=== PATIENT | female | born 1960 | race Caucasian/White ===

== ENCOUNTER 2020-06-28 08:56 | Day surgery (SDC) | payer BC, SELFPAY ==
[2020-06-21 15:30] VITALS: BMI 30.9
--- NOTE | 2020-06-22 14:36 | HO.ANESPROP2 ---
Documented by User: Marsha Hines 06/27/20 09:08 HPI - Anesthesia Eval Consult details Narrative: 59yo F for Colonoscopy PMFSH Past Medical History Medical History Coronary artery disease Fatty liver Hypercholesterolemia Hypertension Hypothyroid Impaired glucose tolerance Lab test negative for COVID-19 virus Obesity (BMI 30-39.9) Family History Family History Father HTN (hypertension) Diabetes mellitus Mother No problems noted. Surgical History Surgical History History of back surgery History of cholecystectomy History of removal of cyst History of total abdominal hysterectomy Hx of arthroscopic knee surgery Social History Social History Alcohol intake: current Smoking Status: Never smoker Use of substances other than those prescribed or required for medical reasons: No Advance Directives Information Provided: No Recently lost weight without trying: No Meds Allergies Allergy/AdvReac Type Severity Reaction Status Date / Time isosorbide [From Imdur] Allergy Intermediate Headache Verified 06/21/20 14:13 lisinopril Allergy Intermediate CLAIRE-I Cough Verified 06/21/20 14:13 nifedipine [From ADALAT] Allergy Intermediate VISUAL Verified 06/21/20 14:13 DISTURBANCE valsartan Allergy Intermediate DIZZINESS Verified 06/21/20 14:13 Home Medications Medication Instructions Recorded Confirmed Type aspirin 81 mg tablet,delayed 81 mg PO DAILY 04/13/20 06/21/20 History release cyanocobalamin (vitamin B-12) 1,000 mcg PO DAILY 04/13/20 06/21/20 History 1,000 mcg capsule atenolol 25 mg PO DAILY 06/21/20 06/21/20 History losartan 25 mg PO BID 06/21/20 06/21/20 History Exam Exam Date and Time: June 22, 2020 1436 Height,Weight and Vital Signs: Height 5 ft 4 in Weight 81.647 kg Narrative Narrative: Cath 07/2019: No evidence of obstructive CAD EKG 04/2020: NSR @71, Nonspecific ST and T wave abn ECHO 2019: EF 60-65%, mild increased LV wall thickness; impared relax; mod septal asymm hypertrophy without any clear obstructive pathology; normal valves; normal RV systolic pressure; No pericardial effusion Assessment and Plan Assessment Anesthesia Assessment: Chart Reviewed Documented by User: Jose D Cherry 06/28/20 09:15 PMFSH Past Medical History Medical History Coronary artery disease Fatty liver Hypercholesterolemia Hypertension Hypothyroid Impaired glucose tolerance Lab test negative for COVID-19 virus Obesity (BMI 30-39.9) Family History Family History Father HTN (hypertension) Diabetes mellitus Mother No problems noted. Surgical History Surgical History History of back surgery History of cholecystectomy History of removal of cyst History of total abdominal hysterectomy Hx of arthroscopic knee surgery Social History Social History Alcohol intake: current Smoking Status: Never smoker Use of substances other than those prescribed or required for medical reasons: No Advance Directives Information Provided: No Recently lost weight without trying: No Meds Allergies Allergy/AdvReac Type Severity Reaction Status Date / Time isosorbide [From Imdur] Allergy Intermediate Headache Verified 06/21/20 14:13 lisinopril Allergy Intermediate CLAIRE-I Cough Verified 06/21/20 14:13 nifedipine [From ADALAT] Allergy Intermediate VISUAL Verified 06/21/20 14:13 DISTURBANCE valsartan Allergy Intermediate DIZZINESS Verified 06/21/20 14:13 Home Medications Medication Instructions Recorded Confirmed Type aspirin 81 mg tablet,delayed 81 mg PO DAILY 04/13/20 06/21/20 History release cyanocobalamin (vitamin B-12) 1,000 mcg PO DAILY 04/13/20 06/21/20 History 1,000 mcg capsule atenolol 25 mg PO DAILY 06/21/20 06/21/20 History losartan 25 mg PO BID 06/21/20 06/21/20 History Exam Airway Mallampati Class: II TM Dist: >3cm Neck ROM: Full
[2020-06-28 09:30] VITALS: BP 158/89; PULSE 58; RESP 16; TEMP 36.2; O2SAT 97
[2020-06-28] MEDS: Lactated Ringers 1,000 ML 100 ML IVCONT (09:36)
--- NOTE | 2020-06-28 10:34 | W.PM.OPN ---
Operative Note Operative Note Date of Service: 06/28/20 Narrative: Pre-op diagnosis: Colon cancer screening Post-op diagnosis: other (Polyps, diverticulosis, hemorrhoids) Procedure: COLONOSCOPY TILL CECUM WITH BIOPSIES Consent: Indications for the procedure and potential complications of bleeding, perforation, reaction to medications and missed diagnosis were discussed with the patient and informed consent was obtained. Instrument: Olympus PCF H 190 L variable stiffness pediatric colonoscope Monitoring: Vital signs and clinical assessment, intermittent blood pressure monitoring, continuous EKG monitoring, Pulse oximetry and Carbon Dioxide monitoring were done throughout the procedure. Colon withdrawl time was 16 minutes. Procedure: The patient was placed in the left lateral decubitis position and pre-procedure medications were administered. After a digital rectal examination of the ano-rectum, the video colonoscope was inserted into the rectum and advanced through the colon to the cecum. The colonoscope was slowly withdrawn in a retrograde panoramic fashion and the colon mucosa was carefully examined including a retroflexed view of the rectum. Findings and interventions are described below. Procedure Difficulty: Without difficulty Findings: Terminal Ileum: Not evaluated Cecum: Normal Ascending Colon: ? 4-5 mm polyp versus fold in proximal AC - biopsied. Transverse Colon: Normal Descending Colon: Moderate diverticulosis Sigmoid Colon: Moderate diverticulosis Rectum: A 3-4 mm diminutive appearing polyp - removed by cold biopsy Ano-rectum: Moderate internal hemorrhoids and perianal skin tags Colon preparation: Excellent Impression and Post Procedure Diagnosis: Colonoscopy Findings: One tiny polyp removed ? polyp versus fold was biopsied in the AC. Moderate diverticulosis seen in the left colon Moderate hemorrhoids on retroflexed exam. Plan: Await pathology results Patient has an appointment on 07/12/20 in the GI Clinic with ROULA Pizarro. Repeat Colonoscopy interval based on path results - in 5 years if polyps are adenomatous and 10 years if polyps are hyperplastic. Above findings were reviewed with the patient and colon polyps and diverticulosis handouts were given in the discharge area Surgeon: De King MD Anesthesia: MAC (Jessica Kam CRNA ) Estimated blood loss (mL): 0 Pathology: other (A. AC polyp versus fold, B. Rectal polyp x 1) Condition: stable Disposition: PACU
--- NOTE | 2020-06-28 10:34 | MHC.SHP ---
Pre-Procedural Eval Section A The patient is an INPATIENT: No The History & Physical has been completed within 30 days and I have reviewed it.: No Section B Chief Complaint: Screening Details of Present Illness: Colon cancer screening Relevant Family History (Specify if Yes): No Relevant Social History: None Present Medications: see Short Stay Collaborative assessment Medical History: Significant History (Hypertension. Hypercholesterolemia. Hypothyroidism. Seasonal allergies. Microscopic hematuria. ) History of Previous Operations: Relevant previous surgery/procedure and date(s) (hysterectomy back surgery gall bladder cyst removal;right knee ) Allergies: Allergies Allergy/AdvReac Type Severity Reaction Status Date / Time isosorbide [From Imdur] Allergy Intermediate Headache Verified 06/21/20 14:13 lisinopril Allergy Intermediate CLAIRE-I Cough Verified 06/21/20 14:13 nifedipine [From ADALAT] Allergy Intermediate VISUAL Verified 06/21/20 14:13 DISTURBANCE valsartan Allergy Intermediate DIZZINESS Verified 06/21/20 14:13 Review of Systems Sugical H&P ROS: Negative: Constitution, Cardiovascular, Respiratory and Gastrointestinal Exam Surgical H&P Exam: Normal: Heart, Normal: Lungs, Normal: Extremities and Normal: Abdomen Plan Diagnosis/Plan: Unchanged I have reviewed the history and physical and performed a pertinent physical examination on my patient. No changes have occurred unless specified.
[2020-06-28 11:12] VITALS: BP 135/66; PULSE 60; RESP 16; TEMP 36.9; O2SAT 97
[2020-06-28 11:25] VITALS: BP 135/70; PULSE 66; RESP 16; TEMP 36.9; O2SAT 97
--- NOTE | 2020-06-28 11:37 | HO.POSTANES ---
Post Anesthesia Evaluation Post Anesthesia Evaluation Vital Signs: Vital Signs Temp Pulse Resp BP Pulse Ox 06/28/20 11:25 98.5 F 66 16 135/70 97 06/28/20 11:12 98.5 F 60 16 135/66 97 06/28/20 09:30 97.2 F 58 16 158/89 H 97 Anesthesia: Monitored Mental Status: Awake Pain Control: Satisfactory Nausea/Vomiting: None Hydration: Adequate Anesthesia-Related Issues: No Anes. Related Issues
== END 2020-06-28 11:41 | disposition home or self-care (01) ==
PROVIDERS: PCP Internal Medicine; Visit Provider Internal Medicine Gastroenterology
PROC: 0DJD8ZZ Inspection of Lower Intestinal Tract, Via Natural or Artificial Opening Endoscopic (ICD-10-PCS; CPT 45378; principal; 2020-06-28 10:30)
DX: Z12.11 Encounter for screening for malignant neoplasm of colon (principal); K63.5 Polyp of colon; K62.1 Rectal polyp; K57.30 Diverticulosis of large intestine without perforation or abscess without bleeding; K64.8 Other hemorrhoids; I10 Essential (primary) hypertension; I20.8 Other forms of angina pectoris; E78.00 Pure hypercholesterolemia, unspecified; Z79.899 Other long term (current) drug therapy
CPT/HCPCS: 45380; 88305

== ENCOUNTER → 2020-07-12 09:46 | Outpatient (BNVA) | payer BC, SELFPAY | PROVIDERS: Visit Provider Physician Assistant | DX: Z76.89 Persons encountering health services in other specified circumstances (principal) ==

== ENCOUNTER 2020-07-15 09:56 | Outpatient (REF) | payer BC, SELFPAY ==
[2020-07-15 11:24] LABS: Alanine Aminotransferase 30 U/L (0-31); Albumin Level 4.4 g/dL (3.5-5.0); Alkaline Phosphatase 62 U/L (39-117); Anion Gap 15 (12-20); Aspartate Amino Transferase 22 U/L (5-31); Bilirubin Total 1.3 mg/dL (0.0-1.0); Blood Urea Nitrogen 12 mg/dL (9-16); Carbon Dioxide 25 mmol/L (22-29); Chloride 105 mmol/L (96-108); Cholesterol 257 mg/dL; Estimated Glomerular Filt Rate > 60; Glucose Random 110 mg/dL (60-115); HDL Cholesterol 48 mg/dL; LDL Cholesterol Calculated 176 mg/dl; Potassium 4.8 mmol/l (3.3-5.1); Sodium 140 mmol/L (135-145); Total Protein 7.5 g/dL (6.5-8.0); Triglycerides 168 mg/dL
[2020-07-15 11:39] LABS: Free T4 (Free Thyroxine) 0.96 ng/dL (0.71-1.85)
== END 2020-07-15 09:57 | disposition home or self-care (01) ==
LOC: HO.LAB 09:56
PROVIDERS: PCP Internal Medicine; Visit Provider Internal Medicine
DX: R73.02 Impaired glucose tolerance (oral) (principal); E03.9 Hypothyroidism, unspecified; E78.00 Pure hypercholesterolemia, unspecified
CPT/HCPCS: 36415; 80053; 80061; 84439; 84443

== ENCOUNTER 2020-10-25 08:35 | Outpatient (REF) | payer BC, SELFPAY ==
[2020-10-25 09:17] LABS: MANUAL DIFF FLAG NO
[2020-10-25 09:21] LABS: Basophils Percent Auto 0.2 % (0-2); Eosinophils Absolute Auto 0.1 X10*3/uL (0.0-0.4); Eosinophils Percent Auto 2.3 % (0-4); Hematocrit 43.9 % (37-47); Imm Gran Abs Auto 0.01 X10*3/uL (0.00-0.03); Imm Gran Pct Auto 0.2 % (0.0-0.4); Lymphocytes Absolute Auto 3.2 X10*3/uL (1.2-4.9); Lymphocytes Percent Auto 51.2 % (20-40); Mean Corpuscular HGB Conc 31.9 g/dl (31.0-35.0); Mean Corpuscular Hemoglobin 29.2 pg (27.0-33.0); Mean Corpuscular Volume 91.5 fL (80-98); Mean Platelet Volume 10.9 fL (9.4-12.3); Monocytes Absolute Auto 0.6 X10*3/uL (0.1-1.2); Monocytes Percent Auto 9.1 % (2-11); Neutrophils Absolute Auto 2.3 X10*3/uL (2.0-8.3); Platelet Count 298 X10*3/uL (160-400); Red Cell Distribution Width 12.7 % (11.0-16.0); White Blood Count 6.2 X10*3/uL (4.8-10.8)
[2020-10-25 09:41] LABS: Alanine Aminotransferase 22 U/L (0-31); Albumin Level 4.5 g/dL (3.5-5.0); Alkaline Phosphatase 59 U/L (39-117); Anion Gap 11 (12-20); Aspartate Amino Transferase 20 U/L (5-31); Bilirubin Total 1.4 mg/dL (0.0-1.0); Blood Urea Nitrogen 11 mg/dL (9-16); Carbon Dioxide 27 mmol/L (22-29); Chloride 106 mmol/L (96-108); Cholesterol 167 mg/dL; Estimated Glomerular Filt Rate > 60; Glucose Random 116 mg/dL (60-115); HDL Cholesterol 47 mg/dL; LDL Cholesterol Calculated 100 mg/dl; Potassium 4.4 mmol/L (3.3-5.1); Sodium 140 mmol/L (135-145); Total Protein 7.4 g/dL (6.5-8.0); Triglycerides 104 mg/dL
[2020-10-25 10:02] LABS: Free T4 (Free Thyroxine) 1.07 ng/dL (0.71-1.85); Thyroid Stimulating Hormone 1.97 uIU/mL (0.32-4.0)
== END 2020-10-25 08:36 | disposition home or self-care (01) ==
LOC: HO.LAB 08:35
PROVIDERS: PCP Internal Medicine; Visit Provider Internal Medicine
DX: E78.00 Pure hypercholesterolemia, unspecified (principal); E03.9 Hypothyroidism, unspecified
CPT/HCPCS: 36415; 80053; 80061; 84439; 84443; 85025

== ENCOUNTER 2021-01-04 06:23 | Outpatient (REF) | payer BC, SELFPAY ==
--- NOTE | ~2021-01-04 | XR_ITS ---
EXAMINATION: X-RAY BILATERAL KNEES X-RAY RIGHT KNEE CLINICAL INFORMATION: Knee pain. COMPARISON: None TECHNIQUE: Bilateral knees one view. Right knee 2 views. FINDINGS: Right knee: Mild medial and lateral compartment arthritis with mild joint space loss. Chondrocalcinosis/loose bodies within the joint. No fracture or dislocation. No significant effusion. Left knee: Mild medial compartment joint space narrowing. XR/XR knee RT 2V IMPRESSION: Right knee: Mild medial and lateral compartment arthritis. Chondrocalcinosis/loose bodies. Left knee: Mild medial compartment arthritis.
--- NOTE | ~2021-01-04 | XR_ITS ---
EXAMINATION: X-RAY BILATERAL KNEES X-RAY RIGHT KNEE CLINICAL INFORMATION: Knee pain. COMPARISON: None TECHNIQUE: Bilateral knees one view. Right knee 2 views. FINDINGS: Right knee: Mild medial and lateral compartment arthritis with mild joint space loss. Chondrocalcinosis/loose bodies within the joint. No fracture or dislocation. No significant effusion. Left knee: Mild medial compartment joint space narrowing. XR/XR knee standing BI IMPRESSION: Right knee: Mild medial and lateral compartment arthritis. Chondrocalcinosis/loose bodies. Left knee: Mild medial compartment arthritis.
== END 2021-01-04 06:24 | disposition home or self-care (01) ==
LOC: HO.HOSX 06:23
PROVIDERS: Visit Provider Orthopaedic Surgery
DX: S83.231A Complex tear of medial meniscus, current injury, right knee, initial encounter (principal); M11.261 Other chondrocalcinosis, right knee; M25.562 Pain in left knee
CPT/HCPCS: 73560; 73565

== ENCOUNTER → 2021-01-26 06:07 | Day surgery (SDC) | payer BC, SELFPAY ==
[2021-01-19 13:44] VITALS: BMI 30.9
--- NOTE | 2021-01-25 08:20 | HO.ANESPROP2 ---
Documented by User: Marsha Hines 01/25/21 08:24 HPI - Anesthesia Eval Consult details Narrative: 60yo F for Right Knee Arthroscopy *Multiple Med Allergies* PMFSH Active Problems Active Problems: All Active Problems (Updated 01/04/21 @ 10:03 by Melo Baig MD) Diverticulosis (Acute) Hyperplastic polyp of sigmoid colon (Acute) Complex tear of medial meniscus of right knee (Acute) Chondrocalcinosis of right knee (Acute) History of back surgery (Acute) Coronary artery disease (Acute) Impaired glucose tolerance (Acute) Obesity (BMI 30-39.9) (Acute) Hypothyroid (Acute) Hypercholesterolemia (Acute) Hypertension (Acute) Past Medical History Medical History Coronary artery disease Fatty liver Hypercholesterolemia Hypertension Hypothyroid Impaired glucose tolerance Lab test negative for COVID-19 virus Obesity (BMI 30-39.9) Family History Family History Father HTN (hypertension) Diabetes mellitus Mother No problems noted. Surgical History Surgical History H/O colonoscopy History of back surgery History of cholecystectomy History of mammogram History of removal of cyst History of total abdominal hysterectomy Hx of arthroscopic knee surgery Social History Social History Alcohol intake: current Alcohol intake frequency: holidays/special occasions only Patient Tobacco Use Status: Never used Tobacco Use of substances other than those prescribed or required for medical reasons: No Are you DNR?: No Advance Directives: No Advance Directives Information Provided: Yes Current occupational status: retired Meds Allergies Allergy/AdvReac Type Severity Reaction Status Date / Time isosorbide [From Imdur] Allergy Intermediate Headache Verified 01/26/21 06:25 lisinopril Allergy Intermediate CLAIRE-I Cough Verified 01/26/21 06:25 nifedipine [From ADALAT] Allergy Intermediate VISUAL Verified 01/26/21 06:25 DISTURBANCE valsartan Allergy Intermediate DIZZINESS Verified 01/26/21 06:25 atorvastatin AdvReac Intermediate memory loss Verified 01/26/21 06:25 nebivolol [From Bystolic] AdvReac Mild dizzy Verified 01/26/21 06:25 Home Medications Medication Instructions Recorded Confirmed Last Taken Type aspirin 81 mg tablet,delayed 81 mg PO DAILY 04/13/20 01/19/21 01/19/21 History release cyanocobalamin (vitamin B-12) 1,000 mcg PO DAILY 04/13/20 01/19/21 Unknown History 1,000 mcg capsule Exam Exam Date and Time: January 25, 2021 0820 Height,Weight and Vital Signs: Height 5 ft 4 in Weight 81.647 kg Pertinent Lab Results Pertinent Lab Results: Laboratory Tests 10/25/20 10/25/20 08:45 08:45 WBC 6.2 Hgb 14.0 Hct 43.9 Plt Count 298 Sodium 140 Potassium 4.4 Chloride 106 Carbon Dioxide 27 BUN 11 Creatinine 0.63 Narrative Narrative: Cath 07/2019: No evidence of obstructive CAD EKG 04/2020: NSR @71, Nonspecific ST and T wave abn ECHO 2019: EF 60-65%, mild increased LV wall thickness; impared relax; mod septal asymm hypertrophy without any clear obstructive pathology; normal valves; normal RV systolic pressure; No pericardial effusion Assessment and Plan Assessment Anesthesia Assessment: Chart Reviewed Documented by User: Jared Edwards MD 01/26/21 07:51 [facility] Past Medical History Medical History Coronary artery disease Fatty liver Hypercholesterolemia Hypertension Hypothyroid Impaired glucose tolerance Lab test negative for COVID-19 virus Obesity (BMI 30-39.9) Family History Family History Father HTN (hypertension) Diabetes mellitus Mother No problems noted. Surgical History Surgical History H/O colonoscopy History of back surgery History of cholecystectomy History of mammogram History of removal of cyst History of total abdominal hysterectomy Hx of arthroscopic knee surgery Social History Social History Alcohol intake: current Alcohol intake frequency: holidays/special occasions only Patient Tobacco Use Status: Never used Tobacco Use of substances other than those prescribed or required for medical reasons: No Are you DNR?: No Advance Directives: No Advance Directives Information Provided: Yes Current occupational status: retired Meds Allergies Allergy/AdvReac Type Severity Reaction Status Date / Time isosorbide [From Imdur] Allergy Intermediate Headache Verified 01/26/21 06:25 lisinopril Allergy Intermediate CLAIRE-I Cough Verified 01/26/21 06:25 nifedipine [From ADALAT] Allergy Intermediate VISUAL Verified 01/26/21 06:25 DISTURBANCE valsartan Allergy Intermediate DIZZINESS Verified 01/26/21 06:25 atorvastatin AdvReac Intermediate memory loss Verified 01/26/21 06:25 nebivolol [From Bystolic] AdvReac Mild dizzy Verified 01/26/21 06:25 Home Medications Medication Instructions Recorded Confirmed Last Taken Type aspirin 81 mg tablet,delayed 81 mg PO DAILY 04/13/20 01/19/21 01/19/21 History release cyanocobalamin (vitamin B-12) 1,000 mcg PO DAILY 04/13/20 01/19/21 Unknown History 1,000 mcg capsule Exam Airway Mallampati Class: III TM Dist: >3cm Neck ROM: Full Loose/Missing/Broken Teeth: No Heart: RRR Lungs: NL Assessment and Plan Assessment Anesthesia Assessment: Anesthesia Plan Discussed and Chart Reviewed Final Anesthetic Review NPO: Yes ASA Class: III Final Preanesthetic Review: No Changes in Pt Med Stat, Meds/Allgs Chart Reviewed, Consent Obtained/Reviewed and Anes Risks/Benef Reviewed Patient Risk: Intermediate Procedure Risk: Low Anesthetic Plan Anesthetic Plan: GA Disposition: Standard PACU
[2021-01-26] VITALS (8 sets, daily range): BP systolic 132–151; BP diastolic 63–100; PULSE 58–72; RESP 14–18; TEMP 36.2–36.7; O2SAT 95–98; BMI 31.0
[2021-01-26] MEDS: Lactated Ringers 1,000 ML 100 ML IVCONT (06:41)
--- NOTE | 2021-01-26 07:40 | MHC.SHP ---
Pre-Procedural Eval Section A Date of Service: 01/26/21 The patient is an INPATIENT: No Changes since office visit: No Cold of Flu in the past 2 weeks, No New Medical Problems, No Changes in Medication and No Patient answered all questions The History & Physical has been completed within 30 days and I have reviewed it.: Yes Section B Chief Complaint: medial meniscus tear Allergies: Allergies Allergy/AdvReac Type Severity Reaction Status Date / Time isosorbide [From Imdur] Allergy Intermediate Headache Verified 01/26/21 06:25 lisinopril Allergy Intermediate CLAIRE-I Cough Verified 01/26/21 06:25 nifedipine [From ADALAT] Allergy Intermediate VISUAL Verified 01/26/21 06:25 DISTURBANCE valsartan Allergy Intermediate DIZZINESS Verified 01/26/21 06:25 atorvastatin AdvReac Intermediate memory loss Verified 01/26/21 06:25 nebivolol [From Bystolic] AdvReac Mild dizzy Verified 01/26/21 06:25 Plan I have reviewed the history and physical and performed a pertinent physical examination on my patient. No changes have occurred unless specified.
--- NOTE | 2021-01-26 08:25 | P.OP_ITS ---
Operative Note Operative Note Date of Service: 01/26/21 Narrative: ARTHROSCOPIC SURGERY NOTE SURGEON: Dr Alejo (Jenna) Instrum OPERATIONS MANAGEMENT TRAINEE: Corina DURON PREOP DIAGNOSIS: Medial meniscal tear right knee POSTOP DIAGNOSIS: Medial meniscal and lateral meniscal tears right knee with grade 2-3 injury medial femoral condyle right knee OPERATIVE PROCEDURE: Partial medial and lateral meniscectomies right knee CLINICAL NOTE: This very pleasant lady has had ongoing problems with pain discomfort her involving the medial side of her knee after subsequent investigations it was confirmed that she had a medial meniscal tear and therefore after explaining the risks, benefits, and alternatives of the surgery it was mutually agreed upon to carry out the following procedure MOTION: Full range of motion STABILITY: Cruciate and collateral ligaments intact OPERATIVE DETAILS PREPARATION: GA, STANDARD TECHNIQUE, tourniquet E to 300 mm of mercury for 19 minutes SURGICAL TIME-OUT: Patient identified; procedure confirmed; site confirmed. Medical and allergy history reviewed. No preoperative antibiotics. No DVT prophylaxis. All other items discussed and agreed upon. INCISIONS: Superolateral, inferolateral, inferomedial stab incisions SYNOVIUM: Normal SYNOVIAL FLUID: Clear MEDIAL COMPARTMENT: There was complex tearing of posterior horn extending to the junction of the middle horn of the meniscus. This was resected using a combination of handheld cutters and power shaver to stable meniscus. The medial femoral condyle showed a wide area of grade 2-3 injury. This was debrided of loose articular cartilage. There was grade 2 softening on the tibial articular surface INTERCONDYLAR NOTCH: ACL visualized palpated intact PCL palpated intact LATERAL COMPARTMENT: There was horizontal cleavage tear with degeneration of the lateral meniscus from the junction of the posterior and middle horn all the way to the anterior horn. The undersurface portion was resected and then the rest was contoured using a combination of handheld cutters and power shaver. The tibial and femoral articular surfaces and the popliteus tendon were stable and intact. ANTERIOR COMPARTMENT: Medial and lateral gutters were clear. Superior patellar pouch was clear. The patella femoral sulcus articular surfaces were intact. CLOSURE: 30 cc of 0.25% Marcaine with epinephrine injected in the knee. Steri- Strips and sterile dressing then applied. RECOMMENDATIONS: 1)Restore motion strength 2)Resume activities as tolerated 3)Discharge today with prescription for analgesic 4)Follow up in the office in 10-14 days
[2021-01-26] MEDS: Ketorolac Tromethamine 15 MG/ML VIAL IVPUSH (08:45)
== END | disposition home or self-care (01) ==
PROVIDERS: PCP Internal Medicine; Visit Provider Orthopaedic Surgery
PROC: (CPT 29870; principal; 2021-01-26 07:30)
DX: S83.231A Complex tear of medial meniscus, current injury, right knee, initial encounter (principal); S83.281A Other tear of lateral meniscus, current injury, right knee, initial encounter; M11.261 Other chondrocalcinosis, right knee; X58.XXXA Exposure to other specified factors, initial encounter; Y93.9 Activity, unspecified; Y92.9 Unspecified place or not applicable; Y99.8 Other external cause status; I10 Essential (primary) hypertension; Z79.82 Long term (current) use of aspirin; Z79.899 Other long term (current) drug therapy; Z88.8 Allergy status to other drugs, medicaments and biological substances
CPT/HCPCS: 29881; J0131; J0171; J1100; J1885; J2250; J2405; J3010

== ENCOUNTER 2021-01-31 19:26 | Emergency (ER) | payer BC, SELFPAY ==
--- NOTE | ~2021-01-31 | US_ITS ---
EXAMINATION: RIGHT LOWER EXTREMITY DEEP VENOUS ULTRASOUND CLINICAL INFORMATION: Right lower extremity pain and swelling status post right knee surgery. COMPARISON: None. TECHNIQUE: Duplex Doppler imaging with compression maneuvers were performed of the right lower extremity deep venous system. FINDINGS: The visualized common femoral, femoral and popliteal veins demonstrate normal compressibility and color flow without evidence of venous thrombosis. Visualized portions of the calf veins demonstrate normal color fill-in suggesting patency. There is no evidence of a Thomas's cyst. US/US venous duplex LE RT IMPRESSION: No evidence of deep venous thrombosis involving the right lower extremity.
--- NOTE | ~2021-01-31 | XR_ITS ---
EXAMINATION: XR KNEE, RIGHT CLINICAL INFORMATION: Status post right knee surgery. Pain, swelling, discoloration. COMPARISON: Knee radiographs dated 01/04/2021. TECHNIQUE: AP and lateral views of the right knee. FINDINGS: Mild medial compartment joint space narrowing. Tiny tricompartmental marginal osteophytes. Medial and lateral compartment chondrocalcinosis. Small joint effusion. No abnormal soft tissue calcification. No fracture or dislocation. XR/XR knee RT 2V IMPRESSION: 1. Small joint effusion, new when compared to the prior examination. 2. Mild tricompartmental osteoarthritis with medial and lateral compartment chondrocalcinosis, unchanged.
[2021-01-31 20:02] VITALS: BP 174/70; PULSE 62; RESP 18; TEMP 36.5; O2SAT 94; BMI 29.9
--- NOTE | 2021-01-31 22:06 | ED_ITS ---
HPI - Extremity Problem General Chief complaint: Extremity Problem Stated complaint: knee pain Time Seen by Provider: 01/31/21 21:53 Source: patient Mode of arrival: ambulatory History of Present Illness HPI Narrative: This is a 60-year-old female who presents postop day 5 from having a right knee arthroscopic repair of medial meniscus and presents with complaints of knee pain and noted bruising as well as pain into her right lower calf. Otherwise, patient denies any fevers, palpitations, shortness of breath. Related Data Home Medications Medication Instructions Recorded Confirmed aspirin 81 mg tablet,delayed 81 mg PO DAILY 04/13/20 01/19/21 release cyanocobalamin (vitamin B-12) 1,000 mcg PO DAILY 04/13/20 01/19/21 1,000 mcg capsule Previous Rx's Medication Instructions Recorded atenolol 25 mg tablet 25 mg PO DAILY #90 tab 07/26/20 losartan 25 mg tablet 25 mg PO BID #60 tab 09/19/20 levothyroxine 50 mcg tablet 50 mcg PO DAILY #30 tab 10/19/20 rosuvastatin 5 mg tablet 5 mg PO DAILY 90 Days #90 tab 11/16/20 acetaminophen-codeine 1 tab PO Q4-6H PRN 7 Days #20 tab 01/26/21 Allergies Allergy/AdvReac Type Severity Reaction Status Date / Time nifedipine [From ADALAT] Allergy Severe Chest Pain Verified 01/31/21 20:08 isosorbide [From Imdur] Allergy Intermediate Headache Verified 01/31/21 20:08 lisinopril Allergy Intermediate VIVEK-I Cough Verified 01/31/21 20:08 valsartan Allergy Intermediate DIZZINESS Verified 01/31/21 20:08 atorvastatin AdvReac Intermediate memory loss Verified 01/31/21 20:08 nebivolol [From Bystolic] AdvReac Mild dizzy Verified 01/31/21 20:08 Review of Systems Review of Systems: Pertinent positives and negatives as stated in HPI 10 point review of systems is otherwise negative. [facility] Past Medical History Source: nursing notes reviewed Medical History Coronary artery disease Fatty liver Hypercholesterolemia Hypertension Hypothyroid Impaired glucose tolerance Lab test negative for COVID-19 virus Obesity (BMI 30-39.9) Surgical History H/O colonoscopy History of back surgery History of cholecystectomy History of mammogram History of removal of cyst History of total abdominal hysterectomy Hx of arthroscopic knee surgery S/P knee surgery Family History Family History Father HTN (hypertension) Diabetes mellitus Mother No problems noted. Social History Social History Alcohol intake: current Alcohol intake frequency: holidays/special occasions only Patient Tobacco Use Status: Never used Tobacco Advance Directives: No Advance Directives Information Provided: Yes Patient : No Current occupational status: retired Physical Exam Vital Signs: Vital Signs: Last Vital Signs Temp 97.7 F 01/31/21 20:02 Pulse 62 01/31/21 20:02 Resp 18 01/31/21 20:02 BP 174/70 H 01/31/21 20:02 Pulse Ox 94 01/31/21 20:02 Body Mass Index 29.9 VITAL SIGNS: Reviewed. GENERAL: Well developed, well nourished, in no acute distress. HEAD: Normocephalic/atraumatic EYES: PERRLA, EOMI EARS: Ext canals without abnormality OROPHARYNX: no oral lesions noted, posterior pharynx clear LUNGS: Normal breath sounds. No adventitious sounds or accessory muscle use. SpO2<94> CARDIOVASCULAR: Regular rate and rhythm without noted murmurs, no JVD or lower extremity edema. ABDOMEN: Soft, non-tender, non-distended with bowel sounds. RIGHT LOWER EXTREMITY: Mild ecchymosis surrounding right knee with mild swelling that is nonpitting, distal pulses are palpable with warm foot and capillary refill less than 3 seconds, sensation is intact, mild bruising noted to right lower calf SKIN: Inspection of the skin reveals no rashes, see description above NEUROLOGIC: Alert and oriented x 4. Strength and sensation to light touch were grossly intact x 4. Course Course Course Narrative: 60-year-old female with history and clinical presentation consistent with what appears to be normal healing pattern after describes surgery. Review of all investigations negative for evidence of DVT or acute joint findings on x-ray. Although there is a small if fusion this is likely to be expected. Explained to the patient that we will apply an Vivek wrap bandage to the area as this will provide additional support via compression and she was encouraged to follow-up with Dr. Baig in the next 1-2 days if she remained concerned.. Discharge Plan Discharge Clinical Impression: Knee pain, right Patient Disposition: Home, Self-Care Instructions: Knee Pain (ED) Additional Instructions: 1. Resume all home medications as prescribed. The recommended pain medication you have currently prescribed is appropriate for your visit today. 2. Keep Vivek wrap in place when walking to provide additional support via compression. Otherwise, remove the Vivek bandage when sitting or at night while in bed. Return to the ER for any worsening of symptoms. Prescriptions: No Action losartan 25 mg tablet 25 mg PO BID Qty: 60 RF: 5 levothyroxine 50 mcg tablet 50 mcg PO DAILY Qty: 30 RF: 5 rosuvastatin 5 mg tablet 5 mg PO DAILY 90 Days Qty: 90 RF: 1 acetaminophen-codeine 300-30 mg tablet 1 tab PO Q4-6H PRN (Reason: pain) 7 Days Qty: 20 RF: 0 aspirin [Adult Aspirin Regimen] 81 mg tablet,delayed release (DR/EC) 81 mg PO DAILY RF: 0 cyanocobalamin (vitamin B-12) 1,000 mcg capsule 1,000 mcg PO DAILY RF: 0 atenolol 25 mg tablet 25 mg PO DAILY Qty: 90 RF: 1 Referrals: Luis,Jj Lechuga MD [Primary Care Provider] - 2 days Melo Baig MD [Physician] - 2 days
== END 2021-01-31 22:28 | disposition home or self-care (01) ==
PROVIDERS: Emergency Provider Student in an Organized Health Care Education/Training Program; PCP Internal Medicine
DX: M25.561 Pain in right knee (principal); M79.661 Pain in right lower leg; R22.41 Localized swelling, mass and lump, right lower limb; I10 Essential (primary) hypertension; E66.9 Obesity, unspecified; Z68.30 Body mass index [BMI] 30.0-30.9, adult
CPT/HCPCS: 73560; 93971; 99283; 99284

== ENCOUNTER → 2021-02-02 13:00 | Outpatient (BNVA) | payer BC, SELFPAY | PROVIDERS: Visit Provider Physician Assistant ==

== ENCOUNTER → 2021-02-07 08:46 | Outpatient (BNVA) | payer BC, SELFPAY | PROVIDERS: Visit Provider Physician Assistant ==

== ENCOUNTER → 2021-02-28 09:32 | Outpatient (BNVA) | payer BC, SELFPAY | PROVIDERS: Visit Provider Physician Assistant ==

== ENCOUNTER 2021-06-20 09:21 | Outpatient (REF) | payer BC, SELFPAY ==
[2021-06-20 10:33] LABS: Alanine Aminotransferase 20 U/L (0-31); Albumin Level 4.4 g/dL (3.5-5.0); Alkaline Phosphatase 73 U/L (39-117); Anion Gap 13 (12-20); Aspartate Amino Transferase 20 U/L (5-31); Bilirubin Total 1.1 mg/dL (0.0-1.0); Blood Urea Nitrogen 16 mg/dL (9-16); Calcium 10.5 mg/dL (8.4-10.2); Carbon Dioxide 26 mmol/L (22-29); Chloride 104 mmol/L (96-108); Cholesterol 187 mg/dL; Estimated Glomerular Filt Rate > 60; Glucose Random 105 mg/dL (60-115); HDL Cholesterol 47 mg/dL; LDL Cholesterol Calculated 116 mg/dl; Potassium 4.8 mmol/L (3.3-5.1); Sodium 138 mmol/L (135-145); Total Protein 7.4 g/dL (6.5-8.0); Triglycerides 122 mg/dL
[2021-06-20 10:52] LABS: Free T4 (Free Thyroxine) 0.97 ng/dL (0.71-1.85); Thyroid Stimulating Hormone 2.42 uIU/mL (0.32-4.0)
[2021-06-20 10:53] LABS: Estimated Average Glucose 123 mg/dL; Hemoglobin A1c % 5.9 %
== END 2021-06-20 09:22 | disposition home or self-care (01) ==
LOC: HO.LAB 09:21
PROVIDERS: PCP Internal Medicine; Visit Provider Internal Medicine
DX: I25.10 Atherosclerotic heart disease of native coronary artery without angina pectoris (principal); E03.9 Hypothyroidism, unspecified; E78.00 Pure hypercholesterolemia, unspecified
CPT/HCPCS: 36415; 80053; 80061; 83036; 84439; 84443

== ENCOUNTER 2021-06-20 11:29 | Outpatient (REF) | payer BC, SELFPAY ==
--- NOTE | ~2021-06-20 | MM_ITS ---
EXAMINATION: MM SCREENING DIGITAL BREAST TOMOSYNTHESIS, BILATERAL CLINICAL INFORMATION: Screening. Asymptomatic. The lifetime risk of breast cancer based on the Tyrer-Cuzick Model is 6%. COMPARISON: Mammography: 05/11/2019 (new baseline) TECHNIQUE: Digital breast tomosynthesis is performed in both the craniocaudal and mediolateral oblique views along with computer-aided detection (CAD). Synthesized 2D images are generated from the tomosynthesis. FINDINGS: There are scattered areas of fibroglandular density (ACR BI-RADS breast composition Category b). There are no significant masses, abnormal calcifications, or other abnormalities. Parenchymal pattern is similar to new baseline exam. No significant changes. The axilla and skin contours are unremarkable. MM/MM tomosynthesis screening BI IMPRESSION: No mammographic evidence of malignancy. ASSESSMENT: BI-RADS 2: Benign RECOMMENDATION: Routine annual mammography screening. This patient's information was entered into a reminder system with a target due date for their next mammogram.
== END 2021-06-20 11:30 | disposition home or self-care (01) ==
LOC: HO.MAMMO 11:29
PROVIDERS: Visit Provider Internal Medicine
DX: Z12.31 Encounter for screening mammogram for malignant neoplasm of breast (principal)
CPT/HCPCS: 77063; 77067

== ENCOUNTER 2021-10-21 09:02 | Outpatient (REF) | payer BC, SELFPAY ==
[2021-10-21 10:13] LABS: Estimated Average Glucose 114 mg/dL; Hemoglobin A1c % 5.6 %
[2021-10-21 10:20] LABS: Alanine Aminotransferase 23 U/L (0-31); Albumin Level 4.4 g/dL (3.5-5.0); Alkaline Phosphatase 73 U/L (39-117); Anion Gap 12 (12-20); Aspartate Amino Transferase 25 U/L (5-31); Bilirubin Total 1.5 mg/dL (0.0-1.0); Blood Urea Nitrogen 11 mg/dL (9-16); Calcium 9.9 mg/dL (8.4-10.2); Carbon Dioxide 25 mmol/L (22-29); Chloride 105 mmol/L (96-108); Cholesterol 198 mg/dL; Estimated Glomerular Filt Rate > 60; Glucose Random 115 mg/dL (60-115); HDL Cholesterol 47 mg/dL; LDL Cholesterol Calculated 133 mg/dl; Potassium 4.7 mmol/L (3.3-5.1); Sodium 137 mmol/L (135-145); Total Protein 7.2 g/dL (6.5-8.0); Triglycerides 94 mg/dL
== END 2021-10-21 09:03 | disposition home or self-care (01) ==
LOC: HO.LAB 09:02
PROVIDERS: PCP Internal Medicine; Visit Provider Internal Medicine
DX: E78.00 Pure hypercholesterolemia, unspecified (principal)
CPT/HCPCS: 36415; 80053; 80061; 83036

== ENCOUNTER 2022-01-03 13:22 | Outpatient (REF) | payer BC, SELFPAY ==
[2022-01-03 13:33] LABS: MANUAL DIFF FLAG NO
[2022-01-03 13:59] LABS: Basophils Percent Auto 0.3 % (0-2); Eosinophils Absolute Auto 0.2 X10*3/uL (0.0-0.4); Hematocrit 42.1 % (37.0-47.0); Hemoglobin 13.8 g/dl (12.0-16.0); Imm Gran Abs Auto 0.01 X10*3/uL (0.00-0.03); Imm Gran Pct Auto 0.1 % (0.0-0.4); Lymphocytes Absolute Auto 3.4 X10*3/uL (1.2-4.9); Lymphocytes Percent Auto 46.2 % (20-40); Mean Corpuscular HGB Conc 32.8 g/dl (31.0-35.0); Mean Corpuscular Hemoglobin 29.3 pg (27.0-33.0); Mean Corpuscular Volume 89.4 fL (80.0-98.0); Mean Platelet Volume 10.9 fL (9.4-12.3); Monocytes Absolute Auto 0.6 X10*3/uL (0.1-1.2); Monocytes Percent Auto 8.3 % (2-11); Neutrophils Absolute Auto 3.2 x10*3/uL (2.0-8.3); Neutrophils Percent Auto 43.1 % (45-73); Platelet Count 287 X10*3/uL (160-400); Red Blood Count 4.71 X10*6/uL (4.20-5.50); Red Cell Distribution Width 12.6 % (11.0-16.0); White Blood Count 7.3 X10*3/uL (4.8-10.8)
[2022-01-03 14:13] LABS: Alanine Aminotransferase 16 U/L (0-31); Albumin Level 4.4 g/dL (3.5-5.0); Alkaline Phosphatase 71 U/L (39-117); Aspartate Amino Transferase 16 U/L (5-31); Bilirubin Direct 0.4 mg/dL (0.0-0.5); Bilirubin Total 1.2 mg/dL (0.0-1.0); Total Protein 7.3 g/dL (6.5-8.0)
== END 2022-01-03 13:23 | disposition home or self-care (01) ==
LOC: HO.LAB 13:22
PROVIDERS: Visit Provider Physician Assistant
DX: R10.13 Epigastric pain (principal); R10.11 Right upper quadrant pain
CPT/HCPCS: 36415; 80076; 85025

== ENCOUNTER 2022-04-25 07:31 | Outpatient (REF) | payer BC, SELFPAY ==
[2022-04-25 08:26] LABS: Estimated Average Glucose 117 mg/dL; Hemoglobin A1c % 5.7 %
[2022-04-25 08:28] LABS: Alanine Aminotransferase 20 U/L (0-31); Albumin Level 4.6 g/dL (3.5-5.0); Alkaline Phosphatase 69 U/L (39-117); Anion Gap 16 (12-20); Aspartate Amino Transferase 20 U/L (5-31); Bilirubin Total 1.5 mg/dL (0.0-1.0); Blood Urea Nitrogen 13 mg/dL (9-16); Calcium 10.9 mg/dL (8.4-10.2); Carbon Dioxide 27 mmol/L (22-29); Chloride 103 mmol/L (96-108); Cholesterol 222 mg/dL; Estimated Glomerular Filt Rate > 60; Glucose Random 114 mg/dL (60-115); HDL Cholesterol 45 mg/dL; LDL Cholesterol Calculated 135 mg/dl; Sodium 141 mmol/L (135-145); Total Protein 7.6 g/dL (6.5-8.0); Triglycerides 211 mg/dL
[2022-04-25 08:48] LABS: Free T4 (Free Thyroxine) 1.12 ng/dL (0.71-1.85); Thyroid Stimulating Hormone 7.66 uIU/mL (0.32-4.0)
== END 2022-04-25 07:32 | disposition home or self-care (01) ==
LOC: HO.LAB 07:31
PROVIDERS: PCP Internal Medicine; Visit Provider Internal Medicine
DX: E03.9 Hypothyroidism, unspecified (principal); E78.00 Pure hypercholesterolemia, unspecified; R73.02 Impaired glucose tolerance (oral)
CPT/HCPCS: 36415; 80053; 80061; 83036; 84439; 84443

== ENCOUNTER 2022-05-16 14:36 | Inpatient (IN) | payer BC, SELFPAY ==
--- NOTE | ~2022-05-16 | US_ITS ---
EXAMINATION: ULTRASOUND SMA CLINICAL INFORMATION: Abdominal pain. Evaluate for mesenteric ischemia. COMPARISON: Abdomen CT from 05/16/2022. TECHNIQUE: Grayscale and duplex Doppler imaging evaluation of the abdominal aorta, celiac artery, superior mesenteric, inferior mesenteric and splenic arteries. Also, Doppler evaluation of hepatic artery is performed. FINDINGS: Abdominal aorta is normal in size and contour, and peak systolic velocity within the proximal aorta is 108 cm/sec. The peak velocity further distally is 113 cm/sec. No aortic aneurysm or dissection. The celiac trunk has normal waveform. The peak systolic velocity of the celiac artery is approximately 135-142 cm/sec during inspiration, and 146 cm/sec at expiration. The celiac artery has normal caliber and contour on 05/16/2022 without stenosis. The visualized proximal, mid and distal SMA is patent on Doppler imaging. The proximal SMA has a normal peak systolic velocity of 158 cm/sec. Also, there is no evidence of SMA stenosis or occlusion on recent CT imaging from 05/16/2022. The visualized inferior mesenteric arteries patent with peak systolic velocity of 114 cm/sec. The visualized splenic and common hepatic arteries are normal. US/US SMA IMPRESSION: Normal Doppler imaging examination of the abdominal aorta, celiac artery and mesenteric arteries.
--- NOTE | ~2022-05-16 | CT_ITS ---
EXAMINATION: CT abdomen pelvis w IV con CLINICAL INFORMATION: Reason for Exam ap COMPARISON: Prior CT 2012 TECHNIQUE: Multidetector volumetric imaging was performed from the superior aspect of the liver through the pubic symphysis 100 mL of Omnipaque 350 injected. Sagittal and coronal reformatted images were obtained on the technologist's workstation. This CT examination was performed using dose optimization techniques as appropriate, variously including the following: *Automated exposure control *Adjustment of mA and/or kV according to patient size (this includes techniques or standardized protocols for targeted exams where dose is matched to indication/reason for exam; i.e. extremities or head) *Use of iterative reconstruction technique DLP: 596 mGy-cm FINDINGS: LOWER THORAX: Included lung bases are clear. HEPATOBILIARY: No focal hepatic lesions. No biliary ductal dilatation. GALLBLADDER: Gallbladder has been removed. SPLEEN: Spleen is normal in size. PANCREAS: No focal mass or ductal dilatation. STOMACH AND GASTROINTESTINAL TRACT: Stomach is grossly unremarkable. There is no bowel distention or thickening. No CT evidence of appendicitis. Mildly dilated terminal ileum, fecalized distal ileum contents along with excess amount of stool in the cecum possible constipation. ADRENALS: No adrenal nodules. KIDNEYS/URETERS: Mild fullness of the right renal pelvis and right ureter without evidence of obstructing stone, calcific density found posterior to the urinary bladder adjacent to the course of the right ureter felt to be phleboliths, this is chronic been present on prior CT from August 2012. There are several other pelvic phleboliths present probably of no clinical significance. URINARY BLADDER: Partially decompressed. PELVIC VISCERA: Unremarkable PERITONEUM: No free air or fluid. LYMPH NODES: No lymphadenopathy. VASCULAR:Abdominal aorta normal in size, no aneurysm found. BONES, ABDOMINAL WALL AND SOFT TISSUES: There is a small anterior abdominal wall hernia containing fat and mesentery right of midline measures about 2.2 x 0.9 cm, the neck of which is about 10 6 mm along the medial edge of the rectus muscle. Refer image 73 series of 3. Rectus sheath hernia. CT/CT abdomen pelvis w IV con IMPRESSION: 1. No CT evidence of acute intra-abdominal process to explain patient's pain symptoms. Normal appendix. 2. Mild fullness of the right renal pelvis and right ureter without evidence of obstructing stone, calcific densities found posterior to the urinary bladder adjacent to the course of the right ureter felt to be phleboliths, this is chronic been present on prior CT from August 2012. 3. Status post cholecystectomy. 4. Mildly dilated terminal ileum, fecalized distal ileum contents along with excess amount of stool in the cecum possible constipation. Please correlate clinically. 5. Small anterior abdominal wall rectus sheath hernia right para midline, containing fat and mesentery with no bowels.
[2022-05-16 14:44] VITALS: BP 188/78; PULSE 57; RESP 18; TEMP 36.4; O2SAT 98; BMI 28.8
--- NOTE | 2022-05-16 14:48 | ECG_ITS ---
Test Reason : UPPER ABD PAIN Blood Pressure : / mmHG Vent. Rate : 051 BPM Atrial Rate : 051 BPM P-R Int : 162 ms QRS Dur : 088 ms QT Int : 430 ms P-R-T Axes : 025 032 074 degrees QTc Int : 396 ms Sinus bradycardia Otherwise normal ECG When compared with ECG of 16-APR-2019 11:53, T wave inversion no longer evident in Lateral leads Referred By: Yovanny Perry Electronically Signed By:LETI FERGUSON MD
--- NOTE | 2022-05-16 14:50 | ED_ITS ---
HPI - General Adult General Chief complaint: Abdominal Pain Stated complaint: High BP Sharp Stomach Pain Time Seen by Provider: 05/16/22 18:56 Related Data Home Medications Medication Instructions Recorded Confirmed cyanocobalamin (vitamin B-12) 1,000 mcg PO DAILY 04/13/20 05/21/22 1,000 mcg capsule losartan 50 mg tablet 100 mg PO DAILY 05/04/22 05/21/22 sucralfate 1 gram tablet 1 g PO BID 05/04/22 05/21/22 pantoprazole 40 mg tablet,delayed 1 tab PO DAILY 05/17/22 05/21/22 release Previous Rx's Medication Instructions Recorded nitroglycerin 0.4 mg sublingual 0.4 mg sublingual Q5M PRN chest 04/24/22 tablet pain #20 tabs levothyroxine 75 mcg tablet 75 mcg PO DAILY 30 days #30 tabs 04/25/22 lorazepam 0.5 mg tablet 0.5 mg PO Q4H PRN anxiety #20 tabs 05/20/22 Allergies Allergy/AdvReac Type Severity Reaction Status Date / Time nifedipine [From ADALAT] Allergy Severe Chest Pain Verified 05/16/22 14:51 isosorbide [From Imdur] Allergy Intermediate Headache Verified 05/16/22 14:51 lisinopril Allergy Intermediate CLAIRE-I Cough Verified 05/16/22 14:51 valsartan Allergy Intermediate DIZZINESS Verified 05/16/22 14:51 atorvastatin AdvReac Intermediate memory loss Verified 05/16/22 14:51 nebivolol [From Bystolic] AdvReac Mild dizzy Verified 05/16/22 14:51 [facility] Past Medical History Medical History Fatty liver Hypercholesterolemia Hypertension Hypothyroid Impaired glucose tolerance Obesity (BMI 30-39.9) Primary hyperparathyroidism Surgical History H/O colonoscopy History of back surgery History of cholecystectomy History of esophagogastroduodenoscopy (EGD) History of mammogram History of removal of cyst History of total abdominal hysterectomy Hx of arthroscopic knee surgery S/P knee surgery Family History Family History Father HTN (hypertension) Diabetes mellitus Mother No problems noted. 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 patient having abdominal pain for weeks with associated blood pressure as per patient. patinet hypertensive at [place] [id number]. Due to age will do cardiac enzymes and EKG. lactic ordered as marker for mesenteric ischemia. patient afebrile and non-tachy. Medications Administered Discontinued Medications Generic Name Dose Route Start Last Admin Trade Name Freq PRN Reason Stop Dose Admin Al Hydroxide/Mg Hydroxide 30 ml 05/16/22 20:35 05/16/22 20:52 Magnesium Hydrox/Alum Hydrox 30 Ml Oral.Susp PO 05/16/22 20:36 30 ml ONCE ONE Administration Aspirin 81 mg 05/17/22 09:00 05/18/22 07:21 Aspirin Enteric Coated 81 Mg Tablet. PO Not Given DAILY [facility] Atenolol 25 mg 05/17/22 09:00 05/17/22 08:11 Atenolol 25 Mg Tablet PO 25 mg DAILY [facility] Administration Protocol Atorvastatin Calcium 40 mg 05/17/22 09:00 05/19/22 08:02 Atorvastatin Calcium 40 Mg Tablet PO Not Given DAILY [facility] Dicyclomine HCl 10 mg 05/19/22 01:49 05/19/22 02:10 Dicyclomine Hcl 10 Mg Capsule PO 05/19/22 01:50 10 mg ONCE ONE Administration Docusate Sodium 100 mg 05/19/22 12:30 05/19/22 15:57 Docusate Sodium 100 Mg Capsule PO 100 mg BID PRN Administration constipation Enoxaparin Sodium 40 mg 05/20/22 10:00 05/20/22 08:43 Enoxaparin Sodium 40 Mg/0.4 Ml Syringe SUBCUT 40 mg Q24H [facility]MENT Administration Famotidine 20 mg 05/16/22 20:35 05/16/22 20:52 Famotidine/Pf 20 Mg/2 Ml Vial IVPUSH 05/16/22 20:36 20 mg ONCE ONE Administration Hydralazine HCl 25 mg 05/18/22 11:45 05/20/22 08:43 Hydralazine Hcl 25 Mg Tablet PO Not Given BID [facility] Protocol Hydralazine HCl 20 mg 05/19/22 01:03 05/19/22 01:21 Hydralazine Hcl 20 Mg/Ml Vial IVPUSH 05/19/22 01:04 20 mg ONCE ONE Administration Protocol Sodium Chloride 1,000 mls @ 999 mls/hr 05/17/22 00:03 05/17/22 01:38 Ns IV 05/17/22 01:03 Infused .Q1H1M ONE Infusion Lactated Ringer's 1,000 mls @ 100 mls/hr 05/17/22 11:45 05/17/22 16:49 Lr IVCONT Infused .Q10H [facility] Infusion Iohexol 100 ml 05/16/22 19:51 05/16/22 19:51 Iohexol 350 Mg/Ml 100 Ml Infus..Btl IV 05/16/22 19:52 85 ml ONCE ONE Administration Levothyroxine Sodium 75 mcg 05/17/22 09:00 05/20/22 08:42 Levothyroxine Sodium 75 Mcg Tablet PO 75 mcg DAILY [facility] Administration Lidocaine HCl 15 ml 05/16/22 20:35 05/16/22 20:52 Lidocaine Hcl Viscous 2 % 15 Ml Solution MUCOUS MEM 05/16/22 20:36 15 ml ONCE ONE Administration Lorazepam 0.5 mg 05/19/22 11:26 05/19/22 11:38 Lorazepam 0.5 Mg Tablet PO 0.5 mg Q4H PRN Administration anxiety Losartan Potassium 100 mg 05/17/22 09:00 05/20/22 08:42 Losartan Potassium 50 Mg Tablet PO 100 mg DAILY [facility] Administration Protocol Morphine Sulfate 4 mg 05/16/22 19:09 05/16/22 19:28 Morphine Sulfate 4 Mg/Ml Cartridge IVPUSH 05/16/22 19:10 4 mg ONCE ONE Administration Protocol Morphine Sulfate 2 mg 05/16/22 23:56 05/19/22 10:18 Morphine Sulfate 4 Mg/Ml Cartridge IVPUSH 2 mg Q4H PRN Administration Pain, Severe (Pain Scale 7-10) Protocol Morphine Sulfate 2 mg 05/19/22 01:51 05/19/22 02:11 Morphine Sulfate 2 Mg/Ml Cartridge IVPUSH 05/19/22 01:52 2 mg Q1H STA Administration Protocol Omeprazole 20 mg 05/17/22 09:00 05/20/22 08:42 Omeprazole 20 Mg Capsule. PO 20 mg DAILY [facility] Administration Ondansetron HCl 4 mg 05/16/22 19:09 05/16/22 19:28 Ondansetron Hcl 4 Mg/2 Ml Vial IVPUSH 05/16/22 19:10 4 mg ONCE ONE Administration Polyethylene Glycol 17 gm 05/18/22 15:18 05/18/22 20:02 Polyethylene Glycol 3350 17 Gm Powd.Pack PO 17 gm DAILY PRN Administration Constipation Polyethylene Glycol 17 gm 05/19/22 09:36 05/19/22 10:21 Polyethylene Glycol 3350 17 Gm Powd.Pack PO 05/19/22 09:37 17 gm ONCE ONE Administration Sodium Chloride 3 ml 05/17/22 00:00 05/20/22 08:44 0.9 % Sodium Chloride Flush 3 Ml Syringe IVFLUSH 3 ml QSHIFT [facility]MENT Administration Sucralfate 1 gm 05/17/22 09:00 05/20/22 08:42 Sucralfate 1 Gm Tablet PO 1 gm BID CLEMENT Administration Medical Decision Making Lab Data Result diagrams: 05/20/22 05:08 05/20/22 05:08 Labs: Lab Results 05/16/22 05/16/22 05/16/22 Range/Units 15:05 15:05 15:05 WBC 7.0 (4.8-10.8) X10*3/uL RBC 5.27 (4.20-5.50) X10*6/uL Hgb 15.4 (12.0-16.0) g/dl Hct 46.4 (37.0-47.0) % MCV 88.0 (80.0-98.0) fL MCH 29.2 (27.0-33.0) pg MCHC 33.2 (31.0-35.0) g/dl RDW 12.1 (11.0-16.0) % Plt Count 317 (160-400) X10*3/uL MPV 10.5 (9.4-12.3) fL Immature Gran % (Auto) 0.3 (0.0-0.4) % Neut % (Auto) 54.0 (45-73) % Lymph % (Auto) 38.8 (20-40) % Greenlee % (Auto) 5.6 (2-11) % Eos % (Auto) 1.0 (0-4) % Baso % (Auto) 0.3 (0-2) % Lymph # (Auto) 2.7 (1.2-4.9) X10*3/uL Greenlee # (Auto) 0.4 (0.1-1.2) X10*3/uL Eos # (Auto) 0.1 (0.0-0.4) X10*3/uL Baso # (Auto) 0.0 (0.0-0.2) X10*3/uL Abs Immat Gran (auto) 0.02 (0.00-0.03) X10*3/uL Absolute Neuts (auto) 3.8 (2.0-8.3) x10*3/uL Absolute Nucleated RBC 0.000 (0.0-0.012) X10*3/uL Nucleated RBC % (auto) 0.0 (0.0-0.2) /100WBC PT 12.0 (10.0-13.1) SEC INR 1.0 (0.9-1.1) APTT 34.4 (26.0-36.4) SEC Sodium 136 (135-145) mmol/L Potassium 4.4 (3.3-5.1) mmol/L Chloride 100 (96-108) mmol/L Carbon Dioxide 24 (22-29) mmol/L Anion Gap 16 (12-20) BUN 10 (9-16) mg/dL Creatinine 0.63 (0.5-1.4) mg/dL Estim Creat Clear Calc 94.6 Estimated GFR > 60 Random Glucose 101 (60-115) mg/dL Lactic Acid (0.5-2.0) mmol/L Calcium 10.6 H (8.4-10.2) mg/dL Total Bilirubin 1.3 H (0.0-1.0) mg/dL AST 20 (5-31) U/L ALT 20 (0-31) U/L Alkaline Phosphatase 73 (39-117) U/L Troponin I High Sens (<3.5-17.0) ng/L Total Protein 7.9 (6.5-8.0) g/dL Albumin 4.8 (3.5-5.0) g/dL Lipase 56 (8-78) U/L TSH 2.12 (0.32-4.0) uIU/mL COVID-19 ([facility]) (Negative) COVID-19 Clin Com 05/16/22 05/16/22 05/16/22 Range/Units 15:05 15:05 15:05 WBC (4.8-10.8) X10*3/uL RBC (4.20-5.50) X10*6/uL Hgb (12.0-16.0) g/dl Hct (37.0-47.0) % MCV (80.0-98.0) fL MCH (27.0-33.0) pg MCHC (31.0-35.0) g/dl RDW (11.0-16.0) % Plt Count (160-400) X10*3/uL MPV (9.4-12.3) fL Immature Gran % (Auto) (0.0-0.4) % Neut % (Auto) (45-73) % Lymph % (Auto) (20-40) % Greenlee % (Auto) (2-11) % Eos % (Auto) (0-4) % Baso % (Auto) (0-2) % Lymph # (Auto) (1.2-4.9) X10*3/uL Greenlee # (Auto) (0.1-1.2) X10*3/uL Eos # (Auto) (0.0-0.4) X10*3/uL Baso # (Auto) (0.0-0.2) X10*3/uL Abs Immat Gran (auto) (0.00-0.03) X10*3/uL Absolute Neuts (auto) (2.0-8.3) x10*3/uL Absolute Nucleated RBC (0.0-0.012) X10*3/uL Nucleated RBC % (auto) (0.0-0.2) /100WBC PT (10.0-13.1) SEC INR (0.9-1.1) APTT (26.0-36.4) SEC Sodium (135-145) mmol/L Potassium (3.3-5.1) mmol/L Chloride (96-108) mmol/L Carbon Dioxide (22-29) mmol/L Anion Gap (12-20) BUN (9-16) mg/dL Creatinine (0.5-1.4) mg/dL Estim Creat Clear Calc Estimated GFR Random Glucose (60-115) mg/dL Lactic Acid 1.3 (0.5-2.0) mmol/L Calcium (8.4-10.2) mg/dL Total Bilirubin (0.0-1.0) mg/dL AST (5-31) U/L ALT (0-31) U/L Alkaline Phosphatase (39-117) U/L Troponin I High Sens < 3.5 (<3.5-17.0) ng/L Total Protein (6.5-8.0) g/dL Albumin (3.5-5.0) g/dL Lipase (8-78) U/L TSH (0.32-4.0) uIU/mL COVID-19 ([facility]) Negative (Negative) COVID-19 Clin Com See Note Discharge Plan Discharge Clinical Impression: Abdominal pain Patient Disposition: Admitted As Inpatient Interventions: Admission Worksheet (ED) Last Done: 05/17/22 13:25 Discharge Date/Time: 05/17/22 13:26
[2022-05-16 15:14] LABS: Basophils Percent Auto 0.3 % (0-2); Eosinophils Absolute Auto 0.1 X10*3/uL (0.0-0.4); Hematocrit 46.4 % (37.0-47.0); Hemoglobin 15.4 g/dl (12.0-16.0); Imm Gran Abs Auto 0.02 X10*3/uL (0.00-0.03); Imm Gran Pct Auto 0.3 % (0.0-0.4); Lymphocytes Absolute Auto 2.7 X10*3/uL (1.2-4.9); Lymphocytes Percent Auto 38.8 % (20-40); MANUAL DIFF FLAG NO; Mean Corpuscular HGB Conc 33.2 g/dl (31.0-35.0); Mean Corpuscular Hemoglobin 29.2 pg (27.0-33.0); Mean Platelet Volume 10.5 fL (9.4-12.3); Monocytes Absolute Auto 0.4 X10*3/uL (0.1-1.2); Monocytes Percent Auto 5.6 % (2-11); Neutrophils Absolute Auto 3.8 x10*3/uL (2.0-8.3); Platelet Count 317 X10*3/uL (160-400); Red Blood Count 5.27 X10*6/uL (4.20-5.50); Red Cell Distribution Width 12.1 % (11.0-16.0)
[2022-05-16 15:22] LABS: Partial Thromboplastin Time 34.4 SEC (26.0-36.4)
[2022-05-16 15:35] LABS: COVID-19 Test Negative (Negative)
[2022-05-16 15:37] LABS: Lactic Acid 1.3 mmol/L (0.5-2.0)
[2022-05-16 15:48] LABS: Troponin-I High Sensitivity < 3.5 ng/L (<3.5-17.0)
[2022-05-16 15:51] LABS: Alanine Aminotransferase 20 U/L (0-31); Albumin Level 4.8 g/dL (3.5-5.0); Alkaline Phosphatase 73 U/L (39-117); Anion Gap 16 (12-20); Aspartate Amino Transferase 20 U/L (5-31); Bilirubin Total 1.3 mg/dL (0.0-1.0); Blood Urea Nitrogen 10 mg/dL (9-16); Calcium 10.6 mg/dL (8.4-10.2); Carbon Dioxide 24 mmol/L (22-29); Chloride 100 mmol/L (96-108); Creatinine Clr Calc Pharmacy 94.6; Estimated Glomerular Filt Rate > 60; Glucose Random 101 mg/dL (60-115); Lipase 56 U/L (8-78); Potassium 4.4 mmol/L (3.3-5.1); Sodium 136 mmol/L (135-145); Total Protein 7.9 g/dL (6.5-8.0)
[2022-05-16 17:33] VITALS: BP 193/87; PULSE 53; RESP 18; O2SAT 98
[2022-05-16] MEDS: Morphine Sulfate 4 MG/ML CARTRIDGE IVPUSH (19:28)
[2022-05-16] MEDS: ondansetron HCL 4 MG/2 ML VIAL IVPUSH (19:28)
--- NOTE | 2022-05-16 19:49 | ED.ABDPAIN ---
HPI - Abdominal Pain General Chief Complaint: Abdominal Pain Stated Complaint: High BP Sharp Stomach Pain Time Seen by Provider: 05/16/22 18:56 Source: patient Mode of arrival: ambulatory Limitations: no limitations History of Present Illness HPI narrative: 61 yo female with history of anxiety, GERD, HTN, Hypothyroidism, high cholesterol here with complaints of abdominal pain for months with multiple ER visits. Seen by GI and recommended to start carafate 3 times daily. Had been on protonix but stopped one week ago for testing this saturday for what sounds like h.pylori. Pain is worsened with eating. No nausea/vomiting/diarrhea/constipation/urinary symptoms/fevers/chills. Had colonoscopy 1 yr ago which showed diverticulosis. Per patient no EGD but GI doctor thinking about it. Patient also reports that she has intermittent high blood pressure despite taking losartan and atenolol. She tells me that her blood pressure gets quite high especially when she has abdominal pain. MD elicited complaint: abdominal pain Related Data Home Medications Medication Instructions Recorded Confirmed aspirin 81 mg tablet,delayed 81 mg PO DAILY 04/13/20 05/16/22 release (Adult Aspirin Regimen) cyanocobalamin (vitamin B-12) 1,000 mcg PO DAILY 04/13/20 05/16/22 1,000 mcg capsule rosuvastatin 5 mg tablet 10 mg PO DAILY 04/24/22 05/16/22 losartan 50 mg tablet 100 mg PO DAILY 05/04/22 05/16/22 sucralfate 1 gram tablet 1 g PO BID 05/04/22 05/16/22 Previous Rx's Medication Instructions Recorded pantoprazole 20 mg tablet,delayed 40 mg PO ONCE 30 days #60 tabs 01/03/22 release atenolol 25 mg tablet 25 mg PO DAILY #90 tabs 04/24/22 nitroglycerin 0.4 mg sublingual 0.4 mg sublingual Q5M PRN chest 04/24/22 tablet pain #20 tabs levothyroxine 75 mcg tablet 75 mcg PO DAILY 30 days #30 tabs 04/25/22 Allergies Allergy/AdvReac Type Severity Reaction Status Date / Time nifedipine [From ADALAT] Allergy Severe Chest Pain Verified 05/16/22 14:51 isosorbide [From Imdur] Allergy Intermediate Headache Verified 05/16/22 14:51 lisinopril Allergy Intermediate CLAIRE-I Cough Verified 05/16/22 14:51 valsartan Allergy Intermediate DIZZINESS Verified 05/16/22 14:51 atorvastatin AdvReac Intermediate memory loss Verified 05/16/22 14:51 nebivolol [From Bystolic] AdvReac Mild dizzy Verified 05/16/22 14:51 Review of Systems Review of Systems Yes all other systems are reviewed and are negative Constitutional: Reports no additional constitutional complaints, Denies body ache(s), Denies chills, Denies fever(s), Denies headache(s) and Denies weakness Eyes: Reports no additional eye complaints and Denies change in vision Reports system reviewed and no additional complaints, except as documented, Denies dizziness, Denies headache(s), Denies nasal congestion, Denies nasal discharge and Denies neck pain Cardiovascular: Reports no additional cardiovascular complaints, Denies chest pain, Denies leg edema and Denies dyspnea Respiratory: Reports no additional respiratory complaints, Denies cough and Denies dyspnea Gastrointestinal: Reports no additional gastrointestinal complaints, Reports abdominal pain, Denies diarrhea, Reports loose stools, Reports nausea and Reports vomiting Genitourinary: Reports no additional female genitourinary complaints and Denies urinary incontinence Musculoskeletal: Reports no additional musculoskeletal complaints, Denies back pain, Denies arthralgias, Denies joint swelling, Denies neck pain, Denies numbness and Denies tingling Skin/Breast: Reports system reviewed and no additional complaints, except as docu and Denies rash Reports system reviewed and no additional complaints, except as documented, Denies dizziness, Denies headache(s), Denies numbness, Denies tingling and Denies weakness [facility] Past Medical History Attestation statement: The following information was validated with the patient. Source: old records reviewed and nursing notes reviewed Medical History Annual physical exam Coronary artery disease Fatty liver Hypercholesterolemia Hypertension Hypothyroid Impaired glucose tolerance Lab test negative for COVID-19 virus Obesity (BMI 30-39.9) Overweight (BMI 25.0-29.9) Surgical History H/O colonoscopy History of back surgery History of cholecystectomy History of esophagogastroduodenoscopy (EGD) History of mammogram History of removal of cyst History of total abdominal hysterectomy Hx of arthroscopic knee surgery S/P knee surgery Family History Family History Father HTN (hypertension) Diabetes mellitus Mother No problems noted. 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 Cognitive needs: No Hearing needs: No Vision needs: Yes Physical Exam ED Vital Signs: Vital Signs - 24 hr 05/16/22 14:44 05/16/22 17:33 05/16/22 20:43 Temperature 97.5 F Pulse Rate 57 53 50 Respiratory Rate 18 18 20 Blood Pressure 188/78 H 193/87 H 158/75 H Pulse Oximetry 98 98 98 Oxygen Delivery Method Room Air Room Air Room Air BMI result Body Mass Index 28.8 Const General: cooperative, healthy appearing, comfortable and no acute distress Orientation/consciousness: patient oriented x3 Limitations: no limitations HENMT Head: Yes normal to inspection Ears: hearing grossly normal bilaterally and TM's normal bilaterally Eyes General: appearance normal, both eyes and all related structures Pupils: Equal, round and reactive pupils present Neck Neck: Yes normal visual inspection, Yes full ROM and Yes no lymphadenopathy Chest Chest palpation & inspection: normal inspection of the chest Resp Effort & Inspection: normal respiratory effort Auscultation: clear to auscultation bilaterally Cardio Rate: regular rate Rhythm: regular rhythm Peripheral pulses: Peripheral pulses 2+ throughout GI Inspection: Yes normal to inspection Palpation (GI): Soft to palpation and Tenderness to palpation present (GI) (Diffusely tender-no rebound or guarding ) Auscultation: normal bowel sounds General: Yes no CVA tenderness Back/Spine/Pelvis Back: no CVA tenderness Thoracic/Lumbar Spine: thoracic and lumbar spine normal to inspection Skin General skin exam: no rashes or lesions noted Neuro General: patient oriented x3 and moves all extremities Cranial nerves: Yes Equal, round and reactive pupils present Cognition (Neuro): normal cognition Gait exam (Neuro): Normal gait present Extrem General: Yes normal to inspection, Yes no pedal edema and Yes no calf tenderness Course Course Course Narrative: CT scan shows IMPRESSION: 1.? No CT evidence of acute intra-abdominal process to explain patient's pain symptoms. Normal appendix. 2.? Mild fullness of the right renal pelvis and right ureter without evidence of obstructing stone, calcific densities found posterior to the urinary bladder adjacent to the course of the right ureter felt to be phleboliths, this is chronic been present on prior CT from August 2012. 3.? Status post cholecystectomy. 4.? Mildly dilated terminal ileum, fecalized distal ileum contents along with excess amount of stool in the cecum possible constipation. Please correlate clinically. 5.? Small anterior abdominal wall rectus sheath hernia right para midline, containing fat and mesentery with no bowels. Mildly elevated t bili unchanged from previous. All other labs including troponin are negative. EKG shows no ischemic changes. UA negative. Patient reports initial improvement in pain however after attempting some clear liquids patient reports continued pain/feeling nauseas. Will discuss with GI Consultations Consultation #1: Spoke to Dr. Moy from GI. Recommend patient being admitted for further imaging possibly endoscopy. As patient has been seen by Dr. Rowland recommended consult for Dr. Rowland. Will speak to Medicine for admission Consultation #2: [id number] to Dr Miranda who accepted admission Medications Administered Discontinued Medications Generic Name Dose Route Start Last Admin Trade Name Freq PRN Reason Stop Dose Admin Al Hydroxide/Mg Hydroxide 30 ml 05/16/22 20:35 05/16/22 20:52 Magnesium Hydrox/Alum Hydrox 30 Ml Oral.Susp PO 05/16/22 20:36 30 ml ONCE ONE Administration Famotidine 20 mg 05/16/22 20:35 05/16/22 20:52 Famotidine/Pf 20 Mg/2 Ml Vial IVPUSH 05/16/22 20:36 20 mg ONCE ONE Administration Iohexol 100 ml 05/16/22 19:51 05/16/22 19:51 Iohexol 350 Mg/Ml 100 Ml Infus..Btl IV 05/16/22 19:52 85 ml ONCE ONE Administration Lidocaine HCl 15 ml 05/16/22 20:35 05/16/22 20:52 Lidocaine Hcl Viscous 2 % 15 Ml Solution MUCOUS MEM 05/16/22 20:36 15 ml ONCE ONE Administration Morphine Sulfate 4 mg 05/16/22 19:09 05/16/22 19:28 Morphine Sulfate 4 Mg/Ml Cartridge IVPUSH 05/16/22 19:10 4 mg ONCE ONE Administration Protocol Ondansetron HCl 4 mg 05/16/22 19:09 05/16/22 19:28 Ondansetron Hcl 4 Mg/2 Ml Vial IVPUSH 05/16/22 19:10 4 mg ONCE ONE Administration MDM - Abdominal Pain MDM Narrative Medical decision making narrative: A 61-year-old female with a longstanding history of upper abdominal pain which is worsened with eating with no associated vomiting, diarrhea, urinary symptoms, fevers or chills. Patient has been seen by GI. Patient has been taking Carafate and PPI with continued symptoms. Patient reports multiple ER visits for same. Patient also reports that when she is having lot of pain her blood pressure can become quite elevated despite taking her blood pressure medication. On arrival patient reports diffuse abdominal pain more focal no epigastric area. No rebound or guarding. Normal bowel sounds. Vitals are stable. No chest pain or shortness of breath. Will check labs, UA, CT, EKG Consider GERD, gastritis, ACS 2229-reviewed last visit from GI 05/04/[address] Rowland whose note says patient may need EGD, US and duplex to r/o mesenteric, trial of bentyl, GES/MRI pancreas Medical Records Attestation: I reviewed the patient's medical records. Lab Data Attestation: I reviewed the patient's lab results. Result diagrams: 05/16/22 15:05 05/16/22 15:05 Labs: Lab Results 05/16/22 05/16/22 05/16/22 Range/Units 15:05 15:05 15:05 WBC 7.0 (4.8-10.8) X10*3/uL RBC 5.27 (4.20-5.50) X10*6/uL Hgb 15.4 (12.0-16.0) g/dl Hct 46.4 (37.0-47.0) % MCV 88.0 (80.0-98.0) fL MCH 29.2 (27.0-33.0) pg MCHC 33.2 (31.0-35.0) g/dl RDW 12.1 (11.0-16.0) % Plt Count 317 (160-400) X10*3/uL MPV 10.5 (9.4-12.3) fL Immature Gran % (Auto) 0.3 (0.0-0.4) % Neut % (Auto) 54.0 (45-73) % Lymph % (Auto) 38.8 (20-40) % Hudson % (Auto) 5.6 (2-11) % Eos % (Auto) 1.0 (0-4) % Baso % (Auto) 0.3 (0-2) % Lymph # (Auto) 2.7 (1.2-4.9) X10*3/uL Hudson # (Auto) 0.4 (0.1-1.2) X10*3/uL Eos # (Auto) 0.1 (0.0-0.4) X10*3/uL Baso # (Auto) 0.0 (0.0-0.2) X10*3/uL Abs Immat Gran (auto) 0.02 (0.00-0.03) X10*3/uL Absolute Neuts (auto) 3.8 (2.0-8.3) x10*3/uL Absolute Nucleated RBC 0.000 (0.0-0.012) X10*3/uL Nucleated RBC % (auto) 0.0 (0.0-0.2) /100WBC PT 12.0 (10.0-13.1) SEC INR 1.0 (0.9-1.1) APTT 34.4 (26.0-36.4) SEC Sodium 136 (135-145) mmol/L Potassium 4.4 (3.3-5.1) mmol/L Chloride 100 (96-108) mmol/L Carbon Dioxide 24 (22-29) mmol/L Anion Gap 16 (12-20) BUN 10 (9-16) mg/dL Creatinine 0.63 (0.5-1.4) mg/dL Estim Creat Clear Calc 94.6 Estimated GFR > 60 Random Glucose 101 (60-115) mg/dL Lactic Acid (0.5-2.0) mmol/L Calcium 10.6 H (8.4-10.2) mg/dL Total Bilirubin 1.3 H (0.0-1.0) mg/dL AST 20 (5-31) U/L ALT 20 (0-31) U/L Alkaline Phosphatase 73 (39-117) U/L Troponin I High Sens (<3.5-17.0) ng/L Total Protein 7.9 (6.5-8.0) g/dL Albumin 4.8 (3.5-5.0) g/dL Lipase 56 (8-78) U/L COVID-19 ([facility]) (Negative) COVID-19 Clin Com 05/16/22 05/16/22 05/16/22 Range/Units 15:05 15:05 15:05 WBC (4.8-10.8) X10*3/uL RBC (4.20-5.50) X10*6/uL Hgb (12.0-16.0) g/dl Hct (37.0-47.0) % MCV (80.0-98.0) fL MCH (27.0-33.0) pg MCHC (31.0-35.0) g/dl RDW (11.0-16.0) % Plt Count (160-400) X10*3/uL MPV (9.4-12.3) fL Immature Gran % (Auto) (0.0-0.4) % Neut % (Auto) (45-73) % Lymph % (Auto) (20-40) % Hudson % (Auto) (2-11) % Eos % (Auto) (0-4) % Baso % (Auto) (0-2) % Lymph # (Auto) (1.2-4.9) X10*3/uL Hudson # (Auto) (0.1-1.2) X10*3/uL Eos # (Auto) (0.0-0.4) X10*3/uL Baso # (Auto) (0.0-0.2) X10*3/uL Abs Immat Gran (auto) (0.00-0.03) X10*3/uL Absolute Neuts (auto) (2.0-8.3) x10*3/uL Absolute Nucleated RBC (0.0-0.012) X10*3/uL Nucleated RBC % (auto) (0.0-0.2) /100WBC PT (10.0-13.1) SEC INR (0.9-1.1) APTT (26.0-36.4) SEC Sodium (135-145) mmol/L Potassium (3.3-5.1) mmol/L Chloride (96-108) mmol/L Carbon Dioxide (22-29) mmol/L Anion Gap (12-20) BUN (9-16) mg/dL Creatinine (0.5-1.4) mg/dL Estim Creat Clear Calc Estimated GFR Random Glucose (60-115) mg/dL Lactic Acid 1.3 (0.5-2.0) mmol/L Calcium (8.4-10.2) mg/dL Total Bilirubin (0.0-1.0) mg/dL AST (5-31) U/L ALT (0-31) U/L Alkaline Phosphatase (39-117) U/L Troponin I High Sens < 3.5 (<3.5-17.0) ng/L Total Protein (6.5-8.0) g/dL Albumin (3.5-5.0) g/dL Lipase (8-78) U/L COVID-19 ([facility]) Negative (Negative) COVID-19 Clin Com See Note Imaging Data CT scan - abdomen: Attestation: I personally reviewed and interpreted this imaging study as follows: Radiologist's impression: FINDINGS: LOWER THORAX: Included lung bases are clear. HEPATOBILIARY: No focal hepatic lesions. No biliary ductal dilatation. GALLBLADDER: Gallbladder has been removed. SPLEEN: Spleen is normal in size. PANCREAS: No focal mass or ductal dilatation. STOMACH AND GASTROINTESTINAL TRACT: Stomach is grossly unremarkable. There is no bowel distention or thickening. No CT evidence of appendicitis. Mildly dilated terminal ileum, fecalized distal ileum contents along with excess amount of stool in the cecum possible constipation. ADRENALS: No adrenal nodules. KIDNEYS/URETERS: Mild fullness of the right renal pelvis and right ureter without evidence of obstructing stone, calcific density found posterior to the urinary bladder adjacent to the course of the right ureter felt to be phleboliths, this is chronic been present on prior CT from August 2012. There are several other pelvic phleboliths present probably of no clinical significance. URINARY BLADDER: Partially decompressed. PELVIC VISCERA: Unremarkable PERITONEUM: No free air or fluid. LYMPH NODES: No lymphadenopathy. VASCULAR:Abdominal aorta normal in size, no aneurysm found. BONES, ABDOMINAL WALL AND SOFT TISSUES: There is a small anterior abdominal wall hernia containing fat and mesentery right of midline measures about 2.2 x 0.9 cm, the neck of which is about 10 6 mm along the medial edge of the rectus muscle. Refer image 73 series of 3. Rectus sheath hernia. CT/CT abdomen pelvis w IV con IMPRESSION: 1.? No CT evidence of acute intra-abdominal process to explain patient's pain symptoms. Normal appendix. 2.? Mild fullness of the right renal pelvis and right ureter without evidence of obstructing stone, calcific densities found posterior to the urinary bladder adjacent to the course of the right ureter felt to be phleboliths, this is chronic been present on prior CT from August 2012. 3.? Status post cholecystectomy. 4.? Mildly dilated terminal ileum, fecalized distal ileum contents along with excess amount of stool in the cecum possible constipation. Please correlate clinically. 5.? Small anterior abdominal wall rectus sheath hernia right para midline, containing fat and mesentery with no bowels. ECG Data Attestation: I personally reviewed and interpreted this ECG as follows: ECG interpretation date: 05/16/22 ECG interpretation time: 14:54 Interpretation: Sb with rate 51, normal pr, normal qrs, normal qt Discharge Plan Discharge Clinical Impression: Abdominal pain Patient Disposition: Admitted As Inpatient
[2022-05-16] MEDS: iohexoL 350 MG/ML 100 ML INFUS..BTL IV (19:51)
[2022-05-16 20:43] VITALS: BP 158/75; PULSE 50; RESP 20; O2SAT 98
[2022-05-16] MEDS: Famotidine/PF 20 MG/2 ML VIAL IVPUSH (20:52)
[2022-05-16] MEDS: Magnesium Hydrox/Alum Hydrox 30 ML ORAL.SUSP PO (20:52)
[2022-05-16] MEDS: Lidocaine HCl Viscous 2 % 15 ML SOLUTION MUCOUS MEM (20:52)
--- NOTE | 2022-05-16 23:16 | PC.NURSE ---
Med rec completed
[2022-05-17] VITALS (17 sets, daily range): BP systolic 137–194; BP diastolic 56–98; PULSE 38–66; RESP 13–24; TEMP 36.1–37; O2SAT 94–100
--- NOTE | 2022-05-17 | ECG_ITS ---
Test Reason : Chest Pain Blood Pressure : / mmHG Vent. Rate : 059 BPM Atrial Rate : 059 BPM P-R Int : 182 ms QRS Dur : 084 ms QT Int : 432 ms P-R-T Axes : 047 043 095 degrees QTc Int : 427 ms Sinus bradycardia Nonspecific ST abnormality Abnormal ECG When compared with ECG of 16-MAY-2022 14:54, ST more depressed Lateral leads Referred By: Kenyatta Celestin Electronically Signed By:LETI FERGUSON MD
--- NOTE | 2022-05-17 00:03 | PM.IMHP ---
History of Present Illness Date of Service: 05/17/22 Chief Complaint: Abdominal Pain This is a 61-year-old female with pertinent history of essential hypertension, hypothyroidism, mixed hyperlipidemia, gastroesophageal reflux disease, who presents to the emergency department for evaluation of abdominal discomfort. Patient has had multiple ER visits for the same. Patient saw DANIELLE Masters on 05/04/2022 as an outpatient. PPI was stopped and Carafate was initiated for H pylori testing an EGD was planned. Patient continued to have epigastric pain, worse with p.o. intake and associated with nausea. States she also went to [facility] last week but was discharged without an EGD. Also complains of intermittent nausea and nonbloody loose stools. States she has not had p.o. intake for the last week due to concerns of abdominal pain. She thinks she lost about 8 lb in the last 2 weeks. Patient denies fever, chills, chest discomfort, palpitations, shortness of breath, changes in urinary habits. In the emergency department, GI was consulted who recommended admission and will evaluate in a.m. Review of Systems Constitutional: Constitutional: Reports fatigue and Reports weight loss Cardiovascular: Cardiovascular: Reports no additional cardiovascular complaints Respiratory: Respiratory: Reports no additional respiratory complaints Gastrointestinal: Gastrointestinal: Reports abdominal pain, Reports loose stools and Reports nausea Genitourinary: Genitourinary: Reports no additional female genitourinary complaints Endocrine: Endocrine: Reports fatigue [facility] Medical History Annual physical exam Coronary artery disease Fatty liver Hypercholesterolemia Hypertension Hypothyroid Impaired glucose tolerance Lab test negative for COVID-19 virus Obesity (BMI 30-39.9) Overweight (BMI 25.0-29.9) Family History Father HTN (hypertension) Diabetes mellitus Mother No problems noted. Surgical History H/O colonoscopy History of back surgery History of cholecystectomy History of esophagogastroduodenoscopy (EGD) History of mammogram History of removal of cyst History of total abdominal hysterectomy Hx of arthroscopic knee surgery S/P knee surgery Social History Housing: House Alcohol intake: never Patient Tobacco Use Status: Never used Tobacco Smoked in Last 30 Days: No e-Cigarette/Vaping Use: Never Used Second Hand Smoke Exposure: No Use of substances other than those prescribed or required for medical reasons: No Advance Directives: No Advance Directives Information Provided: Yes Patient : No service: No Current occupational status: retired and other 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 Cognitive needs: No Hearing needs: No Vision needs: Yes Meds Allergies Allergy/AdvReac Type Severity Reaction Status Date / Time nifedipine [From ADALAT] Allergy Severe Chest Pain Verified 05/16/22 14:51 isosorbide [From Imdur] Allergy Intermediate Headache Verified 05/16/22 14:51 lisinopril Allergy Intermediate CLAIRE-I Cough Verified 05/16/22 14:51 valsartan Allergy Intermediate DIZZINESS Verified 05/16/22 14:51 atorvastatin AdvReac Intermediate memory loss Verified 05/16/22 14:51 nebivolol [From Bystolic] AdvReac Mild dizzy Verified 05/16/22 14:51 Active Medications: Current Medications Acetaminophen (Acetaminophen 325 Mg Tablet) 650 mg PO Q6H PRN PRN Reason: Pain, Mild (Pain Scale 1-3) Melatonin (Melatonin 3 Mg Tablet) 6 mg PO BEDTIME PRN PRN Reason: Insomnia Morphine Sulfate (Morphine Sulfate 4 Mg/Ml Cartridge) 2 mg IVPUSH Q4H PRN; Protocol PRN Reason: Pain, Severe (Pain Scale 7-10) Ondansetron HCl (Ondansetron Hcl 4 Mg/2 Ml Vial) 4 mg IVPUSH Q8H PRN PRN Reason: Nausea and Vomiting Pharmacy Consult (Consult Rx Perform Med Rec) 1 each MISCELLANE ONCE PRN PRN Reason: Consult order Sodium Chloride (0.9 % Sodium Chloride Flush 3 Ml Syringe) 3 ml [facility] Medications Medication Instructions Recorded Confirmed Last Taken Type aspirin 81 mg tablet,delayed 81 mg PO DAILY 04/13/20 05/16/22 05/16/22 14:00 History release (Adult Aspirin Regimen) 324 cyanocobalamin (vitamin B-12) 1,000 mcg PO DAILY 04/13/20 05/16/22 05/16/22 07:00 History 1,000 mcg capsule rosuvastatin 5 mg tablet 10 mg PO DAILY 04/24/22 05/16/22 05/16/22 07:00 History losartan 50 mg tablet 100 mg PO DAILY 05/04/22 05/16/22 05/16/22 07:00 History sucralfate 1 gram tablet 1 g PO BID 05/04/22 05/16/22 05/16/22 11:00 History Physical Exam Vital Signs and Narrative: Vital Signs: Last Vital Signs Temp 97.5 F 05/16/22 14:44 Pulse 50 05/16/22 20:43 Resp 20 05/16/22 20:43 BP 158/75 H 05/16/22 20:43 Pulse Ox 98 05/16/22 20:43 O2 Del Method 05/16/22 20:43 BMI result Body Mass Index 28.8 Middle-aged female lying in bed in no distress Neck supple, no JVD Regular rate and rhythm, S1-S2 heard Regular breath sounds bilaterally, no wheezing or crackles appreciated Abdomen with epigastric tenderness, no guarding, no rebound tenderness Patient is awake, alert and oriented to self, place, time and person ; no focal motor deficit Psych: Normal mood No pedal edema Results Labs CBC and Chem 7: 05/16/22 15:05 05/16/22 15:05 Labs: Laboratory Results - last 24 hr 05/16/22 05/16/22 05/16/22 15:05 15:05 15:05 MCV 88.0 MCH 29.2 MCHC 33.2 RDW 12.1 Plt Count 317 MPV 10.5 Immature Gran % (Auto) 0.3 Neut % (Auto) 54.0 Lymph % (Auto) 38.8 Childress % (Auto) 5.6 Eos % (Auto) 1.0 Baso % (Auto) 0.3 Lymph # (Auto) 2.7 Childress # (Auto) 0.4 Eos # (Auto) 0.1 Baso # (Auto) 0.0 Abs Immat Gran (auto) 0.02 Absolute Neuts (auto) 3.8 Absolute Nucleated RBC 0.000 Nucleated RBC % (auto) 0.0 PT 12.0 INR 1.0 APTT 34.4 Anion Gap 16 Estim Creat Clear Calc 94.6 Estimated GFR > 60 Random Glucose 101 Lactic Acid Calcium 10.6 H Total Bilirubin 1.3 H AST 20 ALT 20 Alkaline Phosphatase 73 Troponin I High Sens Total Protein 7.9 Albumin 4.8 Lipase 56 COVID-19 ([facility]) COVID-19 Clin Com 05/16/22 05/16/22 05/16/22 15:05 15:05 15:05 MCV MCH MCHC RDW Plt Count MPV Immature Gran % (Auto) Neut % (Auto) Lymph % (Auto) Childress % (Auto) Eos % (Auto) Baso % (Auto) Lymph # (Auto) Childress # (Auto) Eos # (Auto) Baso # (Auto) Abs Immat Gran (auto) Absolute Neuts (auto) Absolute Nucleated RBC Nucleated RBC % (auto) PT INR APTT Anion Gap Estim Creat Clear Calc Estimated GFR Random Glucose Lactic Acid 1.3 Calcium Total Bilirubin AST ALT Alkaline Phosphatase Troponin I High Sens < 3.5 Total Protein Albumin Lipase COVID-19 ([facility]) Negative COVID-19 Clin Com See Note Imaging Radiologist's Impressions: Impressions Abdomen/Pelvis CT 05/16/22 20:05 IMPRESSION: 1. No CT evidence of acute intra-abdominal process to explain patient's pain symptoms. Normal appendix. 2. Mild fullness of the right renal pelvis and right ureter without evidence of obstructing stone, calcific densities found posterior to the urinary bladder adjacent to the course of the right ureter felt to be phleboliths, this is chronic been present on prior CT from August 2012. 3. Status post cholecystectomy. 4. Mildly dilated terminal ileum, fecalized distal ileum contents along with excess amount of stool in the cecum possible constipation. Please correlate clinically. 5. Small anterior abdominal wall rectus sheath hernia right para midline, containing fat and mesentery with no bowels. Assessment and Plan (1) Abdominal pain: Status: Acute (2) Weight loss: Status: Acute (3) Hypercalcemia: Status: Acute (4) Hypothyroid: Qualifiers: Hypothyroidism type: acquired Qualified Code(s): E03.9 - Hypothyroidism, unspecified Status: Acute (5) Hypertension: Qualifiers: Hypertension type: essential hypertension Qualified Code(s): I10 - Essential (primary) hypertension Status: Acute Plan This is a 61-year-old female with pertinent history of essential hypertension, hypothyroidism, mixed hyperlipidemia, gastroesophageal reflux disease, who presents to the emergency department for evaluation of abdominal discomfort. #. Abdominal Pain -unclear etiology. Ordered H pylori. GI consulted, appreciate recommendations. CT abdomen without acute findings #. Hypercalcemia -likely due to dehydration. Will resuscite with IV fluids and monitor. previously on thiazide. PTH pending #. Hypothyroid -on synthroid. Check TSH #. Elevated BP in a patient with HTN -use IV medications prn as pt is npo. resume po home medications after GI evaluation #. HLD -on statin DVT prophylaxis: Mechanical. Hold anticoagulation until GI evaluation Full code NPO for possible endoscopic intervention Will admit as inpatient for possible endoscopic intervention. Quality Stroke Does the patient have a stroke diagnosis?: No VTE Prior VTE?: No VTE Risk Level:: Medical - low VTE Device Contraindication: N/A - Device Ordered VTE Drug Contraindication: Treatment Not Indicated
[2022-05-17] MEDS: 0.9 % Sodium Chloride 1,000 ML 999 ML IV (00:17)
[2022-05-17] MEDS: 0.9 % Sodium Chloride Flush 3 ML SYRINGE IVFLUSH ×3 (00:17→20:08)
[2022-05-17 01:13] LABS: Thyroid Stimulating Hormone 2.12 uIU/mL (0.32-4.0)
[2022-05-17 05:38] LABS: MANUAL DIFF FLAG NO
[2022-05-17 05:39] LABS: Basophils Percent Auto 0.3 % (0-2); Eosinophils Absolute Auto 0.1 X10*3/uL (0.0-0.4); Eosinophils Percent Auto 1.4 % (0-4); Hematocrit 43.2 % (37.0-47.0); Imm Gran Abs Auto 0.01 X10*3/uL (0.00-0.03); Imm Gran Pct Auto 0.2 % (0.0-0.4); Lymphocytes Absolute Auto 3.2 X10*3/uL (1.2-4.9); Lymphocytes Percent Auto 54.2 % (20-40); Mean Corpuscular HGB Conc 32.4 g/dl (31.0-35.0); Mean Corpuscular Hemoglobin 28.9 pg (27.0-33.0); Mean Corpuscular Volume 89.1 fL (80.0-98.0); Mean Platelet Volume 10.5 fL (9.4-12.3); Monocytes Absolute Auto 0.6 X10*3/uL (0.1-1.2); Monocytes Percent Auto 9.8 % (2-11); Neutrophils Percent Auto 34.1 % (45-73); Platelet Count 282 X10*3/uL (160-400); Red Blood Count 4.85 X10*6/uL (4.20-5.50); Red Cell Distribution Width 12.4 % (11.0-16.0); White Blood Count 5.8 X10*3/uL (4.8-10.8)
[2022-05-17 05:56] LABS: Alanine Aminotransferase 15 U/L (0-31); Alkaline Phosphatase 58 U/L (39-117); Anion Gap 12 (12-20); Aspartate Amino Transferase 16 U/L (5-31); Bilirubin Total 1.5 mg/dL (0.0-1.0); Blood Urea Nitrogen 8 mg/dL (9-16); Calcium 9.6 mg/dL (8.4-10.2); Carbon Dioxide 26 mmol/L (22-29); Chloride 110 mmol/L (96-108); Creatinine Clr Calc Pharmacy 93.1; Estimated Glomerular Filt Rate > 60; Glucose Random 101 mg/dL (60-115); Potassium 4.4 mmol/L (3.3-5.1); Sodium 144 mmol/L (135-145); Total Protein 6.4 g/dL (6.5-8.0)
--- NOTE | 2022-05-17 07:36 | PHA.MEDREC ---
Pharmacy Consult ? Medication Reconciliation Pharmacy has reviewed the medication reconciliation completed by Ivone. Patient fills rosuvastatin 10 mg instead of 5 mg tablet. Christelle Miranda, PharmD
[2022-05-17] MEDS: Morphine Sulfate 4 MG/ML CARTRIDGE 2 MG IVPUSH ×2 (08:11→19:13)
[2022-05-17] MEDS: Levothyroxine Sodium 75 MCG TABLET PO (08:11)
[2022-05-17] MEDS: atenoloL 25 MG TABLET PO (08:11)
[2022-05-17] MEDS: Losartan Potassium 50 MG TABLET 100 MG PO (08:11)
--- NOTE | 2022-05-17 08:55 | MHC.CM.PN ---
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
[2022-05-17 10:08] LABS: Troponin-I High Sensitivity < 3.5 ng/L (<3.5-17.0)
--- NOTE | 2022-05-17 10:08 | MHC.SHP ---
Pre-Procedural Eval Section A Date of Service: 05/17/22 The patient is an INPATIENT: Yes The History & Physical has been completed within 30 days and I have reviewed it.: Yes Section B Chief Complaint: Abdominal Pain Allergies: Allergies Allergy/AdvReac Type Severity Reaction Status Date / Time nifedipine [From ADALAT] Allergy Severe Chest Pain Verified 05/16/22 14:51 isosorbide [From Imdur] Allergy Intermediate Headache Verified 05/16/22 14:51 lisinopril Allergy Intermediate CLAIRE-I Cough Verified 05/16/22 14:51 valsartan Allergy Intermediate DIZZINESS Verified 05/16/22 14:51 atorvastatin AdvReac Intermediate memory loss Verified 05/16/22 14:51 nebivolol [From Bystolic] AdvReac Mild dizzy Verified 05/16/22 14:51 Plan Diagnosis/Plan: Unchanged I have reviewed the history and physical and performed a pertinent physical examination on my patient. No changes have occurred unless specified.
--- NOTE | 2022-05-17 10:08 | PM.GICN ---
History of Present Illness Data of Consult Service Date: 05/17/22 Requesting physician: Kenyatta Celestin Primary Care Provider: Jj Smith MD HPI Reason for consult: abdominal pain 61-year-old female with hx of essential hypertension, hypothyroidism, mixed hyperlipidemia, gastroesophageal reflux disease, who I am seeing for assessment of abdominal pain. Patient has been having worsening severe peigastric and LUQ pain worse with food associated with nausea for several months but been getting worse recently. Been several times to ED at [facility] with Ct imaging and other tests being negative. She thinks she lost about 8 lb in the last 2 weeks and has also noted loose stools recently. appetite poor due to fear of pain. No melena or rectal bleeding. Patient denies fever, chills, chest discomfort, palpitations, shortness of breath, changes in urinary habits. She did have high BP due to pain which improved with morphine. LABS: nml LFT, nml CBC Imaging: rectal sheath hernia, small. fullness right kidney pelvis-chronic, constipation Review of Systems Review of Systems: Constitutional : + Weight loss, No Fever, No Chills ENT/Mouth : No sore throat, No Rhinorrhea Eyes: No Swelling, No Redness Cardiovascular : + Chest Pain, No SOB, No Edema Respiratory : No Cough, No Sputum, No Wheezing Gastrointestinal : see HPI Genitourinary : NO Dysuria, No Urinary Frequency, No Hematuria, No Urgency Musculoskeletal : No joint pain, No Myalgias, No Joint Swelling, chronic back pain Skin : No Skin Lesions, No rash Neuro : No Weakness, No Numbness, No Dizziness, No Headache Psych : No Anxiety/Panic, No Depression Heme/Lymph: No Bruising, No Lymphadenopathy Endocrine : No Polyuria, No Polydipsia All other systems reviewed and are negative. [facility] Past Medical History Medical History Annual physical exam Coronary artery disease Fatty liver Hypercholesterolemia Hypertension Hypothyroid Impaired glucose tolerance Lab test negative for COVID-19 virus Obesity (BMI 30-39.9) Overweight (BMI 25.0-29.9) Family History Family History Father HTN (hypertension) Diabetes mellitus Mother No problems noted. Surgical History Surgical History H/O colonoscopy History of back surgery History of cholecystectomy History of esophagogastroduodenoscopy (EGD) History of mammogram History of removal of cyst History of total abdominal hysterectomy Hx of arthroscopic knee surgery S/P knee surgery Social History Social History Housing: House Alcohol intake: never Patient Tobacco Use Status: Never used Tobacco Smoked in Last 30 Days: No e-Cigarette/Vaping Use: Never Used Second Hand Smoke Exposure: No Use of substances other than those prescribed or required for medical reasons: No Are you DNR?: No Advance Directives: No Advance Directives Information Provided: Yes Patient : No service: No Current occupational status: retired and other 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 Cognitive needs: No Hearing needs: No Vision needs: Yes Meds Allergies Allergy/AdvReac Type Severity Reaction Status Date / Time nifedipine [From ADALAT] Allergy Severe Chest Pain Verified 05/16/22 14:51 isosorbide [From Imdur] Allergy Intermediate Headache Verified 05/16/22 14:51 lisinopril Allergy Intermediate CLAIRE-I Cough Verified 05/16/22 14:51 valsartan Allergy Intermediate DIZZINESS Verified 05/16/22 14:51 atorvastatin AdvReac Intermediate memory loss Verified 05/16/22 14:51 nebivolol [From Bystolic] AdvReac Mild dizzy Verified 05/16/22 14:51 Active Medications: Current Medications Acetaminophen (Acetaminophen 325 Mg Tablet) 650 mg PO Q6H PRN PRN Reason: Pain, Mild (Pain Scale 1-3) Aspirin (Aspirin Enteric Coated 81 Mg Tablet.Dr) 81 mg PO DAILY [facility] Atenolol (Atenolol 25 Mg Tablet) 25 mg PO DAILY [facility]; Protocol Last Admin: 05/17/22 08:11 Dose: 25 mg Atorvastatin Calcium (Atorvastatin Calcium 40 Mg Tablet) 40 mg PO DAILY [facility] Levothyroxine Sodium (Levothyroxine Sodium 75 Mcg Tablet) 75 mcg PO DAILY [facility] Last Admin: 05/17/22 08:11 Dose: 75 mcg Losartan Potassium (Losartan Potassium 50 Mg Tablet) 100 mg PO DAILY [facility]; Protocol Last Admin: 05/17/22 08:11 Dose: 100 mg Melatonin (Melatonin 3 Mg Tablet) 6 mg PO BEDTIME PRN PRN Reason: Insomnia Morphine Sulfate (Morphine Sulfate 4 Mg/Ml Cartridge) 2 mg IVPUSH Q4H PRN; Protocol PRN Reason: Pain, Severe (Pain Scale 7-10) Last Admin: 05/17/22 08:11 Dose: 2 mg Omeprazole (Omeprazole 20 Mg Capsule.Dr) 20 mg PO DAILY [facility] Ondansetron HCl (Ondansetron Hcl 4 Mg/2 Ml Vial) 4 mg IVPUSH Q8H PRN PRN Reason: Nausea and Vomiting Pharmacy Consult (Consult Rx Perform Med Rec) 1 each MISCELLANE ONCE PRN PRN Reason: Consult order Sodium Chloride (0.9 % Sodium Chloride Flush 3 Ml Syringe) 3 ml IVFLUSH QSHIFT [facility] Last Admin: 05/17/22 00:17 Dose: 3 ml Sucralfate (Sucralfate 1 Gm Tablet) 1 gm PO BID [facility] Home Medications Medication Instructions Recorded Confirmed Last Taken Type aspirin 81 mg tablet,delayed 81 mg PO DAILY 04/13/20 05/16/22 05/16/22 14:00 History release (Adult Aspirin Regimen) 324 cyanocobalamin (vitamin B-12) 1,000 mcg PO DAILY 04/13/20 05/16/22 05/16/22 07:00 History 1,000 mcg capsule losartan 50 mg tablet 100 mg PO DAILY 05/04/22 05/16/22 05/16/22 07:00 History sucralfate 1 gram tablet 1 g PO BID 05/04/22 05/16/22 05/16/22 11:00 History pantoprazole 40 mg tablet,delayed 1 tab PO DAILY 05/17/22 05/17/22 Unknown History release rosuvastatin 10 mg tablet 1 tab PO DAILY 05/17/22 05/17/22 05/16/22 07:00 History Physical Exam Vital Signs: Vital Signs: Last Vital Signs Temp 98.6 F 05/17/22 07:47 Pulse 60 05/17/22 07:47 Resp 24 H 05/17/22 07:47 BP 138/63 05/17/22 09:47 Pulse Ox 100 05/17/22 07:47 O2 Del Method 05/17/22 07:47 BMI result Body Mass Index 28.8 Const: General: cooperative, healthy appearing, comfortable and no acute distress Orientation/consciousness: patient oriented x3 Limitations: no limitations HEENT: Head: Yes normal to inspection Ears: hearing grossly normal bilaterally and TM's normal bilaterally Eyes: General: appearance normal, both eyes and all related structures Pupils: Equal, round and reactive pupils present Neck: Neck: Yes normal visual inspection, Yes full ROM and Yes no lymphadenopathy Chest: Chest palpation & inspection: normal inspection of the chest Resp: Effort & Inspection: normal respiratory effort Auscultation: clear to auscultation bilaterally Cardio: Rate: regular rate Rhythm: regular rhythm Peripheral pulses: Peripheral pulses 2+ throughout GI: Inspection: Yes normal to inspection Palpation (GI): Soft to palpation and Tenderness to palpation present (GI) (Diffusely tender-no rebound or guarding ) Auscultation: normal bowel sounds : General: Yes no CVA tenderness Back/Spine/Pelvis: Back: no CVA tenderness Thoracic/Lumbar Spine: thoracic and lumbar spine normal to inspection Skin: General skin exam: no rashes or lesions noted Neuro: General: patient oriented x3 and moves all extremities Cranial nerves: Yes Equal, round and reactive pupils present Cognition (Neuro): normal cognition Gait exam (Neuro): Normal gait present Extrem: General: Yes normal to inspection, Yes no pedal edema and Yes no calf tenderness Psych: Appearance: grossly normal Results Labs CBC & Chem 7: 05/17/22 05:32 05/17/22 05:32 Labs: Short CBC 05/16/22 05/17/22 Range/Units 15:05 05:32 WBC 7.0 5.8 (4.8-10.8) X10*3/uL Hgb 15.4 14.0 (12.0-16.0) g/dl Hct 46.4 43.2 (37.0-47.0) % Plt Count 317 282 (160-400) X10*3/uL BMP 05/16/22 05/17/22 15:05 05:32 Sodium 136 144 Potassium 4.4 4.4 Chloride 100 110 H Carbon Dioxide 24 26 BUN 10 8 L Creatinine 0.63 0.64 Calcium 10.6 H 9.6 D Liver Function 05/16/22 05/17/22 Range/Units 15:05 05:32 Total Bilirubin 1.3 H 1.5 H (0.0-1.0) mg/dL AST 20 16 (5-31) U/L ALT 20 15 (0-31) U/L Alkaline Phosphatase 73 58 (39-117) U/L Albumin 4.8 4.0 (3.5-5.0) g/dL Imaging CT scan - abdomen: My impression: constipation, mild atherosclerosis Assessment and Plan (1) Abdominal pain: Status: Acute (2) Weight loss: Status: Acute Plan 1/ Ongoing abdominal pain with high BP and sitophobia, ddx: PUD, gastritis, mesenteric ischemia, hormone secreting tumour, gastroparesis PLAN: 1/ EGD today 2/ if neg then check metanephrines, cortisol 3/ mesenteric duplex 4/ gastric emptying study Procedures Date of Service Date of Service: 05/17/22
--- NOTE | 2022-05-17 10:23 | HO.ANESPROP2 ---
HPI - Anesthesia Eval Consult details Narrative: 61 yo female patient for EGD [facility] Active Problems Active Problems: All Active Problems (Updated 05/16/22 @ 23:24 by Josephine Marcus NP) Abdominal pain (Acute) Weight loss (Acute) Hypercalcemia (Acute) Generalized anxiety disorder (Acute) Annual physical exam (Acute) Epigastric pain (Acute) Acid reflux (Acute) Diverticulosis of colon (Acute) Obesity (BMI 30-39.9) (Acute) Otitis media, left (Acute) Breast cancer screening (Acute) S/P right knee arthroscopy (Acute) Diverticulosis (Acute) Hyperplastic polyp of sigmoid colon (Acute) Complex tear of medial meniscus of right knee (Acute) Chondrocalcinosis of right knee (Acute) History of back surgery (Acute) Coronary artery disease (Acute) Impaired glucose tolerance (Acute) Hypothyroid (Acute) Hypercholesterolemia (Acute) Hypertension (Acute) Bradycardia as low as 38. Thought related to atenolol. Mild dizziness. No other symptoms. BP ok Past Medical History Medical History Annual physical exam Coronary artery disease Fatty liver Hypercholesterolemia Hypertension Hypothyroid Impaired glucose tolerance Lab test negative for COVID-19 virus Obesity (BMI 30-39.9) Overweight (BMI 25.0-29.9) Family History Family History Father HTN (hypertension) Diabetes mellitus Mother No problems noted. Family history of problems with anesthesia: No Surgical History Surgical History H/O colonoscopy History of back surgery History of cholecystectomy History of esophagogastroduodenoscopy (EGD) History of mammogram History of removal of cyst History of total abdominal hysterectomy Hx of arthroscopic knee surgery S/P knee surgery History of Problems with Anesthesia: No Social History Social History Housing: House Alcohol intake: never Patient Tobacco Use Status: Never used Tobacco Smoked in Last 30 Days: No e-Cigarette/Vaping Use: Never Used Second Hand Smoke Exposure: No Use of substances other than those prescribed or required for medical reasons: No Are you DNR?: No Advance Directives: No Advance Directives Information Provided: Yes Patient : No service: No Current occupational status: retired and other 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 Cognitive needs: No Hearing needs: No Vision needs: Yes Meds Allergies Allergy/AdvReac Type Severity Reaction Status Date / Time nifedipine [From ADALAT] Allergy Severe Chest Pain Verified 05/16/22 14:51 isosorbide [From Imdur] Allergy Intermediate Headache Verified 05/16/22 14:51 lisinopril Allergy Intermediate CLAIRE-I Cough Verified 05/16/22 14:51 valsartan Allergy Intermediate DIZZINESS Verified 05/16/22 14:51 atorvastatin AdvReac Intermediate memory loss Verified 05/16/22 14:51 nebivolol [From Bystolic] AdvReac Mild dizzy Verified 05/16/22 14:51 Active Medications: Current Medications Acetaminophen (Acetaminophen 325 Mg Tablet) 650 mg PO Q6H PRN PRN Reason: Pain, Mild (Pain Scale 1-3) Aspirin (Aspirin Enteric Coated 81 Mg Tablet.) 81 mg PO DAILY [facility] Atenolol (Atenolol 25 Mg Tablet) 25 mg PO DAILY [facility]; Protocol Last Admin: 05/17/22 08:11 Dose: 25 mg Atorvastatin Calcium (Atorvastatin Calcium 40 Mg Tablet) 40 mg PO DAILY [facility] Levothyroxine Sodium (Levothyroxine Sodium 75 Mcg Tablet) 75 mcg PO DAILY [facility] Last Admin: 05/17/22 08:11 Dose: 75 mcg Losartan Potassium (Losartan Potassium 50 Mg Tablet) 100 mg PO DAILY [facility]; Protocol Last Admin: 05/17/22 08:11 Dose: 100 mg Melatonin (Melatonin 3 Mg Tablet) 6 mg PO BEDTIME PRN PRN Reason: Insomnia Morphine Sulfate (Morphine Sulfate 4 Mg/Ml Cartridge) 2 mg IVPUSH Q4H PRN; Protocol PRN Reason: Pain, Severe (Pain Scale 7-10) Last Admin: 05/17/22 08:11 Dose: 2 mg Omeprazole (Omeprazole 20 Mg Capsule.) 20 mg PO DAILY [facility] Ondansetron HCl (Ondansetron Hcl 4 Mg/2 Ml Vial) 4 mg IVPUSH Q8H PRN PRN Reason: Nausea and Vomiting Pharmacy Consult (Consult Rx Perform Med Rec) 1 each MISCELLANE ONCE PRN PRN Reason: Consult order Sodium Chloride (0.9 % Sodium Chloride Flush 3 Ml Syringe) 3 ml IVFLUSH QSHIFT [facility] Last Admin: 05/17/22 00:17 Dose: 3 ml Sucralfate (Sucralfate 1 Gm Tablet) 1 gm PO BID [facility] Home Medications Medication Instructions Recorded Confirmed Last Taken Type aspirin 81 mg tablet,delayed 81 mg PO DAILY 04/13/20 05/16/22 05/16/22 14:00 History release (Adult Aspirin Regimen) 324 cyanocobalamin (vitamin B-12) 1,000 mcg PO DAILY 04/13/20 05/16/22 05/16/22 07:00 History 1,000 mcg capsule losartan 50 mg tablet 100 mg PO DAILY 05/04/22 05/16/22 05/16/22 07:00 History sucralfate 1 gram tablet 1 g PO BID 05/04/22 05/16/22 05/16/22 11:00 History pantoprazole 40 mg tablet,delayed 1 tab PO DAILY 05/17/22 05/17/22 Unknown History release rosuvastatin 10 mg tablet 1 tab PO DAILY 05/17/22 05/17/22 05/16/22 07:00 History Exam Exam Date and Time: May 17, 2022 1023 Height,Weight and Vital Signs: Height 5 ft 5 in Weight 78.471 kg Last Vital Signs Temp 97.0 F 05/17/22 10:12 Pulse 45 L 05/17/22 10:12 Resp 13 05/17/22 10:12 BP 146/67 H 05/17/22 10:12 Pulse Ox 96 05/17/22 10:12 O2 Del Method 05/17/22 10:12 Pertinent Lab Results Pertinent Lab Results: Laboratory Tests 05/16/22 05/16/22 05/16/22 15:05 15:05 15:05 WBC 7.0 RBC 5.27 Hgb 15.4 Hct 46.4 MCV 88.0 MCH 29.2 MCHC 33.2 RDW 12.1 Plt Count 317 MPV 10.5 Immature Gran % (Auto) 0.3 Neut % (Auto) 54.0 Lymph % (Auto) 38.8 [place] % (Auto) 5.6 Eos % (Auto) 1.0 Baso % (Auto) 0.3 Lymph # (Auto) 2.7 [place] # (Auto) 0.4 Eos # (Auto) 0.1 Baso # (Auto) 0.0 Abs Immat Gran (auto) 0.02 Absolute Neuts (auto) 3.8 Absolute Nucleated RBC 0.000 Nucleated RBC % (auto) 0.0 PT 12.0 INR 1.0 APTT 34.4 Sodium 136 Potassium 4.4 Chloride 100 Carbon Dioxide 24 Anion Gap 16 BUN 10 Creatinine 0.63 Estim Creat Clear Calc 94.6 Estimated GFR > 60 Random Glucose 101 Lactic Acid Calcium 10.6 H Total Bilirubin 1.3 H AST 20 ALT 20 Alkaline Phosphatase 73 Troponin I High Sens Total Protein 7.9 Albumin 4.8 Lipase 56 TSH 2.12 COVID-19 ([facility]) COVID-19 Clin Com 05/16/22 05/16/22 05/16/22 15:05 15:05 15:05 WBC RBC Hgb Hct MCV MCH MCHC RDW Plt Count MPV Immature Gran % (Auto) Neut % (Auto) Lymph % (Auto) [place] % (Auto) Eos % (Auto) Baso % (Auto) Lymph # (Auto) [place] # (Auto) Eos # (Auto) Baso # (Auto) Abs Immat Gran (auto) Absolute Neuts (auto) Absolute Nucleated RBC Nucleated RBC % (auto) PT INR APTT Sodium Potassium Chloride Carbon Dioxide Anion Gap BUN Creatinine Estim Creat Clear Calc Estimated GFR Random Glucose Lactic Acid 1.3 Calcium Total Bilirubin AST ALT Alkaline Phosphatase Troponin I High Sens < 3.5 Total Protein Albumin Lipase TSH COVID-19 ([facility]) Negative COVID-19 Clin Com See Note 05/17/22 05/17/22 05/17/22 05:32 05:32 09:08 WBC 5.8 RBC 4.85 Hgb 14.0 Hct 43.2 MCV 89.1 MCH 28.9 MCHC 32.4 RDW 12.4 Plt Count 282 MPV 10.5 Immature Gran % (Auto) 0.2 Neut % (Auto) 34.1 L Lymph % (Auto) 54.2 H [place] % (Auto) 9.8 Eos % (Auto) 1.4 Baso % (Auto) 0.3 Lymph # (Auto) 3.2 [place] # (Auto) 0.6 Eos # (Auto) 0.1 Baso # (Auto) 0.0 Abs Immat Gran (auto) 0.01 Absolute Neuts (auto) 2.0 Absolute Nucleated RBC 0.000 Nucleated RBC % (auto) 0.0 PT INR APTT Sodium 144 Potassium 4.4 Chloride 110 H Carbon Dioxide 26 Anion Gap 12 BUN 8 L Creatinine 0.64 Estim Creat Clear Calc 93.1 Estimated GFR > 60 Random Glucose 101 Lactic Acid Calcium 9.6 D Total Bilirubin 1.5 H AST 16 ALT 15 Alkaline Phosphatase 58 Troponin I High Sens < 3.5 Total Protein 6.4 L Albumin 4.0 Lipase TSH COVID-19 ([facility]) COVID-19 Clin Com Airway Mallampati Class: II TM Dist: >3cm Neck ROM: Full Loose/Missing/Broken Teeth: No (Patient denies) Heart: RRR Lungs: CTAB Assessment and Plan Assessment Anesthesia Assessment: Anesthesia Plan Discussed and Chart Reviewed Final Anesthetic Review Family History of Problems with Anesthesia: No History of Problems with Anesthesia: No NPO: Yes ASA Class: III and Emergency Final Preanesthetic Review: No Changes in Pt Med Stat, Meds/Allgs Chart Reviewed, Consent Obtained/Reviewed and Anes Risks/Benef Reviewed Patient Risk: Intermediate Procedure Risk: Low Assessment/Block/Sedation in SS: Assess/Block/Sedation-SS Anesthetic Plan Anesthetic Plan: MAC: Disposition: Standard PACU
--- NOTE | 2022-05-17 11:08 | PC.NURSE ---
0800- Patient c/o chest pressure. Per patient gets this feeling when BP elevated. BP 194/98. Kenyatta CELESTE made aware. BP meds and morphine ordered and given per EMAR. EKG completed. Trops ordered and collected. Sabi at bedside. Patient feeling better after medications. Patient to be placed on cardiac monitoring. 0945- Repeat BP 138/63
--- NOTE | 2022-05-17 11:36 | W.PM.OPN ---
Operative Note Operative Note Date of Service: 05/17/22 Narrative: Procedure Description: EGD Indication: abdominal pain Anesthesia: MAC FLEXIBLE TRANSORAL UPPER GASTROINTESTINAL ENDOSCOPY UPPER ENDOSCOPY Consent: Indications for the procedure and potential complications of bleeding, perforation, reaction to medications and missed diagnosis were discussed with the patient and informed consent was obtained. Instrument: Olympus GIF H 190 J mid size upper endoscope Monitoring: Vital signs and clinical assessment, continuous EKG monitoring, Pulse oximetry, Carbon Dioxide monitoring and blood pressure monitoring were done throughout the procedure. Procedure: The patient was placed in the left lateral decubitis position and pre-procedure medications were administered and a bite block was placed. The endoscope was inserted into the mouth and advanced under direct vision to the third part of duodenum. A careful inspection was made as the upper endoscope was withdrawn including a retroflexed examination of the proximal stomach; Findings and interventions are described below. Findings: Larynx:normal Esophagus: GE junction at 36 cm, diaphragm hiatus at 36 cm, bx taken from GEJ and random esophagus Stomach: Patchy streaky gastric erythema. Biopsies were obtained. Grade 2 flap valve on retroflexed examination of the cardia. Duodenum: Normal bulb and descending duodenum, bx taken Intervention: Biopsies as noted above Impression/Findings: gastritis PLAN: await bx can use carafate 1 g QID check metanephrines given pain and High BP mesenteric duplex if neg then GES ok for diet as tolerated
[2022-05-17] MEDS: Lactated Ringers 1,000 ML 100 ML IVCONT (13:36)
--- NOTE | 2022-05-17 14:58 | P.PNIM_ITS ---
Subjective Subjective Date of Service: 05/17/22 Interval History: seen and examined this morning follow up for abdominal pain this am, called by nurse the patient was having chest pressure. Blood pressure elevated blood pressure and chest pain improved following administration of baseline blood pressure medications and 2 mg of morphine patient complaining of abdominal pain and multiple areas of the abdomen. Reports inability to eat food over the past several days Review of Systems Review of Systems: Yes all other systems are reviewed and are negative Constitutional Constitutional: Denies chills and Denies fever(s) Cardiovascular Cardiovascular: Reports chest pain, Denies palpitations and Denies dyspnea Respiratory Respiratory: Denies cough and Denies dyspnea Gastrointestinal Gastrointestinal: Reports abdominal pain, Denies nausea and Denies vomiting Endocrine Endocrine: Denies palpitations Physical Exam Vital Signs: Vital Signs: Last Vital Signs Temp 97.2 F 05/17/22 13:46 Pulse 46 L 05/17/22 13:46 Resp 18 05/17/22 13:46 BP 186/74 H 05/17/22 13:46 Pulse Ox 94 05/17/22 13:46 O2 Del Method 05/17/22 13:46 BMI result Body Mass Index 28.8 Const: General: alert and awake Nutritional Appearance: average body habitus Orientation/consciousness: patient oriented x3 Resp: Effort & Inspection: normal respiratory effort and able to speak in complete sentences Auscultation: clear to auscultation bilaterally Cardio: Rate: regular rate Heart sounds: S1 normal heart sound present and S2 normal heart sound present GI: Other: tender periumbilical area primarily Inspection: No distended Palpation (GI): Soft to palpation Neuro: General: patient oriented x3 and CN's II-XI intact bilaterally Extrem: General: Yes no pedal edema Objective Data Active Medications Acetaminophen (Acetaminophen 325 Mg Tablet) 650 mg PO Q6H PRN PRN Reason: Pain, Mild (Pain Scale 1-3) Aspirin (Aspirin Enteric Coated 81 Mg Tablet.) 81 mg PO DAILY [facility] Last Admin: 05/17/22 10:46 Dose: Not Given Documented By: JEWEL Non-Admin Reason: Held for procedure Atenolol (Atenolol 25 Mg Tablet) 25 mg PO DAILY [facility]; Protocol Last Admin: 05/17/22 08:11 Dose: 25 mg Documented By: JEWEL Atorvastatin Calcium (Atorvastatin Calcium 40 Mg Tablet) 40 mg PO DAILY [facility] Last Admin: 05/17/22 10:46 Dose: Not Given Documented By: JEWEL Non-Admin Reason: Med Not Available Lactated Ringer's (Lr) 1,000 mls @ 100 mls/hr IVCONT .Q10H [facility]CLUDES [facility] Last Admin: 05/17/22 13:36 Dose: 100 mls/hr Documented By: DABA Levothyroxine Sodium (Levothyroxine Sodium 75 Mcg Tablet) 75 mcg PO DAILY [facility] Last Admin: 05/17/22 08:11 Dose: 75 mcg Documented By: JEWEL Losartan Potassium (Losartan Potassium 50 Mg Tablet) 100 mg PO DAILY [facility]; Protocol Last Admin: 05/17/22 08:11 Dose: 100 mg Documented By: JEWEL Melatonin (Melatonin 3 Mg Tablet) 6 mg PO BEDTIME PRN PRN Reason: Insomnia Morphine Sulfate (Morphine Sulfate 4 Mg/Ml Cartridge) 2 mg IVPUSH Q4H PRN; Protocol PRN Reason: Pain, Severe (Pain Scale 7-10) Last Admin: 05/17/22 08:11 Dose: 2 mg Documented By: JEWEL Omeprazole (Omeprazole 20 Mg Capsule.Dr) 20 mg PO DAILY [facility] Last Admin: 05/17/22 10:46 Dose: Not Given Documented By: JEWEL Non-Admin Reason: Physician Held Med Ondansetron HCl (Ondansetron Hcl 4 Mg/2 Ml Vial) 4 mg IVPUSH Q8H PRN PRN Reason: Nausea and Vomiting Ondansetron HCl (Ondansetron Hcl 4 Mg/2 Ml Vial) 4 mg IVPUSH ONCE PRN PRN Reason: Nausea and Vomiting Pharmacy Consult (Consult Rx Perform Med Rec) 1 each MISCELLANE ONCE PRN PRN Reason: Consult order Sodium Chloride (0.9 % Sodium Chloride Flush 3 Ml Syringe) 3 ml IVFLUSH QSHIFT [facility] Last Admin: 05/17/22 11:40 Dose: Not Given Documented By: N-GUTHC Non-Admin Reason: IV Running Sucralfate (Sucralfate 1 Gm Tablet) 1 gm PO BID [facility] Last Admin: 05/17/22 10:46 Dose: Not Given Documented By: JEWEL Non-Admin Reason: Physician Held Med Labs CBC & Chem 7: 05/17/22 05:32 05/17/22 05:32 Labs: Laboratory Results - last 24 hr 05/16/22 05/16/22 05/16/22 15:05 15:05 15:05 MCV 88.0 MCH 29.2 MCHC 33.2 RDW 12.1 Plt Count 317 MPV 10.5 Immature Gran % (Auto) 0.3 Neut % (Auto) 54.0 Lymph % (Auto) 38.8 [place] % (Auto) 5.6 Eos % (Auto) 1.0 Baso % (Auto) 0.3 Lymph # (Auto) 2.7 [place] # (Auto) 0.4 Eos # (Auto) 0.1 Baso # (Auto) 0.0 Abs Immat Gran (auto) 0.02 Absolute Neuts (auto) 3.8 Absolute Nucleated RBC 0.000 Nucleated RBC % (auto) 0.0 PT 12.0 INR 1.0 APTT 34.4 Anion Gap 16 Estim Creat Clear Calc 94.6 Estimated GFR > 60 Random Glucose 101 Lactic Acid Calcium 10.6 H Total Bilirubin 1.3 H AST 20 ALT 20 Alkaline Phosphatase 73 Troponin I High Sens Total Protein 7.9 Albumin 4.8 Lipase 56 TSH 2.12 COVID-19 ([facility]) COVID-19 Clin Com 05/16/22 05/16/22 05/16/22 15:05 15:05 15:05 MCV MCH MCHC RDW Plt Count MPV Immature Gran % (Auto) Neut % (Auto) Lymph % (Auto) [place] % (Auto) Eos % (Auto) Baso % (Auto) Lymph # (Auto) [place] # (Auto) Eos # (Auto) Baso # (Auto) Abs Immat Gran (auto) Absolute Neuts (auto) Absolute Nucleated RBC Nucleated RBC % (auto) PT INR APTT Anion Gap Estim Creat Clear Calc Estimated GFR Random Glucose Lactic Acid 1.3 Calcium Total Bilirubin AST ALT Alkaline Phosphatase Troponin I High Sens < 3.5 Total Protein Albumin Lipase TSH COVID-19 ([facility]) Negative COVID-19 Clin Com See Note 05/17/22 05/17/22 05/17/22 05:32 05:32 09:08 MCV 89.1 MCH 28.9 MCHC 32.4 RDW 12.4 Plt Count 282 MPV 10.5 Immature Gran % (Auto) 0.2 Neut % (Auto) 34.1 L Lymph % (Auto) 54.2 H [place] % (Auto) 9.8 Eos % (Auto) 1.4 Baso % (Auto) 0.3 Lymph # (Auto) 3.2 [place] # (Auto) 0.6 Eos # (Auto) 0.1 Baso # (Auto) 0.0 Abs Immat Gran (auto) 0.01 Absolute Neuts (auto) 2.0 Absolute Nucleated RBC 0.000 Nucleated RBC % (auto) 0.0 PT INR APTT Anion Gap 12 Estim Creat Clear Calc 93.1 Estimated GFR > 60 Random Glucose 101 Lactic Acid Calcium 9.6 D Total Bilirubin 1.5 H AST 16 ALT 15 Alkaline Phosphatase 58 Troponin I High Sens < 3.5 Total Protein 6.4 L Albumin 4.0 Lipase TSH COVID-19 ([facility]) COVID-19 Clin Com Assessment and Plan (1) Abdominal pain: Status: Acute Plan This is a 61-year-old female with pertinent history of essential hypertension, hypothyroidism, mixed hyperlipidemia, gastroesophageal reflux disease, who presents to the emergency department for evaluation of abdominal discomfort. Abdominal Pain CT abdomen without acute findings s/p EGD today - mild gastritis seen by GI - plan for mesenteric duplex to rule out ischemia continue carafate, PPI check plasma metanephrines clear liquid diet, advance as tolerated HTN urgency BP improved with home p.o. meds and pain management continue losartan, atenolol Chest pain r/t elevated BP ekg no ischemic changes, trop negative Hypercalcemia improved with IVF Hypothyroid TSH wnl continue synthroid HLD on statin DVT prophylaxis: Mechanical. Hold anticoagulation until GI evaluation Full code attending - dr. bruce patient requires ongoing inpatient hospitalization for management of blood pressure and abdominal pain Quality Stroke Does the patient have a stroke diagnosis?: No VTE Prior VTE?: No VTE Risk Level:: Medical - low VTE Device Contraindication: N/A - Device Ordered VTE Drug Contraindication: Treatment Not Indicated
[2022-05-17] MEDS: Sucralfate 1 GM TABLET PO (20:07)
--- NOTE | 2022-05-18 00:39 | PC.NURSE ---
pt's heart rate dropping into 30's and 40's bp-168/78 notified no new orders at this time.pt asymptomatic.
[2022-05-18 03:33] VITALS: BP 176/76; PULSE 41; RESP 17; TEMP 36.1; O2SAT 96
[2022-05-18] MEDS: 0.9 % Sodium Chloride Flush 3 ML SYRINGE IVFLUSH ×3 (07:19→19:58)
[2022-05-18 07:24] VITALS: BP 172/78; PULSE 49; RESP 18; TEMP 36.2; O2SAT 98
[2022-05-18] MEDS: Levothyroxine Sodium 75 MCG TABLET PO (10:30)
[2022-05-18] MEDS: Atorvastatin Calcium 40 MG TABLET PO (10:31)
[2022-05-18] MEDS: Losartan Potassium 50 MG TABLET 100 MG PO (10:31)
[2022-05-18] MEDS: Omeprazole 20 MG CAPSULE.DR PO (10:31)
[2022-05-18] MEDS: Sucralfate 1 GM TABLET PO ×2 (10:31→20:02)
[2022-05-18 11:32] VITALS: BP 173/88; PULSE 46; RESP 18; TEMP 36.3; O2SAT 98
[2022-05-18 11:48] VITALS: O2SAT 100
--- NOTE | 2022-05-18 11:52 | P.PNIM_ITS ---
Subjective Subjective Date of Service: 05/18/22 Interval History: seen and examined this morning follow-up for abdominal pain, elevated blood pressure Appears more comfortable this morning, bp still elevated, does not want to take losartan on an emtpy stomach No chest pain or sob at this time Review of Systems Review of Systems: Yes all other systems are reviewed and are negative Constitutional Constitutional: Denies chills and Denies fever(s) Cardiovascular Cardiovascular: Denies chest pain, Denies palpitations, Denies dyspnea and Denies paroxysmal nocturnal dyspnea Respiratory Respiratory: Denies cough and Denies dyspnea Gastrointestinal Gastrointestinal: Reports abdominal pain, Denies nausea and Denies vomiting Endocrine Endocrine: Denies palpitations Physical Exam Vital Signs: Vital Signs: Last Vital Signs Temp 97.3 F 05/18/22 11:32 Pulse 46 L 05/18/22 11:32 Resp 18 05/18/22 11:32 BP 173/88 H 05/18/22 11:32 Pulse Ox 98 05/18/22 11:32 O2 Del Method 05/18/22 11:32 BMI result Body Mass Index 28.8 Const: General: cooperative, healthy appearing, comfortable, alert and awake Nutritional Appearance: average body habitus Orientation/consciousness: patient oriented x3 Resp: Effort & Inspection: normal respiratory effort and able to speak in complete sentences Auscultation: clear to auscultation bilaterally Cardio: Rate: regular rate Heart sounds: S1 normal heart sound present and S2 normal heart sound present GI: Inspection: No distended Palpation (GI): Soft to palpation Neuro: General: patient oriented x3 and CN's II-XI intact bilaterally Extrem: General: Yes no pedal edema Objective Data Active Medications Acetaminophen (Acetaminophen 325 Mg Tablet) 650 mg PO Q6H PRN PRN Reason: Pain, Mild (Pain Scale 1-3) Aspirin (Aspirin Enteric Coated 81 Mg Tablet.) 81 mg PO DAILY [facility] Last Admin: 05/18/22 07:21 Dose: Not Given Documented By: THAIS Non-Admin Reason: Patient Refused Atorvastatin Calcium (Atorvastatin Calcium 40 Mg Tablet) 40 mg PO DAILY [facility] Last Admin: 05/18/22 10:31 Dose: 40 mg Documented By: THAIS Hydralazine HCl (Hydralazine Hcl 25 Mg Tablet) 25 mg PO BID [facility]; Protocol Levothyroxine Sodium (Levothyroxine Sodium 75 Mcg Tablet) 75 mcg PO DAILY [facility] Last Admin: 05/18/22 10:30 Dose: 75 mcg Documented By: THAIS Losartan Potassium (Losartan Potassium 50 Mg Tablet) 100 mg PO DAILY [facility]; Protocol Last Admin: 05/18/22 10:31 Dose: 100 mg Documented By: THAIS Melatonin (Melatonin 3 Mg Tablet) 6 mg PO BEDTIME PRN PRN Reason: Insomnia Morphine Sulfate (Morphine Sulfate 4 Mg/Ml Cartridge) 2 mg IVPUSH Q4H PRN; Protocol PRN Reason: Pain, Severe (Pain Scale 7-10) Last Admin: 05/17/22 19:13 Dose: 2 mg Documented By: ASTRID Omeprazole (Omeprazole 20 Mg Capsule.) 20 mg PO DAILY [facility] Last Admin: 05/18/22 10:31 Dose: 20 mg Documented By: THAIS Ondansetron HCl (Ondansetron Hcl 4 Mg/2 Ml Vial) 4 mg IVPUSH Q8H PRN PRN Reason: Nausea and Vomiting Ondansetron HCl (Ondansetron Hcl 4 Mg/2 Ml Vial) 4 mg IVPUSH ONCE PRN PRN Reason: Nausea and Vomiting Pharmacy Consult (Consult Rx Perform Med Rec) 1 each MISCELLANE ONCE PRN PRN Reason: Consult order Sodium Chloride (0.9 % Sodium Chloride Flush 3 Ml Syringe) 3 ml IVFLUSH QSHIFT [facility] Last Admin: 05/18/22 07:19 Dose: 3 ml Documented By: THAIS Sucralfate (Sucralfate 1 Gm Tablet) 1 gm PO BID [facility] Last Admin: 05/18/22 10:31 Dose: 1 gm Documented By: THAIS Labs CBC & Chem 7: 05/17/22 05:32 05/17/22 05:32 Assessment and Plan (1) Abdominal pain: Status: Acute Plan This is a 61-year-old female with pertinent history of essential hypertension, hypothyroidism, mixed hyperlipidemia, gastroesophageal reflux disease, who presents to the emergency department for evaluation of abdominal discomfort. Abdominal Pain CT abdomen without acute findings s/p EGD today - mild gastritis seen by GI - plan for mesenteric duplex to rule out ischemia, report pending continue carafate, PPI check plasma metanephrines clear liquid diet, advance as tolerated aspirin d/c for gastritis - she states she does not take regularly at home, takes in emergencies only HTN urgency BP still elevated. continue losartan atenolol d/c for bradycardia allergies to multiple blood pressure medications will start hydralazine 25 bid, uptitrate prn Chest pain. resolved r/t elevated BP ekg no ischemic changes, trop negative Hypercalcemia improved with IVF Hypothyroid TSH wnl continue synthroid HLD on statin DVT prophylaxis: Mechanical Full code attending - dr. bruce patient requires ongoing inpatient hospitalization for management of blood pressure and abdominal pain Quality Stroke Does the patient have a stroke diagnosis?: No VTE Prior VTE?: No VTE Risk Level:: Medical - low VTE Device Contraindication: N/A - Device Ordered VTE Drug Contraindication: Treatment Not Indicated
--- NOTE | 2022-05-18 12:23 | HO.POSTANES ---
Post Anesthesia Evaluation Post Anesthesia Evaluation Vital Signs: Vital Signs Temp Pulse Resp BP Pulse Ox O2 Del Method 05/18/22 11:48 100 Room Air 05/18/22 11:32 97.3 F 46 L 18 173/88 H 98 Room Air 05/18/22 07:24 97.1 F 49 L 18 172/78 H 98 Room Air 05/18/22 03:33 97 F 41 L 17 176/76 H 96 Room Air Anesthesia: Monitored Mental Status: Awake Pain Control: Satisfactory Nausea/Vomiting: None Hydration: Adequate Anesthesia-Related Issues: No Anes. Related Issues
[2022-05-18] MEDS: hydrALAZINE HCl 25 MG TABLET PO ×2 (12:31→20:02)
--- NOTE | 2022-05-18 12:56 | MHC.CM.PN ---
EMR REVIEWED, PER HSOPITALIST PT CONT'S TO HAVE ABD PAIN AND NOW W/UNCONTROLLED BP, NO PLAN FOR D/C AT THIS TIME, CM WILL CONT TO FOLLOW D/C NEEDS.
[2022-05-18 14:12] LABS: Calcium (PTHI) 9.5 mg/dL (8.6-10.4); PTHI 100 pg/mL (16-77)
[2022-05-18 15:28] VITALS: BP 140/67; PULSE 57; RESP 17; TEMP 36.6; O2SAT 97
[2022-05-18 19:47] VITALS: BP 150/71; PULSE 51; RESP 16; TEMP 36.2; O2SAT 96
[2022-05-18] MEDS: polyethylene glycoL 3350 17 GM POWD.PACK PO (20:02)
[2022-05-19] VITALS (10 sets, daily range): BP systolic 116–188; BP diastolic 58–86; PULSE 50–86; RESP 16–18; TEMP 36.2–36.9; O2SAT 95–98
--- NOTE | 2022-05-19 | ECG_ITS ---
Test Reason : chest pain/pressure Blood Pressure : / mmHG Vent. Rate : 076 BPM Atrial Rate : 076 BPM P-R Int : 164 ms QRS Dur : 088 ms QT Int : 396 ms P-R-T Axes : 056 046 125 degrees QTc Int : 445 ms Normal sinus rhythm Nonspecific ST and T wave abnormality Abnormal ECG When compared with ECG of 19-MAY-2022 09:18, No significant change was found Referred By: Ilya Hercules Electronically Signed By:LETI FERGUSON MD
--- NOTE | 2022-05-19 | ECG_ITS ---
Test Reason : chest pain Blood Pressure : / mmHG Vent. Rate : 087 BPM Atrial Rate : 087 BPM P-R Int : 148 ms QRS Dur : 092 ms QT Int : 394 ms P-R-T Axes : 059 049 000 degrees QTc Int : 474 ms Normal sinus rhythm ST & T wave abnormality, consider inferolateral ischemia Prolonged QT Abnormal ECG When compared with ECG of 17-MAY-2022 08:10, ST now depressed in Inferior leads Lateral leads QT has lengthened Referred By: Janie Miranda Electronically Signed By:LETI FERGUSON MD
--- NOTE | 2022-05-19 00:59 | PC.NURSE ---
pt BP elevated at 00:00, 188/72, with manual HR-58. Dr. Dakota Miranda notified. ordered IV hydralazine. RN will continue monitor for BP and HR. pt complained about the dehydration, dry mouth. oral intake 19:00 to 01:00 3 cups of tea and 1 cup of hot water. ambulated to BR urinated and back to bed frequently.
[2022-05-19] MEDS: hydrALAZINE HCl 20 MG/ML VIAL IVPUSH (01:21)
--- NOTE | 2022-05-19 01:51 | PM.EVENT ---
Event Note Date of Service: 05/19/22 Event Note: Rapid response was called by the nurse. Upon arrival, patient complaining of generalized pain over the abdomen, chest and neck. Hemodynamically stable with blood pressure, systolic 150s, heart rate 90s and satting 99% on room air. Will order EKG, troponin.
[2022-05-19] MEDS: Dicyclomine HCl 10 MG CAPSULE PO (02:10)
[2022-05-19] MEDS: Morphine Sulfate 2 MG/ML CARTRIDGE IVPUSH (02:11)
--- NOTE | 2022-05-19 02:15 | PC.NURSE ---
called Rapid responds on this pt at 01:30 for the chest pain, WOB, LUQ pain, radiated to back pain, both side neck jugular vein pain, and flash hot face with dry lips . BP 150/72 98% RA, HR 98, [employer] showed up. Dr. Miranda ordered lab, ECG, morphine, and bentyl. read ECG. 02:25 checked BP 140/72 with manual, HR 78, 98% RA. RN will continue to monitor BP, HR pt's symptoms.
[2022-05-19 02:32] LABS: Troponin-I High Sensitivity < 3.5 ng/L (<3.5-17.0)
[2022-05-19 07:39] LABS: Troponin-I High Sensitivity < 3.5 ng/L (<3.5-17.0)
[2022-05-19] MEDS: Levothyroxine Sodium 75 MCG TABLET PO (08:01)
[2022-05-19] MEDS: Omeprazole 20 MG CAPSULE.DR PO (08:01)
[2022-05-19] MEDS: Sucralfate 1 GM TABLET PO ×2 (08:01→21:27)
[2022-05-19] MEDS: hydrALAZINE HCl 25 MG TABLET PO (08:01)
[2022-05-19] MEDS: Losartan Potassium 50 MG TABLET 100 MG PO (08:02)
[2022-05-19] MEDS: 0.9 % Sodium Chloride Flush 3 ML SYRINGE IVFLUSH ×3 (08:02→21:27)
--- NOTE | 2022-05-19 09:12 | ECG_ITS ---
Test Reason : chest pain/pressure Blood Pressure : / mmHG Vent. Rate : 077 BPM Atrial Rate : 077 BPM P-R Int : 160 ms QRS Dur : 090 ms QT Int : 394 ms P-R-T Axes : 051 040 243 degrees QTc Int : 445 ms Normal sinus rhythm Nonspecific ST and T wave abnormality Abnormal ECG When compared with ECG of 19-MAY-2022 01:51, ST less depressed in Lateral leads Referred By: Ilya Hercules Electronically Signed By:LETI FERGUSON MD
--- NOTE | 2022-05-19 09:50 | HO.PM.IMPN ---
Subjective Subjective Date of Service: 05/19/22 Interval History: cc: abd pain interval history:after receiving iv hydralazine overnight for elevated bp, bp dropped >40, felt flushed and palpitations. Cardiovascular Cardiovascular: Reports no additional cardiovascular complaints Respiratory Respiratory: Reports no additional respiratory complaints Physical Exam Vital Signs: Vital Signs: Last Vital Signs Temp 97.5 F 05/19/22 07:18 Pulse 81 05/19/22 07:18 Resp 18 05/19/22 07:18 BP 157/68 H 05/19/22 07:18 Pulse Ox 97 05/19/22 07:18 O2 Del Method 05/19/22 07:18 BMI result Body Mass Index 28.8 General: AO X 3, no acute distress Resp: CTA bilateral, no accessory muscles used CVS: S1,S2,RRR GI: soft, non tender, non distended Neuro: motor grossly intact, alert Psych: appropriate affect, appropriate insight Objective Data Active Medications Acetaminophen (Acetaminophen 325 Mg Tablet) 650 mg PO Q6H PRN PRN Reason: Pain, Mild (Pain Scale 1-3) Hydralazine HCl (Hydralazine Hcl 25 Mg Tablet) 25 mg PO BID [facility]; Protocol Last Admin: 05/19/22 08:01 Dose: 25 mg Documented By: CUONG Levothyroxine Sodium (Levothyroxine Sodium 75 Mcg Tablet) 75 mcg PO DAILY [facility] Last Admin: 05/19/22 08:01 Dose: 75 mcg Documented By: CUONG Losartan Potassium (Losartan Potassium 50 Mg Tablet) 100 mg PO DAILY [facility]; Protocol Last Admin: 05/19/22 08:02 Dose: 100 mg Documented By: CUONG Melatonin (Melatonin 3 Mg Tablet) 6 mg PO BEDTIME PRN PRN Reason: Insomnia Morphine Sulfate (Morphine Sulfate 4 Mg/Ml Cartridge) 2 mg IVPUSH Q4H PRN; Protocol PRN Reason: Pain, Severe (Pain Scale 7-10) Last Admin: 05/17/22 19:13 Dose: 2 mg Documented By: ASTRID Omeprazole (Omeprazole 20 Mg Capsule.) 20 mg PO DAILY [facility] Last Admin: 05/19/22 08:01 Dose: 20 mg Documented By: CUONG Ondansetron HCl (Ondansetron Hcl 4 Mg/2 Ml Vial) 4 mg IVPUSH Q8H PRN PRN Reason: Nausea and Vomiting Ondansetron HCl (Ondansetron Hcl 4 Mg/2 Ml Vial) 4 mg IVPUSH ONCE PRN PRN Reason: Nausea and Vomiting Pharmacy Consult (Consult Rx Perform Med Rec) 1 each MISCELLANE ONCE PRN PRN Reason: Consult order Polyethylene Glycol (Polyethylene Glycol 3350 17 Gm Powd.Pack) 17 gm PO DAILY PRN PRN Reason: Constipation Last Admin: 05/18/22 20:02 Dose: 17 gm Documented By: LORI Polyethylene Glycol (Polyethylene Glycol 3350 17 Gm Powd.Pack) 17 gm PO ONCE ONE Stop: 05/19/22 09:37 Sodium Chloride (0.9 % Sodium Chloride Flush 3 Ml Syringe) 3 ml IVFLUSH QSHIFT [facility] Last Admin: 05/19/22 08:02 Dose: 3 ml Documented By: CUONG Sucralfate (Sucralfate 1 Gm Tablet) 1 gm PO BID [facility] Last Admin: 05/19/22 08:01 Dose: 1 gm Documented By: CUONG Labs CBC & Chem 7: 05/17/22 05:32 05/17/22 05:32 Labs: Laboratory Results - last 24 hr 05/17/22 05/19/22 05/19/22 05:32 01:59 07:15 Troponin I High Sens < 3.5 < 3.5 PTH Intact 100 H Calcium (PTH Intact) 9.5 Assessment and Plan (1) Abdominal pain: Status: Acute Plan 61-year-old female with pertinent history of essential hypertension, hypothyroidism, mixed hyperlipidemia, gastroesophageal reflux disease, anxiety, primary hyperparathyroid, who presented to the emergency department for evaluation of abdominal discomfort. Abdominal Pain CT abdomen with midly dilated terminal ileum mesenteric US negative s/p EGD 05/17/22 - mild gastritis, path with mildly increased intraepithelial lymphocytes continue carafate, PPI follow up ESR, CRP, plasma metanephrines diet advanced to solids aspirin d/c for gastritis - she states she does not take regularly at home, takes in emergencies only HTN urgency continue losartan atenolol d/c for bradycardia adverse reaction likely related to IV hydralazine only, would continue po for now monitor Chest pain. resolved r/t elevated BP ekg no ischemic changes, trop negative Hypercalcemia due to primary hyperparathyroidism ? if contributing to anxiety, hypertension hypercalcemia appears to be very mild outpatient endocrine Hypothyroid TSH wnl continue synthroid HLD statin for primary prophylaxis only, will hold for now DVT prophylaxis: lovenox Full code reason for continued hospitalization: patient requires ongoing inpatient hospitalization for management of blood pressure and abdominal pain Quality Stroke Does the patient have a stroke diagnosis?: No VTE Prior VTE?: No VTE Risk Level:: Medical - low VTE Device Contraindication: N/A - Device Ordered VTE Drug Contraindication: Treatment Not Indicated
[2022-05-19] MEDS: Morphine Sulfate 4 MG/ML CARTRIDGE 2 MG IVPUSH (10:18)
[2022-05-19] MEDS: polyethylene glycoL 3350 17 GM POWD.PACK PO (10:21)
--- NOTE | 2022-05-19 10:23 | ECG_ITS ---
Test Reason : cp Blood Pressure : / mmHG Vent. Rate : 066 BPM Atrial Rate : 066 BPM P-R Int : 164 ms QRS Dur : 086 ms QT Int : 406 ms P-R-T Axes : 055 027 149 degrees QTc Int : 425 ms Normal sinus rhythm Nonspecific ST and T wave abnormality Abnormal ECG No significant changes seen Referred By: Ilya Hercules Electronically Signed By:LETI FERGUSON MD
[2022-05-19] MEDS: LORazepam 0.5 MG TABLET PO (11:38)
--- NOTE | 2022-05-19 11:53 | PM.CNGS ---
History of Present Illness Consult details Consult date: 05/19/22 Narrative: 61-year-old female referred for chronic abdominal pain and weight loss. She seems to have had this long history of pain for almost a year now. She describes this as mostly in the upper abdomen. She says that the pain would often times radiate all the way to the her chest. Sometimes it would be very severe. She says that she has had about 6 hospital admissions for this same problem since giving a last year. she says that often times, intake of food we will reviewed this pain. She says that she has frequent early satiety. She denies being constipated but says that her she strains with bowel movements, she would feel this pain radiating all the way to the upper abdomen and chest. She says that she has had been able to eat well the past few weeks was of her anticipating her pain. She was admitted to [facility] last week and had undergone workup including a mesenteric angiogram which she did not reveal any vascular pathology of the mesenteric vessels. She had an EGD 2 days ago showing gastritis. She had a colonoscopy 2 years ago which was unremarkable. 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 She was supposed to be taking a proton pump inhibitor but according to the family, she had been noncompliant with this. Review of Systems Constitutional: Constitutional: Denies chills and Denies fever(s) Cardiovascular: Cardiovascular: Denies chest pain, Denies dyspnea and Denies dyspnea on exertion Respiratory: Respiratory: Denies cough, Denies dyspnea and Denies dyspnea on exertion Gastrointestinal: Gastrointestinal: Denies hematochezia and Denies change in bowel habits Genitourinary: Genitourinary: Denies hematuria Musculoskeletal: Musculoskeletal: Denies back pain and Denies limited range of motion Neurologic: Denies focal weakness and Denies convulsions Psychiatric: Psychiatric: Reports anxiety, Denies depression and Denies mood swings PMFSH Past Medical History Medical History Fatty liver Hypercholesterolemia Hypertension Hypothyroid Impaired glucose tolerance Obesity (BMI 30-39.9) Primary hyperparathyroidism Family History Family History Father HTN (hypertension) Diabetes mellitus Mother No problems noted. Surgical History Surgical History H/O colonoscopy History of back surgery History of cholecystectomy History of esophagogastroduodenoscopy (EGD) History of mammogram History of removal of cyst History of total abdominal hysterectomy Hx of arthroscopic knee surgery S/P knee surgery Social History Social History Household Members: Spouse Housing: House Do you presently have visiting nurse or other home services: No Alcohol intake: never Patient Tobacco Use Status: Never used Tobacco e-Cigarette/Vaping Use: Never Used Second Hand Smoke Exposure: No service: No Current occupational status: retired and other Current occupation: [employer] handed/ [employer] Cognitive needs: No Hearing needs: No Vision needs: Yes Meds Allergies Allergy/AdvReac Type Severity Reaction Status Date / Time nifedipine [From ADALAT] Allergy Severe Chest Pain Verified 05/16/22 14:51 isosorbide [From Imdur] Allergy Intermediate Headache Verified 05/16/22 14:51 lisinopril Allergy Intermediate CLAIRE-I Cough Verified 05/16/22 14:51 valsartan Allergy Intermediate DIZZINESS Verified 05/16/22 14:51 atorvastatin AdvReac Intermediate memory loss Verified 05/16/22 14:51 nebivolol [From Bystolic] AdvReac Mild dizzy Verified 05/16/22 14:51 Active Medications: Current Medications Acetaminophen (Acetaminophen 325 Mg Tablet) 650 mg PO Q6H PRN PRN Reason: Pain, Mild (Pain Scale 1-3) Enoxaparin Sodium (Enoxaparin Sodium 40 Mg/0.4 Ml Syringe) 40 mg SUBCUT Q24H [facility] Hydralazine HCl (Hydralazine Hcl 25 Mg Tablet) 25 mg PO BID [facility]; Protocol Last Admin: 05/19/22 08:01 Dose: 25 mg Hydroxyzine HCl (Hydroxyzine Hcl 25 Mg Tablet) 25 mg PO Q8H PRN PRN Reason: anxiety Levothyroxine Sodium (Levothyroxine Sodium 75 Mcg Tablet) 75 mcg PO DAILY [facility] Last Admin: 05/19/22 08:01 Dose: 75 mcg Lorazepam (Lorazepam 0.5 Mg Tablet) 0.5 mg PO Q4H PRN PRN Reason: anxiety Last Admin: 05/19/22 11:38 Dose: 0.5 mg Losartan Potassium (Losartan Potassium 50 Mg Tablet) 100 mg PO DAILY [facility]; Protocol Last Admin: 05/19/22 08:02 Dose: 100 mg Melatonin (Melatonin 3 Mg Tablet) 6 mg PO BEDTIME PRN PRN Reason: Insomnia Morphine Sulfate (Morphine Sulfate 4 Mg/Ml Cartridge) 2 mg IVPUSH Q4H PRN; Protocol PRN Reason: Pain, Severe (Pain Scale 7-10) Last Admin: 05/19/22 10:18 Dose: 2 mg Omeprazole (Omeprazole 20 Mg Capsule.Dr) 20 mg PO DAILY [facility] Last Admin: 05/19/22 08:01 Dose: 20 mg Ondansetron HCl (Ondansetron Hcl 4 Mg/2 Ml Vial) 4 mg IVPUSH Q8H PRN PRN Reason: Nausea and Vomiting Ondansetron HCl (Ondansetron Hcl 4 Mg/2 Ml Vial) 4 mg IVPUSH ONCE PRN PRN Reason: Nausea and Vomiting Pharmacy Consult (Consult Rx Perform Med Rec) 1 each MISCELLANE ONCE PRN PRN Reason: Consult order Polyethylene Glycol (Polyethylene Glycol 3350 17 Gm Powd.Pack) 17 gm PO DAILY PRN PRN Reason: Constipation Last Admin: 05/18/22 20:02 Dose: 17 gm Sodium Chloride (0.9 % Sodium Chloride Flush 3 Ml Syringe) 3 ml IVFLUSH QSHIFT [facility] Last Admin: 05/19/22 08:02 Dose: 3 ml Sucralfate (Sucralfate 1 Gm Tablet) 1 gm PO BID [facility] Last Admin: 05/19/22 08:01 Dose: 1 gm Home Medications Medication Instructions Recorded Confirmed Last Taken Type cyanocobalamin (vitamin B-12) 1,000 mcg PO DAILY 04/13/20 05/16/22 05/16/22 07:00 History 1,000 mcg capsule losartan 50 mg tablet 100 mg PO DAILY 05/04/22 05/16/22 05/16/22 07:00 History sucralfate 1 gram tablet 1 g PO BID 05/04/22 05/16/22 05/16/22 11:00 History pantoprazole 40 mg tablet,delayed 1 tab PO DAILY 05/17/22 05/17/22 Unknown History release Physical Exam Vital Signs: Vital Signs: Last Vital Signs Temp 97.5 F 05/19/22 07:18 Pulse 81 05/19/22 07:18 Resp 18 05/19/22 07:18 BP 168/80 H 05/19/22 10:56 Pulse Ox 97 05/19/22 11:00 O2 Del Method 05/19/22 11:00 BMI result Body Mass Index 28.8 Const: General: comfortable and no acute distress Orientation/consciousness: patient oriented x3 Neck: Neck: Yes no lymphadenopathy Resp: Auscultation: clear to auscultation bilaterally Cardio: Rhythm: regular rhythm GI: Other: Diffusely tender mostly in the epigastric area Palpation (GI): Soft to palpation and no guarding Neuro: General: patient oriented x3 Results Labs Result diagrams: 05/20/22 05:08 05/20/22 05:08 Labs: Abnormal lab results 05/17/22 Range/Units 05:32 PTH Intact 100 H (16-77) pg/mL All other labs normal. Imaging Additional studies: Laboratory Results WBC 5.8 X10*3/uL (4.8-10.8) 05/17/22 05:32 RBC 4.85 X10*6/uL (4.20-5.50) 05/17/22 05:32 Hgb 14.0 g/dl (12.0-16.0) 05/17/22 05:32 Hct 43.2 % (37.0-47.0) 05/17/22 05:32 MCV 89.1 fL (80.0-98.0) 05/17/22 05:32 MCH 28.9 pg (27.0-33.0) 05/17/22 05:32 MCHC 32.4 g/dl (31.0-35.0) 05/17/22 05:32 RDW 12.4 % (11.0-16.0) 05/17/22 05:32 Plt Count 282 X10*3/uL (160-400) 05/17/22 05:32 MPV 10.5 fL (9.4-12.3) 05/17/22 05:32 Immature Gran % (Auto) 0.2 % (0.0-0.4) 05/17/22 05:32 Neut % (Auto) 34.1 % (45-73) L 05/17/22 05:32 Lymph % (Auto) 54.2 % (20-40) H 05/17/22 05:32 Mccone % (Auto) 9.8 % (2-11) 05/17/22 05:32 Eos % (Auto) 1.4 % (0-4) 05/17/22 05:32 Baso % (Auto) 0.3 % (0-2) 05/17/22 05:32 Lymph # (Auto) 3.2 X10*3/uL (1.2-4.9) 05/17/22 05:32 Mccone # (Auto) 0.6 X10*3/uL (0.1-1.2) 05/17/22 05:32 Eos # (Auto) 0.1 X10*3/uL (0.0-0.4) 05/17/22 05:32 Baso # (Auto) 0.0 X10*3/uL (0.0-0.2) 05/17/22 05:32 Abs Immat Gran (auto) 0.01 X10*3/uL (0.00-0.03) 05/17/22 05:32 Absolute Neuts (auto) 2.0 x10*3/uL (2.0-8.3) 05/17/22 05:32 Absolute Nucleated RBC 0.000 X10*3/uL (0.0-0.012) 05/17/22 05:32 Nucleated RBC % (auto) 0.0 /100WBC (0.0-0.2) 05/17/22 05:32 PT 12.0 SEC (10.0-13.1) 05/16/22 15:05 INR 1.0 (0.9-1.1) 05/16/22 15:05 APTT 34.4 SEC (26.0-36.4) 05/16/22 15:05 Sodium 144 mmol/L (135-145) 05/17/22 05:32 Potassium 4.4 mmol/L (3.3-5.1) 05/17/22 05:32 Chloride 110 mmol/L (96-108) H 05/17/22 05:32 Carbon Dioxide 26 mmol/L (22-29) 05/17/22 05:32 Anion Gap 12 (12-20) 05/17/22 05:32 BUN 8 mg/dL (9-16) L 05/17/22 05:32 Creatinine 0.64 mg/dL (0.5-1.4) 05/17/22 05:32 Estim Creat Clear Calc 93.1 05/17/22 05:32 Estimated GFR > 60 05/17/22 05:32 Random Glucose 101 mg/dL (60-115) 05/17/22 05:32 Lactic Acid 1.3 mmol/L (0.5-2.0) 05/16/22 15:05 Calcium 9.6 mg/dL (8.4-10.2) D 05/17/22 05:32 Total Bilirubin 1.5 mg/dL (0.0-1.0) H 05/17/22 05:32 AST 16 U/L (5-31) 05/17/22 05:32 ALT 15 U/L (0-31) 05/17/22 05:32 Alkaline Phosphatase 58 U/L (39-117) 05/17/22 05:32 Troponin I High Sens < 3.5 ng/L (<3.5-17.0) 05/19/22 07:15 Total Protein 6.4 g/dL (6.5-8.0) L 05/17/22 05:32 Albumin 4.0 g/dL (3.5-5.0) 05/17/22 05:32 Lipase 56 U/L (8-78) 05/16/22 15:05 TSH 2.12 uIU/mL (0.32-4.0) 05/16/22 15:05 PTH Intact 100 pg/mL (16-77) H 05/17/22 05:32 Calcium (PTH Intact) 9.5 mg/dL (8.6-10.4) 05/17/22 05:32 COVID-19 ([facility]) Negative (Negative) 05/16/22 15:05 COVID-19 Clin Com See Note 05/16/22 15:05 Impressions Abdomen/Pelvis CT 05/16/22 20:05 IMPRESSION: 1. No CT evidence of acute intra-abdominal process to explain patient's pain symptoms. Normal appendix. 2. Mild fullness of the right renal pelvis and right ureter without evidence of obstructing stone, calcific densities found posterior to the urinary bladder adjacent to the course of the right ureter felt to be phleboliths, this is chronic been present on prior CT from August 2012. 3. Status post cholecystectomy. 4. Mildly dilated terminal ileum, fecalized distal ileum contents along with excess amount of stool in the cecum possible constipation. Please correlate clinically. 5. Small anterior abdominal wall rectus sheath hernia right para midline, containing fat and mesentery with no bowels. Mesenteric US 05/18/22 09:28 IMPRESSION: Normal Doppler imaging examination of the abdominal aorta, celiac artery and mesenteric arteries. Assessment and Plan (1) Abdominal pain: Status: Acute Plan She describes this chronic abdominal pain, mostly on the upper abdomen as above. I have reviewed her CAT scan and this does not reveal any acute intra-abdominal pathology. Her pain is likely to be multifactorial. It appears that at least part of these are reflux symptoms. She may have a component of IBS as well. She does have a small fat containing right paramedian hernia but I do not feel that this is contributing to her overall symptomalogy. She does not have tenderness on this particular area. I have had a long discussion with the family with regards to the above. She may need intensive follow-up with her coater helper. It does not appear that she has any surgical issues at this time. I will follow along while she is in the hospital. Procedures Date of Service Date of Service: 05/19/22
[2022-05-19] MEDS: Docusate Sodium 100 MG CAPSULE PO (15:57)
--- NOTE | 2022-05-19 19:40 | PC.NURSE ---
pt's bp med hydralazine is hold since this morning. dr. Miranda notified that to hold. BP 133/68 at 19:00.
[2022-05-20] VITALS: BP 154/70; PULSE 52; RESP 16; TEMP 36.5; O2SAT 97
[2022-05-20 03:01] VITALS: BP 144/74; PULSE 53; RESP 14; TEMP 36.5; O2SAT 95
[2022-05-20 05:33] LABS: Hematocrit 43.4 % (37.0-47.0); Hemoglobin 14.5 g/dl (12.0-16.0); Mean Corpuscular HGB Conc 33.4 g/dl (31.0-35.0); Mean Corpuscular Hemoglobin 29.3 pg (27.0-33.0); Mean Corpuscular Volume 87.7 fL (80.0-98.0); Mean Platelet Volume 11.2 fL (9.4-12.3); Platelet Count 285 X10*3/uL (160-400); Red Blood Count 4.95 X10*6/uL (4.20-5.50); Red Cell Distribution Width 12.5 % (11.0-16.0); White Blood Count 6.3 X10*3/uL (4.8-10.8)
--- NOTE | 2022-05-20 05:43 | PC.NURSE ---
pt continuously talking and crying. pt states that talk to her boy friend, people steels her belonging in her house so she carries bag of jewelries and hughes $380.00 , no one help her to clean the house, house is [address] years old. no one can bring her to [employer]. 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 non stop talking to every staffs. pt alert oriented x 3 except day and date due to no calender in the room.
[2022-05-20 05:51] LABS: Alanine Aminotransferase 20 U/L (0-31); Albumin Level 4.3 g/dL (3.5-5.0); Alkaline Phosphatase 62 U/L (39-117); Anion Gap 15 (12-20); Aspartate Amino Transferase 22 U/L (5-31); Bilirubin Direct 0.7 mg/dL (0.0-0.5); Bilirubin Total 2.3 mg/dL (0.0-1.0); Blood Urea Nitrogen 8 mg/dL (9-16); Calcium 10.4 mg/dL (8.4-10.2); Carbon Dioxide 24 mmol/L (22-29); Chloride 105 mmol/L (96-108); Creatinine Clr Calc Pharmacy 87.6; Estimated Glomerular Filt Rate > 60; Glucose Fasting 98 mg/dL (60-99); Magnesium 2.2 mg/dL (1.6-2.6); Sodium 140 mmol/L (135-145); Total Protein 6.9 g/dL (6.5-8.0)
[2022-05-20 06:04] LABS: Erythrocyte Sedimentation Rate 5 MM/HR (0-20)
[2022-05-20 07:27] VITALS: BP 140/68; PULSE 62; RESP 18; TEMP 36.3; O2SAT 96
--- NOTE | 2022-05-20 08:27 | PM.DS ---
DS: Providers Provider Date of Service: 05/20/22 Date of admission: 05/16/22 23:56 Primary care physician: Jj Smith MD Consults: 05/16/22 23:58 Consult to Gastroenterology Routine Consulting Provider: Eyad Rowland Reason for consultation: abdominal pain Has provider been notified: No 05/19/22 09:25 Consult to General Surgery Routine Consulting Provider: Hubert Viramontes Reason for consultation: abd pain DS: Diagnosis Discharge Diagnosis (1) Abdominal pain: Status: Acute DS: Summary Hospital Course Hospital Course: Chief Complaint: Abdominal Pain This is a 61-year-old female with pertinent history of essential hypertension, hypothyroidism, mixed hyperlipidemia, gastroesophageal reflux disease, who presents to the emergency department for evaluation of abdominal discomfort.? Patient has had multiple ER visits for the same.? Patient saw DANIELLE Masters on 05/04/2022 as an outpatient.? PPI was stopped and Carafate was initiated for H pylori testing an EGD was planned.? Patient continued to have epigastric pain, worse with p.o. intake and associated with nausea.? States she also went to [facility] last week but was discharged without an EGD.? Also complains of intermittent nausea and nonbloody loose stools.? States she has not had p.o. intake for the last week due to concerns of abdominal pain.? She thinks she lost about 8 lb in the last 2 weeks. Patient denies fever, chills, chest discomfort, palpitations, shortness of breath, changes in urinary habits. hospital course: Patient was admitted for abdominal pain. CT abdomen was unremarkable except for mildly dilated terminal ileum which was evaluated by Gastroenterology and General surgery and determined not to be of clinical significance. She underwent mesenteric ultrasound which was negative. She underwent EGD on 05/17/2022 which showed mild gastritis and pathology with mild increase in intraepithelial lymphocytes. She was treated with PPI and Carafate. Plasma metanephrines were drawn and is pending and should be followed up. patient was eventually advanced to solids and tolerated well by time of discharge. Course was complicated by hypertensive urgency. She was continued on her losartan and initially started on hydralazine but had flushing and headache after hydralazine so is not interested in continuing p.o. her atenolol was discontinued due to bradycardia. Patient's chest pain resolved and was likely due to transient elevation blood pressure, EKG showed no ischemic changes and troponins negative. Patient does have a catheterization from 2019 which was unremarkable. Patient was noted to have mild hypercalcemia with an elevated PTH consistent with primary hyper parathyroidism, she will be referred to endocrinology as outpatient. For her hypothyroid she was continued on Synthroid. For her hyperlipidemia statin was held in case contributing to symptoms. Patient is feeling better will be discharged home. Time Spent with Patient Time attestation: Total time spent providing and/or coordinating discharge services: Discharge coordination time: Greater than 30 minutes Quality: Safe Use of Opioids Does Pt have an Active Cancer Diagnosis on the Problem List?: No Quality: Stroke Does the patient have a stroke diagnosis?: No Physical Exam Vital Signs: Vital Signs: Last Vital Signs Temp 97.4 F 05/20/22 07:27 Pulse 62 05/20/22 07:27 Resp 18 05/20/22 07:27 BP 140/68 H 05/20/22 07:27 Pulse Ox 96 05/20/22 07:27 O2 Del Method 05/20/22 07:27 BMI result Body Mass Index 28.8 General: AO X 3, no acute distress Resp: CTA bilateral, no accessory muscles used CVS: S1,S2,RRR GI: soft, non tender, non distended Neuro: motor grossly intact, alert Psych: appropriate affect, appropriate insight DS: Data Data Completed and Pending Completed studies during hospitalization [Text1]: Pending at discharge 05/17/22 11:32 Surgical [PTH] Routine Labs on day of discharge: Laboratory Results - last 24 hr 05/20/22 05/20/22 05/20/22 05:08 05:08 05:08 WBC 6.3 RBC 4.95 Hgb 14.5 Hct 43.4 MCV 87.7 MCH 29.3 MCHC 33.4 RDW 12.5 Plt Count 285 MPV 11.2 Absolute Nucleated RBC 0.000 Nucleated RBC % (auto) 0.0 ESR 5 Sodium 140 Potassium 4.0 Chloride 105 Carbon Dioxide 24 Anion Gap 15 BUN 8 L Creatinine 0.68 Estim Creat Clear Calc 87.6 Estimated GFR > 60 Fasting Glucose 98 Calcium 10.4 H D Magnesium 2.2 Total Bilirubin 2.3 H Direct Bilirubin 0.7 H AST 22 ALT 20 Alkaline Phosphatase 62 C-Reactive Protein 0.30 Total Protein 6.9 Albumin 4.3 Discharge Plan Discharge Anticipated Discharge Date/Time: 05/20/22 08:17 Patient Disposition: Home, Self-Care Discharge Diagnosis: hypertension, abdominal pain Referrals: Shemar Fuller MD [Physician] - 1 Week (primary hyperparathyroid) Po,Jj Lechuga MD [Primary Care Provider] - 1 Week Discharge Medications: New lorazepam 0.5 mg Tablet 0.5 mg PO Q4H PRN (Reason: anxiety) Qty: 20 0RF Continued levothyroxine 75 mcg tablet 75 mcg PO DAILY 30 Days Qty: 30 2RF pantoprazole 40 mg tablet,delayed release (DR/EC) 1 tab PO DAILY cyanocobalamin (vitamin B-12) 1,000 mcg capsule 1,000 mcg PO DAILY nitroglycerin 0.4 mg tablet, sublingual 0.4 mg sublingual Q5M PRN (Reason: chest pain) Qty: 20 0RF Rx Instructions: do not exceed 3 doses per episode losartan 50 mg tablet 100 mg PO DAILY sucralfate 1 gram tablet 1 g PO BID Discontinued rosuvastatin 10 mg tablet 1 tab PO DAILY aspirin [Adult Aspirin Regimen] 81 mg tablet,delayed release (DR/EC) 81 mg PO DAILY atenolol 25 mg tablet 25 mg PO DAILY Qty: 90 1RF Discharge Orders: Discharge Order (Routine); Ordered 05/20/22 Ordered By: Ilya Hercules Diet: Advance to usual diet Activity on Discharge: As tolerated Stand Alone Forms: Patient Portal Discharge page Care Plan Goals: manage abdominal pain, hypertension Health Concerns: abdominal pain, hypertension, hyperparathyroid Plan of Treatment: stoppping atenolo for bradycardia, stopping asa and statin in case causing symptoms - has low benefit in primary prevention, ativan as needed for breakthrough anxiety, consider SSRI, follow up with Dr. Rowland, will refer to endocrinology for work up of pirmary hyperparathyroidism. Assessment: see above
[2022-05-20] MEDS: Omeprazole 20 MG CAPSULE.DR PO (08:42)
[2022-05-20] MEDS: Sucralfate 1 GM TABLET PO (08:42)
[2022-05-20] MEDS: Losartan Potassium 50 MG TABLET 100 MG PO (08:42)
[2022-05-20] MEDS: Levothyroxine Sodium 75 MCG TABLET PO (08:42)
[2022-05-20] MEDS: Enoxaparin Sodium 40 MG/0.4 ML SYRINGE SUBCUT (08:43)
[2022-05-20] MEDS: 0.9 % Sodium Chloride Flush 3 ML SYRINGE IVFLUSH (08:44)
--- NOTE | 2022-05-20 09:04 | MHC.CM.PN ---
PT TO DC HOME TODAY WITH NO SERVICES FAMILY TO TRANSPORT
--- NOTE | 2022-05-20 09:53 | P.PNGS_ITS ---
Subjective Subjective Date of Service: 05/20/22 Interval history: now says she feels much better denies abdominal pain tolerating diet Physical Exam Vital Signs: Vital Signs: Last Vital Signs Temp 97.4 F 05/20/22 07:27 Pulse 62 05/20/22 07:27 Resp 18 05/20/22 07:27 BP 140/68 H 05/20/22 07:27 Pulse Ox 96 05/20/22 07:27 O2 Del Method 05/20/22 07:27 BMI result Body Mass Index 28.8 Const: General: comfortable and no acute distress Orientation/consciousness: patient oriented x3 Neck: Neck: Yes no lymphadenopathy Resp: Auscultation: clear to auscultation bilaterally Cardio: Rhythm: regular rhythm GI: Palpation (GI): Soft to palpation, nontender and no guarding Neuro: General: patient oriented x3 Objective Data Active Medications Acetaminophen (Acetaminophen 325 Mg Tablet) 650 mg PO Q6H PRN PRN Reason: Pain, Mild (Pain Scale 1-3) Docusate Sodium (Docusate Sodium 100 Mg Capsule) 100 mg PO BID PRN PRN Reason: constipation Last Admin: 05/19/22 15:57 Dose: 100 mg Documented By: CUONG Enoxaparin Sodium (Enoxaparin Sodium 40 Mg/0.4 Ml Syringe) 40 mg SUBCUT Q24H [facility] Last Admin: 05/20/22 08:43 Dose: 40 mg Documented By: CUONG Hydralazine HCl (Hydralazine Hcl 25 Mg Tablet) 25 mg PO BID [facility]; Protocol Last Admin: 05/20/22 08:43 Dose: Not Given Documented By: CUONG Non-Admin Reason: Patient Refused Hydroxyzine HCl (Hydroxyzine Hcl 25 Mg Tablet) 25 mg PO Q8H PRN PRN Reason: anxiety Levothyroxine Sodium (Levothyroxine Sodium 75 Mcg Tablet) 75 mcg PO DAILY [facility] Last Admin: 05/20/22 08:42 Dose: 75 mcg Documented By: CUONG Lorazepam (Lorazepam 0.5 Mg Tablet) 0.5 mg PO Q4H PRN PRN Reason: anxiety Last Admin: 05/19/22 11:38 Dose: 0.5 mg Documented By: CUONG Losartan Potassium (Losartan Potassium 50 Mg Tablet) 100 mg PO DAILY CLEMENT; P rotocol Last Admin: 05/20/22 08:42 Dose: 100 mg Documented By: CUONG Melatonin (Melatonin 3 Mg Tablet) 6 mg PO BEDTIME PRN PRN Reason: Insomnia Morphine Sulfate (Morphine Sulfate 4 Mg/Ml Cartridge) 2 mg IVPUSH Q4H PRN; Protocol PRN Reason: Pain, Severe (Pain Scale 7-10) Last Admin: 05/19/22 10:18 Dose: 2 mg Documented By: CUONG Omeprazole (Omeprazole 20 Mg Capsule.Dr) 20 mg PO DAILY [facility] Last Admin: 05/20/22 08:42 Dose: 20 mg Documented By: CUONG Ondansetron HCl (Ondansetron Hcl 4 Mg/2 Ml Vial) 4 mg IVPUSH Q8H PRN PRN Reason: Nausea and Vomiting Ondansetron HCl (Ondansetron Hcl 4 Mg/2 Ml Vial) 4 mg IVPUSH ONCE PRN PRN Reason: Nausea and Vomiting Pharmacy Consult (Consult Rx Perform Med Rec) 1 each MISCELLANE ONCE PRN PRN Reason: Consult order Polyethylene Glycol (Polyethylene Glycol 3350 17 Gm Powd.Pack) 17 gm PO DAILY PRN PRN Reason: Constipation Last Admin: 05/18/22 20:02 Dose: 17 gm Documented By: LORI Sodium Chloride (0.9 % Sodium Chloride Flush 3 Ml Syringe) 3 ml IVFLUSH QSHIFT [facility] Last Admin: 05/20/22 08:44 Dose: 3 ml Documented By: CUONG Sucralfate (Sucralfate 1 Gm Tablet) 1 gm PO BID [facility] Last Admin: 05/20/22 08:42 Dose: 1 gm Documented By: CUONG Labs CBC & Chem 7: 05/20/22 05:08 05/20/22 05:08 Labs: Laboratory Results - last 24 hr 05/20/22 05/20/22 05/20/22 05:08 05:08 05:08 MCV 87.7 MCH 29.3 MCHC 33.4 RDW 12.5 Plt Count 285 MPV 11.2 Absolute Nucleated RBC 0.000 Nucleated RBC % (auto) 0.0 ESR 5 Anion Gap 15 Estim Creat Clear Calc 87.6 Estimated GFR > 60 Fasting Glucose 98 Calcium 10.4 H D Magnesium 2.2 Total Bilirubin 2.3 H Direct Bilirubin 0.7 H AST 22 ALT 20 Alkaline Phosphatase 62 C-Reactive Protein 0.30 Total Protein 6.9 Albumin 4.3 Procedures Date of Service Date of Service: 05/20/22 Progress Note: A&P Assessment and plan (1) Abdominal pain: Status: Acute Assessment and Plan: current resolved this is episodic has had multiple workup likely multifactorial - reflux disease, IBS? instructed to continue follow-up with network management specialist Time Spent With Patient Time: Total time spent is greater than 50% in coordination of care (as documented) at patient's floor/unit and/or counseling patient: Quality Stroke Does the patient have a stroke diagnosis?: No VTE Prior VTE?: No VTE Risk Level:: Medical - low VTE Device Contraindication: N/A - Device Ordered VTE Drug Contraindication: Treatment Not Indicated
[2022-05-21 09:03] LABS: HBc Num1 0.07 S/CO (0.00-0.79); HBsAGNum1 0.24 S/CO (0.00-0.99); Hepatitis B Core Antibody Nonreactive (Nonreactive); Hepatitis B Surface Antigen Negative (Negative); ~HepC Num1 0.06 S/CO (0.00-0.79); ~Hepatitis C Antibody Nonreactive (Nonreactive)
[2022-05-21 09:15] LABS: ~Hepatitis B Surface Antibody NONREACTIVE (Nonreactive)
[2022-05-21 14:11] LABS: Metanephrine, Free <25 pg/mL (<=57); Normetanephrines, Free 84 pg/mL (<=148); Total Metanephrine, Free 84 pg/mL (<=205)
== END 2022-05-20 11:22 | disposition home or self-care (01) | DRG 424 ==
LOC: HO.ED 23:51 → HO.EDOVER 05-17 00:01 → HO.S3 05-17 13:07
PROVIDERS: Internal Medicine Gastroenterology; Physician Assistant; Physician Assistant Medical; Admitting Provider Student in an Organized Health Care Education/Training Program; Emergency Provider Emergency Medicine; PCP Internal Medicine; Visit Provider Internal Medicine
PROC: 0DJ08ZZ Inspection of Upper Intestinal Tract, Via Natural or Artificial Opening Endoscopic (ICD-10-PCS; CPT 43235; principal; 2022-05-17 12:50)
DX: E21.0 Primary hyperparathyroidism (principal); I10 Essential (primary) hypertension; E78.2 Mixed hyperlipidemia; E03.9 Hypothyroidism, unspecified; K29.70 Gastritis, unspecified, without bleeding; I16.0 Hypertensive urgency; E86.0 Dehydration; F41.9 Anxiety disorder, unspecified; K21.9 Gastro-esophageal reflux disease without esophagitis; Z20.822 Contact with and (suspected) exposure to COVID-19; Z88.8 Allergy status to other drugs, medicaments and biological substances; Z79.890 Hormone replacement therapy; Z79.899 Other long term (current) drug therapy
CPT/HCPCS: 36415; 74177; 80048; 80053; 80076; 83605; 83690; 83735; 83835; 83970; 84443; 84484; 85025; 85027; 85610; 85652; 85730; 86140; 86704; 86706; 86803; 87338; 87340; 87635; 88305; 88342; 92950; 93005; 93976; 99285; J1650; J2270; J2405; Q9967

== ENCOUNTER 2022-05-26 08:18 | Outpatient (REF) | payer BC, SELFPAY ==
[2022-05-26 08:48] LABS: MANUAL DIFF FLAG NO
[2022-05-26 08:53] LABS: Basophils Percent Auto 0.3 % (0-2); Eosinophils Absolute Auto 0.1 X10*3/uL (0.0-0.4); Eosinophils Percent Auto 1.2 % (0-4); Hemoglobin 15.1 g/dl (12.0-16.0); Imm Gran Abs Auto 0.01 X10*3/uL (0.00-0.03); Imm Gran Pct Auto 0.2 % (0.0-0.4); Lymphocytes Absolute Auto 2.8 X10*3/uL (1.2-4.9); Lymphocytes Percent Auto 48.1 % (20-40); Mean Corpuscular HGB Conc 32.1 g/dl (31.0-35.0); Mean Corpuscular Hemoglobin 28.8 pg (27.0-33.0); Mean Corpuscular Volume 89.5 fL (80.0-98.0); Mean Platelet Volume 11.2 fL (9.4-12.3); Monocytes Absolute Auto 0.4 X10*3/uL (0.1-1.2); Monocytes Percent Auto 6.6 % (2-11); Neutrophils Absolute Auto 2.5 x10*3/uL (2.0-8.3); Neutrophils Percent Auto 43.6 % (45-73); Platelet Count 311 X10*3/uL (160-400); Red Blood Count 5.25 X10*6/uL (4.20-5.50); Red Cell Distribution Width 12.5 % (11.0-16.0); White Blood Count 5.7 X10*3/uL (4.8-10.8)
[2022-05-26 09:37] LABS: Free T4 (Free Thyroxine) 1.25 ng/dL (0.71-1.85); Thyroid Stimulating Hormone 3.85 uIU/mL (0.32-4.0)
[2022-05-26 09:44] LABS: Alanine Aminotransferase 19 U/L (0-31); Albumin Level 4.8 g/dL (3.5-5.0); Alkaline Phosphatase 67 U/L (39-117); Anion Gap 13 (12-20); Aspartate Amino Transferase 19 U/L (5-31); Bilirubin Total 1.3 mg/dL (0.0-1.0); Blood Urea Nitrogen 10 mg/dL (9-16); C Reactive Protein 0.14 mg/dL (< or = 0.50); Calcium 10.9 mg/dL (8.4-10.2); Carbon Dioxide 27 mmol/L (22-29); Chloride 105 mmol/L (96-108); Estimated Glomerular Filt Rate > 60; Ferritin 66 ng/mL (10-250); Glucose Random 105 mg/dL (60-115); Iron 121 mcg/dL (30-160); Percent Iron Saturation 31 % (15-50); Phosphorus 3.3 mg/dL (2.7-4.5); Potassium 4.4 mmol/L (3.3-5.1); Sodium 141 mmol/L (135-145); TSH reflex Free T4 3.85 uIU/mL (0.32-4.0); Total Iron Binding Capacity 385 mcg/dL (228-428); Total Protein 7.8 g/dL (6.5-8.0); Unsaturated Iron Binding 264 ug/dL; Vitamin D 25-OH Total 21.1 ng/mL (>30)
[2022-05-26 09:55] LABS: Folate 10.6 ng/mL (> or = 4.0); Vitamin B12 904 pg/mL (200-900)
[2022-05-28 05:17] LABS: HBS Num1 0.63 mIU/mL (0-7.99); HBc Num1 0.07 S/CO (0.00-0.79); HBsAGNum1 0.36 S/CO (0.00-0.99); Hepatitis B Core Antibody Nonreactive (Nonreactive); Hepatitis B Surface Antigen Negative (Negative); ~HepC Num1 0.04 S/CO (0.00-0.79); ~Hepatitis B Surface Antibody NONREACTIVE (Nonreactive); ~Hepatitis C Antibody Nonreactive (Nonreactive)
[2022-05-28 16:02] LABS: Calcium, Ionized 5.7 mg/dL (4.8-5.6)
[2022-05-28 16:02] LABS: Calcium, Ionized 5.7 mg/dL (4.8-5.6)
[2022-05-29 08:55] LABS: Transglutaminase Ab IgG <1.0 U/mL
[2022-05-29 10:56] LABS: PTHI 113 pg/mL (16-77)
[2022-05-30 04:48] LABS: Hepatitis A Antibody IgM 0.39 Index (0-0.79); ~Hepatitis A Antibody IgM Nonreactive (Nonreactive)
[2022-06-01 10:06] LABS: Anti Nuclear Antibody Screen NEGATIVE (NEGATIVE)
[2022-06-01 15:42] LABS: Vitamin C 0.7 mg/dL (0.3-2.7)
[2022-06-01 17:11] LABS: Calcitonin <2 pg/mL (<=5)
[2022-06-01 20:12] LABS: Vitamin A 48 mcg/dL (38-98)
[2022-06-01 20:26] LABS: Alpha-Tocopherol 17.3 mg/L (5.7-19.9); Beta-Gamma Tocopherol <1.0 mg/L (<=4.3)
[2022-06-02 13:26] LABS: Nicotinamide 29 ng/mL; Vit B3 - Nicotinic Acid <20 ng/mL
[2022-06-02 14:31] LABS: Vitamin B6 76.5 ng/mL (2.1-21.7)
[2022-06-02 21:07] LABS: Vitamin K1 706 pg/mL (130-1500)
[2022-06-03 13:31] LABS: Vitamin B1 11 nmol/L (8-30)
[2022-06-05 10:58] LABS: Vitamin B5 (Pantothenic Acid) 62 ng/mL (<275)
== END 2022-05-26 08:19 | disposition home or self-care (01) ==
LOC: HO.LAB 08:18
PROVIDERS: Internal Medicine Gastroenterology; PCP Internal Medicine; Visit Provider Internal Medicine
DX: R10.13 Epigastric pain (principal); R63.4 Abnormal weight loss; R79.82 Elevated C-reactive protein (CRP); K75.81 Nonalcoholic steatohepatitis (NASH); E83.52 Hypercalcemia; G89.29 Other chronic pain; R10.33 Periumbilical pain; E03.9 Hypothyroidism, unspecified
CPT/HCPCS: 36415; 80053; 82180; 82306; 82308; 82330; 82607; 82728; 82746; 83540; 83970; 84100; 84207; 84425; 84439; 84443; 84446; 84590; 84591; 84597; 85025; 86038; 86039; 86140; 86364; 86704; 86706; 86709; 86803; 87340

== ENCOUNTER 2022-06-07 14:10 | Outpatient (REF) | payer BC, SELFPAY ==
--- NOTE | ~2022-06-07 | US_ITS ---
EXAMINATION: US EXTRACRANIAL CAROTID DUPLEX, BILATERAL CLINICAL INFORMATION: Atherosclerotic heart disease of the [place] coronary artery. Dizziness. COMPARISON: None TECHNIQUE: Real-time ultrasound and Doppler techniques (integrating B-mode 2-D vascular images, Doppler spectral analysis and color-flow Doppler imaging) were utilized to interrogate the extracranial carotid arteries, the vertebral arteries and proximal subclavian arteries bilaterally. The degree of stenosis is determined by criteria similar to NASCET. FINDINGS: Right Side: 1. There is no visualized atherosclerotic plaque seen in the bifurcation/proximal ICA region. 2. The common carotid artery PSV proximally is 89 cm/s and distally 67 cm/s. 3. The proximal internal carotid artery velocities are 81 cm/s systolic and 23 cm/s diastolic. 4. The proximal external carotid artery PSV is 155 cm/s. 5. The vertebral artery shows antegrade flow. 6. The subclavian artery waveforms are normal. Left Side: 1. There is no visualized atherosclerotic plaque seen in the bifurcation/proximal ICA region. 2. The common carotid artery PSV proximally is 99 cm/s and distally 78 cm/s. 3. The proximal internal carotid artery velocities are 118 cm/s systolic and 33 cm/s diastolic. 4. The proximal external carotid artery PSV is 110 cm/s. 5. The vertebral artery shows 31 flow. 6. The subclavian artery waveforms are at the systolic velocity 226 cm/s.. US/US carotid duplex BI IMPRESSION: 1. RIGHT: Normal right internal carotid artery without atherosclerotic plaque or hemodynamically significant stenosis. 2. LEFT: Normal left internal carotid artery without atherosclerotic plaque or hemodynamically significant stenosis. 3. Slightly elevated peak systolic velocity within the left subclavian artery could be suggestive of subclavian stenosis.
== END 2022-06-07 14:11 | disposition home or self-care (01) ==
LOC: HO.US 14:10
PROVIDERS: Visit Provider Nurse Practitioner Family
DX: I25.10 Atherosclerotic heart disease of native coronary artery without angina pectoris (principal)
CPT/HCPCS: 93880

== ENCOUNTER 2022-06-08 12:16 | Emergency (ER) | payer BC, SELFPAY ==
--- NOTE | ~2022-06-08 | XR_ITS ---
EXAMINATION: XR CHEST CLINICAL INFORMATION: Chest pressure COMPARISON: Chest x-ray 04/15/2019 TECHNIQUE: 2 views of the chest were obtained. FINDINGS: The lungs are clear. No airspace consolidation, pleural effusion, or pneumothorax. The cardiomediastinal silhouette is within normal limits. No acute osseous injury. XR/XR chest 2V IMPRESSION: No acute pulmonary process.
--- NOTE | ~2022-06-08 | CT_ITS ---
CT ANGIOGRAM NECK WITH CONTRAST CT ANGIOGRAM BRAIN WITH CONTRAST CLINICAL INFORMATION: Dizziness, hypertension, and headaches. COMPARISON: CT head 06/08/2022. TECHNIQUE: Test bolus sequences followed by intravenous administration 70 mL of Omnipaque 350. Helical imaging was performed in the axial plane from the thoracic inlet to the skull vertex. Delayed postcontrast imaging of the head was also performed. The data was processed at the cath lab technologist workstation for generation of MIP sequences. Angled MIPs and volume rendered reformatted images were also generated at an offline 3D workstation under concurrent supervision. Stenoses are assessed in accordance with NASCET criteria unless otherwise indicated. This CT examination was performed using dose optimization techniques as appropriate, variously including the following: *Automated exposure control *Adjustment of mA and/or kV according to patient size (this includes techniques or standardized protocols for targeted exams where dose is matched to indication/reason for exam; i.e. extremities or head) *Use of iterative reconstruction technique FINDINGS: BRAIN: [There is no intracranial hemorrhage, hydrocephalus, extra-axial surface collection, midline shift, or other herniation pattern. [place] to white matter differentiation is diffusely maintained without evidence of an evolved acute territorial infarct. The basilar cisterns are preserved. No significant soft tissue abnormality. No acute osseous abnormality. There is mild mucosal thickening within the maxillary sinuses bilaterally. The remaining paranasal sinuses and the mastoid air cells are clear. CERVICAL SOFT TISSUES AND LUNG APICES: Imaged upper lungs are clear. There are no significant soft tissue findings. There is accessory parotid tissue superficial to the masseter muscles bilaterally. There is multilevel cervical spondylosis. NECK CTA: [There is a classic 3 vessel configuration of the aortic arch. Proximal arch vessels are non-stenotic. The vertebral arteries are codominant. No significant ostial stenosis is visualized on either side. Both vertebral arteries are widely patent throughout their extracranial cervical course. Both common and internal carotid arteries are normal in course and caliber.] BRAIN CTA: [There is normal opacification of major intracranial arteries. No focal flow-limiting stenosis nor discrete proximal large artery occlusion. No aneurysm. Timing of the contrast bolus allows assessment of the major dural venous sinuses, which all opacify normally] CT/CT angio head neck IMPRESSION: No acute intracranial findings. No significant arterial stenoses and no acute arterial occlusions within the head or neck.
--- NOTE | ~2022-06-08 | CT_ITS ---
EXAMINATION: CT HEAD WITHOUT CONTRAST CLINICAL INFORMATION: Dizziness. COMPARISON: CT scan of the head 04/15/2019. TECHNIQUE: Contiguous axial imaging was performed from the skull base to vertex without intravenous administration of contrast. This CT examination was performed using dose optimization techniques as appropriate, variously including the following: *Automated exposure control *Adjustment of mA and/or kV according to patient size (this includes techniques or standardized protocols for targeted exams where dose is matched to indication/reason for exam; i.e. extremities or head) *Use of iterative reconstruction technique DLP: 615 mGy-cm FINDINGS: There is no acute intracranial hemorrhage or abnormal extra-axial collection. No intracranial mass effect or midline shift. Lateral and third ventricles are normal. No hydrocephalus. [place]rago-white matter differentiation is preserved and there is no evidence of acute territorial infarct. The calvarium and skull base are intact. Mastoid air cells and middle ear cavities are well aerated. No active paranasal sinus disease. Globes and orbits are grossly symmetric. CT/CT head/brain wo IV con IMPRESSION: Normal CT scan of the head.
[2022-06-08 12:48] VITALS: BP 206/100; PULSE 62; RESP 18; TEMP 36.4; O2SAT 97; BMI 28.3
--- NOTE | 2022-06-08 12:48 | ED.GENADULT ---
HPI - General Adult General Chief complaint: Headache <ROULA Reyes - Last Filed: 06/08/22 12:52> Stated complaint: HIGH BP 171/85 W/JOSEPH, CP,NITRO TAKEN,81MG ASA GIVEN <ROULA Reyes - Last Filed: 06/08/22 12:52> Time Seen by Provider: 06/08/22 12:59 <ROULA Reyes - Last Filed: 06/08/22 12:52> Source: patient and EMS <ROULA Reyes - Last Filed: 06/08/22 12:52> Mode of arrival: EMS <ROULA Reyes - Last Filed: 06/08/22 12:52> Limitations: no limitations <ROULA Reyes - Last Filed: 06/08/22 12:52> History of Present Illness HPI narrative: 61-year-old female with history of anxiety, GERD, hypertension, hypothyroid, high cholesterol was just seen on 05/16 for abdominal pain complaints with multiple ER visits. On review of documentation that time patient underwent both duplex of abdominal vasculature as well as CT abdomen pelvis all of which was negative for acute findings. In discussing with the daughter at bedside currently she states that Gastroenterology is currently working brother up for possible H pylori. However patient now presents with poorly controlled blood pressure but on extensive questioning it would seem that patient decides how much and when to take her blood pressure medication and was counseled on the spot regarding this approach to her blood pressure control. Patient states that she has had now facial flushing, headaches, dizziness. She denies any fever, chills, cough, sore throat. <Vale Day MD - Last Filed: 06/08/22 17:22> Related Data Home medications: Home Medications Medication Instructions Recorded Confirmed losartan 50 mg tablet 100 mg PO DAILY 05/04/22 05/29/22 sucralfate 1 gram tablet 1 g PO BID 05/04/22 05/29/22 pantoprazole 40 mg tablet,delayed 1 tab PO DAILY 05/17/22 05/29/22 release Previous Rx's Medication Instructions Recorded nitroglycerin 0.4 mg sublingual 0.4 mg sublingual Q5M PRN chest 04/24/22 tablet pain #20 tabs levothyroxine 75 mcg tablet 75 mcg PO DAILY 30 days #30 tabs 04/25/22 lorazepam 0.5 mg tablet 0.5 mg PO Q4H PRN anxiety #20 tabs 05/20/22 amlodipine 5 mg tablet (Norvasc) 5 mg PO ONCE PRN SBP>190mmHg #5 06/08/22 tabs <ROULA Reyes - Last Filed: 06/08/22 12:52> Allergies/adverse reactions: Allergies Allergy/AdvReac Type Severity Reaction Status Date / Time nifedipine [From ADALAT] Allergy Severe Chest Pain Verified 06/08/22 08:53 isosorbide [From Imdur] Allergy Intermediate Headache Verified 06/08/22 08:53 lisinopril Allergy Intermediate CLAIRE-I Cough Verified 06/08/22 08:53 valsartan Allergy Intermediate DIZZINESS Verified 06/08/22 08:53 atorvastatin AdvReac Intermediate memory loss Verified 06/08/22 08:53 nebivolol [From Bystolic] AdvReac Mild dizzy Verified 06/08/22 08:53 hydralazine AdvReac Flushing Uncoded 05/29/22 10:16 <ROULA Reyes - Last Filed: 06/08/22 12:52> Review of Systems Review of Systems: Pertinent positives and negatives as stated in HPI 10 point review of systems is otherwise negative. <Vale Day MD - Last Filed: 06/08/22 17:22> PMFSH Past Medical History Source: nursing notes reviewed <Vale Day MD - Last Filed: 06/08/22 17:22> Medical History: Medical History Dizziness of unknown etiology Fatty liver Hypercholesterolemia Hypertension Hypothyroid Impaired glucose tolerance Obesity (BMI 30-39.9) Primary hyperparathyroidism <ROULA Reyes - Last Filed: 06/08/22 12:52> Surgical History: Surgical History H/O colonoscopy History of back surgery History of cholecystectomy History of esophagogastroduodenoscopy (EGD) History of mammogram History of removal of cyst History of total abdominal hysterectomy Hx of arthroscopic knee surgery S/P knee surgery <ROULA Reyes - Last Filed: 06/08/22 12:52> Family History Family History: Family History Father HTN (hypertension) Diabetes mellitus Mother No problems noted. 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 Cognitive needs: No Hearing needs: No Vision needs: Yes <ROULA Reyes - Last Filed: 06/08/22 12:52> Physical Exam ED Vital Signs: Vital Signs - 24 hr 06/08/22 12:48 06/08/22 14:04 06/08/22 15:37 Temperature 97.6 F Pulse Rate 62 55 58 Respiratory Rate 18 12 17 Blood Pressure 206/100 H 184/82 H 173/73 H Pulse Oximetry 97 97 97 Oxygen Delivery Method Room Air Room Air Room Air 06/08/22 16:36 Temperature Pulse Rate 54 Respiratory Rate 15 Blood Pressure 168/88 H Pulse Oximetry 96 Oxygen Delivery Method BMI result Body Mass Index 28.3 <ROULA Reyes - Last Filed: 06/08/22 12:52> Vital Signs - 24 hr 06/08/22 12:48 06/08/22 14:04 06/08/22 15:37 Temperature 97.6 F Pulse Rate 62 55 58 Respiratory Rate 18 12 17 Blood Pressure 206/100 H 184/82 H 173/73 H Pulse Oximetry 97 97 97 Oxygen Delivery Method Room Air Room Air Room Air 06/08/22 16:36 Temperature Pulse Rate 54 Respiratory Rate 15 Blood Pressure 168/88 H Pulse Oximetry 96 Oxygen Delivery Method BMI result Body Mass Index 28.3 VITAL SIGNS: Reviewed. GENERAL: Well developed, well nourished, in no acute distress. HEAD: Normocephalic/atraumatic EYES: PERRLA, EOMI EARS: Ext canals without abnormality OROPHARYNX: no oral lesions noted, posterior pharynx clear NECK: Supple, no adenopathy LUNGS: Normal breath sounds. No adventitious sounds or accessory muscle use. SpO2<97> CARDIOVASCULAR: Regular rate and rhythm without noted murmurs, no JVD or lower extremity edema. ABDOMEN: Soft, non-tender, non-distended with bowel sounds. MUSCULOSKELETAL: No tenderness, deformities, or effusions noted on gross inspection. EXTREMITIES: No cyanosis, clubbing or edema. SKIN: Inspection of the skin reveals no rashes NEUROLOGIC: Alert and oriented x 4. Strength and sensation to light touch were grossly intact x 4, no facial asymmetry, no pronator drift, cranial nerves 2-12 are grossly intact, no noted facial swelling. <Vale Day MD - Last Filed: 06/08/22 17:22> Course Course Course Narrative: RME performed by Cecilia Ordonez PA-C. Patient is a 61 year old female presenting to the emergency department with a left sided headache and dizziness. Patient states that this has happened multiple times due to her blood pressure and she has been hospitalized multiple times for it. CBC, CMP, Head CT, Mag, troponin, EKG, CXR, ordered. Patient brought back to the department, charge nurse notified of patient acuity. <ROULA Reyes - Last Filed: 06/08/22 12:52> RME performed by Cecilia Ordonez PA-C. Patient is a 61 year old female presenting to the emergency department with a left sided headache and dizziness. Patient states that this has happened multiple times due to her blood pressure and she has been hospitalized multiple times for it. CBC, CMP, Head CT, Mag, troponin, EKG, CXR, ordered. Patient brought back to the department, charge nurse notified of patient acuity. 61-year-old female with history and clinical presentation consistent with multiple complaints and was recently evaluated here May and has also been seen at [facility]. Patient is neurologically intact and low clinical suspicion for acute neurologic deficit, daughter is requesting a repeat echocardiogram though his stated that her mother had 1 in [facility] 1 month ago. The patient is not reporting any chest pain or shortness of breath at this time. And otherwise review of blood pressure demonstrates that it is likely within reasonable control given patient's history. Head CT and chest x-ray are negative for acute findings and on review of carotid Doppler study which was conducted yesterday, 06/07, it is unofficial but there is a left subclavian stenosis. Otherwise, patient has lab work is within normal limits, calcium is mildly elevated at 10.9 but this appears to be chronically stable, TSH was noted to be within normal limits 1 month ago and will not repeat at this time. Overall, will pursue blood pressure control and encourage patient to follow-up with her primary care provider after obtaining CT angio of head and neck to further evaluate patient's dizziness although this is felt to be related to patient's blood pressure. On re-evaluation patient is feeling much better, discussed at length with the daughter and the patient regarding blood pressure control they would like to see patient started on Norvasc and in I discussed with them that I would give a short course p.r.n. Norvasc for systolic blood pressure 190 or greater to only be taken in the evening. Patient was also instructed to check her blood pressure again in the morning prior to taking her prescribed losartan 100 mg. She is otherwise asymptomatic 1716: Although patient has a nifedipine allergy, I discussed extensively regarding the use of Norvasc with both the patient and her daughter at bedside and the daughter states that her mother has tolerated the Norvasc previously without any adverse reactions. She states that she would still like to proceed with the Norvasc and will assess for any adverse reactions. Both patient and the daughter still want to proceed with a Norvasc. <Vale Day MD - Last Filed: 06/08/22 17:22> Medications Administered Discontinued Medications Generic Name Dose Route Start Last Admin Trade Name Freq PRN Reason Stop Dose Admin Iohexol 100 ml 06/08/22 16:09 06/08/22 16:09 Iohexol 350 Mg/Ml 100 Ml Infus..Btl IV 06/08/22 16:10 70 ml ONCE ONE Administration <ROULA Reyes - Last Filed: 06/08/22 12:52> Medications Administered Discontinued Medications Generic Name Dose Route Start Last Admin Trade Name Freq PRN Reason Stop Dose Admin Iohexol 100 ml 06/08/22 16:09 06/08/22 16:09 Iohexol 350 Mg/Ml 100 Ml Infus..Btl IV 06/08/22 16:10 70 ml ONCE ONE Administration <Vale Day MD - Last Filed: 06/08/22 17:22> Medical Decision Making Lab Data Result diagrams: : 06/08/22 14:02 06/08/22 14:02 <ROULA Reyes - Last Filed: 06/08/22 12:52> Labs: Lab Results 06/08/22 06/08/22 06/08/22 Range/Units 13:42 13:57 14:02 WBC 8.3 (4.8-10.8) X10*3/uL RBC 5.05 (4.20-5.50) X10*6/uL Hgb 14.6 (12.0-16.0) g/dl Hct 44.3 (37.0-47.0) % MCV 87.7 (80.0-98.0) fL MCH 28.9 (27.0-33.0) pg MCHC 33.0 (31.0-35.0) g/dl RDW 12.5 (11.0-16.0) % Plt Count 330 (160-400) X10*3/uL MPV 10.7 (9.4-12.3) fL Immature Gran % (Auto) 0.4 (0.0-0.4) % Neut % (Auto) 57.9 (45-73) % Lymph % (Auto) 35.2 (20-40) % [place] % (Auto) 5.8 (2-11) % Eos % (Auto) 0.5 (0-4) % Baso % (Auto) 0.2 (0-2) % Lymph # (Auto) 2.9 (1.2-4.9) X10*3/uL [place] # (Auto) 0.5 (0.1-1.2) X10*3/uL Eos # (Auto) 0.0 (0.0-0.4) X10*3/uL Baso # (Auto) 0.0 (0.0-0.2) X10*3/uL Abs Immat Gran (auto) 0.03 (0.00-0.03) X10*3/uL Absolute Neuts (auto) 4.8 (2.0-8.3) x10*3/uL Absolute Nucleated RBC 0.000 (0.0-0.012) X10*3/uL Nucleated RBC % (auto) 0.0 (0.0-0.2) /100WBC Sodium (135-145) mmol/L Potassium (3.3-5.1) mmol/L Chloride (96-108) mmol/L Carbon Dioxide (22-29) mmol/L Anion Gap (12-20) BUN (9-16) mg/dL Creatinine (0.5-1.4) mg/dL Estim Creat Clear Calc Estimated GFR Random Glucose (60-115) mg/dL Calcium (8.4-10.2) mg/dL Magnesium (1.6-2.6) mg/dL Total Bilirubin (0.0-1.0) mg/dL AST (5-31) U/L ALT (0-31) U/L Alkaline Phosphatase (39-117) U/L Troponin I High Sens (<3.5-17.0) ng/L Total Protein (6.5-8.0) g/dL Albumin (3.5-5.0) g/dL Urine Color Yellow Urine Appearance Clear Urine pH 6.0 (5.0-9.0) Ur Specific [place] <= 1.005 (1.005-1.025) Urine Protein Negative (Neg-Trace) mg/dL Urine Glucose (UA) Negative (Negative) mg/dL Urine Ketones Negative (Negative) mg/dL Urine Blood Negative (Negative) Urine Nitrite Negative (Negative) Ur Leukocyte Esterase Negative (Negative) Influenza Type A (PCR) NEGATIVE (Negative) Influenza Type B (PCR) NEGATIVE (Negative) RSV RNA Qual (PCR) NEGATIVE (Negative) SARS-CoV-2 RNA (RT-PCR) NEGATIVE (Negative) 06/08/22 06/08/22 Range/Units 14:02 14:02 WBC (4.8-10.8) X10*3/uL RBC (4.20-5.50) X10*6/uL Hgb (12.0-16.0) g/dl Hct (37.0-47.0) % MCV (80.0-98.0) fL MCH (27.0-33.0) pg MCHC (31.0-35.0) g/dl RDW (11.0-16.0) % Plt Count (160-400) X10*3/uL MPV (9.4-12.3) fL Immature Gran % (Auto) (0.0-0.4) % Neut % (Auto) (45-73) % Lymph % (Auto) (20-40) % [place] % (Auto) (2-11) % Eos % (Auto) (0-4) % Baso % (Auto) (0-2) % Lymph # (Auto) (1.2-4.9) X10*3/uL [place] # (Auto) (0.1-1.2) X10*3/uL Eos # (Auto) (0.0-0.4) X10*3/uL Baso # (Auto) (0.0-0.2) X10*3/uL Abs Immat Gran (auto) (0.00-0.03) X10*3/uL Absolute Neuts (auto) (2.0-8.3) x10*3/uL Absolute Nucleated RBC (0.0-0.012) X10*3/uL Nucleated RBC % (auto) (0.0-0.2) /100WBC Sodium 135 (135-145) mmol/L Potassium 4.4 (3.3-5.1) mmol/L Chloride 100 (96-108) mmol/L Carbon Dioxide 29 (22-29) mmol/L Anion Gap 10 L (12-20) BUN 13 (9-16) mg/dL Creatinine 0.64 (0.5-1.4) mg/dL Estim Creat Clear Calc 92.3 Estimated GFR > 60 Random Glucose 105 (60-115) mg/dL Calcium 10.9 H (8.4-10.2) mg/dL Magnesium 2.1 (1.6-2.6) mg/dL Total Bilirubin 1.3 H (0.0-1.0) mg/dL AST 19 (5-31) U/L ALT 19 (0-31) U/L Alkaline Phosphatase 65 (39-117) U/L Troponin I High Sens < 3.5 (<3.5-17.0) ng/L Total Protein 7.5 (6.5-8.0) g/dL Albumin 4.6 (3.5-5.0) g/dL Urine Color Urine Appearance Urine pH (5.0-9.0) Ur Specific [place] (1.005-1.025) Urine Protein (Neg-Trace) mg/dL Urine Glucose (UA) (Negative) mg/dL Urine Ketones (Negative) mg/dL Urine Blood (Negative) Urine Nitrite (Negative) Ur Leukocyte Esterase (Negative) Influenza Type A (PCR) (Negative) Influenza Type B (PCR) (Negative) RSV RNA Qual (PCR) (Negative) SARS-CoV-2 RNA (RT-PCR) (Negative) <ROULA Reyes - Last Filed: 06/08/22 12:52> Lab Results 06/08/22 06/08/22 06/08/22 Range/Units 13:42 13:57 14:02 WBC 8.3 (4.8-10.8) X10*3/uL RBC 5.05 (4.20-5.50) X10*6/uL Hgb 14.6 (12.0-16.0) g/dl Hct 44.3 (37.0-47.0) % MCV 87.7 (80.0-98.0) fL MCH 28.9 (27.0-33.0) pg MCHC 33.0 (31.0-35.0) g/dl RDW 12.5 (11.0-16.0) % Plt Count 330 (160-400) X10*3/uL MPV 10.7 (9.4-12.3) fL Immature Gran % (Auto) 0.4 (0.0-0.4) % Neut % (Auto) 57.9 (45-73) % Lymph % (Auto) 35.2 (20-40) % [place] % (Auto) 5.8 (2-11) % Eos % (Auto) 0.5 (0-4) % Baso % (Auto) 0.2 (0-2) % Lymph # (Auto) 2.9 (1.2-4.9) X10*3/uL [place] # (Auto) 0.5 (0.1-1.2) X10*3/uL Eos # (Auto) 0.0 (0.0-0.4) X10*3/uL Baso # (Auto) 0.0 (0.0-0.2) X10*3/uL Abs Immat Gran (auto) 0.03 (0.00-0.03) X10*3/uL Absolute Neuts (auto) 4.8 (2.0-8.3) x10*3/uL Absolute Nucleated RBC 0.000 (0.0-0.012) X10*3/uL Nucleated RBC % (auto) 0.0 (0.0-0.2) /100WBC Sodium (135-145) mmol/L Potassium (3.3-5.1) mmol/L Chloride (96-108) mmol/L Carbon Dioxide (22-29) mmol/L Anion Gap (12-20) BUN (9-16) mg/dL Creatinine (0.5-1.4) mg/dL Estim Creat Clear Calc Estimated GFR Random Glucose (60-115) mg/dL Calcium (8.4-10.2) mg/dL Magnesium (1.6-2.6) mg/dL Total Bilirubin (0.0-1.0) mg/dL AST (5-31) U/L ALT (0-31) U/L Alkaline Phosphatase (39-117) U/L Troponin I High Sens (<3.5-17.0) ng/L Total Protein (6.5-8.0) g/dL Albumin (3.5-5.0) g/dL Urine Color Yellow Urine Appearance Clear Urine pH 6.0 (5.0-9.0) Ur Specific [place] <= 1.005 (1.005-1.025) Urine Protein Negative (Neg-Trace) mg/dL Urine Glucose (UA) Negative (Negative) mg/dL Urine Ketones Negative (Negative) mg/dL Urine Blood Negative (Negative) Urine Nitrite Negative (Negative) Ur Leukocyte Esterase Negative (Negative) Influenza Type A (PCR) NEGATIVE (Negative) Influenza Type B (PCR) NEGATIVE (Negative) RSV RNA Qual (PCR) NEGATIVE (Negative) SARS-CoV-2 RNA (RT-PCR) NEGATIVE (Negative) 06/08/22 06/08/22 Range/Units 14:02 14:02 WBC (4.8-10.8) X10*3/uL RBC (4.20-5.50) X10*6/uL Hgb (12.0-16.0) g/dl Hct (37.0-47.0) % MCV (80.0-98.0) fL MCH (27.0-33.0) pg MCHC (31.0-35.0) g/dl RDW (11.0-16.0) % Plt Count (160-400) X10*3/uL MPV (9.4-12.3) fL Immature Gran % (Auto) (0.0-0.4) % Neut % (Auto) (45-73) % Lymph % (Auto) (20-40) % [place] % (Auto) (2-11) % Eos % (Auto) (0-4) % Baso % (Auto) (0-2) % Lymph # (Auto) (1.2-4.9) X10*3/uL [place] # (Auto) (0.1-1.2) X10*3/uL Eos # (Auto) (0.0-0.4) X10*3/uL Baso # (Auto) (0.0-0.2) X10*3/uL Abs Immat Gran (auto) (0.00-0.03) X10*3/uL Absolute Neuts (auto) (2.0-8.3) x10*3/uL Absolute Nucleated RBC (0.0-0.012) X10*3/uL Nucleated RBC % (auto) (0.0-0.2) /100WBC Sodium 135 (135-145) mmol/L Potassium 4.4 (3.3-5.1) mmol/L Chloride 100 (96-108) mmol/L Carbon Dioxide 29 (22-29) mmol/L Anion Gap 10 L (12-20) BUN 13 (9-16) mg/dL Creatinine 0.64 (0.5-1.4) mg/dL Estim Creat Clear Calc 92.3 Estimated GFR > 60 Random Glucose 105 (60-115) mg/dL Calcium 10.9 H (8.4-10.2) mg/dL Magnesium 2.1 (1.6-2.6) mg/dL Total Bilirubin 1.3 H (0.0-1.0) mg/dL AST 19 (5-31) U/L ALT 19 (0-31) U/L Alkaline Phosphatase 65 (39-117) U/L Troponin I High Sens < 3.5 (<3.5-17.0) ng/L Total Protein 7.5 (6.5-8.0) g/dL Albumin 4.6 (3.5-5.0) g/dL Urine Color Urine Appearance Urine pH (5.0-9.0) Ur Specific [place] (1.005-1.025) Urine Protein (Neg-Trace) mg/dL Urine Glucose (UA) (Negative) mg/dL Urine Ketones (Negative) mg/dL Urine Blood (Negative) Urine Nitrite (Negative) Ur Leukocyte Esterase (Negative) Influenza Type A (PCR) (Negative) Influenza Type B (PCR) (Negative) RSV RNA Qual (PCR) (Negative) SARS-CoV-2 RNA (RT-PCR) (Negative) <Vale Day MD - Last Filed: 06/08/22 17:22> Discharge Plan Discharge Clinical Impression: Hypertensive crisis, Dizziness <ROULA Reyes - Last Filed: 06/08/22 12:52> Patient Disposition: Home, Self-Care <ROULA Reyes - Last Filed: 06/08/22 12:52> Instructions: Hypertensive Crisis (ED), Lightheadedness (ED) <ROULA Reyes - Last Filed: 06/08/22 12:52> Additional Instructions: 1. Resume all home medications as prescribed. 2. Only take the Norvasc (amlodipine) as instructed for systolic blood pressures greater than 190 in the evening. 3. Please follow-up with Dr. Smith at your earliest convenience the 1st part of next week. Return to the ER for any worsening symptoms. <ROULA Reyes - Last Filed: 06/08/22 12:52> Prescriptions: New amlodipine [Norvasc] 5 mg tablet 5 mg PO ONCE PRN (Reason: SBP>190mmHg) Qty: 5 0RF Rx Instructions: 1. Patient has tolerated this medication previously without adverse reaction, I discussed in depth with the patient and the daughter. No Action levothyroxine 75 mcg tablet 75 mcg PO DAILY 30 Days Qty: 30 2RF pantoprazole 40 mg tablet,delayed release (DR/EC) 1 tab PO DAILY lorazepam 0.5 mg Tablet 0.5 mg PO Q4H PRN (Reason: anxiety) Qty: 20 0RF nitroglycerin 0.4 mg tablet, sublingual 0.4 mg sublingual Q5M PRN (Reason: chest pain) Qty: 20 0RF Rx Instructions: do not exceed 3 doses per episode losartan 50 mg tablet 100 mg PO DAILY sucralfate 1 gram tablet 1 g PO BID <ROULA Reyes - Last Filed: 06/08/22 12:52> Referrals: Po,Jj Lechuga MD [Primary Care Provider] - 06/11/22 <ROULA Reyes - Last Filed: 06/08/22 12:52>
--- NOTE | 2022-06-08 12:49 | ECG_ITS ---
Test Reason : hypertension Blood Pressure : / mmHG Vent. Rate : 052 BPM Atrial Rate : 052 BPM P-R Int : 160 ms QRS Dur : 078 ms QT Int : 416 ms P-R-T Axes : 041 033 082 degrees QTc Int : 386 ms Sinus bradycardia Nonspecific ST and T wave abnormality Abnormal ECG When compared with ECG of 19-MAY-2022 10:40, Nonspecific T wave abnormality no longer evident in Inferior leads Nonspecific T wave abnormality no longer evident in Anterior leads Referred By: Cecilia Ordonez Electronically Signed By:Adair Valerio
[2022-06-08 14:04] VITALS: BP 184/82; PULSE 55; RESP 12; O2SAT 97
[2022-06-08 14:07] LABS: MANUAL DIFF FLAG NO
[2022-06-08 14:10] LABS: Basophils Percent Auto 0.2 % (0-2); Eosinophils Percent Auto 0.5 % (0-4); Hematocrit 44.3 % (37.0-47.0); Hemoglobin 14.6 g/dl (12.0-16.0); Imm Gran Abs Auto 0.03 X10*3/uL (0.00-0.03); Imm Gran Pct Auto 0.4 % (0.0-0.4); Lymphocytes Absolute Auto 2.9 X10*3/uL (1.2-4.9); Lymphocytes Percent Auto 35.2 % (20-40); Mean Corpuscular Hemoglobin 28.9 pg (27.0-33.0); Mean Corpuscular Volume 87.7 fL (80.0-98.0); Mean Platelet Volume 10.7 fL (9.4-12.3); Monocytes Absolute Auto 0.5 X10*3/uL (0.1-1.2); Monocytes Percent Auto 5.8 % (2-11); Neutrophils Absolute Auto 4.8 x10*3/uL (2.0-8.3); Neutrophils Percent Auto 57.9 % (45-73); Platelet Count 330 X10*3/uL (160-400); Red Blood Count 5.05 X10*6/uL (4.20-5.50); Red Cell Distribution Width 12.5 % (11.0-16.0); White Blood Count 8.3 X10*3/uL (4.8-10.8)
[2022-06-08 14:11] LABS: Appearance Urine Clear; Color Urine Yellow; Glucose Urine UA Negative (Negative); Leukocyte Esterase Urine Negative (Negative); Nitrite Urine Negative (Negative); Specific Gravity - Urine <= 1.005 (1.005-1.025); Urine Blood Negative (Negative); Urine Ketones Negative (Negative); Urine Protein Negative (Neg-Trace)
[2022-06-08 14:34] LABS: Alanine Aminotransferase 19 U/L (0-31); Albumin Level 4.6 g/dL (3.5-5.0); Alkaline Phosphatase 65 U/L (39-117); Anion Gap 10 (12-20); Aspartate Amino Transferase 19 U/L (5-31); Bilirubin Total 1.3 mg/dL (0.0-1.0); Blood Urea Nitrogen 13 mg/dL (9-16); Calcium 10.9 mg/dL (8.4-10.2); Carbon Dioxide 29 mmol/L (22-29); Chloride 100 mmol/L (96-108); Creatinine Clr Calc Pharmacy 92.3; Estimated Glomerular Filt Rate > 60; Glucose Random 105 mg/dL (60-115); Magnesium 2.1 mg/dL (1.6-2.6); Potassium 4.4 mmol/L (3.3-5.1); Sodium 135 mmol/L (135-145); Total Protein 7.5 g/dL (6.5-8.0)
[2022-06-08 14:45] LABS: Troponin-I High Sensitivity < 3.5 ng/L (<3.5-17.0)
[2022-06-08 14:49] LABS: Influenza A PCR NEGATIVE (Negative); Influenza B PCR NEGATIVE (Negative); Resp Syncy Virus RNA Qual PCR NEGATIVE (Negative); SARS COV2 PCR INHOUSE NEGATIVE (Negative)
[2022-06-08 15:37] VITALS: BP 173/73; PULSE 58; RESP 17; O2SAT 97
[2022-06-08] MEDS: iohexoL 350 MG/ML 100 ML INFUS..BTL IV (16:09)
[2022-06-08 16:36] VITALS: BP 168/88; PULSE 54; RESP 15; O2SAT 96
== END 2022-06-08 17:52 | disposition home or self-care (01) ==
PROVIDERS: Physician Assistant Medical; Emergency Provider Student in an Organized Health Care Education/Training Program; PCP Internal Medicine
DX: I16.0 Hypertensive urgency (principal); R42 Dizziness and giddiness; R51.9 Headache, unspecified; I10 Essential (primary) hypertension; Z20.822 Contact with and (suspected) exposure to COVID-19; Z79.899 Other long term (current) drug therapy
CPT/HCPCS: 0241U; 36415; 70450; 70496; 70498; 71046; 80053; 81003; 83735; 84484; 85025; 93005; 99284; Q9967

== ENCOUNTER 2022-06-13 17:12 | Outpatient (REF) | payer BC, SELFPAY ==
[2022-06-14 14:28] LABS: H Pylori Breath Test Negative (Negative)
== END 2022-06-13 17:13 | disposition home or self-care (01) ==
LOC: HO.LNP 17:12
PROVIDERS: Visit Provider Internal Medicine Gastroenterology
DX: Z11.0 Encounter for screening for intestinal infectious diseases (principal)
CPT/HCPCS: 83013

== ENCOUNTER 2022-06-16 08:27 | Outpatient (REF) | payer BC, SELFPAY ==
[2022-06-16 09:57] LABS: Albumin Level 4.8 g/dL (3.5-5.0); Estimated Glomerular Filt Rate > 60
[2022-06-16 11:48] LABS: Creatinine, 24Hr Urine 0.7 G/Day (1.0-2.0); Total Volume 24 Hour Urine 2600 mL
[2022-06-18 15:23] LABS: Calcium (PTHI) 11.2 mg/dL (8.6-10.4); PTHI 85 pg/mL (16-77)
[2022-06-19 16:33] LABS: Calcium, 24 Hr Urine 130 mg/24 h; Calcium/Creatinine Ratio 167 mg/g creat (30-275); Creatinine 24Hr Urine 0.78 g/24 h (0.50-2.15)
== END 2022-06-16 08:28 | disposition home or self-care (01) ==
LOC: HO.LAB 08:27
PROVIDERS: PCP Internal Medicine; Visit Provider Internal Medicine Endocrinology, Diabetes & Metabolism
DX: E21.0 Primary hyperparathyroidism (principal)
CPT/HCPCS: 36415; 82040; 82340; 82565; 82570; 83970

== ENCOUNTER 2022-06-19 14:15 | Outpatient (REF) | payer BC, SELFPAY ==
--- NOTE | ~2022-06-19 | MM_ITS ---
EXAMINATION: BONE DENSITOMETRY CLINICAL INDICATION: Primary hyperparathyroidism. COMPARISON: None (current study represents initial baseline exam). TECHNIQUE: Using a [employer] DXA System (software version: 13.1) manufactured by [employer], dual-energy x-ray absorptiometry was performed of the lumbar spine and left hip and left forearm radius 33%. The images are of good technical quality. Summary results are attached. FINDINGS: AP SPINE L1-L4: BMD 0.833 g/cm2, Z-score -1.8, T-score -2.9, osteoporosis. LEFT FEMUR, NECK: BMD 0.742 g/cm2, Z-score -1.0, T-score -2.1, osteopenia. LEFT FEMUR, TOTAL: BMD 0.875 g/cm2, Z-score -0.2, T-score -1.1, osteopenia. LEFT FOREARM RADIUS 33%: BMD 0.778 g/cm2, Z-score 0.1, T-score -1.1, osteopenia. IDENTIFIED RISK FACTORS: Bilateral oophorectomy, hyperparathyroid, hysterectomy, low calcium intake, menopause. HISTORY OF FRACTURE: None listed. MEDICATIONS: Vitamin D. MM/XR DEXA appendicular skeleton IMPRESSION: 1. DIAGNOSIS: Osteoporosis based on the lowest T-score value of -2.9 in the lumbar spine applying World Health Organization criteria. 2. 10-YEAR FRACTURE RISK PREDICTION, FRAX: According to the guidelines, FRAX calculation should only be performed on patients in the osteopenia bone density category. Therefore, FRAX was not performed on this patient. 3. Treatment Recommendations: NOF guidelines recommend consideration for treatment in postmenopausal women and men age 50 and older presenting with the following: -A hip or vertebral (clinical or morphometric) fracture. -T-score less than or equal to -2.5 at the femoral neck or spine after appropriate evaluation to exclude secondary causes. -Low bone mass at the hip or spine and a 10-year fracture probability by FRAX of greater than or equal to 3% for hip fracture or greater than or equal to 20% for major osteoporotic fracture based on the [place] adapted WHO algorithm. 4. Other Recommendations: All treatment decisions require clinical judgment and consideration of individual patient factors, including patient preferences, comorbidities, previous drug use, risk factors not captured in the FRAX model (e.g. frailty, falls, vitamin D deficiency, increased bone turnover, interval significant decline in bone density) and possible under or overestimation of fracture risk by FRAX. Additional medical evaluation for secondary cause of low bone mineral density may be appropriate. FUTURE SCAN RECOMMENDATION: People with diagnosed cases of osteoporosis or at high risk for fracture should have regular bone mineral density tests. For patients eligible for Medicare, routine testing is allowed once every 2 years. The testing frequency can be increased to one year for patients who have rapidly progressing disease, those who are receiving or discontinuing medical therapy to restore bone mass, or have additional risk factors.
== END 2022-06-19 14:16 | disposition home or self-care (01) ==
LOC: HO.MAMMO 14:15
PROVIDERS: Visit Provider Internal Medicine Endocrinology, Diabetes & Metabolism
DX: Z13.820 Encounter for screening for osteoporosis (principal); E21.0 Primary hyperparathyroidism; Z78.0 Asymptomatic menopausal state
CPT/HCPCS: 77081

== ENCOUNTER → 2022-06-27 08:34 | Outpatient (BNVA) | payer BC, SELFPAY | PROVIDERS: PCP Internal Medicine; Visit Provider Internal Medicine Endocrinology, Diabetes & Metabolism | DX: E21.0 Primary hyperparathyroidism (principal) ==

== ENCOUNTER 2022-07-04 17:53 | Emergency (ER) | payer BC, SELFPAY ==
--- NOTE | ~2022-07-04 | XR_ITS ---
EXAMINATION: XR CHEST CLINICAL INFORMATION: Chest pain and shortness of breath COMPARISON: Chest x-ray 06/08/2022 TECHNIQUE: Frontal view of the chest was obtained. FINDINGS: The lungs are clear. No airspace consolidation, pleural effusion, or pneumothorax. The cardiomediastinal silhouette is within normal limits. No acute osseous injury. XR/XR chest 1V IMPRESSION: No acute pulmonary process.
--- NOTE | ~2022-07-04 | CT_ITS ---
EXAMINATION: CT ABDOMEN AND PELVIS WITHOUT CONTRAST CLINICAL INFORMATION: Left flank pain COMPARISON: 05/16/2022 TECHNIQUE: Multidetector volumetric imaging was performed from the superior aspect of the liver through the pubic symphysis. Sagittal and coronal reformatted images were obtained on the technologist's workstation. This CT examination was performed using dose optimization techniques as appropriate, variously including the following: *Automated exposure control *Adjustment of mA and/or kV according to patient size (this includes techniques or standardized protocols for targeted exams where dose is matched to indication/reason for exam; i.e. extremities or head) *Use of iterative reconstruction technique DLP: 587 mGy-cm FINDINGS: LUNG BASES: The visualized lung bases are unremarkable. LIVER, GALLBLADDER, AND BILIARY TREE: The liver is normal in size, shape, and attenuation. No focal hepatic lesion or biliary ductal dilatation is present. Status post cholecystectomy PANCREAS: Unremarkable. SPLEEN: Unremarkable. ADRENAL GLANDS: Unremarkable. KIDNEYS AND URETERS: The kidneys are normal in size, shape, and attenuation. No hydronephrosis, hydroureter, or calculi seen. No perinephric stranding. BLADDER: Unremarkable. GASTROINTESTINAL TRACT: The small and large bowel are unremarkable. The appendix is unremarkable. ABDOMINAL WALL: No significant hernia is appreciated. LYMPH NODES: Normal. VASCULAR: Unremarkable. PELVIC VISCERA: Status post hysterectomy. No adnexal mass lesion seen. OSSEOUS STRUCTURES: Unremarkable. CT/CT abdomen pelvis wo IV con IMPRESSION: No acute process. No evidence of renal stone disease.
--- NOTE | 2022-07-04 17:59 | ECG_ITS ---
Test Reason : cp/high bp/sob Blood Pressure : / mmHG Vent. Rate : 066 BPM Atrial Rate : 066 BPM P-R Int : 160 ms QRS Dur : 086 ms QT Int : 390 ms P-R-T Axes : 039 029 094 degrees QTc Int : 408 ms Normal sinus rhythm Moderate voltage criteria for LVH, may be normal variant ( Sokolow-[place]lm[place] , [place] product ) Nonspecific ST and T wave abnormality Abnormal ECG When compared with ECG of 08-JUN-2022 12:30, No significant change was found Referred By: Tika García Electronically Signed By:LUAN MCKEON MD
[2022-07-04 18:16] VITALS: BP 175/100; PULSE 76; RESP 16; TEMP 36.3; O2SAT 100; BMI 28.5
--- NOTE | 2022-07-04 18:18 | ED_ITS ---
HPI - General Adult General Chief complaint: Chest Pain <ROULA Frank - Last Filed: 07/04/22 18:26> Stated complaint: chest pain, High BP <ROULA Frank - Last Filed: 07/04/22 18:26> Time Seen by Provider: 07/04/22 21:03 <ROULA Frank - Last Filed: 07/04/22 18:26> Source: patient <Caitlin Batista MD - Last Filed: 07/04/22 22:33> Mode of arrival: ambulatory <Caitlin Batista MD - Last Filed: 07/04/22 22:33> Limitations: no limitations <Caitlin Batista MD - Last Filed: 07/04/22 22:33> History of Present Illness HPI narrative: Patient comes to the emergency room complaining of high blood pressure. Patient states that since she was discharged from this hospital on 05/20/2022, she has had labile blood pressure, usually runs high anywhere between 160-245. Today, patient states that her blood pressure was in the low 240s, took an add itional dose of amlodipine, earlier prior to arrival had chest pain, took nitro and aspirin. At this time, patient states that she feels well, no chest pain or shortness of breath. Also, earlier today patient complained of abdominal pain. <Caitlin Batista MD - Last Filed: 07/04/22 22:33> Related Data Home medications: Home Medications Medication Instructions Recorded Confirmed sucralfate 1 gram tablet 1 g PO BID 05/04/22 06/15/22 pantoprazole 40 mg tablet,delayed 1 tab PO DAILY 05/17/22 06/15/22 release amlodipine 5 mg tablet (Norvasc) 2.5 mg PO DAILY 06/15/22 losartan 50 mg tablet 50 mg PO BID 06/15/22 06/15/22 Previous Rx's Medication Instructions Recorded nitroglycerin 0.4 mg sublingual 0.4 mg sublingual Q5M PRN chest 04/24/22 tablet pain #20 tabs levothyroxine 75 mcg tablet 75 mcg PO DAILY 30 days #30 tabs 04/25/22 lorazepam 0.5 mg tablet 0.5 mg PO Q4H PRN anxiety #20 tabs 05/20/22 blood pressure test kit-medium #1 ea 06/15/22 <ROULA Frank - Last Filed: 07/04/22 18:26> Allergies/adverse reactions: Allergies Allergy/AdvReac Type Severity Reaction Status Date / Time nifedipine [From ADALAT] Allergy Severe Chest Pain Verified 07/04/22 18:20 isosorbide [From Imdur] Allergy Intermediate Headache Verified 07/04/22 18:20 lisinopril Allergy Intermediate CLAIRE-I Cough Verified 07/04/22 18:20 valsartan Allergy Intermediate DIZZINESS Verified 07/04/22 18:20 atorvastatin AdvReac Intermediate memory loss Verified 07/04/22 18:20 nebivolol [From Bystolic] AdvReac Mild dizzy Verified 07/04/22 18:20 hydralazine AdvReac Flushing Uncoded 07/04/22 18:20 <ROULA Frank - Last Filed: 07/04/22 18:26> Review of Systems Review of Systems: Constitutional : No Weight loss, No Fever, No Chills, No Night Sweats, No Fatigue, No Malaise ENT/Mouth : No Hearing loss, No Ear Pain, No Nasal Congestion, No Sinus Pain, No Hoarseness, No sore throat, No Rhinorrhea, No Swallowing Difficulty Eyes: No Eye Pain, No Swelling, No Redness, No Foreign Body, No Discharge, No Vision Changes Cardiovascular : Complaining chest pain which resolved, chest pressure which resolved, high blood pressure. Respiratory : No Cough, No Sputum, No Wheezing, No Smoke Exposure, No Dyspnea Gastrointestinal : No Nausea, No Vomiting, No Diarrhea, No Constipation, No abdominal Pain, No Hematochezia, No Melena Genitourinary : no irregular bleeding, No Dysuria, No Urinary Frequency, No He maturia, No Urinary Incontinence, No Urgency, No Flank Pain, No Urinary Flow Changes, No Hesitancy Musculoskeletal : No joint pain, No Myalgias, No Joint Swelling Skin : No Skin Lesions, No rash Neuro : No Weakness, No Numbness, No Paresthesias, No Loss of Consciousness, No Dizziness, No Headache Psych : No Anxiety/Panic, No Depression, No SI/HI/AH/VH, No Social Issues, Heme/Lymph: No Bruising, No Bleeding,No Lymphadenopathy Endocrine : No Polyuria, No Polydipsia, No Temperature Intolerance <Caitlin Batista MD - Last Filed: 07/04/22 22:33> [facility] Past Medical History Medical History: Medical History Dizziness of unknown etiology Fatty liver Hypercholesterolemia Hypertension Hypothyroid Impaired glucose tolerance Obesity (BMI 30-39.9) Primary hyperparathyroidism <ROULA Frank - Last Filed: 07/04/22 18:26> Surgical History: Surgical History H/O colonoscopy History of back surgery History of cholecystectomy History of esophagogastroduodenoscopy (EGD) History of mammogram History of removal of cyst History of total abdominal hysterectomy Hx of arthroscopic knee surgery S/P knee surgery <ROULA Frank - Last Filed: 07/04/22 18:26> Family History Family History: Family History Father HTN (hypertension) Diabetes mellitus Mother No problems noted. 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 Cognitive needs: No Hearing needs: No Vision needs: Yes <ROULA Frank - Last Filed: 07/04/22 18:26> Physical Exam ED Vital Signs: Vital Signs - 24 hr 07/04/22 18:16 07/04/22 19:55 07/04/22 20:05 Temperature 97.4 F Pulse Rate 76 58 53 Respiratory Rate 16 18 Blood Pressure 175/100 H 204/82 H 187/81 H Pulse Oximetry 100 98 Oxygen Delivery Method Room Air Room Air BMI result Body Mass Index 28.5 <ROULA Frank - Last Filed: 07/04/22 18:26> Vital Signs - 24 hr 07/04/22 18:16 07/04/22 19:55 07/04/22 20:05 Temperature 97.4 F Pulse Rate 76 58 53 Respiratory Rate 16 18 Blood Pressure 175/100 H 204/82 H 187/81 H Pulse Oximetry 100 98 Oxygen Delivery Method Room Air Room Air BMI result Body Mass Index 28.5 <Caitlin Batista MD - Last Filed: 07/04/22 22:33> Const Other: Appearance: Alert. Oriented X3. No acute distress. Eyes: Pupils equal, round and reactive to light. ENT: Pharynx normal. Neck: Normal inspection. Neck supple. No lymph nodes noted. No crepitus CVS: Normal heart rate and rhythm. Pulses normal. Normal S1 and S2, blood pre ssure 160 systolic Respiratory: No respiratory distress. Breath sounds normal. No Wheezing. No rales Abdomen: Soft and nontender. No rigidity. No distention. Skin: Skin warm and dry. Normal skin color. Normal skin turgor. Extremities: No lower extremity edema. No Lacerations. No Rash Neuro: Oriented X 3. No motor deficit. No sensory deficit. Moving all extremities. No slurred speech. CN 2 through 12 grossly intact Psych: calm, cooperative, very anxious <Caitlin Batista MD - Last Filed: 07/04/22 22:33> Course Course Course Narrative: 18:18 - RME - 61 yo female with history of anxiety, HTN, HLD, CAD, obesity, hypothyroidism, GERD, hyperparathyroidism who presents to the ER for evaluation of central chest pain that started when her blood pressure was elevated at home 200 systolic around 3pm today. She took a nitro SL and ASA. She took her BP over 10 times today. She states she has chest pain almost every day and her BP is elevated every other today for which she usually takes nitro per her doctor. She states the pain today radiated up into her neck and felt like she was choking. Also reports associated SOB. Also reports left sided kidney pain and dizziness. Anxious in triage. BP 170/100s. Asking for BP to be taken again. Dizzy and weak. Labs and CT scan ordered. EKG done. <ROULA Frank - Last Filed: 07/04/22 18:26> 18:18 - RME - 61 yo female with history of anxiety, HTN, HLD, CAD, obesity, hypothyroidism, GERD, hyperparathyroidism who presents to the ER for evaluation of central chest pain that started when her blood pressure was elevated at home 200 systolic around 3pm today. She took a nitro SL and ASA. She took her BP over 10 times today. She states she has chest pain almost every day and her BP is elevated every other today for which she usually takes nitro per her doctor. She states the pain today radiated up into her neck and felt like she was choking. Also reports associated SOB. Also reports left sided kidney pain and dizziness. Anxious in triage. BP 170/100s. Asking for BP to be taken again. Dizzy and weak. Labs and CT scan ordered. EKG done. Patient has had multiple adverse effects with several blood pressure medications . At this time, patient's blood pressure in the 160s, patient is symptomatic, we will not change any medications. Discussed with the patient that she may take to 10 mg per day of amlodipine p.r.n. blood pressure a cert PCP prescribed. <Caitlin Batista MD - Last Filed: 07/04/22 22:33> Medical Decision Making Lab Data MDM Lab Attestation statement: I reviewed the patient's lab results. <Caitlin Batista MD - Last Filed: 07/04/22 22:33> Result Diagrams: : 07/04/22 18:13 07/04/22 18:13 <ROULA Frank - Last Filed: 07/04/22 18:26> Labs: Lab Results 07/04/22 07/04/22 07/04/22 Range/Units 18:13 18:13 18:13 WBC 7.8 (4.8-10.8) X10*3/uL RBC 5.21 (4.20-5.50) X10*6/uL Hgb 15.3 (12.0-16.0) g/dl Hct 46.2 (37.0-47.0) % MCV 88.7 (80.0-98.0) fL MCH 29.4 (27.0-33.0) pg MCHC 33.1 (31.0-35.0) g/dl RDW 12.5 (11.0-16.0) % Plt Count 345 (160-400) X10*3/uL MPV 10.4 (9.4-12.3) fL Immature Gran % (Auto) 0.3 (0.0-0.4) % Neut % (Auto) 35.8 L (45-73) % Lymph % (Auto) 55.1 H (20-40) % Norman % (Auto) 7.2 (2-11) % Eos % (Auto) 1.3 (0-4) % Baso % (Auto) 0.3 (0-2) % Lymph # (Auto) 4.3 (1.2-4.9) X10*3/uL Norman # (Auto) 0.6 (0.1-1.2) X10*3/uL Eos # (Auto) 0.1 (0.0-0.4) X10*3/uL Baso # (Auto) 0.0 (0.0-0.2) X10*3/uL Abs Immat Gran (auto) 0.02 (0.00-0.03) X10*3/uL Absolute Neuts (auto) 2.8 (2.0-8.3) x10*3/uL Absolute Nucleated RBC 0.000 (0.0-0.012) X10*3/uL Nucleated RBC % (auto) 0.0 (0.0-0.2) /100WBC PT (10.0-13.1) SEC INR (0.9-1.1) APTT (26.0-36.4) SEC Sodium 139 (135-145) mmol/L Potassium 4.8 (3.3-5.1) mmol/L Chloride 105 (96-108) mmol/L Carbon Dioxide 23 (22-29) mmol/L Anion Gap 16 (12-20) BUN 10 (9-16) mg/dL Creatinine 0.63 (0.5-1.4) mg/dL Estim Creat Clear Calc 90.8 Estimated GFR > 60 Random Glucose 111 (60-115) mg/dL Calcium 10.8 H (8.4-10.2) mg/dL Magnesium 2.2 (1.6-2.6) mg/dL Total Bilirubin 1.0 (0.0-1.0) mg/dL Direct Bilirubin 0.3 (0.0-0.5) mg/dL AST 18 (5-31) U/L ALT 12 (0-31) U/L Alkaline Phosphatase 61 (39-117) U/L Troponin I High Sens < 3.5 (<3.5-17.0) ng/L B-Natriuretic Peptide (<100) pg/mL Total Protein 7.8 (6.5-8.0) g/dL Albumin 4.7 (3.5-5.0) g/dL Urine Color Urine Appearance Urine pH (5.0-9.0) Ur Specific [place] (1.005-1.025) Urine Protein (Neg-Trace) mg/dL Urine Glucose (UA) (Negative) mg/dL Urine Ketones (Negative) mg/dL Urine Blood (Negative) Urine Nitrite (Negative) Ur Leukocyte Esterase (Negative) Urine RBC (0-2) /HPF Urine WBC (0-5) /HPF Ur Squamous Epith Cells (0-2) /HPF Urine Bacteria (None Seen) Hyaline Casts (0-2) /LPF 07/04/22 07/04/22 07/04/22 Range/Units 18:13 18:13 18:13 WBC (4.8-10.8) X10*3/uL RBC (4.20-5.50) X10*6/uL Hgb (12.0-16.0) g/dl Hct (37.0-47.0) % MCV (80.0-98.0) fL MCH (27.0-33.0) pg MCHC (31.0-35.0) g/dl RDW (11.0-16.0) % Plt Count (160-400) X10*3/uL MPV (9.4-12.3) fL Immature Gran % (Auto) (0.0-0.4) % Neut % (Auto) (45-73) % Lymph % (Auto) (20-40) % Norman % (Auto) (2-11) % Eos % (Auto) (0-4) % Baso % (Auto) (0-2) % Lymph # (Auto) (1.2-4.9) X10*3/uL Norman # (Auto) (0.1-1.2) X10*3/uL Eos # (Auto) (0.0-0.4) X10*3/uL Baso # (Auto) (0.0-0.2) X10*3/uL Abs Immat Gran (auto) (0.00-0.03) X10*3/uL Absolute Neuts (auto) (2.0-8.3) x10*3/uL Absolute Nucleated RBC (0.0-0.012) X10*3/uL Nucleated RBC % (auto) (0.0-0.2) /100WBC PT 11.9 (10.0-13.1) SEC INR 1.0 (0.9-1.1) APTT 33.5 (26.0-36.4) SEC Sodium (135-145) mmol/L Potassium (3.3-5.1) mmol/L Chloride (96-108) mmol/L Carbon Dioxide (22-29) mmol/L Anion Gap (12-20) BUN (9-16) mg/dL Creatinine (0.5-1.4) mg/dL Estim Creat Clear Calc Estimated GFR Random Glucose (60-115) mg/dL Calcium (8.4-10.2) mg/dL Magnesium (1.6-2.6) mg/dL Total Bilirubin (0.0-1.0) mg/dL Direct Bilirubin (0.0-0.5) mg/dL AST (5-31) U/L ALT (0-31) U/L Alkaline Phosphatase (39-117) U/L Troponin I High Sens (<3.5-17.0) ng/L B-Natriuretic Peptide 32 (<100) pg/mL Total Protein (6.5-8.0) g/dL Albumin (3.5-5.0) g/dL Urine Color Yellow Urine Appearance Clear Urine pH 6.5 (5.0-9.0) Ur Specific [place] <= 1.005 (1.005-1.025) Urine Protein Negative (Neg-Trace) mg/dL Urine Glucose (UA) Negative (Negative) mg/dL Urine Ketones Negative (Negative) mg/dL Urine Blood Trace H (Negative) Urine Nitrite Negative (Negative) Ur Leukocyte Esterase Negative (Negative) Urine RBC 0-2 (0-2) /HPF Urine WBC 0-5 (0-5) /HPF Ur Squamous Epith Cells 0-2 (0-2) /HPF Urine Bacteria None Seen (None Seen) Hyaline Casts 0-2 (0-2) /LPF <ROULA Frank - Last Filed: 07/04/22 18:26> Lab Results 07/04/22 07/04/22 07/04/22 Range/Units 18:13 18:13 18:13 WBC 7.8 (4.8-10.8) X10*3/uL RBC 5.21 (4.20-5.50) X10*6/uL Hgb 15.3 (12.0-16.0) g/dl Hct 46.2 (37.0-47.0) % MCV 88.7 (80.0-98.0) fL MCH 29.4 (27.0-33.0) pg MCHC 33.1 (31.0-35.0) g/dl RDW 12.5 (11.0-16.0) % Plt Count 345 (160-400) X10*3/uL MPV 10.4 (9.4-12.3) fL Immature Gran % (Auto) 0.3 (0.0-0.4) % Neut % (Auto) 35.8 L (45-73) % Lymph % (Auto) 55.1 H (20-40) % Norman % (Auto) 7.2 (2-11) % Eos % (Auto) 1.3 (0-4) % Baso % (Auto) 0.3 (0-2) % Lymph # (Auto) 4.3 (1.2-4.9) X10*3/uL Norman # (Auto) 0.6 (0.1-1.2) X10*3/uL Eos # (Auto) 0.1 (0.0-0.4) X10*3/uL Baso # (Auto) 0.0 (0.0-0.2) X10*3/uL Abs Immat Gran (auto) 0.02 (0.00-0.03) X10*3/uL Absolute Neuts (auto) 2.8 (2.0-8.3) x10*3/uL Absolute Nucleated RBC 0.000 (0.0-0.012) X10*3/uL Nucleated RBC % (auto) 0.0 (0.0-0.2) /100WBC PT (10.0-13.1) SEC INR (0.9-1.1) APTT (26.0-36.4) SEC Sodium 139 (135-145) mmol/L Potassium 4.8 (3.3-5.1) mmol/L Chloride 105 (96-108) mmol/L Carbon Dioxide 23 (22-29) mmol/L Anion Gap 16 (12-20) BUN 10 (9-16) mg/dL Creatinine 0.63 (0.5-1.4) mg/dL Estim Creat Clear Calc 90.8 Estimated GFR > 60 Random Glucose 111 (60-115) mg/dL Calcium 10.8 H (8.4-10.2) mg/dL Magnesium 2.2 (1.6-2.6) mg/dL Total Bilirubin 1.0 (0.0-1.0) mg/dL Direct Bilirubin 0.3 (0.0-0.5) mg/dL AST 18 (5-31) U/L ALT 12 (0-31) U/L Alkaline Phosphatase 61 (39-117) U/L Troponin I High Sens < 3.5 (<3.5-17.0) ng/L B-Natriuretic Peptide (<100) pg/mL Total Protein 7.8 (6.5-8.0) g/dL Albumin 4.7 (3.5-5.0) g/dL Urine Color Urine Appearance Urine pH (5.0-9.0) Ur Specific [place] (1.005-1.025) Urine Protein (Neg-Trace) mg/dL Urine Glucose (UA) (Negative) mg/dL Urine Ketones (Negative) mg/dL Urine Blood (Negative) Urine Nitrite (Negative) Ur Leukocyte Esterase (Negative) Urine RBC (0-2) /HPF Urine WBC (0-5) /HPF Ur Squamous Epith Cells (0-2) /HPF Urine Bacteria (None Seen) Hyaline Casts (0-2) /LPF 07/04/22 07/04/22 07/04/22 Range/Units 18:13 18:13 18:13 WBC (4.8-10.8) X10*3/uL RBC (4.20-5.50) X10*6/uL Hgb (12.0-16.0) g/dl Hct (37.0-47.0) % MCV (80.0-98.0) fL MCH (27.0-33.0) pg MCHC (31.0-35.0) g/dl RDW (11.0-16.0) % Plt Count (160-400) X10*3/uL MPV (9.4-12.3) fL Immature Gran % (Auto) (0.0-0.4) % Neut % (Auto) (45-73) % Lymph % (Auto) (20-40) % Norman % (Auto) (2-11) % Eos % (Auto) (0-4) % Baso % (Auto) (0-2) % Lymph # (Auto) (1.2-4.9) X10*3/uL Norman # (Auto) (0.1-1.2) X10*3/uL Eos # (Auto) (0.0-0.4) X10*3/uL Baso # (Auto) (0.0-0.2) X10*3/uL Abs Immat Gran (auto) (0.00-0.03) X10*3/uL Absolute Neuts (auto) (2.0-8.3) x10*3/uL Absolute Nucleated RBC (0.0-0.012) X10*3/uL Nucleated RBC % (auto) (0.0-0.2) /100WBC PT 11.9 (10.0-13.1) SEC INR 1.0 (0.9-1.1) APTT 33.5 (26.0-36.4) SEC Sodium (135-145) mmol/L Potassium (3.3-5.1) mmol/L Chloride (96-108) mmol/L Carbon Dioxide (22-29) mmol/L Anion Gap (12-20) BUN (9-16) mg/dL Creatinine (0.5-1.4) mg/dL Estim Creat Clear Calc Estimated GFR Random Glucose (60-115) mg/dL Calcium (8.4-10.2) mg/dL Magnesium (1.6-2.6) mg/dL Total Bilirubin (0.0-1.0) mg/dL Direct Bilirubin (0.0-0.5) mg/dL AST (5-31) U/L ALT (0-31) U/L Alkaline Phosphatase (39-117) U/L Troponin I High Sens (<3.5-17.0) ng/L B-Natriuretic Peptide 32 (<100) pg/mL Total Protein (6.5-8.0) g/dL Albumin (3.5-5.0) g/dL Urine Color Yellow Urine Appearance Clear Urine pH 6.5 (5.0-9.0) Ur Specific [place] <= 1.005 (1.005-1.025) Urine Protein Negative (Neg-Trace) mg/dL Urine Glucose (UA) Negative (Negative) mg/dL Urine Ketones Negative (Negative) mg/dL Urine Blood Trace H (Negative) Urine Nitrite Negative (Negative) Ur Leukocyte Esterase Negative (Negative) Urine RBC 0-2 (0-2) /HPF Urine WBC 0-5 (0-5) /HPF Ur Squamous Epith Cells 0-2 (0-2) /HPF Urine Bacteria None Seen (None Seen) Hyaline Casts 0-2 (0-2) /LPF <Caitlin Batista MD - Last Filed: 07/04/22 22:33> Radiology Impression Discussion of test interpretation with radiology: I have reviewed the radiologist's reading. <Caitlin Batista MD - Last Filed: 07/04/22 22:33> Radiologist Impression: INDINGS: LUNG BASES: The visualized lung bases are unremarkable.? LIVER, GALLBLADDER, AND BILIARY TREE: The liver is normal in size, shape, and attenuation. No focal hepatic lesion or biliary ductal dilatation is present. Status post cholecystectomy? PANCREAS: Unremarkable.? SPLEEN: Unremarkable.? ADRENAL GLANDS: Unremarkable.? KIDNEYS AND URETERS: The kidneys are normal in size, shape, and attenuation. No hydronephrosis, hydroureter, or calculi seen. No perinephric stranding. ? BLADDER: Unremarkable.? GASTROINTESTINAL TRACT: The small and large bowel are unremarkable. The appendix is unremarkable.? ABDOMINAL WALL: No significant hernia is appreciated.? LYMPH NODES: Normal. VASCULAR: Unremarkable. PELVIC VISCERA: Status post hysterectomy. No adnexal mass lesion seen. OSSEOUS STRUCTURES: Unremarkable.? CT/CT abdomen pelvis wo IV con IMPRESSION: No acute process. No evidence of renal stone disease.? ? <Caitlin Batista MD - Last Filed: 07/04/22 22:33> Discharge Plan Discharge Clinical Impression: Hypertension <ROULA Frank - Last Filed: 07/04/22 18:26> Patient Disposition: Home, Self-Care <ROULA Frank - Last Filed: 07/04/22 18:26> Instructions: Hypertension (ED) <ROULA Frank - Last Filed: 07/04/22 18:26> Additional Instructions: If your blood pressure is high, above 180 systolic, you may take 5 mg of Norvasc. You can take up to a total of 10 mg per day. Please follow-up with your primary care physician tomorrow. If you have any worsening or new symptoms, please return to the emergency room or call 911 <ROULA Frank - Last Filed: 07/04/22 18:26> Prescriptions: No Action levothyroxine 75 mcg tablet 75 mcg PO DAILY 30 Days Qty: 30 2RF pantoprazole 40 mg tablet,delayed release (DR/EC) 1 tab PO DAILY lorazepam 0.5 mg Tablet 0.5 mg PO Q4H PRN (Reason: anxiety) Qty: 20 0RF nitroglycerin 0.4 mg tablet, sublingual 0.4 mg sublingual Q5M PRN (Reason: chest pain) Qty: 20 0RF Rx Instructions: do not exceed 3 doses per episode amlodipine [Norvasc] 5 mg tablet 2.5 mg PO DAILY (DME) blood pressure test kit-medium Kit See Rx Instructions miscellaneous .MEDSUPPLY Qty: 1 0RF Rx Instructions: As directed sucralfate 1 gram tablet 1 g PO BID losartan 50 mg tablet 50 mg PO BID <ROULA Frank - Last Filed: 07/04/22 18:26>
[2022-07-04 18:19] LABS: MANUAL DIFF FLAG NO
[2022-07-04 18:23] LABS: Appearance Urine Clear; Color Urine Yellow; Glucose Urine UA Negative (Negative); Leukocyte Esterase Urine Negative (Negative); Nitrite Urine Negative (Negative); PH 6.5 (5.0-9.0); Specific Gravity - Urine <= 1.005 (1.005-1.025); UMIC TRIGGER UACC YES; Urine Blood Trace (Negative); Urine Ketones Negative (Negative); Urine Protein Negative (Neg-Trace)
[2022-07-04 18:27] LABS: Bacteria Urine None Seen (None Seen); Hyaline Casts Urine 0-2 /LPF (0-2); Prothrombin Time 11.9 SEC (10.0-13.1); RBC Urine 0-2 /HPF (0-2); Squamous Epithelial Cell Urine 0-2 /HPF (0-2); WBC Urine 0-5 /HPF (0-5)
[2022-07-04 18:29] LABS: Partial Thromboplastin Time 33.5 SEC (26.0-36.4)
[2022-07-04 18:36] LABS: Basophils Percent Auto 0.3 % (0-2); Eosinophils Absolute Auto 0.1 X10*3/uL (0.0-0.4); Eosinophils Percent Auto 1.3 % (0-4); Hematocrit 46.2 % (37.0-47.0); Hemoglobin 15.3 g/dl (12.0-16.0); Imm Gran Abs Auto 0.02 X10*3/uL (0.00-0.03); Imm Gran Pct Auto 0.3 % (0.0-0.4); Lymphocytes Absolute Auto 4.3 X10*3/uL (1.2-4.9); Lymphocytes Percent Auto 55.1 % (20-40); Mean Corpuscular HGB Conc 33.1 g/dl (31.0-35.0); Mean Corpuscular Hemoglobin 29.4 pg (27.0-33.0); Mean Corpuscular Volume 88.7 fL (80.0-98.0); Mean Platelet Volume 10.4 fL (9.4-12.3); Monocytes Absolute Auto 0.6 X10*3/uL (0.1-1.2); Monocytes Percent Auto 7.2 % (2-11); Neutrophils Absolute Auto 2.8 x10*3/uL (2.0-8.3); Neutrophils Percent Auto 35.8 % (45-73); Platelet Count 345 X10*3/uL (160-400); Red Blood Count 5.21 X10*6/uL (4.20-5.50); Red Cell Distribution Width 12.5 % (11.0-16.0); White Blood Count 7.8 X10*3/uL (4.8-10.8)
[2022-07-04 18:42] LABS: Alanine Aminotransferase 12 U/L (0-31); Albumin Level 4.7 g/dL (3.5-5.0); Alkaline Phosphatase 61 U/L (39-117); Anion Gap 16 (12-20); Aspartate Amino Transferase 18 U/L (5-31); Bilirubin Direct 0.3 mg/dL (0.0-0.5); Blood Urea Nitrogen 10 mg/dL (9-16); Calcium 10.8 mg/dL (8.4-10.2); Carbon Dioxide 23 mmol/L (22-29); Chloride 105 mmol/L (96-108); Creatinine Clr Calc Pharmacy 90.8; Estimated Glomerular Filt Rate > 60; Glucose Random 111 mg/dL (60-115); Magnesium 2.2 mg/dL (1.6-2.6); Potassium 4.8 mmol/L (3.3-5.1); Sodium 139 mmol/L (135-145); Total Protein 7.8 g/dL (6.5-8.0)
[2022-07-04 18:46] LABS: B Type Natriuretic Peptide 32 pg/mL (<100)
[2022-07-04 18:50] LABS: Troponin-I High Sensitivity < 3.5 ng/L (<3.5-17.0)
[2022-07-04 19:55] VITALS: BP 204/82; PULSE 58; RESP 18; O2SAT 98
[2022-07-04 20:05] VITALS: BP 187/81; PULSE 53
--- NOTE | 2022-07-04 22:15 | PC.NURSE ---
this rn assumed care of pt at 1955. @ 2004 provider notified. pt awaiting to be seen
[2022-07-04 22:30] VITALS: BP 151/67; PULSE 54; RESP 19; TEMP 36.8; O2SAT 98
== END 2022-07-04 22:42 | disposition home or self-care (01) ==
PROVIDERS: Physician Assistant; Emergency Provider Emergency Medicine; PCP Internal Medicine
DX: R07.89 Other chest pain (principal); R06.02 Shortness of breath; I10 Essential (primary) hypertension; R10.2 Pelvic and perineal pain; Z20.822 Contact with and (suspected) exposure to COVID-19; Z79.899 Other long term (current) drug therapy
CPT/HCPCS: 36415; 71045; 74176; 80048; 80076; 81001; 83735; 83880; 84484; 85025; 85610; 85730; 93005; 99283; 99284

== ENCOUNTER 2022-07-16 13:53 | Outpatient (REF) | payer BC, SELFPAY ==
--- NOTE | ~2022-07-16 | US_ITS ---
CLINICAL INDICATION: Rule out subclavian steal, ankle DP FINDINGS: Real-time duplex on the examination of the upper extremity arterial systems was performed bilaterally from the levels of the subclavian arteries to the wrists. Right upper extremity peak systolic velocities (cm/s): Medial subclavian artery: 140 Mid subclavian artery: 176 Lateral subclavian artery: 138 Axillary artery: 119 Proximal brachial artery: 135 Mid brachial artery: 147 Distal brachial artery: 116 Mid radial artery: 95 Mid ulnar artery: 110 Grayscale and color Doppler imaging of the right upper extremity demonstrates no significant atherosclerotic disease. Left upper extremity peak systolic velocities (cm/s): Medial subclavian artery: 107 Mid subclavian artery: 128 Lateral subclavian artery: 72 Axillary artery: 82 Proximal brachial artery: 118 Mid brachial artery: 153 Distal brachial artery: 120 Mid radial artery: 79 Mid ulnar artery: 91 Grayscale and color Doppler imaging of the left upper extremity demonstrates no significant atherosclerotic disease. US/US arterial duplex UE BI IMPRESSION: No evidence of hemodynamically significant stenosis. If clinical suspicion persists, and if further imaging is clinically desired, CTA or MRA may be of use for further evaluation.
== END 2022-07-16 13:54 | disposition home or self-care (01) ==
LOC: HO.US 13:53
PROVIDERS: Visit Provider Internal Medicine Gastroenterology
DX: I77.1 Stricture of artery (principal)
CPT/HCPCS: 93930

== ENCOUNTER 2022-08-02 11:00 | Outpatient (RCR) | payer BC, SELFPAY ==
[2022-07-30 13:03] VITALS: BP 173/78; PULSE 64
--- NOTE | 2022-07-30 13:59 | MHC.PT.EP ---
[facility] [place] Office [place] Office [place] Office [address] Alfie Morgan [address] [phone] F: [phone] F: [phone] F: [phone] F: [phone] Physical Therapy Plan of Care Date of Evaluation: Date of Surgery: NA Diagnosis: Dizziness and giddiness Assessment: Betsey is a 61 year old female who is referred to PT for dizziness and giddiness . She reports of having symptoms of dizziness for several months however about 2 month back she started experiencing intense bout of room spinning dizziness which is present with she lies on her R side, supine to sit, looking up and down. Her symptoms last for few seconds and she also reports of having nausea. On PT examination she presented with intact saccades, smooth pursuit, visual tracking and head thrust. She was positive for nystagmus and vertigo in R [place]. She lives with her and is independent with all ADLS however does them slowly and her supervises her with a few ADLS. She would benefit from skilled PT to address the aforementioned impairments and improve tolerance to functional activites. 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 Pt will be negative for nystagmus or reports of vertigo in all diagnostic positions bilaterally to resolution of BPPV in 4 weeks. Patient to be able to functionally move in all planes and directions without provocation of dizziness to show return to PLOF in 4 weeks. Treatment Plan: Modalities to reduce pain, spasms and effusion. Manual therapy to restore motion and function. Therapeutic exercise to improve strength and flexibility. Neuromuscular re-education for posture and balance. Therapeutic activities to return to functional activities of daily living. Electronically signed by: Farhana Mohr PT DPT Please sign and return to therapist. Thank you for your referral.
--- NOTE | 2022-09-03 11:57 | MHC.PT.DC ---
[facility] [place] Office [place] Office [place] Office [address] Alfie Morgan [address] [phone] F: [phone] F: [phone] F: [phone] F: [phone] Physical Therapy Discharge Report Diagnosis: Dizziness and giddiness Date of Surgery: NA Date of Evaluation: 07/30/22 Date of Discharge: 09/03/22 Treatments to Date: 3 Cancellations to Date: 0 No Shows to Date: Discharge Status: Achieved Goals Improved Function Discharge Summary: Betsey has had no dizziness in over a month. She is therefore being d/c from PT. Electronically signed by: Farhana Mohr PT DPT Please sign and return to therapist. Thank you for your referral.
== END 2022-09-03 11:58 | disposition home or self-care (01) ==
LOC: HO.PT 11:00
PROVIDERS: PCP Internal Medicine; Visit Provider Internal Medicine
DX: R42 Dizziness and giddiness (principal)
CPT/HCPCS: 95992; 97112; 97161

== ENCOUNTER 2022-08-14 09:10 | Emergency (ER) | payer BC, SELFPAY ==
--- NOTE | ~2022-08-14 | XR_ITS ---
EXAMINATION: XR CHEST CLINICAL INFORMATION: Chest pain. COMPARISON: 06/26/2022 chest radiograph. TECHNIQUE: Frontal view of the chest was obtained. FINDINGS: No significant abnormality is noted involving the heart, lungs, mediastinum, bony thorax or soft tissues. XR/XR chest 1V IMPRESSION: No acute cardiopulmonary process.
--- NOTE | 2022-08-14 09:12 | ECG_ITS ---
Test Reason : chest pain Blood Pressure : / mmHG Vent. Rate : 076 BPM Atrial Rate : 076 BPM P-R Int : 164 ms QRS Dur : 084 ms QT Int : 372 ms P-R-T Axes : 069 071 042 degrees QTc Int : 418 ms Normal sinus rhythm ST & T wave abnormality, consider lateral ischemia Abnormal ECG When compared with ECG of 04-JUL-2022 17:59, Nonspecific T wave abnormality now evident in Inferior leads T wave inversion less evident in Lateral leads Referred By: Generic ED Physician Electronically Signed By:LUAN MCKEON MD
[2022-08-14 09:30] VITALS: BMI 27.9
[2022-08-14 09:34] VITALS: BP 192/91; PULSE 73; RESP 12; TEMP 36.5; O2SAT 98
--- NOTE | 2022-08-14 09:58 | ED.GENADULT ---
HPI - General Adult General Chief complaint: Dizziness Stated complaint: chest pain headache high bp Time Seen by Provider: 08/14/22 09:33 Source: patient Limitations: no limitations History of Present Illness HPI narrative: Betsey is a 61 years old female patient presented to the emergency department with chief complaint of dizziness chest pain malaise and elevated blood pressure. She has history of hypertension she is on losartan 50 mg. She has been in this emergency department a [facility] for this similar symptoms. Onset (ago): day(s) (1) Location: head Radiation: non-radiation Severity: mild Pain Consistency: constant Relieving factors: none Exacerbating factors: none Associated symptoms: denies other symptoms Related Data Home Medications Medication Instructions Recorded Confirmed pantoprazole 40 mg tablet,delayed 1 tab PO DAILY 05/17/22 06/15/22 release Previous Rx's Medication Instructions Recorded blood pressure test kit-medium #1 ea 06/15/22 amlodipine 5 mg tablet (Norvasc) 2.5 mg PO DAILY #30 tabs 07/19/22 cholecalciferol (vitamin D3) 50 50 mcg PO DAILY 90 days #90 caps 07/19/22 mcg (2,000 unit) capsule isosorbide mononitrate 30 mg 30 mg PO DAILY #30 tabs 07/19/22 tablet,extended release 24 hr levothyroxine 75 mcg tablet 75 mcg PO DAILY 90 days #90 tabs 07/19/22 losartan 50 mg tablet 50 mg PO BID 90 days #180 tabs 07/19/22 nitroglycerin 0.4 mg sublingual 0.4 mg sublingual Q5M PRN chest 07/19/22 tablet pain #20 tabs Allergies Allergy/AdvReac Type Severity Reaction Status Date / Time nifedipine [From ADALAT] Allergy Severe Chest Pain Verified 08/14/22 09:32 isosorbide [From Imdur] Allergy Intermediate Headache Verified 08/14/22 09:32 lisinopril Allergy Intermediate CLAIRE-I Cough Verified 08/14/22 09:32 valsartan Allergy Intermediate DIZZINESS Verified 08/14/22 09:32 atorvastatin AdvReac Intermediate memory loss Verified 08/14/22 09:32 nebivolol [From Bystolic] AdvReac Mild dizzy Verified 08/14/22 09:32 isosorbide mononitrate AdvReac Intermediate Agitated Uncoded 07/20/22 09:30 hydralazine AdvReac Flushing Uncoded 07/19/22 10:06 Review of Systems Review of Systems: Yes all other systems are reviewed and are negative Eyes: Eyes: Reports no additional eye complaints ENT: Reports system reviewed and no additional complaints, except as documented Cardiovascular: Cardiovascular: Reports no additional cardiovascular complaints Respiratory: Respiratory: Reports no additional respiratory complaints PMFSH Past Medical History Medical History Dizziness of unknown etiology Fatty liver Hypercholesterolemia Hypertension Hypothyroid Impaired glucose tolerance Obesity (BMI 30-39.9) Primary hyperparathyroidism Surgical History H/O colonoscopy History of back surgery History of cholecystectomy History of esophagogastroduodenoscopy (EGD) History of mammogram History of removal of cyst History of total abdominal hysterectomy Hx of arthroscopic knee surgery S/P knee surgery Family History Family History Father HTN (hypertension) Diabetes mellitus Mother No problems noted. 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 Cognitive needs: No Hearing needs: No Vision needs: Yes Physical Exam ED Vital Signs: Vital Signs - 24 hr 08/14/22 09:34 08/14/22 12:38 08/14/22 12:59 Temperature 97.7 F Pulse Rate 73 79 63 Respiratory Rate 12 16 16 Blood Pressure 192/91 H 165/82 H 151/72 H Pulse Oximetry 98 96 97 Oxygen Delivery Method Room Air Room Air Room Air 08/14/22 14:38 Temperature Pulse Rate 67 Respiratory Rate 18 Blood Pressure 137/69 Pulse Oximetry 98 Oxygen Delivery Method Room Air BMI result Body Mass Index 27.9 Const General: cooperative Nutritional Appearance: average body habitus and well nourished Orientation/consciousness: patient oriented x3 HENMT Head: Yes normal to inspection Face and sinus: Yes normal facial exam Mouth: Normal oral and palatal mucosa present Throat: Yes posterior oropharynx normal Neck Neck: Yes normal visual inspection and Yes full ROM Chest Chest palpation & inspection: normal inspection of the chest Resp Effort & Inspection: normal respiratory effort Cardio Jugular venous distension: no JVD Rate: regular rate Rhythm: regular rhythm GI Inspection: Yes normal to inspection Palpation (GI): Soft to palpation, not firm, nontender and no guarding Skin General skin exam: no rashes or lesions noted, elasticity normal and turgor normal Lesions: no lesions Rashes: no rashes Neuro General: patient oriented x3 Cranial nerves: Yes CN's II-XII intact bilaterally Coordination: vznvju-st-dond test normal Extrem General: Yes normal to inspection and Yes full ROM Course Reevaluation(s) Reevaluation #1: BP better,she is feeling much better,I ordered ct head pt refuses head ct Medications Administered Discontinued Medications Generic Name Dose Route Start Last Admin Trade Name Freq PRN Reason Stop Dose Admin Clonidine HCl 0.1 mg 08/14/22 12:24 08/14/22 12:36 Clonidine Hcl 0.1 Mg Tablet PO 08/14/22 12:25 0.1 mg ONCE ONE Administration Protocol Lorazepam 0.5 mg 08/14/22 09:50 08/14/22 10:07 Lorazepam 0.5 Mg Tablet PO 08/14/22 09:51 0.5 mg ONCE ONE Administration Medical Decision Making Medical Decision Making [facility] Narrative: Patient presented with dizziness that chest pain we will do an EKG will check the troponin chest x-ray and reassess. She looks extremely anxious to me I will try 0.5 mg lorazepam as well Differential Diagnosis Differential Diagnoses: The differential diagnosis associated with the presentation includes Differential diagnosis is broad including ACS/anxiety/hypertensive urgency Admission/Observation Consideration of admission/observation: Escalation of care including admission/observation considered Lab Data [facility] Lab Attestation statement: I reviewed the patient's lab results. 08/14/22 10:04 08/14/22 10:03 Labs: Lab Results 08/14/22 08/14/22 08/14/22 Range/Units 10:03 10:04 10:04 WBC 5.7 (4.8-10.8) X10*3/uL RBC 4.98 (4.20-5.50) X10*6/uL Hgb 14.5 (12.0-16.0) g/dl Hct 43.7 (37.0-47.0) % MCV 87.8 (80.0-98.0) fL MCH 29.1 (27.0-33.0) pg MCHC 33.2 (31.0-35.0) g/dl RDW 12.6 (11.0-16.0) % Plt Count 323 (160-400) X10*3/uL MPV 10.6 (9.4-12.3) fL Immature Gran % (Auto) 0.2 (0.0-0.4) % Neut % (Auto) 58.9 (45-73) % Lymph % (Auto) 33.7 (20-40) % [place] % (Auto) 6.1 (2-11) % Eos % (Auto) 0.9 (0-4) % Baso % (Auto) 0.2 (0-2) % Lymph # (Auto) 1.9 (1.2-4.9) X10*3/uL [place] # (Auto) 0.4 (0.1-1.2) X10*3/uL Eos # (Auto) 0.1 (0.0-0.4) X10*3/uL Baso # (Auto) 0.0 (0.0-0.2) X10*3/uL Abs Immat Gran (auto) 0.01 (0.00-0.03) X10*3/uL Absolute Neuts (auto) 3.4 (2.0-8.3) x10*3/uL Absolute Nucleated RBC 0.000 (0.0-0.012) X10*3/uL Nucleated RBC % (auto) 0.0 (0.0-0.2) /100WBC Sodium 140 (135-145) mmol/L Potassium 4.0 (3.3-5.1) mmol/L Chloride 103 (96-108) mmol/L Carbon Dioxide 25 (22-29) mmol/L Anion Gap 16 (12-20) BUN 8 L (9-16) mg/dL Creatinine 0.62 (0.5-1.4) mg/dL Estim Creat Clear Calc 91.5 Estimated GFR > 60 Random Glucose 116 H (60-115) mg/dL Calcium 10.8 H (8.4-10.2) mg/dL Total Bilirubin 0.9 (0.0-1.0) mg/dL AST 17 (5-31) U/L ALT 19 (0-31) U/L Alkaline Phosphatase 65 (39-117) U/L Troponin I High Sens < 3.5 (<3.5-17.0) ng/L Total Protein 7.2 (6.5-8.0) g/dL Albumin 4.5 (3.5-5.0) g/dL 08/14/22 Range/Units 12:33 WBC (4.8-10.8) X10*3/uL RBC (4.20-5.50) X10*6/uL Hgb (12.0-16.0) g/dl Hct (37.0-47.0) % MCV (80.0-98.0) fL MCH (27.0-33.0) pg MCHC (31.0-35.0) g/dl RDW (11.0-16.0) % Plt Count (160-400) X10*3/uL MPV (9.4-12.3) fL Immature Gran % (Auto) (0.0-0.4) % Neut % (Auto) (45-73) % Lymph % (Auto) (20-40) % [place] % (Auto) (2-11) % Eos % (Auto) (0-4) % Baso % (Auto) (0-2) % Lymph # (Auto) (1.2-4.9) X10*3/uL [place] # (Auto) (0.1-1.2) X10*3/uL Eos # (Auto) (0.0-0.4) X10*3/uL Baso # (Auto) (0.0-0.2) X10*3/uL Abs Immat Gran (auto) (0.00-0.03) X10*3/uL Absolute Neuts (auto) (2.0-8.3) x10*3/uL Absolute Nucleated RBC (0.0-0.012) X10*3/uL Nucleated RBC % (auto) (0.0-0.2) /100WBC Sodium (135-145) mmol/L Potassium (3.3-5.1) mmol/L Chloride (96-108) mmol/L Carbon Dioxide (22-29) mmol/L Anion Gap (12-20) BUN (9-16) mg/dL Creatinine (0.5-1.4) mg/dL Estim Creat Clear Calc Estimated GFR Random Glucose (60-115) mg/dL Calcium (8.4-10.2) mg/dL Total Bilirubin (0.0-1.0) mg/dL AST (5-31) U/L ALT (0-31) U/L Alkaline Phosphatase (39-117) U/L Troponin I High Sens < 3.5 (<3.5-17.0) ng/L Total Protein (6.5-8.0) g/dL Albumin (3.5-5.0) g/dL Independent Interpretation I performed an independent interpretation of an: EKG Interpretation: Normal sinus rhythm rate 76 no specific changes in the lateral leads V4 to V6 Discharge Plan Discharge Clinical Impression: Chest pain, Dizziness Patient Disposition: Home, Self-Care Instructions: Chest Pain (DC), Dizziness (ED) Additional Instructions: Please follow-up with your primary care physician column today make an appointment return if you worse Prescriptions: No Action amlodipine [Norvasc] 5 mg tablet 2.5 mg PO DAILY Qty: 30 2RF pantoprazole 40 mg tablet,delayed release (DR/EC) 1 tab PO DAILY nitroglycerin 0.4 mg tablet, sublingual 0.4 mg sublingual Q5M PRN (Reason: chest pain) Qty: 20 0RF Rx Instructions: do not exceed 3 doses per episode isosorbide mononitrate 30 mg tablet extended release 24 hr 30 mg PO DAILY Qty: 30 4RF levothyroxine 75 mcg tablet 75 mcg PO DAILY 90 Days Qty: 90 2RF losartan 50 mg tablet 50 mg PO BID 90 Days Qty: 180 1RF cholecalciferol (vitamin D3) 50 mcg (2,000 unit) capsule 50 mcg PO DAILY 90 Days Qty: 90 3RF (DME) blood pressure test kit-medium Kit See Rx Instructions miscellaneous .MEDSUPPLY Qty: 1 0RF Rx Instructions: As directed Referrals: Po,Jj Lechuga MD [Primary Care Provider] - 2 days Interventions: ED Discharge Assessment Last Done: 08/14/22 14:38 Discharge Date/Time: 08/14/22 14:40
[2022-08-14] MEDS: LORazepam 0.5 MG TABLET PO (10:07)
[2022-08-14 10:12] LABS: MANUAL DIFF FLAG NO
[2022-08-14 10:17] LABS: Basophils Percent Auto 0.2 % (0-2); Eosinophils Absolute Auto 0.1 X10*3/uL (0.0-0.4); Eosinophils Percent Auto 0.9 % (0-4); Hematocrit 43.7 % (37.0-47.0); Hemoglobin 14.5 g/dl (12.0-16.0); Imm Gran Abs Auto 0.01 X10*3/uL (0.00-0.03); Imm Gran Pct Auto 0.2 % (0.0-0.4); Lymphocytes Absolute Auto 1.9 X10*3/uL (1.2-4.9); Lymphocytes Percent Auto 33.7 % (20-40); Mean Corpuscular HGB Conc 33.2 g/dl (31.0-35.0); Mean Corpuscular Hemoglobin 29.1 pg (27.0-33.0); Mean Corpuscular Volume 87.8 fL (80.0-98.0); Mean Platelet Volume 10.6 fL (9.4-12.3); Monocytes Absolute Auto 0.4 X10*3/uL (0.1-1.2); Monocytes Percent Auto 6.1 % (2-11); Neutrophils Absolute Auto 3.4 x10*3/uL (2.0-8.3); Neutrophils Percent Auto 58.9 % (45-73); Platelet Count 323 X10*3/uL (160-400); Red Blood Count 4.98 X10*6/uL (4.20-5.50); Red Cell Distribution Width 12.6 % (11.0-16.0); White Blood Count 5.7 X10*3/uL (4.8-10.8)
[2022-08-14 10:47] LABS: Alanine Aminotransferase 19 U/L (0-31); Albumin Level 4.5 g/dL (3.5-5.0); Alkaline Phosphatase 65 U/L (39-117); Anion Gap 16 (12-20); Aspartate Amino Transferase 17 U/L (5-31); Bilirubin Total 0.9 mg/dL (0.0-1.0); Blood Urea Nitrogen 8 mg/dL (9-16); Calcium 10.8 mg/dL (8.4-10.2); Carbon Dioxide 25 mmol/L (22-29); Chloride 103 mmol/L (96-108); Creatinine Clr Calc Pharmacy 91.5; Estimated Glomerular Filt Rate > 60; Glucose Random 116 mg/dL (60-115); Sodium 140 mmol/L (135-145); Total Protein 7.2 g/dL (6.5-8.0)
[2022-08-14 11:00] LABS: Troponin-I High Sensitivity < 3.5 ng/L (<3.5-17.0)
[2022-08-14] MEDS: cloNIDine HCL 0.1 MG TABLET PO (12:36)
[2022-08-14 12:38] VITALS: BP 165/82; PULSE 79; RESP 16; O2SAT 96
[2022-08-14 12:59] VITALS: BP 151/72; PULSE 63; RESP 16; O2SAT 97
[2022-08-14 13:09] LABS: Troponin-I High Sensitivity < 3.5 ng/L (<3.5-17.0)
--- NOTE | 2022-08-14 14:14 | PC.NURSE ---
pt refused CT scan. requesting MRI. E provider aware. MRI is not needed per provider. will have to request through PCP.
[2022-08-14 14:38] VITALS: BP 137/69; PULSE 67; RESP 18; O2SAT 98
== END 2022-08-14 14:40 | disposition home or self-care (01) ==
PROVIDERS: Emergency Provider Emergency Medicine; PCP Internal Medicine
DX: R07.89 Other chest pain (principal); R42 Dizziness and giddiness; Z79.899 Other long term (current) drug therapy
CPT/HCPCS: 36415; 71045; 80053; 84484; 85025; 93005; 99284

== ENCOUNTER 2022-09-12 08:51 | Outpatient (REF) | payer BC, SELFPAY | END 2022-09-12 08:52 | disposition home or self-care (01) | LOC: HO.MRI 08:51 | PROVIDERS: PCP Internal Medicine; Visit Provider Internal Medicine | DX: Z13.89 Encounter for screening for other disorder (principal) ==

== ENCOUNTER 2022-10-08 11:57 | Emergency (ER) | payer BC, SELFPAY ==
--- NOTE | 2022-10-08 11:59 | ECG_ITS ---
Test Reason : chest pain Blood Pressure : / mmHG Vent. Rate : 073 BPM Atrial Rate : 073 BPM P-R Int : 150 ms QRS Dur : 086 ms QT Int : 376 ms P-R-T Axes : 036 027 055 degrees QTc Int : 414 ms Normal sinus rhythm Cannot rule out Anterior infarct , age undetermined Abnormal ECG When compared with ECG of 14-AUG-2022 09:14, Non-specific change in ST segment in Inferior leads Nonspecific T wave abnormality, improved in Inferior leads T wave inversion no longer evident in Lateral leads Referred By: Generic ED Physician Electronically Signed By:Adair Valerio
--- NOTE | 2022-10-08 12:07 | ED_ITS ---
HPI - General Adult General Chief complaint: General Medical <ROULA Frank - Last Filed: 10/08/22 14:02> Stated complaint: neck pain/ dizziness/ leg numbness <ROULA Frank - Last Filed: 10/08/22 14:02> Time Seen by Provider: 10/08/22 15:08 <ROULA Frank - Last Filed: 10/08/22 14:02> Source: patient and family (Daughter) <Bessie Dexter MD - Last Filed: 10/08/22 15: 39> Mode of arrival: ambulatory <Bessie Dexter MD - Last Filed: 10/08/22 15:39> Limitations: no limitations <Bessie Dexter MD - Last Filed: 10/08/22 15:39> History of Present Illness HPI narrative: 61 yo female with history of anxiety, HTN, HLD, CAD, diverticulosis, hypot hyroidism who presents to the ER for evaluation of headache, dizziness (room spinning), neck pain (feels like burning sensation in the back of her neck), lower extremity numbness bilaterally, and abdominal pain (patient had an extensive workup by GI/surgery and patient was diagnosed with gastritis). Symptoms are all acute on chronic, some of them for the last 5 months. 3 days ago with walking is when the lower extremity numbness started. Not sleeping for 4 months due to neck pains. Due to get an MRI brain/neck but cannot tolerate due to anxiety. At the end of triage, she is now also reporting chest pain that has been going on all night long. Had unremarkable cath in 2019. <Bessie Dexter MD - Last Filed: 10/08/22 15:39> Related Data Home medications: Home Medications Medication Instructions Recorded Confirmed pantoprazole 40 mg tablet,delayed 1 tab PO DAILY 05/17/22 06/15/22 release Previous Rx's Medication Instructions Recorded blood pressure test kit-medium #1 ea 06/15/22 amlodipine 5 mg tablet (Norvasc) 2.5 mg PO DAILY #30 tabs 07/19/22 cholecalciferol (vitamin D3) 50 50 mcg PO DAILY 90 days #90 caps 07/19/22 mcg (2,000 unit) capsule isosorbide mononitrate 30 mg 30 mg PO DAILY #30 tabs 07/19/22 tablet,extended release 24 hr levothyroxine 75 mcg tablet 75 mcg PO DAILY 90 days #90 tabs 07/19/22 losartan 50 mg tablet 50 mg PO BID 90 days #180 tabs 07/19/22 nitroglycerin 0.4 mg sublingual 0.4 mg sublingual Q5M PRN chest 07/19/22 tablet pain #20 tabs <ROULA Frank - Last Filed: 10/08/22 14:02> Allergies/adverse reactions: Allergies Allergy/AdvReac Type Severity Reaction Status Date / Time nifedipine [From ADALAT] Allergy Severe Chest Pain Verified 08/14/22 09:32 isosorbide [From Imdur] Allergy Intermediate Headache Verified 08/14/22 09:32 lisinopril Allergy Intermediate CLAIRE-I Cough Verified 08/14/22 09:32 valsartan Allergy Intermediate DIZZINESS Verified 08/14/22 09:32 losartan Allergy Unknown Verified 10/08/22 12:07 atorvastatin AdvReac Intermediate memory loss Verified 08/14/22 09:32 nebivolol [From Bystolic] AdvReac Mild dizzy Verified 08/14/22 09:32 isosorbide mononitrate AdvReac Intermediate Agitated Uncoded 07/20/22 09:30 hydralazine AdvReac Flushing Uncoded 07/19/22 10:06 <ROULA Frank - Last Filed: 10/08/22 14:02> Review of Systems Review of Systems: All other systems are reviewed and are negative Constitutional: Reports as per HPI and Reports no additional constitutional complaints Eyes: Reports as per HPI and Reports no additional eye complaints Reports system reviewed and no additional complaints, except as documented Cardiovascular: Reports as per HPI and Reports no additional cardiovascular comp laints Respiratory: Reports as per HPI and Reports no additional respiratory complaints Gastrointestinal: Reports as per HPI and Reports no additional gastrointestinal complaints Genitourinary: Reports no additional female genitourinary complaints Musculoskeletal: Reports no additional musculoskeletal complaints Skin/Breast: Reports system reviewed and no additional complaints, except as docu Psychiatric: Reports no additional psychiatric complaints Endocrine: Reports no additional endocrine complaints Hematologic/Lymphatic: Reports no additional hematologic/lymphatic complaints Allergic/Immunologic: Reports no additional allergic/immunologic complaints Reports system reviewed and no additional complaints, except as documented and Reports Abnormal speech present <Bessie Dexter MD - Last Filed: 10/08/22 15:39> [facility] Past Medical History Medical History: Medical History Dizziness of unknown etiology Fatty liver Hypercholesterolemia Hypertension Hypothyroid Impaired glucose tolerance Obesity (BMI 30-39.9) Primary hyperparathyroidism <ROULA Frank - Last Filed: 10/08/22 14:02> Surgical History: Surgical History H/O colonoscopy History of back surgery History of cholecystectomy History of esophagogastroduodenoscopy (EGD) History of mammogram History of removal of cyst History of total abdominal hysterectomy Hx of arthroscopic knee surgery S/P knee surgery <ROULA Frank - Last Filed: 10/08/22 14:02> Family History Family History: Family History Father HTN (hypertension) Diabetes mellitus Mother No problems noted. 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 Cognitive needs: No Hearing needs: No Vision needs: Yes <ROULA Frank - Last Filed: 10/08/22 14:02> Physical Exam ED Vital Signs: Vital Signs - 24 hr 10/08/22 12:08 10/08/22 14:46 Temperature 98 F Pulse Rate 88 66 Respiratory Rate 19 Blood Pressure 169/85 H 175/76 H Pulse Oximetry 98 100 Oxygen Delivery Method Room Air Room Air BMI result Body Mass Index 26.6 <ROULA Frank - Last Filed: 10/08/22 14:02> Vital Signs - 24 hr 10/08/22 12:08 10/08/22 14:46 Temperature 98 F Pulse Rate 88 66 Respiratory Rate 19 Blood Pressure 169/85 H 175/76 H Pulse Oximetry 98 100 Oxygen Delivery Method Room Air Room Air BMI result Body Mass Index 26.6 vital signs have been reviewed as appeared to be correct. Blood pressure elevated. Heart rate normal. Respiration rate normal. Temperature normal. Oxygen saturation normal. <Bessie Dexter MD - Last Filed: 10/08/22 15:39> Appearance: Anxious, Alert. Oriented X3. No acute distress. Head: Normal external exam. Normocephalic. Atraumatic. No [place] signs noted. No raccoon eyes noted Eyes: PERRLA. EOMI. Conjunctiva and sclera normal. Eyelids normal. ENT: TM's Normal. Pharynx normal. Uvula midline. Moist mucous membranes. No trismus noted. No drooling noted. No muffled voice noted. Neck: Normal inspection. Neck supple. FROM. No adenopathy. Thyroid Normal. No meningeal signs. No neck mass noted. CVS: Normal heart rate and rhythm. Heart sound normal. No murmurs noted. Pulses normal throughout. Respiratory: No respiratory distress. Painless inspiration. Breath sounds nor mal. No wheezes/rales/rhonchi noted. Chest nontender. No accessory muscle usage noted or decreased air movement noted. Abdomen: Soft and nontender. Bowel sounds normal in all 4 quadrants. No distent ion noted. No organomegaly noted. No visible injury noted. Back: No CVA tenderness. Full range of motion noted. Skin: Skin warm and dry. Normal skin color. Normal skin turgor. No rashes/lesions/lacerations noted. Extremities: No lower extremity edema. Extremities exhibit normal range of mot ion. Extremities nontender. Neuro: Oriented X 3. Cranial nerve exam: II-XII are grossly intact No motor deficit. No sensory deficit. Reflexes normal. <Bessie Dexter MD - Last Filed: 10/08/22 15:39> Course Course Course Narrative: RME - 61 yo female with history of anxiety, HTN, HLD, CAD, diverticulosis, hypothyroidism who presents to the ER for evaluation of headache, dizziness, neck pain, lower extremity numbness and abdominal pain. Symptoms are all acute on chronic, some of them for the last 5 months. 3 days ago with walking is when the lower extremity numbness started. Not sleeping for 4 months due to neck pains. Due to get an MRI brain/neck but cannot tolerate due to anxiety. At the end of triage, she is now also reporting chest pain that has been going on all night long. Had unremarkable cath in 2019. VSS in triage, mild HTN with SBP 160s. Plan: basic labs and EKG <ROULA Frank - Last Filed: 10/08/22 14:02> 61-year-old female came in with multiple chronic symptoms started 6 months ago, patient had multiple ED visits to [facility] and [facility] for similar symptoms in the past patient had extensive GI workup according to the daughter and was diagnosed with gastritis, here today for chronic neck pain and vertigo for at least the past 6 months. Patient during the exam appear very anxious. Was given Ativan with improvement of anxiety, I discussed with the daughter/patient that the symptoms appear to be chronic and will require further outpatient workup by her PCP/ENT patient has an appointment next week. <Bessie Dexter MD - Last Filed: 10/08/22 15:39> Reevaluation(s) Reevaluation #1: Spoke with patient's daughter Lizzy who works in Pain Management - she would like to advocate for admission for her mother. She has been losing weight, unable to tolerate PO. Concerned for nutritional deficiencies causing numbness. Does not feel she can go home. Would like her admitted for IVF and observation. <ROULA Frank - Last Filed: 10/08/22 14:02> <Bessie Dexter MD - Last Filed: 10/08/22 15:39> Time: 14:01 <ROULA Frank - Last Filed: 10/08/22 14:02> Medical Decision Making Differential Diagnosis Differential Diagnoses: The differential diagnosis associated with the presentation includes (Anxiety, dehydration, electrolyte disturbance, ACS.) <Bessie Dexter MD - Last Filed: 10/08/22 15:39> Lab Data MDM Lab Attestation statement: I reviewed the patient's lab results. <Bessie Dexter MD - Last Filed: 10/08/22 15:39> Result Diagrams: 10/08/22 12:23 10/08/22 12:23 <ROULA Frank - Last Filed: 10/08/22 14:02> Labs: Lab Results 10/08/22 10/08/22 10/08/22 Range/Units 12:23 12:23 12:23 WBC 6.7 (4.8-10.8) X10*3/uL RBC 5.47 (4.20-5.50) X10*6/uL Hgb 15.7 (12.0-16.0) g/dl Hct 47.9 H (37.0-47.0) % MCV 87.6 (80.0-98.0) fL MCH 28.7 (27.0-33.0) pg MCHC 32.8 (31.0-35.0) g/dl RDW 12.4 (11.0-16.0) % Plt Count 317 (160-400) X10*3/uL MPV 10.5 (9.4-12.3) fL Immature Gran % (Auto) 0.3 (0.0-0.4) % Neut % (Auto) 51.0 (45-73) % Lymph % (Auto) 41.0 H (20-40) % Treasure % (Auto) 6.7 (2-11) % Eos % (Auto) 0.7 (0-4) % Baso % (Auto) 0.3 (0-2) % Lymph # (Auto) 2.8 (1.2-4.9) X10*3/uL Treasure # (Auto) 0.5 (0.1-1.2) X10*3/uL Eos # (Auto) 0.1 (0.0-0.4) X10*3/uL Baso # (Auto) 0.0 (0.0-0.2) X10*3/uL Abs Immat Gran (auto) 0.02 (0.00-0.03) X10*3/uL Absolute Neuts (auto) 3.4 (2.0-8.3) x10*3/uL Absolute Nucleated RBC 0.000 (0.0-0.012) X10*3/uL Nucleated RBC % (auto) 0.0 (0.0-0.2) /100WBC Sodium 139 (135-145) mmol/L Potassium 4.8 (3.3-5.1) mmol/L Chloride 104 (96-108) mmol/L Carbon Dioxide 28 (22-29) mmol/L Anion Gap 12 (12-20) BUN 13 (9-16) mg/dL Creatinine 0.74 (0.5-1.4) mg/dL Estim Creat Clear Calc 74.8 Estimated GFR > 60 Random Glucose 103 (60-115) mg/dL Calcium 10.8 H (8.4-10.2) mg/dL Magnesium 2.2 (1.6-2.6) mg/dL Total Bilirubin 2.3 H (0.0-1.0) mg/dL Direct Bilirubin 0.5 (0.0-0.5) mg/dL AST 17 (5-31) U/L ALT 19 (0-31) U/L Alkaline Phosphatase 64 (39-117) U/L Troponin I High Sens < 3.5 (<3.5-17.0) ng/L Total Protein 7.5 (6.5-8.0) g/dL Albumin 4.7 (3.5-5.0) g/dL TSH 1.49 (0.32-4.0) uIU/mL Urine Color Urine Appearance Urine pH (5.0-9.0) Ur Specific [place] (1.005-1.025) Urine Protein (Neg-Trace) mg/dL Urine Glucose (UA) (Negative) mg/dL Urine Ketones (Negative) mg/dL Urine Blood (Negative) Urine Nitrite (Negative) Ur Leukocyte Esterase (Negative) 10/08/22 Range/Units 12:29 WBC (4.8-10.8) X10*3/uL RBC (4.20-5.50) X10*6/uL Hgb (12.0-16.0) g/dl Hct (37.0-47.0) % MCV (80.0-98.0) fL MCH (27.0-33.0) pg MCHC (31.0-35.0) g/dl RDW (11.0-16.0) % Plt Count (160-400) X10*3/uL MPV (9.4-12.3) fL Immature Gran % (Auto) (0.0-0.4) % Neut % (Auto) (45-73) % Lymph % (Auto) (20-40) % Treasure % (Auto) (2-11) % Eos % (Auto) (0-4) % Baso % (Auto) (0-2) % Lymph # (Auto) (1.2-4.9) X10*3/uL Treasure # (Auto) (0.1-1.2) X10*3/uL Eos # (Auto) (0.0-0.4) X10*3/uL Baso # (Auto) (0.0-0.2) X10*3/uL Abs Immat Gran (auto) (0.00-0.03) X10*3/uL Absolute Neuts (auto) (2.0-8.3) x10*3/uL Absolute Nucleated RBC (0.0-0.012) X10*3/uL Nucleated RBC % (auto) (0.0-0.2) /100WBC Sodium (135-145) mmol/L Potassium (3.3-5.1) mmol/L Chloride (96-108) mmol/L Carbon Dioxide (22-29) mmol/L Anion Gap (12-20) BUN (9-16) mg/dL Creatinine (0.5-1.4) mg/dL Estim Creat Clear Calc Estimated GFR Random Glucose (60-115) mg/dL Calcium (8.4-10.2) mg/dL Magnesium (1.6-2.6) mg/dL Total Bilirubin (0.0-1.0) mg/dL Direct Bilirubin (0.0-0.5) mg/dL AST (5-31) U/L ALT (0-31) U/L Alkaline Phosphatase (39-117) U/L Troponin I High Sens (<3.5-17.0) ng/L Total Protein (6.5-8.0) g/dL Albumin (3.5-5.0) g/dL TSH (0.32-4.0) uIU/mL Urine Color Yellow Urine Appearance Clear Urine pH 6.5 (5.0-9.0) Ur Specific [place] <= 1.005 (1.005-1.025) Urine Protein Negative (Neg-Trace) mg/dL Urine Glucose (UA) Negative (Negative) mg/dL Urine Ketones Negative (Negative) mg/dL Urine Blood Negative (Negative) Urine Nitrite Negative (Negative) Ur Leukocyte Esterase Negative (Negative) <ROULA Frank - Last Filed: 10/08/22 14:02> Lab Results 10/08/22 10/08/22 10/08/22 Range/Units 12:23 12:23 12:23 WBC 6.7 (4.8-10.8) X10*3/uL RBC 5.47 (4.20-5.50) X10*6/uL Hgb 15.7 (12.0-16.0) g/dl Hct 47.9 H (37.0-47.0) % MCV 87.6 (80.0-98.0) fL MCH 28.7 (27.0-33.0) pg MCHC 32.8 (31.0-35.0) g/dl RDW 12.4 (11.0-16.0) % Plt Count 317 (160-400) X10*3/uL MPV 10.5 (9.4-12.3) fL Immature Gran % (Auto) 0.3 (0.0-0.4) % Neut % (Auto) 51.0 (45-73) % Lymph % (Auto) 41.0 H (20-40) % Treasure % (Auto) 6.7 (2-11) % Eos % (Auto) 0.7 (0-4) % Baso % (Auto) 0.3 (0-2) % Lymph # (Auto) 2.8 (1.2-4.9) X10*3/uL Treasure # (Auto) 0.5 (0.1-1.2) X10*3/uL Eos # (Auto) 0.1 (0.0-0.4) X10*3/uL Baso # (Auto) 0.0 (0.0-0.2) X10*3/uL Abs Immat Gran (auto) 0.02 (0.00-0.03) X10*3/uL Absolute Neuts (auto) 3.4 (2.0-8.3) x10*3/uL Absolute Nucleated RBC 0.000 (0.0-0.012) X10*3/uL Nucleated RBC % (auto) 0.0 (0.0-0.2) /100WBC Sodium 139 (135-145) mmol/L Potassium 4.8 (3.3-5.1) mmol/L Chloride 104 (96-108) mmol/L Carbon Dioxide 28 (22-29) mmol/L Anion Gap 12 (12-20) BUN 13 (9-16) mg/dL Creatinine 0.74 (0.5-1.4) mg/dL Estim Creat Clear Calc 74.8 Estimated GFR > 60 Random Glucose 103 (60-115) mg/dL Calcium 10.8 H (8.4-10.2) mg/dL Magnesium 2.2 (1.6-2.6) mg/dL Total Bilirubin 2.3 H (0.0-1.0) mg/dL Direct Bilirubin 0.5 (0.0-0.5) mg/dL AST 17 (5-31) U/L ALT 19 (0-31) U/L Alkaline Phosphatase 64 (39-117) U/L Troponin I High Sens < 3.5 (<3.5-17.0) ng/L Total Protein 7.5 (6.5-8.0) g/dL Albumin 4.7 (3.5-5.0) g/dL TSH 1.49 (0.32-4.0) uIU/mL Urine Color Urine Appearance Urine pH (5.0-9.0) Ur Specific [place] (1.005-1.025) Urine Protein (Neg-Trace) mg/dL Urine Glucose (UA) (Negative) mg/dL Urine Ketones (Negative) mg/dL Urine Blood (Negative) Urine Nitrite (Negative) Ur Leukocyte Esterase (Negative) 10/08/22 Range/Units 12:29 WBC (4.8-10.8) X10*3/uL RBC (4.20-5.50) X10*6/uL Hgb (12.0-16.0) g/dl Hct (37.0-47.0) % MCV (80.0-98.0) fL MCH (27.0-33.0) pg MCHC (31.0-35.0) g/dl RDW (11.0-16.0) % Plt Count (160-400) X10*3/uL MPV (9.4-12.3) fL Immature Gran % (Auto) (0.0-0.4) % Neut % (Auto) (45-73) % Lymph % (Auto) (20-40) % Treasure % (Auto) (2-11) % Eos % (Auto) (0-4) % Baso % (Auto) (0-2) % Lymph # (Auto) (1.2-4.9) X10*3/uL [place] # (Auto) (0.1-1.2) X10*3/uL Eos # (Auto) (0.0-0.4) X10*3/uL Baso # (Auto) (0.0-0.2) X10*3/uL Abs Immat Gran (auto) (0.00-0.03) X10*3/uL Absolute Neuts (auto) (2.0-8.3) x10*3/uL Absolute Nucleated RBC (0.0-0.012) X10*3/uL Nucleated RBC % (auto) (0.0-0.2) /100WBC Sodium (135-145) mmol/L Potassium (3.3-5.1) mmol/L Chloride (96-108) mmol/L Carbon Dioxide (22-29) mmol/L Anion Gap (12-20) BUN (9-16) mg/dL Creatinine (0.5-1.4) mg/dL Estim Creat Clear Calc Estimated GFR Random Glucose (60-115) mg/dL Calcium (8.4-10.2) mg/dL Magnesium (1.6-2.6) mg/dL Total Bilirubin (0.0-1.0) mg/dL Direct Bilirubin (0.0-0.5) mg/dL AST (5-31) U/L ALT (0-31) U/L Alkaline Phosphatase (39-117) U/L Troponin I High Sens (<3.5-17.0) ng/L Total Protein (6.5-8.0) g/dL Albumin (3.5-5.0) g/dL TSH (0.32-4.0) uIU/mL Urine Color Yellow Urine Appearance Clear Urine pH 6.5 (5.0-9.0) Ur Specific [place] <= 1.005 (1.005-1.025) Urine Protein Negative (Neg-Trace) mg/dL Urine Glucose (UA) Negative (Negative) mg/dL Urine Ketones Negative (Negative) mg/dL Urine Blood Negative (Negative) Urine Nitrite Negative (Negative) Ur Leukocyte Esterase Negative (Negative) <Bessie Dexter MD - Last Filed: 10/08/22 15:39> Independent Interpretation I performed an independent interpretation of an: EKG (Normal sinus rhythm at 73 beats per minutes, normal axis deviation, normal intervals, no ST-T changes, no changes from previous EKG) <Bessie Dexter MD - Last Filed: 10/08/22 15:39> Discharge Plan Discharge Clinical Impression: Vertigo, Anxiety <ROULA Frank - Last Filed: 10/08/22 14:02> Patient Disposition: Home, Self-Care <ROULA Frank - Last Filed: 10/08/22 14:02> Instructions: Anxiety (ED), Vertigo (ED) <ROULA Frank - Last Filed: 10/08/22 14:02> Prescriptions: No Action amlodipine [Norvasc] 5 mg tablet 2.5 mg PO DAILY Qty: 30 2RF pantoprazole 40 mg tablet,delayed release (DR/EC) 1 tab PO DAILY nitroglycerin 0.4 mg tablet, sublingual 0.4 mg sublingual Q5M PRN (Reason: chest pain) Qty: 20 0RF Rx Instructions: do not exceed 3 doses per episode isosorbide mononitrate 30 mg tablet extended release 24 hr 30 mg PO DAILY Qty: 30 4RF levothyroxine 75 mcg tablet 75 mcg PO DAILY 90 Days Qty: 90 2RF losartan 50 mg tablet 50 mg PO BID 90 Days Qty: 180 1RF cholecalciferol (vitamin D3) 50 mcg (2,000 unit) capsule 50 mcg PO DAILY 90 Days Qty: 90 3RF (DME) blood pressure test kit-medium Kit See Rx Instructions miscellaneous .MEDSUPPLY Qty: 1 0RF Rx Instructions: As directed <ROULA Frank - Last Filed: 10/08/22 14:02> Referrals: Po,Jj Lechuga MD [Primary Care Provider] - <ROULA Frank - Last Filed: 10/08/22 14:02>
[2022-10-08 12:08] VITALS: BP 169/85; PULSE 88; RESP 19; TEMP 36.6; O2SAT 98; BMI 26.6
[2022-10-08 12:30] LABS: MANUAL DIFF FLAG NO
[2022-10-08 12:33] LABS: Basophils Percent Auto 0.3 % (0-2); Eosinophils Absolute Auto 0.1 X10*3/uL (0.0-0.4); Eosinophils Percent Auto 0.7 % (0-4); Hematocrit 47.9 % (37.0-47.0); Hemoglobin 15.7 g/dl (12.0-16.0); Imm Gran Abs Auto 0.02 X10*3/uL (0.00-0.03); Imm Gran Pct Auto 0.3 % (0.0-0.4); Lymphocytes Absolute Auto 2.8 X10*3/uL (1.2-4.9); Mean Corpuscular HGB Conc 32.8 g/dl (31.0-35.0); Mean Corpuscular Hemoglobin 28.7 pg (27.0-33.0); Mean Corpuscular Volume 87.6 fL (80.0-98.0); Mean Platelet Volume 10.5 fL (9.4-12.3); Monocytes Absolute Auto 0.5 X10*3/uL (0.1-1.2); Monocytes Percent Auto 6.7 % (2-11); Neutrophils Absolute Auto 3.4 x10*3/uL (2.0-8.3); Platelet Count 317 X10*3/uL (160-400); Red Blood Count 5.47 X10*6/uL (4.20-5.50); Red Cell Distribution Width 12.4 % (11.0-16.0); White Blood Count 6.7 X10*3/uL (4.8-10.8)
[2022-10-08 13:04] LABS: Alanine Aminotransferase 19 U/L (0-31); Albumin Level 4.7 g/dL (3.5-5.0); Alkaline Phosphatase 64 U/L (39-117); Anion Gap 12 (12-20); Aspartate Amino Transferase 17 U/L (5-31); Bilirubin Direct 0.5 mg/dL (0.0-0.5); Bilirubin Total 2.3 mg/dL (0.0-1.0); Blood Urea Nitrogen 13 mg/dL (9-16); Calcium 10.8 mg/dL (8.4-10.2); Carbon Dioxide 28 mmol/L (22-29); Chloride 104 mmol/L (96-108); Creatinine Clr Calc Pharmacy 74.8; Estimated Glomerular Filt Rate > 60; Glucose Random 103 mg/dL (60-115); Magnesium 2.2 mg/dL (1.6-2.6); Potassium 4.8 mmol/L (3.3-5.1); Sodium 139 mmol/L (135-145); Total Protein 7.5 g/dL (6.5-8.0)
[2022-10-08 13:11] LABS: Appearance Urine Clear; Color Urine Yellow; Glucose Urine UA Negative (Negative); Leukocyte Esterase Urine Negative (Negative); Nitrite Urine Negative (Negative); PH 6.5 (5.0-9.0); Specific Gravity - Urine <= 1.005 (1.005-1.025); Urine Blood Negative (Negative); Urine Ketones Negative (Negative); Urine Protein Negative (Neg-Trace)
[2022-10-08 13:13] LABS: Troponin-I High Sensitivity < 3.5 ng/L (<3.5-17.0)
[2022-10-08 13:19] LABS: TSH reflex Free T4 1.49 uIU/mL (0.32-4.0)
[2022-10-08 14:46] VITALS: BP 175/76; PULSE 66; O2SAT 100
--- NOTE | 2022-10-08 15:47 | PC.NURSE ---
Resumed care of this patient from day RN. Patient daughter at bedside, MD ordered fluids and medications to be given once IV obtained. Safety measures in place.
[2022-10-08] MEDS: 0.9 % Sodium Chloride 1,000 ML 999 ML IV (16:18)
[2022-10-08] MEDS: LORazepam 2 MG/ML VIAL IVPUSH (16:18)
== END 2022-10-08 18:28 | disposition home or self-care (01) ==
PROVIDERS: Physician Assistant; Emergency Provider Emergency Medicine; PCP Internal Medicine
DX: R07.89 Other chest pain (principal); M54.2 Cervicalgia; R42 Dizziness and giddiness; I25.10 Atherosclerotic heart disease of native coronary artery without angina pectoris; R51.9 Headache, unspecified; Z20.822 Contact with and (suspected) exposure to COVID-19; Z20.828 Contact with and (suspected) exposure to other viral communicable diseases; Z79.899 Other long term (current) drug therapy
CPT/HCPCS: 36415; 80048; 80076; 81003; 83735; 84443; 84484; 85025; 93005; 96361; 96374; 99284; 99285; J2060

== ENCOUNTER 2022-10-11 09:24 | Observation (INO) | payer BC, SELFPAY ==
--- NOTE | 2022-10-11 09:26 | ECG_ITS ---
Test Reason : chest pain, dizziness Blood Pressure : / mmHG Vent. Rate : 081 BPM Atrial Rate : 081 BPM P-R Int : 142 ms QRS Dur : 080 ms QT Int : 386 ms P-R-T Axes : 035 033 113 degrees QTc Int : 448 ms Normal sinus rhythm Cannot rule out Anterior infarct (cited on or before 08-OCT-2022) Abnormal ECG When compared with ECG of 08-OCT-2022 12:12, Nonspecific T wave abnormality now evident in Lateral leads Referred By: Generic ED Physician Electronically Signed By:LUAN MCKEON MD
[2022-10-11 09:38] VITALS: BP 188/85; PULSE 75; RESP 18; TEMP 36.9; O2SAT 98; BMI 28.1
[2022-10-11 10:17] VITALS: BP 185/90; PULSE 75; RESP 18; O2SAT 97
--- NOTE | 2022-10-11 10:55 | ED.GENADULT ---
HPI - General Adult General Chief complaint: General Medical Stated complaint: not sleeping chest pain high bp Time Seen by Provider: 10/11/22 10:40 Source: patient and family (daughter LICENSED ESTHETICIAN Lizzy) Limitations: no limitations History of Present Illness HPI narrative: The patient presented complaining of dizziness chest pain tingling in the arm and elevated blood pressure. Daughter who is LICENSED ESTHETICIAN states that she is unable to tolerate p.o. well she lost 30 lb. Onset (ago): week(s) (1) Location: lower extremity Radiation: non-radiation Severity: moderate Pain Consistency: constant Relieving factors: none Related Data Home Medications Medication Instructions Recorded Confirmed pantoprazole 40 mg tablet,delayed 1 tab PO DAILY 05/17/22 10/11/22 release acetaminophen 325 mg tablet 650 mg PO QID PRN pain 10/11/22 10/11/22 lisinopril 20 mg tablet 20 mg PO DAILY 10/11/22 10/11/22 magnesium 250 mg tablet 250 mg PO DAILY 10/11/22 10/11/22 Previous Rx's Medication Instructions Recorded blood pressure test kit-medium #1 ea 06/15/22 cholecalciferol (vitamin D3) 50 50 mcg PO DAILY 90 days #90 caps 07/19/22 mcg (2,000 unit) capsule levothyroxine 75 mcg tablet 75 mcg PO DAILY 90 days #90 tabs 07/19/22 nitroglycerin 0.4 mg sublingual 0.4 mg sublingual Q5M PRN chest 07/19/22 tablet pain #20 tabs lorazepam 1 mg tablet 1 mg PO DAILY PRN anxiety #2 tabs 10/10/22 Allergies Allergy/AdvReac Type Severity Reaction Status Date / Time nifedipine [From ADALAT] Allergy Severe Chest Pain Verified 08/14/22 09:32 isosorbide [From Imdur] Allergy Intermediate Headache Verified 08/14/22 09:32 lisinopril Allergy Intermediate CLAIRE-I Cough Verified 08/14/22 09:32 valsartan Allergy Intermediate DIZZINESS Verified 08/14/22 09:32 losartan Allergy Unknown Verified 10/08/22 12:07 atorvastatin AdvReac Intermediate memory loss Verified 08/14/22 09:32 nebivolol [From Bystolic] AdvReac Mild dizzy Verified 08/14/22 09:32 isosorbide mononitrate AdvReac Intermediate Agitated Uncoded 07/20/22 09:30 hydralazine AdvReac Flushing Uncoded 07/19/22 10:06 Review of Systems Constitutional: Constitutional: Reports no additional constitutional complaints ENT: Reports system reviewed and no additional complaints, except as documented Gastrointestinal: Gastrointestinal: Reports belching and Reports bloating Neurologic: Reports system reviewed and no additional complaints, except as documented PMFSH Past Medical History Source: unable to obtain Medical History Dizziness of unknown etiology Fatty liver Hypercholesterolemia Hypertension Hypothyroid Impaired glucose tolerance Obesity (BMI 30-39.9) Primary hyperparathyroidism Surgical History H/O colonoscopy History of back surgery History of cholecystectomy History of esophagogastroduodenoscopy (EGD) History of mammogram History of removal of cyst History of total abdominal hysterectomy Hx of arthroscopic knee surgery S/P knee surgery Family History Family History Father HTN (hypertension) Diabetes mellitus Mother No problems noted. 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 Cognitive needs: No Hearing needs: No Vision needs: Yes Physical Exam ED Vital Signs: Vital Signs - 24 hr 10/11/22 09:38 10/11/22 10:17 10/11/22 12:36 Temperature 98.4 F 97.8 F Pulse Rate 75 75 70 Respiratory Rate 18 18 20 Blood Pressure 188/85 H 185/90 H 184/87 H Pulse Oximetry 98 97 96 Oxygen Delivery Method Room Air Room Air Room Air BMI result Body Mass Index 28.1 Const General: cooperative Nutritional Appearance: well nourished Orientation/consciousness: patient oriented x3 Limitations: no limitations HENMT Head: Yes normal to inspection General nose exam: Normal external nose present Face and sinus: Yes normal facial exam Mouth: Normal oral and palatal mucosa present Throat: Yes posterior oropharynx normal Neck Neck: Yes normal visual inspection Carotids: normal carotid upstroke Chest Chest palpation & inspection: normal inspection of the chest Breast/axilla palpation: normal palpation of the breasts Resp Effort & Inspection: normal respiratory effort Percussion: percussion normal Cardio Jugular venous distension: no JVD Rate: regular rate Rhythm: regular rhythm GI Inspection: Yes normal to inspection Palpation (GI): Soft to palpation, not firm, nontender and no guarding Auscultation: normal bowel sounds Skin General skin exam: no rashes or lesions noted and elasticity normal Neuro General: patient oriented x3 Course Reevaluation(s) Reevaluation #1: The daughter Lizzy LICENSED ESTHETICIAN is here she is very concern for the elevated BP ,also concerned for 30 pounds weiigh loss,she is unconfortable totake the pt home,d/w dr Wallace Time: 13:41 Medications Administered Discontinued Medications Generic Name Dose Route Start Last Admin Trade Name Freq PRN Reason Stop Dose Admin Clonidine HCl 0.1 mg 10/11/22 12:38 10/11/22 12:50 Clonidine Hcl 0.1 Mg Tablet PO 10/11/22 12:39 0.1 mg ONCE ONE Administration Protocol Lorazepam 1 mg 10/11/22 11:08 10/11/22 11:26 Lorazepam 1 Mg Tablet PO 10/11/22 11:09 1 mg ONCE ONE Administration Medical Decision Making Medical Decision Making [facility] Narrative: Pt presented with high blood pressure chest pain we are going to get EKG labs and reassess Differential Diagnosis Differential Diagnoses: The differential diagnosis associated with the presentation includes Admission/Observation Consideration of admission/observation: Escalation of care including admission/observation considered Consult Healthcare Provider Management of the patient was discussed with: Hospitalist Lab Data [facility] Lab Attestation statement: I reviewed the patient's lab results. 10/11/22 11:23 10/11/22 11:23 Labs: Lab Results 10/11/22 10/11/22 10/11/22 Range/Units 11:23 11:23 11:23 WBC 7.1 (4.8-10.8) X10*3/uL RBC 5.08 (4.20-5.50) X10*6/uL Hgb 14.8 (12.0-16.0) g/dl Hct 44.2 (37.0-47.0) % MCV 87.0 (80.0-98.0) fL MCH 29.1 (27.0-33.0) pg MCHC 33.5 (31.0-35.0) g/dl RDW 12.5 (11.0-16.0) % Plt Count 296 (160-400) X10*3/uL MPV 10.4 (9.4-12.3) fL Immature Gran % (Auto) 0.3 (0.0-0.4) % Neut % (Auto) 60.8 (45-73) % Lymph % (Auto) 32.9 (20-40) % [place] % (Auto) 5.3 (2-11) % Eos % (Auto) 0.4 (0-4) % Baso % (Auto) 0.3 (0-2) % Lymph # (Auto) 2.3 (1.2-4.9) X10*3/uL [place] # (Auto) 0.4 (0.1-1.2) X10*3/uL Eos # (Auto) 0.0 (0.0-0.4) X10*3/uL Baso # (Auto) 0.0 (0.0-0.2) X10*3/uL Abs Immat Gran (auto) 0.02 (0.00-0.03) X10*3/uL Absolute Neuts (auto) 4.3 (2.0-8.3) x10*3/uL Absolute Nucleated RBC 0.000 (0.0-0.012) X10*3/uL Nucleated RBC % (auto) 0.0 (0.0-0.2) /100WBC Sodium 142 (135-145) mmol/L Potassium 4.0 (3.3-5.1) mmol/L Chloride 109 H (96-108) mmol/L Carbon Dioxide 24 (22-29) mmol/L Anion Gap 13 (12-20) BUN 6 L (9-16) mg/dL Creatinine 0.57 (0.5-1.4) mg/dL Estim Creat Clear Calc 114.7 Estimated GFR > 60 Random Glucose 127 H (60-115) mg/dL Calcium 10.1 D (8.4-10.2) mg/dL Total Bilirubin 1.7 H (0.0-1.0) mg/dL AST 13 (5-31) U/L ALT 10 (0-31) U/L Alkaline Phosphatase 61 (39-117) U/L Troponin I High Sens < 2.7 (<3.5-17.0) ng/L Total Protein 7.0 (6.5-8.0) g/dL Albumin 4.4 (3.5-5.0) g/dL Independent Interpretation I performed an independent interpretation of an: EKG Interpretation: Normal sinus rhythm rate [address]-T changes Independent Historian Clinical information obtained from an independent historian. History obtained from or confirmed by: Other (daughter) Chronic Conditions Patient?s care impacted by: Hypertension Discharge Plan Discharge Clinical Impression: Hypertensive urgency, Chest pain Patient Disposition: Admitted As Inpatient
[2022-10-11] MEDS: LORazepam 1 MG TABLET PO ×2 (11:26→22:15)
[2022-10-11 11:27] LABS: MANUAL DIFF FLAG NO
[2022-10-11 11:28] LABS: Basophils Percent Auto 0.3 % (0-2); Eosinophils Percent Auto 0.4 % (0-4); Hematocrit 44.2 % (37.0-47.0); Hemoglobin 14.8 g/dl (12.0-16.0); Imm Gran Abs Auto 0.02 X10*3/uL (0.00-0.03); Imm Gran Pct Auto 0.3 % (0.0-0.4); Lymphocytes Absolute Auto 2.3 X10*3/uL (1.2-4.9); Lymphocytes Percent Auto 32.9 % (20-40); Mean Corpuscular HGB Conc 33.5 g/dl (31.0-35.0); Mean Corpuscular Hemoglobin 29.1 pg (27.0-33.0); Mean Platelet Volume 10.4 fL (9.4-12.3); Monocytes Absolute Auto 0.4 X10*3/uL (0.1-1.2); Monocytes Percent Auto 5.3 % (2-11); Neutrophils Absolute Auto 4.3 x10*3/uL (2.0-8.3); Neutrophils Percent Auto 60.8 % (45-73); Platelet Count 296 X10*3/uL (160-400); Red Blood Count 5.08 X10*6/uL (4.20-5.50); Red Cell Distribution Width 12.5 % (11.0-16.0); White Blood Count 7.1 X10*3/uL (4.8-10.8)
[2022-10-11 11:52] LABS: Alanine Aminotransferase 10 U/L (0-31); Albumin Level 4.4 g/dL (3.5-5.0); Alkaline Phosphatase 61 U/L (39-117); Anion Gap 13 (12-20); Aspartate Amino Transferase 13 U/L (5-31); Bilirubin Total 1.7 mg/dL (0.0-1.0); Blood Urea Nitrogen 6 mg/dL (9-16); Calcium 10.1 mg/dL (8.4-10.2); Carbon Dioxide 24 mmol/L (22-29); Chloride 109 mmol/L (96-108); Creatinine Clr Calc Pharmacy 114.7; Estimated Glomerular Filt Rate > 60; Glucose Random 127 mg/dL (60-115); Sodium 142 mmol/L (135-145)
[2022-10-11 12:01] LABS: Troponin-I High Sensitivity < 2.7 ng/L (<3.5-17.0)
[2022-10-11 12:36] VITALS: BP 184/87; PULSE 70; RESP 20; TEMP 36.6; O2SAT 96
[2022-10-11] MEDS: cloNIDine HCL 0.1 MG TABLET PO (12:50)
--- NOTE | 2022-10-11 13:00 | P.HPHOSP_ITS ---
History of Present Illness Date of Service: 10/11/22 Attending physician on admission: Melo Farrell Chief Complaint: Chest pain and worsening abdominal pain and anoxeria Pt is a 61-year-old female with a PMH significant for?HTN, hypothyroidism, HLD, GERD, and Prinzmetal angina who presents to the ED with?multiple complaints, hypertension, chest pain, and worsening abdominal pain with decreased p.o. intake. Pt's daughter is at bedside who contributes to HPI. Pt has a long history of GI issues, but these became severe in May of last year when pt began experiencing epigastric pain that was worse with p.o. intake and associated with nausea. She has had multiple ED admissions since then at both [facility] and [facility]. Pt's daughter states she is usually seen the in ED, stabilized with ativan and pain meds, then sent home where her symptoms return in a few hours. Pt has had two CTs of abdomen and pelvis since then, one on 05/16/2022 and another on 07/04/2022, both of which were largely unremarkable and showed no acute intra-abdominal process. Mesenteric ultrasound negative. EGD on 05/17/2022 showed mild gastritis. H pylori testing was negative, as was plasma metanephrines. Today pt notes she experiences abdominal pain with p.o. intake. Pain is primarily located in the epigastric and upper right quadrant, but also can radiate to her back between shoulder blades, up her esophagus, and to ribs. States it feels like her food just sits in her stomach, not moving. Notes undigested food in her stool. Associated nausea, no vomiting, no diarrhea. After she eats food, does not want to look at food again for at least one day. States she has lost up to 30 lbs since May. When pt does not eat food, has bloating and a burning abdominal pain. Pt also complains of dizziness, thro bbing headache, neck pain radiating to her arm, chest pain, and palpitations when her blood pressure gets too high. Pt has a long history of HTN, though it has become poorly controlled since May despite medication changes. She also notes SOB, a feeling of impending doom, left-sided facial numbness, and numbness on the bottoms of her feet bilaterally with walking when she has elevated blood pressure. Pt also associates with increased abdominal pain with high blood pressure. Taken together, pt notes she has been unable to sleep well lately, usually no more than a couple of hours a night. In the ED patient was afebrile but hypertensive 188 over 85. Labs were largely unremarkable, troponins negative. EKG demonstrated normal sinus rhythm without evidence of ST elevations or depressions. Pt was treated with clonidine and lorazepam. Pt will be admitted to the hospital for observation of hypertension, chest pain and worsening abdominal pain and anorexia. Review of Systems Review of Systems: Negative except for that which is stated in [facility] Medical History Dizziness of unknown etiology Fatty liver Hypercholesterolemia Hypertension Hypothyroid Impaired glucose tolerance Obesity (BMI 30-39.9) Primary hyperparathyroidism Family History Father HTN (hypertension) Diabetes mellitus Mother No problems noted. 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 Cognitive needs: No Hearing needs: No Vision needs: Yes Meds Allergies Allergy/AdvReac Type Severity Reaction Status Date / Time nifedipine [From ADALAT] Allergy Severe Chest Pain Verified 08/14/22 09:32 isosorbide [From Imdur] Allergy Intermediate Headache Verified 08/14/22 09:32 lisinopril Allergy Intermediate CLAIRE-I Cough Verified 08/14/22 09:32 valsartan Allergy Intermediate DIZZINESS Verified 08/14/22 09:32 losartan Allergy Unknown Verified 10/08/22 12:07 atorvastatin AdvReac Intermediate memory loss Verified 08/14/22 09:32 nebivolol [From Bystolic] AdvReac Mild dizzy Verified 08/14/22 09:32 isosorbide mononitrate AdvReac Intermediate Agitated Uncoded 07/20/22 09:30 hydralazine AdvReac Flushing Uncoded 07/19/22 10:06 Home Medications Medication Instructions Recorded Confirmed Last Taken Type pantoprazole 40 mg tablet,delayed 1 tab PO DAILY 05/17/22 10/11/22 Unknown History release acetaminophen 325 mg tablet 650 mg PO QID PRN pain 10/11/22 10/11/22 Unknown History lisinopril 20 mg tablet 20 mg PO DAILY 10/11/22 10/11/22 10/11/22 History magnesium 250 mg tablet 250 mg PO DAILY 10/11/22 10/11/22 Unknown History Physical Exam Vital Signs and Narrative: Vital Signs: Last Vital Signs Temp 97.8 F 10/11/22 12:36 Pulse 70 10/11/22 12:36 Resp 20 10/11/22 12:36 BP 184/87 H 10/11/22 12:36 Pulse Ox 96 10/11/22 12:36 O2 Del Method Room Air 10/11/22 12:36 BMI result Body Mass Index 28.1 Constitutional: Alert, in no acute distress. Mental Status: Oriented to person, place and time. Eyes: Pupils are equal, round, and reactive to light. Ear, Nose, and Throat: Oropharynx clear, mucous membranes moist. Ears and nose without deformities. Trachea midline. Respiratory: Clear to auscultation bilaterally. No wheezing, rales, or rhonchi. Cardiovascular: S1, S2 regular. No murmurs, rubs, or gallops. Gastrointestinal: Abdomen soft, non-distended, diffusely tender, especially in epigastric and upper right quadrant. Normal bowel sounds. Neurologic: Cranial nerves II-XII are grossly intact bilaterally. No focal neurological deficits. Moves all extremities spontaneously. Skin: No rashes or lesions noted. Musculoskeletal: No cyanosis or clubbing. Extremities: No edema. Psychiatric: Normal mood and affect. Results Labs 10/11/22 11:23 10/11/22 11:23 Labs: Laboratory Results - last 24 hr 10/11/22 10/11/22 10/11/22 11:23 11:23 11:23 MCV 87.0 MCH 29.1 MCHC 33.5 RDW 12.5 Plt Count 296 MPV 10.4 Immature Gran % (Auto) 0.3 Neut % (Auto) 60.8 Lymph % (Auto) 32.9 [place] % (Auto) 5.3 Eos % (Auto) 0.4 Baso % (Auto) 0.3 Lymph # (Auto) 2.3 [place] # (Auto) 0.4 Eos # (Auto) 0.0 Baso # (Auto) 0.0 Abs Immat Gran (auto) 0.02 Absolute Neuts (auto) 4.3 Absolute Nucleated RBC 0.000 Nucleated RBC % (auto) 0.0 Anion Gap 13 Estim Creat Clear Calc 114.7 Estimated GFR > 60 Random Glucose 127 H Calcium 10.1 D Total Bilirubin 1.7 H AST 13 ALT 10 Alkaline Phosphatase 61 Troponin I High Sens < 2.7 Total Protein 7.0 Albumin 4.4 Assessment and Plan (1) Abdominal pain: Status: Acute (2) Anorexia: Status: Acute Plan Pt is a 61-year-old female with a PMH significant for?HTN, hypothyroidism, HLD, GERD, and Prinzmetal angina who presents to the ED with?multiple complaints, hypertension, chest pain, and worsening abdominal pain with decreased p.o. intake. Pt will be admitted to the hospital for observation of hypertension, chest pain and worsening abdominal pain and anorexia. Abdominal pain Pt complaining of worsening abdominal pain, anoxeria, undigested food in stool CT negative for acute process, labs unremarkable, physical exam with mild diffuse tenderness most notable in epigastric and upper right quadrant Check folate, vitamin D, B12 Nutrition consult Clear liquid diet for now, advance as tolerated Protonix IV GI consult Hypercalcemia Calcium 10.1 at time of presentation, has been elevated to 10.9 recently Check parathyroid hormone levels Patient should follow-up with endocrinology at [facility] Prinzmetal Angina Pt complaining of chest pain Troponins negative, EKG negative Continue nitroglycerin p.r.n. HTN BP has been poorly controlled since May despite med changes BP elevated at 180/85 at time of presentation Pt complaining of multiple symptoms she associates with elevated BP: Headache, dizziness, neck pain, chest pain, palpitations, SOB, facial numbness, numbness on bottom of feet Patient given clonidine 0.1 mg, responded well, BP now 132/71 Consider another dose of clonidine at bedtime if BP is elevated with SBP >180 Continue lisinopril Anxiety Continue lorazepam Hypothyroidism Continue levothyroxine Full Code Attending:?Dr. Farrell DVT Prophylaxis: Lovenox Pt will be admitted to the hospital for observation of hypertension, chest pain, and worsening abdominal pain and anorexia. Time Spent With Patient Time: Total time managing care of this patient today ____ minutes. Quality Stroke Does the patient have a stroke diagnosis?: No VTE Prior VTE?: No VTE Risk Level:: Medical - moderate - high VTE Device Contraindication: Treatment Not Indicated VTE Drug Contraindication: N/A - Med Ordered
--- NOTE | 2022-10-11 13:26 | PHA.MEDREC ---
Pharmacy Consult ? Medication Reconciliation Pharmacy has completed the medication reconciliation. Patient reported all medications. Patient reports she did take lisinopril today (even though it is documented as an allergy). She reports no longer taking losartan. Reported she is allergic to isosorbbide mononitrate. Patient has not taken pantoprazole in a while due to stomache issues. Christelle Miranda, PharmD
[2022-10-11 14:56] VITALS: BP 132/71; PULSE 66; RESP 16; O2SAT 98
--- NOTE | 2022-10-11 15:18 | P.CNGI_ITS ---
History of Present Illness Data of Consult Service Date: 10/11/22 Requesting physician: Gwendolyn Dorsey Primary Care Provider: Jj Smith MD [facility] Reason for consult: Abd pain This is a 61-year-old female with multiple hospital admissions for abdominal pain and bloating, who presents again with abdominal pain and distension. Patient is established with gastroenterology as an outpatient and has had extensive workup including bidirectional endoscopy, CT abdomen and pelvis, mesenteric ultrasound, celiac testing, H pylori, which have all been negative. Most recent endoscopy was 05/17/2022 that showed mild gastritis. Path: Mildly increased intraepithelial lymphocytes, moderate inflammation in the stomach. Workup has returned positive for hyperparathyroidism assoc with hypercalcemia, and she is currently undergoing workup for possible parathyroidectomy through Dr. Tam. Awaiting sestamibi scan as per documentation 10/04. Currently, patient's main complaint is episodic abdominal pain. Some days she is unable to tolerate this at home in goes to the emergency room here or at [facility]. She also reports that her pain often gets worse with Protonix and wonders if there is a different option. She also reports weight loss of 30 lb in the past 4-5 months. Is unclear how much of this is unintentional, as patient deliberately does not want to eat, she thinks it raises her blood pressure. Review of Systems Review of Systems: Yes all other systems are reviewed and are negative PMF Past Medical History Medical History Dizziness of unknown etiology Fatty liver Hypercholesterolemia Hypertension Hypothyroid Impaired glucose tolerance Obesity (BMI 30-39.9) Primary hyperparathyroidism Family History Family History Father HTN (hypertension) Diabetes mellitus Mother No problems noted. Surgical History Surgical History H/O colonoscopy History of back surgery History of cholecystectomy History of esophagogastroduodenoscopy (EGD) History of mammogram History of removal of cyst History of total abdominal hysterectomy Hx of arthroscopic knee surgery S/P knee surgery Social History Social History Household Members: Spouse Housing: House Do you presently have visiting nurse or other home services: No Alcohol intake: never Patient Tobacco Use Status: Never used Tobacco e-Cigarette/Vaping Use: Never Used Second Hand Smoke Exposure: No Advance Directives: No Advance Directives Information Provided: No service: No Current occupational status: retired and other 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 Cognitive needs: No Hearing needs: No Vision needs: Yes Meds Allergies Allergy/AdvReac Type Severity Reaction Status Date / Time nifedipine [From ADALAT] Allergy Severe Chest Pain Verified 08/14/22 09:32 isosorbide [From Imdur] Allergy Intermediate Headache Verified 08/14/22 09:32 lisinopril Allergy Intermediate CLAIRE-I Cough Verified 08/14/22 09:32 valsartan Allergy Intermediate DIZZINESS Verified 08/14/22 09:32 losartan Allergy Unknown Verified 10/08/22 12:07 atorvastatin AdvReac Intermediate memory loss Verified 08/14/22 09:32 nebivolol [From Bystolic] AdvReac Mild dizzy Verified 08/14/22 09:32 isosorbide mononitrate AdvReac Intermediate Agitated Uncoded 07/20/22 09:30 hydralazine AdvReac Flushing Uncoded 07/19/22 10:06 Active Medications: Current Medications Acetaminophen (Acetaminophen 325 Mg Tablet) 650 mg PO Q6H PRN PRN Reason: Pain, Mild (Pain Scale 1-3) Docusate Sodium (Docusate Sodium 100 Mg Capsule) 100 mg PO DAILY PRN PRN Reason: Constipation Enoxaparin Sodium (Enoxaparin Sodium 40 Mg/0.4 Ml Syringe) 40 mg SUBCUT Q24H [facility] Levothyroxine Sodium (Levothyroxine Sodium 75 Mcg Tablet) 75 mcg PO DAILY [facility] Lisinopril (Lisinopril 20 Mg Tablet) 20 mg PO DAILY CLEMENT; Protocol Lorazepam (Lorazepam 1 Mg Tablet) 1 mg PO DAILY PRN PRN Reason: anxiety Magnesium Oxide (Magnesium Oxide 400 Mg Tablet) 200 mg PO DAILY [facility] Nitroglycerin (Nitroglycerin 0.4 Mg Tab.Subl) 0.4 mg SUBLINGUAL Q5M PRN PRN Reason: chest pain Ondansetron HCl (Ondansetron Hcl 4 Mg/2 Ml Vial) 4 mg IVPUSH Q8H PRN PRN Reason: Nausea and Vomiting Pantoprazole Sodium (Pantoprazole Sodium 40 Mg/10 Ml Vial) 40 mg IVPUSH BID@0630,1630 [facility] Pharmacy Consult (Consult Rx Perform Med Rec) 1 each MISCELLANE ONCE PRN PRN Reason: Consult order Sodium Chloride (0.9 % Sodium Chloride Flush 3 Ml Syringe) 3 ml IVFLUSH QSHIFT [facility] Vitamin D (Cholecalciferol (Vitamin D3) 25 Mcg Tablet) 50 mcg PO DAILY [facility] Home Medications Medication Instructions Recorded Confirmed Last Taken Type pantoprazole 40 mg tablet,delayed 1 tab PO DAILY 05/17/22 10/11/22 Unknown History release acetaminophen 325 mg tablet 650 mg PO QID PRN pain 10/11/22 10/11/22 Unknown History lisinopril 20 mg tablet 20 mg PO DAILY 10/11/22 10/11/22 10/11/22 History magnesium 250 mg tablet 250 mg PO DAILY 10/11/22 10/11/22 Unknown History Physical Exam Vital Signs: Vital Signs: Last Vital Signs Temp 97.8 F 10/11/22 12:36 Pulse 66 10/11/22 14:56 Resp 16 10/11/22 14:56 BP 132/71 10/11/22 14:56 Pulse Ox 98 10/11/22 14:56 O2 Del Method Room Air 10/11/22 14:56 BMI result Body Mass Index 28.1 Gen appear: nontoxic appearing HEENT: no icterus, no cervical lymphadenopathy Chest: No overt resp distress CVS: S1/S2, regular Abd: soft, nontender, nondistended Psych: Stable affect, answering questions appropriately Neuro: A/Ox3 noted to move all extremities spontaneously Ext: no peripheral edema Results Labs 10/11/22 11:23 10/11/22 11:23 Labs: Short CBC 10/11/22 Range/Units 11:23 WBC 7.1 (4.8-10.8) X10*3/uL Hgb 14.8 (12.0-16.0) g/dl Hct 44.2 (37.0-47.0) % Plt Count 296 (160-400) X10*3/uL BMP 10/11/22 11:23 Sodium 142 Potassium 4.0 Chloride 109 H Carbon Dioxide 24 BUN 6 L Creatinine 0.57 Calcium 10.1 D Liver Function 10/11/22 Range/Units 11:23 Total Bilirubin 1.7 H (0.0-1.0) mg/dL AST 13 (5-31) U/L ALT 10 (0-31) U/L Alkaline Phosphatase 61 (39-117) U/L Albumin 4.4 (3.5-5.0) g/dL Assessment and Plan (1) Abdominal pain: Status: Acute (2) Primary hyperparathyroidism: Status: Acute (3) Hypercalcemia: Status: Acute (4) Generalized anxiety disorder: Status: Acute Plan Differentials include episodic diffuse abdominal pain secondary hypercalcemia, functional abdominal pain syndrome, AIP, mastocytosis related abd pain, angioedema of gut etc. PUD, GOO, celiac disease, hepatopancreaticobiliary, H pylori and mesenteric ischemia unlikely based on work up so far. Recommendations: - Trial of dicyclomine 10mg TID PRN - Switch to esomeprazole to see if that is better tolerated - Consider checking spot PBG and total porphyrins; tryptase, ESR and C4. - No indication for repeat EGD at this time. - Pt was again encouraged to follow up with endocrine surg for parathyroidectomy as hypercalcemia can certainly lead to her episodic abdominal pain, jessica if above work up negative as well. - If abd pain persistent despite parathyroidectomy/correction of Ca, can consider neuromodulation for possible FAPS. Thank you for allowing me to participate in her care. Please do not hesitate to reach out for any questions or concerns Time Spent With Patient Time: Total time managing care of this patient today ____ minutes. Procedures Date of Service Date of Service: 10/11/22
[2022-10-11 15:31] LABS: COVID-19 Test Negative (Negative); IDNOW Serial# 9DB6401D
[2022-10-11 16:22] VITALS: BP 167/83; PULSE 65; RESP 18; TEMP 36.2; O2SAT 99
[2022-10-11] MEDS: 0.9 % Sodium Chloride Flush 3 ML SYRINGE IVFLUSH ×2 (16:27→23:22)
[2022-10-11] MEDS: Dicyclomine HCl 10 MG CAPSULE PO (17:07)
[2022-10-11] MEDS: Metoclopramide HCl 5 MG TABLET PO (17:07)
[2022-10-11 19:16] LABS: Folate 9.7 ng/mL (> or = 4.0); Vitamin B12 962 pg/mL (200-900); Vitamin D 25-OH Total 36.5 ng/mL (>30)
[2022-10-11] MEDS: traZODone HCL 50 MG TABLET PO (20:41)
[2022-10-11 23:39] VITALS: BP 145/70; PULSE 56; RESP 18; TEMP 36.2; O2SAT 97
[2022-10-12 04:00] VITALS: BP 139/69; PULSE 50; RESP 18; TEMP 36.4; O2SAT 99
[2022-10-12 07:41] VITALS: BP 137/68; PULSE 60; RESP 17; TEMP 36.9; O2SAT 97
[2022-10-12] MEDS: Dicyclomine HCl 10 MG CAPSULE PO ×3 (08:29→16:35)
[2022-10-12] MEDS: Magnesium Oxide 400 MG TABLET 200 MG PO (08:29)
[2022-10-12] MEDS: Levothyroxine Sodium 75 MCG TABLET PO (08:29)
[2022-10-12] MEDS: Cholecalciferol (Vitamin D3) 25 MCG TABLET 50 MCG PO (08:29)
[2022-10-12] MEDS: 0.9 % Sodium Chloride Flush 3 ML SYRINGE IVFLUSH (08:30)
[2022-10-12] MEDS: Metoclopramide HCl 5 MG TABLET PO ×3 (08:30→16:35)
[2022-10-12] MEDS: Omeprazole 20 MG CAPSULE.DR PO ×2 (08:30→16:35)
[2022-10-12 08:50] LABS: Erythrocyte Sedimentation Rate 5 MM/HR (0-20)
--- NOTE | 2022-10-12 11:10 | MHC.CLN ---
NUTRITION CONSULT FOR REPORTED 30# WEIGHT LOSS AND NOT ABLE TO TOLERATE SOLIDS. VISITED WITH PATIENT. REPORTS THAT HAS BEEN LOSING WEIGHT SINCE JULY. STATES THAT BP GOES UP WHEN SHE EATS. DIET AT VISIT=CLEAR LIQUIDS. REQUESTING FISH FOR LUNCH. MD CHANGED DIET TO REGULAR. APPEARS WELL NOURISHED. REPORTS CURRENT [id number] WEIGHT HX REVIEWED. 10/12/22=83.9 KG, 10/09/22=70.3 KG (155#), 08/14/22=73,9 KG, 10/26/21=82.1 KG. WEIGHT IN 10/28 APPROX EQUAL TO WEIGHT IN 10/27. MONITOR FOR DIET TOLERANCE/INTAKE.
--- NOTE | 2022-10-12 11:27 | MHC.CM.PN ---
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
--- NOTE | 2022-10-12 12:33 | HO.PM.IMPN ---
Subjective Subjective Date of Service: 10/12/22 Interval History: Feels better Less gas and abd pain tolerating clears diet little more, to advance Review of Systems Review of Systems: Yes all other systems are reviewed and are negative Physical Exam Vital Signs: Vital Signs: Last Vital Signs Temp 98.4 F 10/12/22 07:41 Pulse 60 10/12/22 07:41 Resp 17 10/12/22 07:41 BP 137/68 10/12/22 07:41 Pulse Ox 97 10/12/22 07:41 O2 Del Method Room Air 10/12/22 07:41 BMI result Body Mass Index 28.1 Const: Other: Constitutional : Awake, interactive, not in distress Neck : Normal inspection, Supple Cardiovascular : RRR, no JVP, no lower extremity edema Respiratory : good bilateral air entry, no crackles, wheezes or rhonchi Gastrointestinal: soft, lax, Normal bowel sounds, Non tender Skin : Warm, Dry Neurological : Alert & oriented x3, No focal deficit Objective Data Active Medications Acetaminophen (Acetaminophen 325 Mg Tablet) 650 mg PO Q6H PRN PRN Reason: Pain, Mild (Pain Scale 1-3) Dicyclomine HCl (Dicyclomine Hcl 10 Mg Capsule) 10 mg PO TIDAC [facility] Last Admin: 10/12/22 08:29 Dose: 10 mg Documented By: FINA Docusate Sodium (Docusate Sodium 100 Mg Capsule) 100 mg PO DAILY PRN PRN Reason: Constipation Enoxaparin Sodium (Enoxaparin Sodium 40 Mg/0.4 Ml Syringe) 40 mg SUBCUT Q24H [facility] Last Admin: 10/11/22 16:25 Dose: Not Given Documented By: VIKTOR Non-Admin Reason: Patient Refused Levothyroxine Sodium (Levothyroxine Sodium 75 Mcg Tablet) 75 mcg PO DAILY [facility] Last Admin: 10/12/22 08:29 Dose: 75 mcg Documented By: FINA Lisinopril (Lisinopril 40 Mg Tablet) 40 mg PO DAILY [facility]; Protocol Last Admin: 10/12/22 08:57 Dose: Not Given Documented By: FIAN Non-Admin Reason: Patient Refused Lorazepam (Lorazepam 1 Mg Tablet) 1 mg PO DAILY PRN PRN Reason: anxiety Last Admin: 10/11/22 22:15 Dose: 1 mg Documented By: JUAN LUIS Magnesium Oxide (Magnesium Oxide 400 Mg Tablet) 200 mg PO DAILY [facility] Last Admin: 10/12/22 08:29 Dose: 200 mg Documented By: FINA Metoclopramide HCl (Metoclopramide Hcl 5 Mg Tablet) 5 mg PO TIDAC [facility] Last Admin: 10/12/22 08:30 Dose: 5 mg Documented By: FINA Nitroglycerin (Nitroglycerin 0.4 Mg Tab.Subl) 0.4 mg SUBLINGUAL Q5M PRN PRN Reason: chest pain Omeprazole (Omeprazole 20 Mg Capsule.Dr) 20 mg PO BID@0630,1630 [facility] Last Admin: 10/12/22 08:30 Dose: 20 mg Documented By: FINA Ondansetron HCl (Ondansetron Hcl 4 Mg/2 Ml Vial) 4 mg IVPUSH Q8H PRN PRN Reason: Nausea and Vomiting Pharmacy Consult (Consult Rx Perform Med Rec) 1 each MISCELLANE ONCE PRN PRN Reason: Consult order Sodium Chloride (0.9 % Sodium Chloride Flush 3 Ml Syringe) 3 ml IVFLUSH QSHIFT [facility] Last Admin: 10/12/22 08:30 Dose: 3 ml Documented By: FINA Vitamin D (Cholecalciferol (Vitamin D3) 25 Mcg Tablet) 50 mcg PO DAILY [facility] Last Admin: 10/12/22 08:29 Dose: 50 mcg Documented By: FINA Labs 10/11/22 11:23 10/11/22 11:23 Labs: Laboratory Results - last 24 hr 10/11/22 10/11/22 10/11/22 11:23 11:23 14:59 ESR 5 Vitamin B12 962 H 25-OH Vitamin D Total 36.5 Folate 9.7 COVID-19 ([facility]) Negative COVID-19 Clin Com See Note Assessment and Plan (1) Abdominal pain: Status: Acute (2) Weight loss: Status: Acute (3) Hypertension: Status: Acute Plan Pt is a 61-year-old female with a PMH significant for?HTN, hypothyroidism, HLD, GERD, and Prinzmetal angina who presents to the ED with?multiple complaints, hypertension, chest pain, and worsening abdominal pain with decreased p.o. intake. Pt will be admitted to the hospital for observation of hypertension, chest pain and worsening abdominal pain and anorexia. Abdominal pain feels mildly better CT negative for acute process WNL folate, vitamin D, B12 Nutrition consult advance diet to regular DC Protonix IV, start po omeprazole GI consult, follow with Endocrinology for hypercalcemia and check porphyria , C4 and Tryptase Hypercalcemia Calcium 10.1 at time of presentation pending parathyroid hormone levels Patient should follow-up with endocrinology at [facility] Prinzmetal Angina Troponins negative, EKG negative Continue nitroglycerin p.r.n. Uncontrolled HTN BP improved Increase Lisinopril to 40 daily Anxiety Continue lorazepam Hypothyroidism Continue levothyroxine Full Code DVT Prophylaxis: Lovenox Time Spent With Patient Time: Total time managing care of this patient today ____ minutes. Quality Stroke Does the patient have a stroke diagnosis?: No VTE Prior VTE?: No VTE Risk Level:: Medical - moderate - high VTE Device Contraindication: Treatment Not Indicated VTE Drug Contraindication: N/A - Med Ordered
--- NOTE | 2022-10-12 15:51 | MHC.CM.PN ---
PATIENT IS DC HOME - SELF CARE RN AWARE OF PLAN.
--- NOTE | 2022-10-12 15:52 | PM.DS ---
DS: Providers Provider Date of Service: 10/12/22 Date of admission: 10/11/22 14:32 Primary care physician: Jj Smith MD Consults: 10/11/22 14:32 Consult to Gastroenterology Routine Consulting Provider: Anusha Vasquez Reason for consultation: Abdominal pain w/eating, decreased p.o. intake, 30lb weight loss since May DS: Diagnosis Discharge Diagnosis (1) Abdominal pain: Status: Acute (2) Weight loss: Status: Acute (3) Hypertension: Status: Acute (4) Anorexia: Status: Acute (5) Hypertensive urgency: Status: Acute DS: Summary Hospital Course Hospital Course: Admission note HPI Pt is a 61-year-old female with a PMH significant for?HTN, hypothyroidism, HLD, GERD, and Prinzmetal angina who presents to the ED with?multiple complaints, hypertension, chest pain, and worsening abdominal pain with decreased p.o. intake. Pt's daughter is at bedside who contributes to HPI. Pt has a long history of GI issues, but these became severe in May of last year when pt began experiencing epigastric pain that was worse with p.o. intake and associated with nausea. She has had multiple ED admissions since then at both [facility] and [facility]. Pt's daughter states she is usually seen the in ED, stabilized with ativan and pain meds, then sent home where her symptoms return in a few hours. Pt has had two CTs of abdomen and pelvis since then, one on 05/16/2022 and another on 07/04/2022, both of which were largely unremarkable and showed no acute intra-abdominal process. Mesenteric ultrasound negative. EGD on 05/17/2022 showed mild gastritis. H pylori testing was negative, as was plasma metanephrines. Today pt notes she experiences abdominal pain with p.o. intake. Pain is primarily located in the epigastric and upper right quadrant, but also can radiate to her back between shoulder blades, up her esophagus, and to ribs. States it feels like her food just sits in her stomach, not moving. Notes undigested food in her stool. Associated nausea, no vomiting, no diarrhea. After she eats food, does not want to look at food again for at least one day. States she has lost up to 30 lbs since May. When pt does not eat food, has bloating and a burning abdominal pain. Pt also complains of dizziness, throbbing headache, neck pain radiating to her arm, chest pain, and palpitations when her blood pressure gets too high. Pt has a long history of HTN, though it has become poorly controlled since May despite medication changes. She also notes SOB, a feeling of impending doom, left-sided facial numbness, and numbness on the bottoms of her feet bilaterally with walking when she has elevated blood pressure. Pt also associates with increased abdominal pain with high blood pressure. Taken together, pt notes she has been unable to sleep well lately, usually no more than a couple of hours a night. In the ED patient was afebrile but hypertensive 188 over 85. Labs were largely unremarkable, troponins negative. EKG demonstrated normal sinus rhythm without evidence of ST elevations or depressions. Pt was treated with clonidine and lorazepam. Pt will be admitted to the hospital for observation of hypertension, chest pain and worsening abdominal pain and anorexia. Hospital course The patient was admitted for observation of abdominal pain and decrease PO intake. CT abdomen negative for acute process. WNL folate, vitamin D, B12. Started on Omeprazole, Reglan and Dicyclomine with good response as she was able to tolerate clear liquids which was advanced to regular diet with good tolerance. GI consult, follow with Endocrinology for hypercalcemia and check porphyria , C4 and Tryptase which all are still pending at time of discharge. reported hx of Hypercalcemia. Calcium 10.1 at time of presentation. pending parathyroid hormone levels. Patient should follow-up with endocrinology at [facility] Dicyclomine as needed for abdominal discomfort Reglan 30 mins before meal to help facilitating stomach emptying Ativan as needed for anxiety Start Omeprazole twice daily Continue Lisinopril 20 mg daily, check BP readings for 1 week and report them to dr Smith Time Spent with Patient Time attestation: Total time managing care of this patient today ____ minutes. Discharge coordination time: Less than 30 minutes Quality: Safe Use of Opioids Does Pt have an Active Cancer Diagnosis on the Problem List?: No Quality: Stroke Does the patient have a stroke diagnosis?: No Physical Exam Vital Signs: Vital Signs: Last Vital Signs Temp 98.4 F 10/12/22 07:41 Pulse 60 10/12/22 07:41 Resp 17 10/12/22 07:41 BP 137/68 10/12/22 07:41 Pulse Ox 97 10/12/22 07:41 O2 Del Method Room Air 10/12/22 07:41 BMI result Body Mass Index 28.1 Const: Other: Constitutional : Awake, interactive, not in distress Neck : Normal inspection, Supple Cardiovascular : RRR, no JVP, no lower extremity edema Respiratory : good bilateral air entry, no crackles, wheezes or rhonchi Gastrointestinal: soft, lax, Normal bowel sounds, Non tender Skin : Warm, Dry Neurological : Alert & oriented x3, No focal deficit , CN 2-12 within normal DS: Data Data Completed and Pending Completed studies during hospitalization [Text1]: Procedures Excision of Duodenum, Via Natural or Artificial Opening Endoscopic, Diagnostic (05/16/22) Excision of Esophagogastric Junction, Via Natural or Artificial Opening Endoscopic, Diagnostic (05/16/22) Excision of Esophagus, Via Natural or Artificial Opening Endoscopic, Diagnostic (05/16/22) Excision of Stomach, Pylorus, Via Natural or Artificial Opening Endoscopic, Diagnostic (05/16/22) Labs on day of discharge: Laboratory Results - last 24 hr 10/11/22 10/11/22 10/12/22 11:23 11:23 12:00 ESR 5 Carcinoembryonic Ag Vitamin B12 962 H 25-OH Vitamin D Total 36.5 Folate 9.7 Porphobilinogen Interp Cancelled Ur [place] Porphobilinogen Cancelled U Total Porphyrins 24h Urine Total Volume Ur Uroporphyrin I 24h Ur Uroporphyrin III 24h U Heptacarboxylporph 24 U Hexacarboxylporph 24h U Pentacarboxylporph 24 U Coproporphyrin I 24h U Coproporphyr III 24h Ur Porphyrins Interp 24h 10/12/22 10/12/22 12:43 12:43 ESR Carcinoembryonic Ag 1.90 Vitamin B12 25-OH Vitamin D Total Folate Porphobilinogen Interp Ur [place] Porphobilinogen U Total Porphyrins 24h Cancelled Urine Total Volume Cancelled Ur Uroporphyrin I 24h Cancelled Ur Uroporphyrin III 24h Cancelled U Heptacarboxylporph 24 Cancelled U Hexacarboxylporph 24h Cancelled U Pentacarboxylporph 24 Cancelled U Coproporphyrin I 24h Cancelled U Coproporphyr III 24h Cancelled Ur Porphyrins Interp 24h Cancelled Discharge Plan Discharge Anticipated Discharge Date/Time: 10/12/22 15:39 Patient Disposition: Home, Self-Care Discharge Diagnosis: Abdominal pain Referrals: Po,Jj Lechuga MD [Primary Care Provider] - 1 Week Discharge Medications: New metoclopramide HCl 5 mg Tablet 5 mg PO TIDAC PRN (Reason: 30 min before meal) Qty: 90 0RF omeprazole 20 mg Capsule,Delayed Release(Dr/Ec) 20 mg PO BID@0630,1630 Qty: 60 0RF dicyclomine 10 mg Capsule 10 mg PO TIDAC PRN (Reason: Abdominal Discomfort) Qty: 90 0RF lorazepam 0.5 mg tablet 0.5 mg PO BID PRN (Reason: anxiety) Qty: 14 0RF Continued lorazepam 1 mg tablet 1 mg PO DAILY PRN (Reason: anxiety) Qty: 2 0RF lisinopril 20 mg tablet 20 mg PO DAILY magnesium 250 mg Tablet 250 mg PO DAILY acetaminophen 325 mg tablet 650 mg PO QID PRN (Reason: pain) nitroglycerin 0.4 mg tablet, sublingual 0.4 mg sublingual Q5M PRN (Reason: chest pain) Qty: 20 0RF Rx Instructions: do not exceed 3 doses per episode levothyroxine 75 mcg tablet 75 mcg PO DAILY 90 Days Qty: 90 2RF cholecalciferol (vitamin D3) 50 mcg (2,000 unit) capsule 50 mcg PO DAILY 90 Days Qty: 90 3RF (DME) blood pressure test kit-medium Kit See Rx Instructions miscellaneous .MEDSUPPLY Qty: 1 0RF Rx Instructions: As directed Discontinued pantoprazole 40 mg tablet,delayed release (DR/EC) 1 tab PO DAILY Discharge Orders: Discharge Order (Routine); Ordered 10/12/22 Ordered By: Melo Farrell Diet: Advance to usual diet Activity on Discharge: As tolerated Stand Alone Forms: Patient Portal Discharge page Care Plan Goals: Read below Health Concerns: Read below Plan of Treatment: Read below Assessment: You were admitted to the hospital for evaluation of abdominal pain and decrease appetite. evaluated by GI who recommended further work up which is still pending at time of discharge. started on Dicyclomine and Reglan with good tolerance of diet. Noted to have elevated blood pressure readings. improved with using your home dose of Lisinopril. Dicyclomine as needed for abdominal discomfort Reglan 30 mins before meal to help facilitating stomach emptying Ativan as needed for anxiety Start Omeprazole twice daily Continue Lisinopril 20 mg daily, check BP readings for 1 week and report them to dr Smith
[2022-10-12 15:55] VITALS: BP 154/77; PULSE 65; RESP 16; TEMP 36.1; O2SAT 99
[2022-10-15 10:33] LABS: CA-125 19 U/mL (<35)
[2022-10-15 13:48] LABS: Alpha Fetoprotein 2.3 ng/mL
[2022-10-15 21:49] LABS: Calcium (PTHI) 10.4 mg/dL (8.6-10.4); PTHI 76 pg/mL (16-77)
== END 2022-10-12 17:25 | disposition home or self-care (01) ==
LOC: HO.ED 13:44 → HO.EDOVER 14:43 → HO.S3 15:37
PROVIDERS: Admitting Provider Student in an Organized Health Care Education/Training Program; Emergency Provider Emergency Medicine; PCP Internal Medicine; Visit Provider Student in an Organized Health Care Education/Training Program
DX: R10.11 Right upper quadrant pain (principal); R10.13 Epigastric pain; R07.9 Chest pain, unspecified; I20.1 Angina pectoris with documented spasm; I10 Essential (primary) hypertension; R63.4 Abnormal weight loss; Z68.28 Body mass index [BMI] 28.0-28.9, adult; I16.0 Hypertensive urgency; E03.9 Hypothyroidism, unspecified; E83.52 Hypercalcemia; F41.9 Anxiety disorder, unspecified; R63.0 Anorexia; K76.0 Fatty (change of) liver, not elsewhere classified; Z20.822 Contact with and (suspected) exposure to COVID-19; Z79.899 Other long term (current) drug therapy
CPT/HCPCS: 36415; 80053; 82105; 82306; 82378; 82607; 82746; 83520; 83970; 84106; 84484; 85025; 85652; 86160; 86304; 87635; 93005; 99221; 99285

== ENCOUNTER → 2022-10-19 09:59 | Outpatient (BNVA) | payer BC, SELFPAY | PROVIDERS: PCP Internal Medicine; Visit Provider Internal Medicine Gastroenterology | DX: Z13.89 Encounter for screening for other disorder (principal) ==

== ENCOUNTER → 2022-11-19 08:26 | Outpatient (BNVA) | payer BC, SELFPAY | PROVIDERS: PCP Internal Medicine; Visit Provider Internal Medicine Gastroenterology | DX: R10.9 Unspecified abdominal pain (principal); K29.70 Gastritis, unspecified, without bleeding | CPT/HCPCS: 91110 ==

== ENCOUNTER 2022-12-14 07:19 | Outpatient (REF) | payer BC, SELFPAY ==
[2022-12-14 07:51] LABS: MANUAL DIFF FLAG NO
[2022-12-14 08:00] LABS: Basophils Percent Auto 0.3 % (0-2); Eosinophils Absolute Auto 0.1 X10*3/uL (0.0-0.4); Eosinophils Percent Auto 1.5 % (0-4); Hematocrit 47.3 % (37.0-47.0); Hemoglobin 15.4 g/dl (12.0-16.0); Imm Gran Abs Auto 0.02 X10*3/uL (0.00-0.03); Imm Gran Pct Auto 0.3 % (0.0-0.4); Lymphocytes Absolute Auto 3.2 X10*3/uL (1.2-4.9); Lymphocytes Percent Auto 49.1 % (20-40); Mean Corpuscular HGB Conc 32.6 g/dl (31.0-35.0); Mean Corpuscular Hemoglobin 29.5 pg (27.0-33.0); Mean Corpuscular Volume 90.6 fL (80.0-98.0); Mean Platelet Volume 11.1 fL (9.4-12.3); Monocytes Absolute Auto 0.4 X10*3/uL (0.1-1.2); Monocytes Percent Auto 6.3 % (2-11); Neutrophils Absolute Auto 2.7 x10*3/uL (2.0-8.3); Neutrophils Percent Auto 42.5 % (45-73); Platelet Count 348 X10*3/uL (160-400); Red Blood Count 5.22 X10*6/uL (4.20-5.50); Red Cell Distribution Width 12.8 % (11.0-16.0); White Blood Count 6.5 X10*3/uL (4.8-10.8)
[2022-12-14 08:14] LABS: Estimated Average Glucose 108 mg/dL; Hemoglobin A1c % 5.4 %
[2022-12-14 08:27] LABS: Alanine Aminotransferase 17 U/L (0-31); Albumin Level 4.6 g/dL (3.5-5.0); Alkaline Phosphatase 69 U/L (39-117); Anion Gap 12 (12-20); Aspartate Amino Transferase 15 U/L (5-31); Bilirubin Total 1.4 mg/dL (0.0-1.0); Blood Urea Nitrogen 11 mg/dL (9-16); Calcium 11.1 mg/dL (8.4-10.2); Carbon Dioxide 27 mmol/L (22-29); Chloride 105 mmol/L (96-108); Estimated Glomerular Filt Rate > 60; Glucose Random 105 mg/dL (60-115); Magnesium 2.2 mg/dL (1.6-2.6); Potassium 4.7 mmol/L (3.3-5.1); Sodium 139 mmol/L (135-145); Total Protein 7.7 g/dL (6.5-8.0)
[2022-12-14 08:41] LABS: Free T4 (Free Thyroxine) 1.11 ng/dL (0.71-1.85); Thyroid Stimulating Hormone 2.43 uIU/mL (0.32-4.0)
[2022-12-14 09:52] LABS: Appearance Urine Clear; Color Urine Yellow; Glucose Urine UA Negative (Negative); Leukocyte Esterase Urine Negative (Negative); Nitrite Urine Negative (Negative); Specific Gravity - Urine <= 1.005 (1.005-1.025); Urine Blood Negative (Negative); Urine Ketones Negative (Negative); Urine Protein Negative (Neg-Trace)
[2022-12-14 09:56] LABS: Bacteria Urine None Seen (None Seen); Hyaline Casts Urine 0-2 /LPF (0-2); RBC Urine 0-2 /HPF (0-2); Squamous Epithelial Cell Urine 0-2 /HPF (0-2); WBC Urine 0-5 /HPF (0-5)
[2022-12-17 22:29] LABS: Gliadin Deamidated IgA Ab <1.0 U/mL; Gliadin Deamidated IgG Ab <1.0 U/mL
[2022-12-18 13:28] LABS: Transglutaminase Ab IgG <1.0 U/mL; Transglutaminase IgA <1.0 U/mL
[2022-12-18 14:39] LABS: Calcium, Ionized 5.7 mg/dL (4.7-5.5)
[2022-12-21 12:54] LABS: Metanephrine, Free 31 pg/mL (<=57); Normetanephrines, Free 82 pg/mL (<=148); Total Metanephrine, Free 113 pg/mL (<=205)
[2022-12-23 16:24] LABS: Histamine Plasma <1.5 ng/mL (< OR = 1.8)
== END 2022-12-14 07:20 | disposition home or self-care (01) ==
LOC: HO.LAB 07:19
PROVIDERS: Internal Medicine Gastroenterology; PCP Internal Medicine; Visit Provider Internal Medicine
DX: R09.89 Other specified symptoms and signs involving the circulatory and respiratory systems (principal); R10.13 Epigastric pain; G89.29 Other chronic pain; R10.33 Periumbilical pain; E83.52 Hypercalcemia; R73.02 Impaired glucose tolerance (oral)
CPT/HCPCS: 36415; 80053; 81001; 82330; 83036; 83088; 83735; 83835; 84106; 84439; 84443; 85025; 86258; 86364

== ENCOUNTER → 2022-12-17 10:10 | Outpatient (BNVA) | payer BC, SELFPAY | PROVIDERS: PCP Internal Medicine; Visit Provider Internal Medicine Gastroenterology ==

== ENCOUNTER 2022-12-20 07:05 | Outpatient (REF) | payer BC, SELFPAY ==
[2022-12-27 16:23] LABS: Histamine Plasma <1.5 ng/mL (< OR = 1.8)
[2022-12-28 14:32] LABS: Porphobilinogen, Random Urine 0.139 mg/g creat (<0.22)
[2022-12-28 15:03] LABS: Metanephrine, Free 24U 81 mcg/24 h (90-315); Normetanephrine, Free 24U 237 mcg/24 h (122-676); Total Metanephrine, Free 24U 318 mcg/24 h (224-832); Total Volume 24U 2550 mL
[2022-12-28 15:43] LABS: Metanephrine, Free 33 pg/mL (<=57); Normetanephrines, Free 77 pg/mL (<=148); Total Metanephrine, Free 110 pg/mL (<=205)
== END 2022-12-20 07:06 | disposition home or self-care (01) ==
LOC: HO.LAB 07:05
PROVIDERS: PCP Internal Medicine; Visit Provider Internal Medicine Gastroenterology
DX: R09.89 Other specified symptoms and signs involving the circulatory and respiratory systems (principal); R10.13 Epigastric pain
CPT/HCPCS: 36415; 83088; 83835; 84106

== ENCOUNTER 2023-01-23 07:48 | Outpatient (REF) | payer BC, SELFPAY ==
[2023-01-23 08:00] LABS: MANUAL DIFF FLAG NO
[2023-01-23 08:18] LABS: Basophils Percent Auto 0.2 % (0-2); Eosinophils Absolute Auto 0.2 X10*3/uL (0.0-0.4); Eosinophils Percent Auto 2.5 % (0-4); Hematocrit 44.3 % (37.0-47.0); Hemoglobin 14.2 g/dl (12.0-16.0); Imm Gran Abs Auto 0.02 X10*3/uL (0.00-0.03); Imm Gran Pct Auto 0.3 % (0.0-0.4); Lymphocytes Absolute Auto 3.3 X10*3/uL (1.2-4.9); Mean Corpuscular HGB Conc 32.1 g/dl (31.0-35.0); Mean Corpuscular Hemoglobin 28.9 pg (27.0-33.0); Mean Platelet Volume 10.1 fL (9.4-12.3); Monocytes Absolute Auto 0.4 X10*3/uL (0.1-1.2); Monocytes Percent Auto 7.2 % (2-11); Neutrophils Percent Auto 33.8 % (45-73); Platelet Count 295 X10*3/uL (160-400); Red Blood Count 4.92 X10*6/uL (4.20-5.50); Red Cell Distribution Width 12.6 % (11.0-16.0)
[2023-01-23 08:49] LABS: Alanine Aminotransferase 14 U/L (0-31); Albumin Level 4.2 g/dL (3.5-5.0); Alkaline Phosphatase 60 U/L (39-117); Anion Gap 11 (12-20); Aspartate Amino Transferase 12 U/L (5-31); Bilirubin Total 0.8 mg/dL (0.0-1.0); Blood Urea Nitrogen 15 mg/dL (9-16); Calcium 10.3 mg/dL (8.4-10.2); Carbon Dioxide 26 mmol/L (22-29); Chloride 107 mmol/L (96-108); Cholesterol 267 mg/dL; Estimated Glomerular Filt Rate > 60; Glucose Random 102 mg/dL (60-115); HDL Cholesterol 50 mg/dL; LDL Cholesterol Calculated 184 mg/dl; Potassium 4.4 mmol/L (3.3-5.1); Sodium 140 mmol/L (135-145); Total Protein 7.2 g/dL (6.5-8.0); Triglycerides 166 mg/dL
[2023-01-23 09:05] LABS: Free T4 (Free Thyroxine) 1.01 ng/dL (0.71-1.85); Thyroid Stimulating Hormone 2.65 uIU/mL (0.32-4.0)
[2023-01-26 05:43] LABS: Calcium (PTHI) 10.1 mg/dL (8.6-10.4); PTHI 119 pg/mL (16-77)
[2023-01-30 17:27] LABS: Calcium, Ionized 5.4 mg/dL (4.7-5.5)
== END 2023-01-23 07:49 | disposition home or self-care (01) ==
LOC: HO.LAB 07:48
PROVIDERS: PCP Internal Medicine; Visit Provider Internal Medicine
DX: E21.3 Hyperparathyroidism, unspecified (principal); R09.89 Other specified symptoms and signs involving the circulatory and respiratory systems; E78.00 Pure hypercholesterolemia, unspecified
CPT/HCPCS: 36415; 80053; 80061; 82330; 83970; 84439; 84443; 85025

== ENCOUNTER 2023-04-25 08:51 | Outpatient (AMB) | payer BC, SELFPAY ==
--- NOTE | 2023-04-25 08:52 | A.OFFPC_ITS ---
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 Accompanied by: Self / Same As Patient Allergies nifedipine [From ADALAT] Allergy (Severe, Verified 04/25/23 08:56) Chest Pain isosorbide [From Imdur] Allergy (Intermediate, Verified 04/25/23 08:56) Headache valsartan Allergy (Intermediate, Verified 04/25/23 08:56) DIZZINESS losartan Allergy (Verified 04/25/23 08:56) Unknown atorvastatin Adverse Reaction (Intermediate, Verified 04/25/23 08:56) memory loss nebivolol [From Bystolic] Adverse Reaction (Mild, Verified 04/25/23 08:56) dizzy isosorbide mononitrate Adverse Reaction (Intermediate, Uncoded 12/21/22 09:34) Agitated hydralazine Adverse Reaction (Uncoded 12/21/22 09:34) Flushing Medication List - Last Reconciled 04/25/23 by Jj Smith, acetaminophen 650 mg PO QID PRN blood pressure test kit-medium As directed cholecalciferol (vitamin D3) 50 mcg PO DAILY 90 days clotrimazole-betamethasone 1-0.05 % appl topical TID levothyroxine 75 mcg PO DAILY 90 days lisinopril 20 mg PO DAILY lorazepam 0.5 mg PO BID PRN magnesium 250 mg PO DAILY nitroglycerin 0.4 mg sublingual Q5M PRN Tobacco use date assessed: 07/19/22 Fall risk assessment: No Falls in past year Last assessed Fall Risk: 04/25/23 Dental Screening Dental Screen Date: 04/25/23 Did you have a dental visit in the last 12 months?: Yes Did you have a dental problem in the last 6 months where you did not have access to dental care?: No Was dental information given to patient?: Patient has dentist HPI Annual exam HPI Details 62-year-old female with labile hypertens ion TMJ coronary artery disease impaired glucose tolerance hypothyroidism hypercholesterolemia hyperparathyroid coming in for physical exam last seen in December 2022. Patient's colonoscopy is up-to-date due for mammogram. PAratahyroid surgery to be done next week bringds in CT scan soft tissue neck showing 12 mm nodule posterior to r thyroid. decline vaccine , mammo PFSH Medical History (Updated 04/25/23 @ 09:20 by Jj Smith MD) Annual physical exam Anorexia Dizziness of unknown etiology Primary hyperparathyroidism Weight loss Hypercalcemia Generalized anxiety disorder Fatty liver Impaired glucose tolerance Hypothyroid Hypercholesterolemia Hypertension Surgical History History of esophagogastroduodenoscopy (EGD) S/P knee surgery H/O colonoscopy History of mammogram Hx of arthroscopic knee surgery History of back surgery History of removal of cyst History of cholecystectomy History of total abdominal hysterectomy Family History Father HTN (hypertension) Diabetes mellitus Mother No problems noted. 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 1. Little interest or pleasure in doing things: not at all 2. Feeling down, depressed, or hopeless: not at all 3. Trouble falling or staying asleep, or sleeping too much: several days 4. Feeling tired or having little energy: not at all 5. Poor appetite or overeating: not at all 6. Feeling bad about yourself - or that you are a failure or have let yourself or your family down: not at all 7. Trouble concentrating on things, such as reading the newspaper or watching television: not at all 8. Moving or speaking so slowly that other people could have noticed. Or the opposite - being so fidgety or restless that you have been moving around a lot more than usual: not at all 9. Thoughts that you would be better off or of hurting yourself in some w ay: not at all Total score: 1 Source: Developed by Drs. Shemar St, Tiffany Chase, Duke Allen and colleagues, with an educational elaine from [employer]. Thrive Questionnaire Date Thrive assessed: 07/19/22 AUDIT C Alcohol Use Questionnaire (AUDIT-C) 1. How often do you have a drink containing alcohol?: Never Total Score: 0 BETTYE-7 AMB Questionnaire BETTYE-7 Date BETTYE - 7 assessed: 04/25/23 Feeling nervous, anxious, or on edge: 0 = Not at all Not being able to stop or control worryin = Not at all Worrying too much about different things: 0 = Not at all Trouble relaxin = Not at all Being so restless that it is hard to sit still: 0 = Not at all Becoming easily annoyed or irritable: 0 = Not at all Feeling afraid as if something awful might happen: 0 = Not at all Total BETTYE-7 score (0-4 normal; 5-9 mild; 10-14 moderate; 15-21 severe): 0 Source: Developed by Drs. Shemar St, Duke Robles and colleagues, with an educational elaine from [employer]. Review of Systems Const Denies poor appetite and Denies weakness Eyes Denies no additional complaints ENT Reports Normal hearing present, Denies dizziness, Denies nasal congestion, Denies tinnitus and Denies sore throat Card Denies chest pain, Denies syncope, Denies rapid heart rate and Denies dyspnea Resp Denies cough and Denies dyspnea GI Denies change in stool character, Reports constipation, Denies diarrhea, Denies nausea and Denies vomiting Denies urinary frequency, Denies difficulty voiding and Denies dysuria Neuro Reports Normal hearing present, Denies confusion, Denies dizziness, Denies syncope and Denies weakness Psych Denies confusion Physical exam (Primary Care) Vital Signs: Last Vital Signs Pulse 84 04/25/23 08:53 BP 152/80 H 04/25/23 08:53 Pulse Ox 98 04/25/23 08:53 Oxygen Delivery Method Room Air 04/25/23 08:53 BMI result Body Mass Index 24.2 Tobacco/Smoking Status: Tobacco use Status Tobacco use date assessed 07/19/22 04/25/23 08:54 Patient Tobacco Use Status Never used Tobacco 04/25/23 08:54 e-Cigarette/Vaping Use Never Used 04/25/23 08:54 PHQ-9: PHQ-9 Score PHQ-9: Total score 1 04/25/23 09:00 Thrive Assessment: Date of Thrive Assessment Date Thrive assessed 07/19/22 04/25/23 08:54 Const General: No confusion Orientation/consciousness: No confusion HENMT Head: Yes normocephalic Ears: external ears normal and TM's normal bilaterally Face and sinus: Yes normal facial exam Mouth: moist mucous membranes Throat: Yes tonsils normal Eyes Conjunctivae: conjunctivae normal Pupils: Equal, round and reactive pupils present and Pupil accommodation reflex normal Direct Ophthalmoscopy: normal light reflex Neck Neck: No lymphadenopathy Thyroid: Thyroid normal Chest Chest palpation & inspection: normal inspection of the chest Resp Effort & Inspection: normal respiratory effort and no audible wheezes Auscultation: clear to auscultation bilaterally, no crackles, no wheezes and lung sounds not diminished Cardio Rate: regular rate Rhythm: regular rhythm Peripheral pulses: radial pulses present and dorsalis pedis present GI Palpation (GI): no masses Auscultation: normal bowel sounds and normoactive bowel sounds Rectal Exam - Female: deferred Skin General skin exam: no rashes or lesions noted Rashes: no rashes Neuro General: No confusion Cranial nerves: Yes Equal, round and reactive pupils present and Yes Normal hearing present Cognition (Neuro): normal cognition Gait exam (Neuro): Normal gait present Motor exam (neuro): 5/5 motor strength present throughout Deep tendon reflexes (DTR's): Right brachioradialis reflex intensity grade: 2+, Left brachioradialis reflex intensity grade: 2+, Right patellar reflex intensity grade: 2+ and Left patellar reflex intensity grade: 2+ Extrem General: No edema Office Procedures Flu Questionnaire Does the patient have a severe egg allergy?: No Immunizations flu vacc [id number] 6mos up(PF) 60 mcg(15 mcgx4)/0.5 mL IM syringe Performing Provider: Jj Smith MD [facility] Documented (not given) by: LAVONNE Reed on 04/25/23 08:55 Reason Not Given: Patient Refused Assessment and Plan Assessment & Plan (1) Annual physical exam: Code(s): Z00.00 - Encounter for general adult medical examination without abnormal findings (2) Hyperparathyroidism: Code(s): E21.3 - Hyperparathyroidism, unspecified Plan: Patient has been seeing endocrinology did show osteoporosis on the last bone density in June 2022. Patient has a planned surgery next week (3) Labile hypertension: Code(s): R09.89 - Other specified symptoms and signs involving the circulatory and r espiratory systems Plan: Continue with lisinopril 20 mg once a day. Continue with blood pressure medication. Decrease salt intake and exercise (4) Breast cancer screening: Code(s): Z12.39 - Encounter for other screening for malignant neoplasm of breast Plan: Reminded about mammogram but patient declined (5) Coronary artery disease: Comment: 2004 echo May 2019 equivocal likely normal ejection fraction 66%, cardiac catheterization July 2019 negative Code(s): I25.10 - Atherosclerotic heart disease of [place] coronary artery without angina pectoris Qualifiers: Coronary Disease-Associated Artery/Lesion type: [place] artery [place] vs. transplanted heart: [place] heart Associated angina: without angina Qualified Code(s): I25.10 - Atherosclerotic heart disease of [place] coronary artery without angina pectoris Plan: Control the cholesterol, weight, blood pressure (6) Hypothyroid: Code(s): E03.9 - Hypothyroidism, unspecified Qualifiers: Hypothyroidism type: acquired Qualified Code(s): E03.9 - Hypothyroidism, unspecified Plan: Continue with thyroid medication (7) Hypercholesterolemia: Comment: discussed about low-cholesterol diet Code(s): E78.00 - Pure hypercholesterolemia, unspecified Plan: Avoid fried foods, chicken skin, eggs, butter margarine, pastries and meat. Be it pork or beef they have a lot of cholesterol LDL goal of less than 70 and triglyceride of less than 150 patient on no cholesterol medication. The patient declined medication (8) Impaired glucose tolerance: Code(s): R73.02 - Impaired glucose tolerance (oral) Plan: Decrease the amount of carbohydrate intake, pasta, bread, rice and potatoes are all sugar and that is aside from all the sweet stuff, remember that fruits are good but they are Sweet also. Orders: Orders Influenza [id number] Immunization Today Z23 - Encounter for immunization Hemoglobin A1c 3 Months R73.02 - Impaired glucose tolerance (oral) Lipid Panel 3 Months E78.00 - Pure hypercholesterolemia, unspecified Complete Blood Count Auto Diff 3 Months E78.00 - Pure hypercholesterolemia, unspecified PTHI 3 Months E21.3 - Hyperparathyroidism, unspecified Free T4 (Free Thyroxine) 3 Months R73.02 - Impaired glucose tolerance (oral) Thyroid Stimulating Hormone 3 Months R73.02 - Impaired glucose tolerance (oral) Comprehensive Met. Panel 3 Months E78.00 - Pure hypercholesterolemia, unspecified Vitamin D 25-OH Total 3 Months E21.3 - Hyperparathyroidism, unspecified Calcium, Ionized 3 Months E21.3 - Hyperparathyroidism, unspecified Medications: Refilled levothyroxine 75 mcg PO DAILY 90 days 90 tabs 2RF E03.9 - Hypothyroidism, unspecified Coding Level of Care Code Est Pt Prev Care 40-64y(11724) Diagnoses Annual physical exam Z00.00 Hyperparathyroidism E21.3 Labile hypertension R09.89 Breast cancer screening Z12.39 Coronary artery disease involving [place] coronary artery of [place] heart without angina pectoris I25.10 Coronary Disease-Associated Artery/Lesion type: [place] artery [place] vs. transplanted heart: [place] heart Associated angina: without angina Acquired hypothyroidism E03.9 Hypothyroidism type: acquired Hypercholesterolemia E78.00 Impaired glucose tolerance R73.02
[2023-04-25 08:53] VITALS: BP 152/80; PULSE 84; O2SAT 98; BMI 24.2
== END 2023-04-25 09:53 | disposition home or self-care (01) ==
PROVIDERS: Visit Provider Internal Medicine
DX: Z00.00 Encounter for general adult medical examination without abnormal findings (principal); E21.3 Hyperparathyroidism, unspecified; R09.89 Other specified symptoms and signs involving the circulatory and respiratory systems; Z12.39 Encounter for other screening for malignant neoplasm of breast; I25.10 Atherosclerotic heart disease of native coronary artery without angina pectoris; E03.9 Hypothyroidism, unspecified; E78.00 Pure hypercholesterolemia, unspecified; R73.02 Impaired glucose tolerance (oral)
CPT/HCPCS: 99396

== ENCOUNTER 2023-06-13 08:34 | Outpatient (AMB) | payer BC, SELFPAY ==
[2023-06-13 08:38] VITALS: BP 134/62; PULSE 66; BMI 24.4
--- NOTE | 2023-06-13 08:38 | A.OFFVIS_ITS ---
Intake Vital Signs 06/13/23 08:38 Height 5 ft 8 in Weight 160 lb 7.944 oz BMI 24.4 BP 134/62 Blood Pressure Location Lt brachial Position Sitting Pulse 66 Pulse Source Pulse Oximeter Intake Visit Reasons: Follow Up/confirm Intake Note: Patient present today for primary hyperparathyroidism follow up visit. 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 Required: No Accompanied by: Self / Same As Patient Allergies nifedipine [From ADALAT] Allergy (Severe, Verified 06/13/23 08:48) Chest Pain isosorbide [From Imdur] Allergy (Intermediate, Verified 06/13/23 08:48) Headache valsartan Allergy (Intermediate, Verified 06/13/23 08:48) DIZZINESS losartan Allergy (Verified 06/13/23 08:48) Unknown atorvastatin Adverse Reaction (Intermediate, Verified 06/13/23 08:48) memory loss nebivolol [From Bystolic] Adverse Reaction (Mild, Verified 06/13/23 08:48) dizzy isosorbide mononitrate Adverse Reaction (Intermediate, Uncoded 12/21/22 09:34) Agitated hydralazine Adverse Reaction (Uncoded 12/21/22 09:34) Flushing HPI HPI Comments History of Present Illness0 Details 62 YO F with who is seen in consultatio n at the request of PCP for Hypercalcemia. First noted to have high calcium 2 mos ago . Not Currently using Calcium supplement . Not Takes 5000 IU of Vitamin D daily. not Currently using HCTZ. Kidney stones: No Osteoporosis: No History of Ollie use: No Biotin use: No Family history of high calcium or kidney stones: No Renal imaging: As above DXA: Biotin use: Labs: workup is consistent with primary hyperparathyroidism in the presence of osteoporosis of the spine. She is status post parathyroidectomy with removal of 3 parathyroid glands [facility] Medical History (Updated 04/25/23 @ 09:20 by Jj Smith MD) Annual physical exam Anorexia Dizziness of unknown etiology Primary hyperparathyroidism Weight loss Hypercalcemia Generalized anxiety disorder Fatty liver Impaired glucose tolerance Hypothyroid Hypercholesterolemia Hypertension Surgical History (Updated 06/13/23 @ 08:46 by Radha Middleton) History of parathyroid surgery History of esophagogastroduodenoscopy (EGD) S/P knee surgery H/O colonoscopy History of mammogram Hx of arthroscopic knee surgery History of back surgery History of removal of cyst History of cholecystectomy History of total abdominal hysterectomy Family History Father HTN (hypertension) Diabetes mellitus Mother No problems noted. 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 She is status post removal of 3 parathyroid gland in April 2023 Plan is to recheck calcium, albumin and PTH. Assuming above is normal, patient returned to the care of her primary care provider (2) Hyperparathyroidism: Code(s): E21.3 - Hyperparathyroidism, unspecified Plan: Plan as above Orders: Orders PTHI Today E21.3 - Hyperparathyroidism, unspecified Albumin Level Today E21.3 - Hyperparathyroidism, unspecified Coding Level of Care Code Est Pt Level 3 (92389) Diagnoses Primary hyperparathyroidism E21.0 Hyperparathyroidism E21.3
== END 2023-06-13 08:54 | disposition home or self-care (01) ==
PROVIDERS: PCP Internal Medicine; Visit Provider Internal Medicine Endocrinology, Diabetes & Metabolism
DX: E21.0 Primary hyperparathyroidism (principal); E21.3 Hyperparathyroidism, unspecified
CPT/HCPCS: 99213

== ENCOUNTER 2023-06-13 08:34 | Outpatient (REF) | payer BC, SELFPAY ==
[2023-06-13 10:26] LABS: Albumin Level 4.4 g/dL (3.5-5.0)
== END 2023-06-13 08:35 | disposition home or self-care (01) ==
LOC: HO.LAB 08:34
PROVIDERS: PCP Internal Medicine; Visit Provider Internal Medicine Endocrinology, Diabetes & Metabolism
DX: E21.0 Primary hyperparathyroidism (principal); E21.3 Hyperparathyroidism, unspecified
CPT/HCPCS: 36415; 82040

== ENCOUNTER 2023-06-25 07:26 | Outpatient (REF) | payer BC, SELFPAY ==
[2023-06-25 07:45] LABS: MANUAL DIFF FLAG NO
[2023-06-25 08:45] LABS: Basophils Percent Auto 0.3 % (0-2); Eosinophils Absolute Auto 0.1 X10*3/uL (0.0-0.4); Eosinophils Percent Auto 2.2 % (0-4); Hematocrit 44.6 % (37.0-47.0); Hemoglobin 14.7 g/dl (12.0-16.0); Imm Gran Abs Auto 0.01 X10*3/uL (0.00-0.03); Imm Gran Pct Auto 0.2 % (0.0-0.4); Lymphocytes Absolute Auto 3.3 X10*3/uL (1.2-4.9); Mean Corpuscular Hemoglobin 29.6 pg (27.0-33.0); Mean Corpuscular Volume 89.9 fL (80.0-98.0); Mean Platelet Volume 11.2 fL (9.4-12.3); Monocytes Absolute Auto 0.6 X10*3/uL (0.1-1.2); Monocytes Percent Auto 8.9 % (2-11); Neutrophils Absolute Auto 2.4 x10*3/uL (2.0-8.3); Neutrophils Percent Auto 37.4 % (45-73); Platelet Count 301 X10*3/uL (160-400); Red Blood Count 4.96 X10*6/uL (4.20-5.50); Red Cell Distribution Width 12.9 % (11.0-16.0); White Blood Count 6.5 X10*3/uL (4.8-10.8)
[2023-06-25 09:12] LABS: Estimated Average Glucose 117 mg/dL; Hemoglobin A1C 150.6783 umol/L; Hemoglobin A1c % 5.7 % (<6.0)
[2023-06-25 09:18] LABS: Alanine Aminotransferase 16 U/L (0-31); Albumin Level 4.5 g/dL (3.5-5.0); Alkaline Phosphatase 53 U/L (39-117); Anion Gap 13 (12-20); Aspartate Amino Transferase 18 U/L (5-31); Bilirubin Total 0.8 mg/dL (0.0-1.0); Blood Urea Nitrogen 18 mg/dL (9-16); Calcium 9.4 mg/dL (8.4-10.2); Carbon Dioxide 28 mmol/L (22-29); Chloride 106 mmol/L (96-108); Cholesterol 290 mg/dL (<200); Estimated Glomerular Filt Rate > 60; Glucose Random 107 mg/dL (60-115); HDL Cholesterol 54 mg/dL (>40); LDL Cholesterol Calculated 205 mg/dL (<100); Potassium 4.8 mmol/L (3.3-5.1); Sodium 142 mmol/L (135-145); Total Protein 7.9 g/dL (6.5-8.0); Triglycerides 156 mg/dL (<150)
[2023-06-25 09:25] LABS: Free T4 (Free Thyroxine) 1.11 ng/dL (0.71-1.85); Thyroid Stimulating Hormone 2.92 uIU/mL (0.32-4.0); Vitamin D 25-OH Total 38.1 ng/mL (>30)
== END 2023-06-25 07:27 | disposition home or self-care (01) ==
LOC: HO.LAB 07:26
PROVIDERS: PCP Internal Medicine; Visit Provider Internal Medicine
DX: R73.02 Impaired glucose tolerance (oral) (principal); E21.3 Hyperparathyroidism, unspecified; E78.00 Pure hypercholesterolemia, unspecified
CPT/HCPCS: 36415; 80053; 80061; 82306; 82330; 83036; 84439; 84443; 85025

== ENCOUNTER 2023-08-01 07:58 | Outpatient (REF) | payer BC, SELFPAY ==
[2023-08-01 09:19] LABS: Calcium 8.9 mg/dL (8.4-10.2)
[2023-08-01 09:22] LABS: Parathyroid Hormone Intact 60.2 pg/mL (8.7-77.1)
[2023-08-02 13:19] LABS: Calcium, Ionized 4.9 mg/dL (4.7-5.5)
== END 2023-08-01 07:59 | disposition home or self-care (01) ==
LOC: HO.LAB 07:58
PROVIDERS: PCP Internal Medicine; Referring Provider Internal Medicine Endocrinology, Diabetes & Metabolism; Visit Provider Internal Medicine
DX: E21.3 Hyperparathyroidism, unspecified (principal)
CPT/HCPCS: 36415; 82310; 82330; 83970

== ENCOUNTER 2023-10-04 09:05 | Outpatient (AMB) | payer BC, SELFPAY ==
--- NOTE | 2023-10-04 09:08 | A.OFFVIS_ITS ---
Intake Vital Signs 10/04/23 09:09 Height 5 ft 8 in Weight 166 lb 3.657 oz BMI 25.3 BP 154/55 H Blood Pressure Location Rt brachial Position Sitting Pulse 72 Intake Visit Reasons: 4 month fu PT keeps rescheduling Intake Note: Patient presents today in 4 months follow up of epigstric pain. CC: Reimbursement Spec Required: No Allergies nifedipine [From ADALAT] Allergy (Severe, Verified 10/04/23 09:13) Chest Pain isosorbide [From Imdur] Allergy (Intermediate, Verified 10/04/23 09:13) Headache valsartan Allergy (Intermediate, Verified 10/04/23 09:13) DIZZINESS losartan Allergy (Verified 10/04/23 09:13) Unknown atorvastatin Adverse Reaction (Intermediate, Verified 10/04/23 09:13) memory loss nebivolol [From Bystolic] Adverse Reaction (Mild, Verified 10/04/23 09:13) dizzy isosorbide mononitrate Adverse Reaction (Intermediate, Uncoded 12/21/22 09:34) Agitated hydralazine Adverse Reaction (Uncoded 12/21/22 09:34) Flushing HPI 4 month fu PT keeps rescheduling HPI Details 62 yr old f here for f/u RECAP: She has had pain in epigastric area, for several months and been to ED due to this on few occasions can go into the back and into the left side soemtimes the pain can be worse with food after about 20 mins can also be positional and worse if lies on right side, and better if lies on back can be sharp and needle like, sharp she has blaoting and distention she denied nausea or vomiting appetite is poor weight is down about 8# denies constipation or diarrhea, no blood in stool she had EGD 8 yrs ago for something similar but this time sx are more worse she takes pantoprazole prn, had tried it more consistently and didnt help--last took 3 d ago she does feel thirsty a lot colonoscopy: 2019--diverticulosis, hemorrhoids, hyperplastic polyp LABS: 04/28-- nml LFt (mild raised bili), nml CBC, nml BMP, mild raised ca She then came to the ED 05/29 with worsening abdominal pain and was admitted, also noted v high BP she had CT wth rectal sheath hernia, small. fullness right kidney pelvis- chronic, constipation mesenteric duplex was normal EGD done in house with streaky erythema in stomach, path: increased IEL duodenum and moderate chronic inflammation stomach-- hpylori--NEGATIVE, celiac neg Labs also suggestive of primary parathyroidism with high Ca and PTH--seeing surgeon at [facility] with further w/u--might need surgery Capsule: 11/2022-- patchy small bowel erythema MRI brain was nml INTERIM: she has had her parathyroid surgery Apr 29 she is doing well no nausea, no abdominal pain no constipation not on PPI now she was intolerant of statins EXAM: GENERAL: The patient is well developed and nontoxic. VITAL SIGNS:see workflow HEENT: Nonicteric sclerae, PERRLA, EOMI. Oropharynx clear. Moist mucous membranes. Conjunctivae appear well perfused. No thyroid mass. CHEST: Chest wall is nontender. HEART: Regular rate and rhythm without murmurs. LUNGS: Clear to auscultation bilaterally. ABDOMEN: Soft, positive bowel sounds, no organomegaly.no flank tenderness SKIN: No rash, no excessive bruising, petechiae, or purpura. NEUROLOGIC: Cranial nerves II-XII intact without motor/sensory deficit. a/P: 1/ Epigastric and upper abdominal pain: now resolved after parathyroid removal PLAN: 1/ no further action, LFT have been nor mal 2/ if any recurrence of sx can restart P PI f/u prn PFSH Medical History (Updated 04/25/23 @ 09:20 by Jj Smith MD) Annual physical exam Anorexia Dizziness of unknown etiology Primary hyperparathyroidism Weight loss Hypercalcemia Generalized anxiety disorder Fatty liver Impaired glucose tolerance Hypothyroid Hypercholesterolemia Hypertension Surgical History (Updated 06/13/23 @ 08:46 by LAVONNE Christensen) History of parathyroid surgery History of esophagogastroduodenoscopy (EGD) S/P knee surgery H/O colonoscopy History of mammogram Hx of arthroscopic knee surgery History of back surgery History of removal of cyst History of cholecystectomy History of total abdominal hysterectomy Family History Father HTN (hypertension) Diabetes mellitus Mother No problems noted. 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
[2023-10-04 09:09] VITALS: BP 154/55; PULSE 72; BMI 25.3
== END 2023-10-04 09:42 | disposition home or self-care (01) ==
PROVIDERS: PCP Internal Medicine; Visit Provider Internal Medicine Gastroenterology
DX: E21.3 Hyperparathyroidism, unspecified (principal); R10.13 Epigastric pain
CPT/HCPCS: 99213

== ENCOUNTER → 2023-10-04 09:05 | Outpatient (BNVA) | payer BC, SELFPAY | PROVIDERS: PCP Internal Medicine; Visit Provider Internal Medicine Gastroenterology ==

== ENCOUNTER 2023-10-29 12:38 | Outpatient (AMB) | payer BC, SELFPAY ==
[2023-10-29 12:41] VITALS: BP 154/82; PULSE 77; O2SAT 98; BMI 25.4
--- NOTE | 2023-10-29 12:41 | MHC.PC.OV ---
Vital Signs 10/29/23 12:41 Height 5 ft 8 in Weight 167 lb BMI 25.4 BP 154/82 H Blood Pressure Location Lt brachial Position Sitting Pulse 77 Pulse Source Pulse Oximeter Pulse Oximetry (%) 98 Oxygen Delivery Method Room Air Intake Visit Reasons: hypothyroid, hyperparathyroid Allergies nifedipine [From ADALAT] Allergy (Severe, Verified 10/29/23 12:46) Chest Pain isosorbide [From Imdur] Allergy (Intermediate, Verified 10/29/23 12:46) Headache valsartan Allergy (Intermediate, Verified 10/29/23 12:46) DIZZINESS losartan Allergy (Verified 10/29/23 12:46) Unknown atorvastatin Adverse Reaction (Intermediate, Verified 10/29/23 12:46) memory loss nebivolol [From Bystolic] Adverse Reaction (Mild, Verified 10/29/23 12:46) dizzy isosorbide mononitrate Adverse Reaction (Intermediate, Uncoded 10/29/23 12:46) Agitated hydralazine Adverse Reaction (Uncoded 10/29/23 12:46) Flushing Tobacco use date assessed: 10/29/23 Fall risk assessment: No Falls in past year Last assessed Fall Risk: 10/29/23 Dental Screening Dental Screen Date: 10/29/23 Did you have a dental visit in the last 12 months?: Yes Did you have a dental problem in the last 6 months where you did not have access to dental care?: No Was dental information given to patient?: Patient has dentist HPI hypothyroid, hyperparathyroid HPI Details 62-year-old female with a history of labile hypertension hyperparathyroidism coronary artery disease hypothyroidism hypercholesterolemia and impaired glucose tolerance last seen in April 2023. Patient's colonoscopy is up-to-date patient is due for mammogram and bone density is up-to-date. June 2022. Patient was seen by Nephrology in October 2023 lisinopril 20 mg once a day reports BP at home is less than 130 systolic blood pressure. Question rocio of a renal mass and a repeat ultrasound showing no ultrasonographic correlate for the lesion on the older CT. Patient also has followed up with Gastroenterology in September 2023. Review of the notes patient did have a parathyroid surgery in April 29. Patient has epigastric and abdominal pain resolved. Patient did see Endocrinology also June 2023 primary hyperparathyroidism status post removal of 3 parathyroid gland April 2023 continue to follow-up blood work. PFSH Medical History (Updated 10/29/23 @ 12:59 by Jj Smith MD) Annual physical exam Anorexia Dizziness of unknown etiology Primary hyperparathyroidism Weight loss Hypercalcemia Generalized anxiety disorder Fatty liver Impaired glucose tolerance Hypothyroid Hypercholesterolemia Hypertension Surgical History (Updated 06/13/23 @ 08:46 by LAVONNE Christensen) History of parathyroid surgery History of esophagogastroduodenoscopy (EGD) S/P knee surgery H/O colonoscopy History of mammogram Hx of arthroscopic knee surgery History of back surgery History of removal of cyst History of cholecystectomy History of total abdominal hysterectomy Family History Father HTN (hypertension) Diabetes mellitus Mother No problems noted. 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 1. Little interest or pleasure in doing things: not at all 2. Feeling down, depressed, or hopeless: not at all 3. Trouble falling or staying asleep, or sleeping too much: several days 4. Feeling tired or having little energy: not at all 5. Poor appetite or overeating: not at all 6. Feeling bad about yourself - or that you are a failure or have let yourself or your family down: not at all 7. Trouble concentrating on things, such as reading the newspaper or watching television: not at all 8. Moving or speaking so slowly that other people could have noticed. Or the opposite - being so fidgety or restless that you have been moving around a lot more than usual: not at all 9. Thoughts that you would be better off or of hurting yourself in some way: not at all Total score: 1 Depression Screening Interpretation: Negative Depression Screening Done: Yes 97313 - PHQ-9 Billing: Yes Source: Developed by Drs. Shemar St, Tiffany Chase, Duke Allen and colleagues, with an educational elaine from [employer]. Thrive Questionnaire Date Thrive assessed: 10/29/23 I am a: Patient What is your living situation today?: I have a steady place to live Within the past 12 months, did the food you bought not last and you didn't have the money to get more?: Never true Within the past 12 months, did you worry whether your food would run out before you got money to buy more?: Never true Do you have trouble paying for medicines?: No Do you have trouble getting transportation to medical appointments?: No Do you have trouble paying your heating and electricity bill?: No Do you have trouble taking care of your child, family member or friend?: No Do you have trouble with day-to-day activities such as bathing, preparing meals, shopping, managing finances, etc.?: No Are you currently unemployed and looking for a job?: No Are you interested in more education?: No Currently or been in a relationship where the following occur: no concerns reported THRIVE Score: 0 AUDIT C Alcohol Use Questionnaire (AUDIT-C) 1. How often do you have a drink containing alcohol?: Never Total Score: 0 BETTYE-7 AMB Questionnaire BETTYE-7 Date BETTYE - 7 assessed: 10/29/23 Feeling nervous, anxious, or on edge: 0 = Not at all Not being able to stop or control worryin = Not at all Worrying too much about different things: 0 = Not at all Trouble relaxin = Not at all Being so restless that it is hard to sit still: 0 = Not at all Becoming easily annoyed or irritable: 0 = Not at all Feeling afraid as if something awful might happen: 0 = Not at all Total BETTYE-7 score (0-4 normal; 5-9 mild; 10-14 moderate; 15-21 severe): 0 Source: Developed by Drs. Shemar St, Duke Robles and colleagues, with an educational elaine from [employer]. Physical exam (Primary Care) Vital Signs: Last Vital Signs Pulse 77 10/29/23 12:41 BP 154/82 H 10/29/23 12:41 Pulse Ox 98 10/29/23 12:41 Oxygen Delivery Method Room Air 10/29/23 12:41 BMI result Body Mass Index 25.4 Tobacco/Smoking Status: Tobacco use Status Tobacco use date assessed 10/29/23 10/29/23 12:47 Patient Tobacco Use Status Never used Tobacco 10/29/23 12:47 e-Cigarette/Vaping Use Never Used 10/29/23 12:47 PHQ-9: PHQ-9 Score PHQ-9: Total score 1 10/29/23 12:47 Depression Screening Interpretation: Negative Thrive Assessment: Date of Thrive Assessment Date Thrive assessed 10/29/23 10/29/23 12:47 Currently or been in a relationship where the following occur: no concerns reported Const General: alert; No acute distress Eyes Conjunctivae: conjunctivae normal Resp Auscultation: clear to auscultation bilaterally Cardio Rate: regular rate Rhythm: regular rhythm GI Inspection: Yes normal to inspection Extrem General: Yes normal to inspection and No edema Assessment and Plan Assessment & Plan (1) Hyperparathyroidism: Comment: Status post parathyroid surgery x3 April 2023 Code(s): E21.3 - Hyperparathyroidism, unspecified Plan: Continue to monitor calcium status post parathyroidectomy April 2023 (2) Labile hypertension: Code(s): R09.89 - Other specified symptoms and signs involving the circulatory and respiratory systems Plan: Continue with blood pressure medication. Decrease salt intake and exercise patient also follows up with Nephrology presently on lisinopril 20 mg once a day (3) Impaired glucose tolerance: Code(s): R73.02 - Impaired glucose tolerance (oral) Plan: Decrease the amount of carbohydrate intake, pasta, bread, rice and potatoes are all sugar and that is aside from all the sweet stuff, remember that fruits are good but they are Sweet also. (4) Hypothyroid: Code(s): E03.9 - Hypothyroidism, unspecified Qualifiers: Hypothyroidism type: acquired Qualified Code(s): E03.9 - Hypothyroidism, unspecified Plan: Continue with thyroid medication (5) Hypercholesterolemia: Comment: discussed about low-cholesterol diet Code(s): E78.00 - Pure hypercholesterolemia, unspecified Plan: Avoid fried foods, chicken skin, eggs, butter margarine, pastries and meat. Be it pork or beef they have a lot of cholesterol LDL goal of less than 130 and triglyceride of less than 150. Orders: Orders Complete Blood Count Auto Diff Today R09.89 - Other specified symptoms and signs involving the circulatory and respiratory systems Lipid Panel Today E78.00 - Pure hypercholesterolemia, unspecified, R09.89 - Other specified symptoms and signs involving the circulatory and respiratory systems Vitamin B12 and Folate Today R09.89 - Other specified symptoms and signs involving the circulatory and respiratory systems Parathyroid Hormone Intact Today R09.89 - Other specified symptoms and signs involving the circulatory and respiratory systems Hemoglobin A1c Today R73.02 - Impaired glucose tolerance (oral) Comprehensive Met. Panel Today R09.89 - Other specified symptoms and signs involving the circulatory and respiratory systems Free T4 (Free Thyroxine) Today R09.89 - Other specified symptoms and signs involving the circulatory and respiratory systems Thyroid Stimulating Hormone Today R09.89 - Other specified symptoms and signs involving the circulatory and respiratory systems Vitamin D 25-OH Total Today R73.02 - Impaired glucose tolerance (oral) Calcium, Ionized Today R73.02 - Impaired glucose tolerance (oral) Coding Level of Care Code Est Pt Level 4 (28624) Diagnoses Hyperparathyroidism E21.3 Labile hypertension R09.89 Impaired glucose tolerance R73.02 Acquired hypothyroidism E03.9 Hypothyroidism type: acquired Hypercholesterolemia E78.00
== END 2023-10-29 13:13 | disposition home or self-care (01) ==
PROVIDERS: PCP Internal Medicine; Visit Provider Internal Medicine
DX: E21.3 Hyperparathyroidism, unspecified (principal); R09.89 Other specified symptoms and signs involving the circulatory and respiratory systems; R73.02 Impaired glucose tolerance (oral); E03.9 Hypothyroidism, unspecified; E78.00 Pure hypercholesterolemia, unspecified
CPT/HCPCS: 99214

== ENCOUNTER 2024-04-22 07:56 | Outpatient (REF) | payer BC, SELFPAY ==
[2024-04-22 08:23] LABS: MANUAL DIFF FLAG NO
[2024-04-22 08:43] LABS: Basophils Percent Auto 0.3 % (0-2); Eosinophils Absolute Auto 0.2 X10*3/uL (0.0-0.4); Eosinophils Percent Auto 2.4 % (0-4); Hematocrit 44.9 % (37.0-47.0); Hemoglobin 14.6 g/dl (12.0-16.0); Imm Gran Abs Auto 0.02 X10*3/uL (0.00-0.03); Imm Gran Pct Auto 0.3 % (0.0-0.4); Lymphocytes Absolute Auto 3.1 X10*3/uL (1.2-4.9); Lymphocytes Percent Auto 49.4 % (20-40); Mean Corpuscular HGB Conc 32.5 g/dl (31.0-35.0); Mean Corpuscular Volume 89.1 fL (80.0-98.0); Mean Platelet Volume 10.3 fL (9.4-12.3); Monocytes Absolute Auto 0.5 X10*3/uL (0.1-1.2); Neutrophils Absolute Auto 2.5 x10*3/uL (2.0-8.3); Neutrophils Percent Auto 39.6 % (45-73); Platelet Count 278 X10*3/uL (160-400); Red Blood Count 5.04 X10*6/uL (4.20-5.50); Red Cell Distribution Width 13.1 % (11.0-16.0); White Blood Count 6.3 X10*3/uL (4.8-10.8)
[2024-04-22 08:53] LABS: Estimated Average Glucose 120 mg/dL; Hemoglobin A1C 148.4071 umol/L; Hemoglobin A1c % 5.8 % (<6.0)
[2024-04-22 09:28] LABS: Alanine Aminotransferase 19 U/L (0-31); Albumin Level 4.4 g/dL (3.5-5.0); Alkaline Phosphatase 44 U/L (39-117); Anion Gap 12 (12-20); Aspartate Amino Transferase 17 U/L (5-31); Bilirubin Direct 0.2 mg/dL (0.0-0.5); Blood Urea Nitrogen 14 mg/dL (9-16); Carbon Dioxide 28 mmol/L (22-29); Chloride 105 mmol/L (96-108); Cholesterol 295 mg/dL (<200); Estimated Glomerular Filt Rate > 60; Glucose Random 109 mg/dL (60-115); HDL Cholesterol 52 mg/dL (>40); LDL Cholesterol Calculated 209 mg/dL (<100); Sodium 141 mmol/L (135-145); Total Protein 7.4 g/dL (6.5-8.0); Triglycerides 173 mg/dL (<150)
[2024-04-22 09:48] LABS: Folate 10.7 ng/mL (> or = 4.0); Vitamin B12 515 pg/mL (200-900)
[2024-04-22 09:52] LABS: Free T4 (Free Thyroxine) 1.26 ng/dL (0.71-1.85); Vitamin D 25-OH Total 35.4 ng/mL (>30)
[2024-04-22 11:02] LABS: Parathyroid Hormone Intact 55.6 pg/mL (8.7-77.1)
== END 2024-04-22 07:57 | disposition home or self-care (01) ==
LOC: HO.LAB 07:56
PROVIDERS: PCP Internal Medicine; Visit Provider Internal Medicine
DX: R73.02 Impaired glucose tolerance (oral) (principal); R79.89 Other specified abnormal findings of blood chemistry; R09.89 Other specified symptoms and signs involving the circulatory and respiratory systems; E78.00 Pure hypercholesterolemia, unspecified
CPT/HCPCS: 36415; 80053; 80061; 82248; 82306; 82330; 82607; 82746; 83036; 83970; 84439; 84443; 85025

== ENCOUNTER 2024-04-29 09:12 | Outpatient (AMB) | payer BC, SELFPAY ==
[2024-04-29 09:17] VITALS: BP 142/70; PULSE 68; O2SAT 98; BMI 25.8
--- NOTE | 2024-04-29 09:17 | MHC.PC.OV ---
Vital Signs 04/29/24 09:17 04/29/24 09:32 Height 5 ft 8 in Weight 170 lb BMI 25.8 BP 142/70 H 148/70 H Blood Pressure Location Lt brachial Lt brachial Position Sitting Sitting Pulse 68 Pulse Source Pulse Oximeter Pulse Oximetry (%) 98 Oxygen Delivery Method Room Air Intake Visit Reasons: Annual Exam Allergies nifedipine [From ADALAT] Allergy (Severe, Verified 04/29/24 09:17) Chest Pain isosorbide [From Imdur] Allergy (Intermediate, Verified 04/29/24 09:17) Headache valsartan Allergy (Intermediate, Verified 04/29/24 09:17) DIZZINESS losartan Allergy (Verified 04/29/24 09:17) Unknown atorvastatin Adverse Reaction (Intermediate, Verified 04/29/24 09:17) memory loss nebivolol [From Bystolic] Adverse Reaction (Mild, Verified 04/29/24 09:17) dizzy isosorbide mononitrate Adverse Reaction (Intermediate, Uncoded 04/29/24 09:17) Agitated hydralazine Adverse Reaction (Uncoded 04/29/24 09:17) Flushing Medication List - Last Reconciled 04/29/24 by Jj Smith MD blood pressure test kit-medium As directed cholecalciferol (vitamin D3) 25 mcg PO DAILY clotrimazole-betamethasone 1-0.05 % appl topical TID cyanocobalamin (vitamin B-12) 1,000 mcg PO DAILY levothyroxine 75 mcg PO DAILY 90 days lisinopril 20 mg PO DAILY magnesium 250 mg PO DAILY nitroglycerin 0.4 mg sublingual Q5M PRN Tobacco use date assessed: 10/29/23 Fall risk assessment: No Falls in past year Last assessed Fall Risk: 04/29/24 Dental Screening Dental Screen Date: 10/29/23 HPI Annual Exam HPI Details 63-year-old female with a history of hyperparathyroidism labile hypertension impaired glucose tolerance hypothyroid hypercholesterolemia coming in for physical exam. Last seen in 10/26/2023. Patient's colonoscopy was done in 2019 mammogram is due bone density is due for this year. Review of the notes the last time nephrology saw the patient was October 13 for hypertension hyperparathyroidism status post resection lisinopril 20 mg once a day advised to monitor blood pressure patient has also seen gastroenterology in September.. decline flu and pneumonia shot. PAitnet states BP at home is SBP between 130-140- DBP 65 PFSH Medical History (Updated 04/29/24 @ 09:29 by Jj Smith MD) Annual physical exam Breast cancer screening Anorexia Dizziness of unknown etiology Primary hyperparathyroidism Weight loss Hypercalcemia Generalized anxiety disorder Fatty liver Impaired glucose tolerance Hypothyroid Hypercholesterolemia Hypertension Surgical History (Updated 06/13/23 @ 08:46 by LAVONNE Christensen) History of parathyroid surgery History of esophagogastroduodenoscopy (EGD) S/P knee surgery H/O colonoscopy History of mammogram Hx of arthroscopic knee surgery History of back surgery History of removal of cyst History of cholecystectomy History of total abdominal hysterectomy Family History Father HTN (hypertension) Diabetes mellitus Mother No problems noted. 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 1. Little interest or pleasure in doing things: not at all 2. Feeling down, depressed, or hopeless: not at all 3. Trouble falling or staying asleep, or sleeping too much: not at all 4. Feeling tired or having little energy: not at all 5. Poor appetite or overeating: not at all 6. Feeling bad about yourself - or that you are a failure or have let yourself or your family down: not at all 7. Trouble concentrating on things, such as reading the newspaper or watching television: not at all 8. Moving or speaking so slowly that other people could have noticed. Or the opposite - being so fidgety or restless that you have been moving around a lot more than usual: not at all 9. Thoughts that you would be better off or of hurting yourself in some way: not at all Total score: 0 Depression Screening Interpretation: Negative Depression Screening Done: Yes 16674 - PHQ-9 Billing: Yes Source: Developed by Drs. Shemar St, Tiffany Chase, Duke Allen and colleagues, with an educational elaine from [employer]. Thrive Questionnaire Date Thrive assessed: 10/29/23 I am a: Patient What is your living situation today?: I have a steady place to live Within the past 12 months, did the food you bought not last and you didn't have the money to get more?: Never true Within the past 12 months, did you worry whether your food would run out before you got money to buy more?: Never true Do you have trouble paying for medicines?: No Do you have trouble getting transportation to medical appointments?: No Do you have trouble paying your heating and electricity bill?: No Do you have trouble taking care of your child, family member or friend?: No Do you have trouble with day-to-day activities such as bathing, preparing meals, shopping, managing finances, etc.?: No Are you currently unemployed and looking for a job?: No Are you interested in more education?: No Please select the resources that you would like help with: None Currently or been in a relationship where the following occur: I choose not to answer THRIVE Score: 0 AUDIT C Alcohol Use Questionnaire (AUDIT-C) 1. How often do you have a drink containing alcohol?: Never Total Score: 0 BETTYE-7 AMB Questionnaire BETTYE-7 Date BETTYE - 7 assessed: 10/29/23 Feeling nervous, anxious, or on edge: 0 = Not at all Not being able to stop or control worryin = Not at all Worrying too much about different things: 0 = Not at all Trouble relaxin = Not at all Being so restless that it is hard to sit still: 0 = Not at all Becoming easily annoyed or irritable: 0 = Not at all Feeling afraid as if something awful might happen: 0 = Not at all Total BETTYE-7 score (0-4 normal; 5-9 mild; 10-14 moderate; 15-21 severe): 0 Source: Developed by Tiffany Johns Kurt Kroenke and colleagues, with an educational elaine from [employer] Review of Systems Const Denies poor appetite and Denies weakness Eyes Denies no additional complaints ENT Reports Normal hearing present, Denies dizziness, Denies nasal congestion, Denies tinnitus and Denies sore throat Card Denies chest pain, Denies syncope, Denies rapid heart rate and Denies dyspnea Resp Denies cough and Denies dyspnea GI Denies change in stool character, Reports constipation, Denies diarrhea, Denies nausea and Denies vomiting Denies urinary frequency, Denies difficulty voiding and Denies dysuria Neuro Reports Normal hearing present, Denies confusion, Denies dizziness, Denies syncope and Denies weakness Psych Denies confusion Physical exam (Primary Care) Vital Signs: Last Vital Signs Pulse 68 04/29/24 09:17 BP 142/70 H 04/29/24 09:17 Pulse Ox 98 04/29/24 09:17 Oxygen Delivery Method Room Air 04/29/24 09:17 BMI result Body Mass Index 25.8 Tobacco/Smoking Status: Tobacco use Status Tobacco use date assessed 10/29/23 04/29/24 09:18 Patient Tobacco Use Status Never used Tobacco 04/29/24 09:18 Tobacco use type Cigarette 04/29/24 09:18 e-Cigarette/Vaping Use Never Used 04/29/24 09:18 PHQ-9: PHQ-9 Score PHQ-9: Total score 0 04/29/24 09:22 Depression Screening Interpretation: Negative Thrive Assessment: Date of Thrive Assessment Date Thrive assessed 10/29/23 04/29/24 09:18 Currently or been in a relationship where the following occur: I choose not to answer Const General: No confusion Orientation/consciousness: No confusion HENMT Head: Yes normocephalic Ears: external ears normal and TM's normal bilaterally Face and sinus: Yes normal facial exam Mouth: moist mucous membranes Throat: Yes tonsils normal Eyes Conjunctivae: conjunctivae normal Pupils: Equal, round and reactive pupils present and Pupil accommodation reflex normal Direct Ophthalmoscopy: normal light reflex Neck Neck: No lymphadenopathy Thyroid: Thyroid normal Chest Chest palpation & inspection: normal inspection of the chest Resp Effort & Inspection: normal respiratory effort and no audible wheezes Auscultation: clear to auscultation bilaterally, no crackles, no wheezes and lung sounds not diminished Cardio Rate: regular rate Rhythm: regular rhythm Peripheral pulses: radial pulses present and dorsalis pedis present GI Palpation (GI): no masses Auscultation: normal bowel sounds and normoactive bowel sounds Rectal Exam - Female: deferred Skin General skin exam: no rashes or lesions noted Rashes: no rashes Neuro General: No confusion Cranial nerves: Yes Equal, round and reactive pupils present and Yes Normal hearing present Cognition (Neuro): normal cognition Gait exam (Neuro): Normal gait present Motor exam (neuro): 5/5 motor strength present throughout Deep tendon reflexes (DTR's): Right brachioradialis reflex intensity grade: 2+, Left brachioradialis reflex intensity grade: 2+, Right patellar reflex intensity grade: 2+ and Left patellar reflex intensity grade: 2+ Extrem General: No edema Office Procedures Flu Questionnaire Does the patient have a severe egg allergy?: No Does the patient have severe life threatening allergies?: No Does the patient have a fever or illness today?: No Has the patient ever had Guillain-Freedom Syndrome?: No Has the patient ever had any past reaction to a flu shot?: No Immunizations Fluarix Triv [id number] (PF) 45 mcg (15 mcg x 3)/0.5 mL IM syringe Performing Provider: Jj Smith MD [place] [facility] Documented (not given) by: Kenyatta Peck CMA on 04/29/24 09:22 Reason Not Given: Patient Refused Coding Level of Care Code Est Pt Prev Care >65y(16206) Diagnoses Annual physical exam Z00.00 Hyperparathyroidism E21.3 Labile hypertension R09.89 Coronary artery disease involving [place] coronary artery of [place] heart without angina pectoris I25.10 Coronary Disease-Associated Artery/Lesion type: [place] artery [place] vs. transplanted heart: [place] heart Associated angina: without angina Impaired glucose tolerance R73.02 Acquired hypothyroidism E03.9 Hypothyroidism type: acquired Hypercholesterolemia E78.00 Assessment & Plan Assessment & Plan (1) Annual physical exam: Code(s): Z00.00 - Encounter for general adult medical examination without abnormal findings Category: Medical Plan: Patient is advised to eat healthy, keep well hydrated, keep active and have adequate sleep. (2) Hyperparathyroidism: Comment: Status post parathyroid surgery x3 April 2023 Code(s): E21.3 - Hyperparathyroidism, unspecified Category: Medical Plan: Continuing to monitor calcium (3) Labile hypertension: Code(s): R09.89 - Other specified symptoms and signs involving the circulatory and respiratory systems Category: Medical Plan: Patient is on lisinopril 20 mg once a day advised to continue to monitor blood pressure and record. (4) Coronary artery disease: Comment: 2004 echo May 2019 equivocal likely normal ejection fraction 66%, cardiac catheterization July 2019 negative Code(s): I25.10 - Atherosclerotic heart disease of [place] coronary artery without angina pectoris Category: Medical Qualifiers: Coronary Disease-Associated Artery/Lesion type: [place] artery [place] vs. transplanted heart: [place] heart Associated angina: without angina Qualified Code(s): I25.10 - Atherosclerotic heart disease of [place] coronary artery without angina pectoris Plan: Control the cholesterol, weight, blood pressure, (5) Impaired glucose tolerance: Code(s): R73.02 - Impaired glucose tolerance (oral) Category: Medical Plan: Decrease the amount of carbohydrate intake, pasta, bread, rice and potatoes are all sugar and that is aside from all the sweet stuff, remember that fruits are good but they are Sweet also. (6) Hypothyroid: Code(s): E03.9 - Hypothyroidism, unspecified Category: Medical Qualifiers: Hypothyroidism type: acquired Qualified Code(s): E03.9 - Hypothyroidism, unspecified Plan: Continue with thyroid medication (7) Hypercholesterolemia: Comment: discussed about low-cholesterol diet Code(s): E78.00 - Pure hypercholesterolemia, unspecified Category: Medical Plan: Avoid fried foods, chicken skin, eggs, butter margarine, pastries and meat. Be it pork or beef they have a lot of cholesterol LDL goal of less than 100 and triglyceride of less than 150. Orders: Orders Influenza [id number] Immunization Today Z23 - Encounter for immunization Hemoglobin A1c 3 Months E78.00 - Pure hypercholesterolemia, unspecified Lipid Panel 3 Months E78.00 - Pure hypercholesterolemia, unspecified Comprehensive Met. Panel 3 Months E78.00 - Pure hypercholesterolemia, unspecified Medications: New rosuvastatin 5 mg PO DAILY 30 tabs 3RF E78.00 - Pure hypercholesterolemia, unspecified lisinopril 20 mg PO DAILY 90 tabs 3RF E78.00 - Pure hypercholesterolemia, unspecified
[2024-04-29 09:32] VITALS: BP 148/70
== END 2024-04-29 09:51 | disposition home or self-care (01) ==
PROVIDERS: PCP Internal Medicine; Visit Provider Internal Medicine
DX: Z00.00 Encounter for general adult medical examination without abnormal findings (principal); E21.3 Hyperparathyroidism, unspecified; R09.89 Other specified symptoms and signs involving the circulatory and respiratory systems; I25.10 Atherosclerotic heart disease of native coronary artery without angina pectoris; R73.02 Impaired glucose tolerance (oral); E03.9 Hypothyroidism, unspecified; E78.00 Pure hypercholesterolemia, unspecified; Z23 Encounter for immunization

== ENCOUNTER → 2024-04-29 09:12 | Outpatient (BNVA) | payer BC, SELFPAY | PROVIDERS: PCP Internal Medicine; Visit Provider Internal Medicine | DX: Z00.00 Encounter for general adult medical examination without abnormal findings (principal); E21.3 Hyperparathyroidism, unspecified; R09.89 Other specified symptoms and signs involving the circulatory and respiratory systems; I25.10 Atherosclerotic heart disease of native coronary artery without angina pectoris; R73.02 Impaired glucose tolerance (oral); E03.9 Hypothyroidism, unspecified; E78.00 Pure hypercholesterolemia, unspecified; Z79.899 Other long term (current) drug therapy | CPT/HCPCS: 90471; 96127 ==

== ENCOUNTER 2024-11-06 08:27 | Outpatient (REF) | payer BC, SELFPAY ==
--- OUTSIDE RECORDS SUMMARY | 2024-11-06 08:51 | XMS_ITS | Encounter Summary ---
Author Organization [facility] Address [address] [place] [address] Phone Care Team Providers Care Racing Car Driver Name Role Phone Jj Smith MD Primary Care Provider [phone] Encounter Details Date Type Department Care Team (Late st Contact Info) Description 08/14/2022 Documentation Only [facility] [address] [place] [address] Efrain Gustafson MD [address] [place] [address] Social History Tobacco Use Types Packs/Day Years Used Date Smoking Tobacco: Never Assessed Comments Unknown Sex and Gender Information Value Date Recorded Sex Assigned at Not on file Legal Sex Female 9:50 AM EDT Gender Identity Not on file Sexual Orientation Not on file documented as of this encounter Plan of Treatment Not on file documented as of this encounter Visit Diagnoses Not on filedocumented in this encounter Care Teams Racing Car Driver Relationship Specialty Start Date End Date Jj Smiht MD [facility] [address] [place], [place] PCP - General Internal Medicine 07/19/22 documented as of this encounter
--- OUTSIDE RECORDS SUMMARY | 2024-11-06 08:51 | XMS_ITS | Encounter Summary ---
Author Organization [facility] Address [address] [place] [address] Phone Care Team Providers Care Textile Conversion Manager Name Role Phone Jj Smith MD Primary Care Provider [phone] Encounter Details Date Type Department Care Team (Late st Contact Info) Description 09/16/2023 Documentation Only [facility] [place], [address] [place] [address] Joslyn Skelton [address] [place] [address] Social History Tobacco Use Types Packs/Day Years [...] on filedocumented in this encounter Care Teams Textile Conversion Manager Relationship Specialty Start Date End Date Jj Smith MD [facility] [address] [place], [place] PCP - General Internal Medicine 07/19/22 documented as of this encounter
--- OUTSIDE RECORDS SUMMARY | 2024-11-06 08:51 | XMS_ITS | Encounter Summary ---
Author Organization [facility] Address [address] [place] [address] Phone Care Team Providers Care Portable Track Line Marker Name Role Phone Jj Smith MD Primary Care Provider [phone] Encounter Details Date Type Department Care Team (Late st Contact Info) Description 08/14/2022 Documentation Only [facility] [address] [place] [address] fErain Gustafson MD [address] [place] [address] Social History Tobacco Use Types [...] on filedocumented in this encounter Care Teams Portable Track Line Marker Relationship Specialty Start Date End Date Jj Smith MD [facility] INTER[facility] [address] [place], [place] PCP - General Internal Medicine 07/19/22 documented as of this encounter
--- OUTSIDE RECORDS SUMMARY | 2024-11-06 08:51 | XMS_ITS | Clinical Summary ---
Author Organization [facility] Address [address] [place] [address] Phone Care Team Providers Care Negotiations Director Name Role Phone Jj Smith MD Primary Care Provider [phone] Allergies Active Allergy Reactions Criticality Noted Date Comments Isosorbide Other (see comments) 11/22/2020 Lisinopril Other (see comments) 11/22/2020 Nifedipine 11/22/2020 Other Reaction(s): heart attack, visual disturbances Visual disturbance Valsartan Other (see comments) 11/22/2020 Medications aspirin 81 MG tablet Take 81 mg by mouth 1 (one) time each day Active levothyroxine sodium (TIROSINT) 25 MCG capsule Take 25 mcg by mouth 1 (one) time each day Active gemfibrozil (LOPID) 600 MG tablet Take 600 mg by mouth 2 (two) times a day before meals Active fluticasone (FLONASE) 50 MCG/ACT nasal spray Administer 1 spray into each nostril 1 (one) time each day Active isosorbide mononitrate (IMDUR) 30 MG 24 hr tablet Take 30 mg by mouth 1 (one) time each day Do not crush or chew. Active Cholecalciferol (Vitamin D3) 50 MCG (1999 UT) tablet Take by mouth Active lisinopril 20 MG tablet Take 1 tablet (20 mg total) by mouth 1 (one) time each day 90 tablet 3 4 Active atorvastatin (LIPITOR) 10 MG tablet Take 10 mg by mouth 1 (one) time each day 4 Active Active Problems Problem Noted Date Diagnosed Date Hypertension 08/06/2022 Labile blood pressure 12/08/2019 Family History Medical History Relation Comments Diabetes Father Hypertension Father Relation Status Comments Father Alive Mother Social History Tobacco Use Types Packs/Day Years Used Date Smoking Tobacco: Never Assessed Comments Unknown Sex and Gender Information Value Date Recorded Sex Assigned at Not on file Legal Sex Female 9:50 AM EDT Gender Identity Not on file Sexual Orientation Not on file Plan of Treatment Health Maintenance Due Date Last Done Comments Breast Cancer Screening 1960 Pneumococcal Vaccine: 50+ Ye ars (1 of 2 - PCV) 1977 Colorectal Cancer Screening: Annual FOBT 12/02/2007 Colorectal Cancer Screening: Colonoscopy 12/02/2007 Colorectal Cancer Screening: Sigmoidoscopy 12/02/2007 Influenza Vaccine (Season Ended) 2025 Hepatitis B Vaccine Aged Out No longe r eligible based on patient's age to complete this topic Insurance [facility] Care Teams Negotiations Director Relationship Specialty Start Date End Date Jj Smith MD [facility] [address] [place], [place] PCP - General Internal Medicine 07/19/22
[2024-11-06 09:44] LABS: Estimated Average Glucose 120 mg/dL; Hemoglobin A1C 146.4404 umol/L; Hemoglobin A1c % 5.8 % (<6.0); Total Hemoglobin (HGBA1C) 3627.3366 umol/L
[2024-11-06 10:16] LABS: Alanine Aminotransferase 26 U/L (0-31); Albumin Level 4.2 g/dL (3.5-5.0); Alkaline Phosphatase 44 U/L (39-117); Anion Gap 12 (12-20); Aspartate Amino Transferase 22 U/L (5-31); Bilirubin Total 1.1 mg/dL (0.0-1.0); Blood Urea Nitrogen 12 mg/dL (9-16); Calcium 8.6 mg/dL (8.4-10.2); Carbon Dioxide 24 mmol/L (22-29); Chloride 108 mmol/L (96-108); Cholesterol 226 mg/dL (<200); Estimated Glomerular Filt Rate > 60; Glucose Random 103 mg/dL (60-115); HDL Cholesterol 47 mg/dL (>40); LDL Cholesterol Calculated 152 mg/dL (<100); Potassium 3.8 mmol/L (3.3-5.1); Sodium 140 mmol/L (135-145); Total Protein 7.1 g/dL (6.5-8.0); Triglycerides 138 mg/dL (<150)
== END 2024-11-06 08:28 | disposition home or self-care (01) ==
LOC: HO.LAB 08:27
PROVIDERS: PCP Internal Medicine; Visit Provider Internal Medicine
DX: R09.89 Other specified symptoms and signs involving the circulatory and respiratory systems (principal); E78.00 Pure hypercholesterolemia, unspecified; Z13.1 Encounter for screening for diabetes mellitus
CPT/HCPCS: 36415; 80053; 80061; 83036

== ENCOUNTER 2024-11-09 15:30 | Outpatient (AMB) | payer BC, SELFPAY ==
[2024-11-09 15:36] VITALS: BP 152/62; PULSE 81; O2SAT 98; BMI 26.0
--- NOTE | 2024-11-09 15:36 | A.OFFPC_ITS ---
Vital Signs 11/09/24 15:36 Height 5 ft 8 in Weight 171 lb BMI 26.0 BP 152/62 H Blood Pressure Location Lt brachial Position Sitting Pulse 81 Pulse Source Pulse Oximeter Pulse Oximetry (%) 98 Oxygen Delivery Method Room Air Intake Visit Reasons: HTN, Cholesterol Allergies nifedipine [From ADALAT] Allergy (Severe, Verified 11/09/24 15:36) Chest Pain isosorbide [From Imdur] Allergy (Intermediate, Verified 11/09/24 15:36) Headache valsartan Allergy (Intermediate, Verified 11/09/24 15:36) DIZZINESS losartan Allergy (Verified 11/09/24 15:36) Unknown atorvastatin Adverse Reaction (Intermediate, Verified 11/09/24 15:36) memory loss rosuvastatin Adverse Reaction (Intermediate, Unverified 11/09/24 16:04) Joint Pain nebivolol [From Bystolic] Adverse Reaction (Mild, Verified 11/09/24 15:36) dizzy isosorbide mononitrate Adverse Reaction (Intermediate, Uncoded 11/09/24 15:36) Agitated hydralazine Adverse Reaction (Uncoded 11/09/24 15:36) Flushing Medication List - Last Reconciled 11/09/24 by Jj Smith MD blood pressure test kit-medium As directed clotrimazole-betamethasone 1-0.05 % appl topical TID levothyroxine 75 mcg PO DAILY 90 days lisinopril 20 mg PO DAILY nitroglycerin 0.4 mg sublingual Q5M PRN Tobacco use date assessed: 11/09/24 Fall risk assessment: No Falls in past year Last assessed Fall Risk: 11/09/24 Dental Screening Dental Screen Date: 11/09/24 Did you have a dental visit in the last 12 months?: Yes Did you have a dental problem in the last 6 months where you did not have access to dental care?: No Was dental information given to patient?: Patient has dentist HPI HTN, Cholesterol HPI Details 2 months ago had echo from Aleks oconnell told heart is good [facility] Medical History (Updated 04/29/24 @ 09:29 by Jj Smith MD) Annual physical exam Breast cancer screening Anorexia Dizziness of unknown etiology Primary hyperparathyroidism Weight loss Hypercalcemia Generalized anxiety disorder Fatty liver Impaired glucose tolerance Hypothyroid Hypercholesterolemia Hypertension Surgical History (Updated 06/13/23 @ 08:46 by LAVONNE Christensen) History of parathyroid surgery History of esophagogastroduodenoscopy (EGD) S/P knee surgery H/O colonoscopy History of mammogram Hx of arthroscopic knee surgery History of back surgery History of removal of cyst History of cholecystectomy History of total abdominal hysterectomy Family History Father HTN (hypertension) Diabetes mellitus Mother No problems noted. 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 1. Little interest or pleasure in doing things: not at all 2. Feeling down, depressed, or hopeless: not at all 3. Trouble falling or staying asleep, or sleeping too much: not at all 4. Feeling tired or having little energy: not at all 5. Poor appetite or overeating: not at all 6. Feeling bad about yourself - or that you are a failure or have let yourself or your family down: not at all 7. Trouble concentrating on things, such as reading the newspaper or watching television: not at all 8. Moving or speaking so slowly that other people could have noticed. Or the opposite - being so fidgety or restless that you have been moving around a lot more than usual: not at all 9. Thoughts that you would be better off or of hurting yourself in some way: not at all Total score: 0 Depression Screening Interpretation: Negative Depression Screening Done: Yes Source: Developed by Drs. Shemar St, Tiffany Chase, Duke Allen and colleagues, with an educational elaine from [facility]. Thrive Questionnaire Date Thrive assessed: 11/09/24 I am a: Patient What is your living situation today?: I have a steady place to live Within the past 12 months, did the food you bought not last and you didn't have the money to get more?: I choose not to answer this question Within the past 12 months, did you worry whether your food would run out before you got money to buy more?: I choose not to answer this question Do you have trouble paying for medicines?: No Do you have trouble getting transportation to medical appointments?: No Do you have trouble paying your heating and electricity bill?: No Do you have trouble taking care of your child, family member or friend?: I choose not to answer this question Do you have trouble with day-to-day activities such as bathing, preparing meals, shopping, managing finances, etc.?: No Are you currently unemployed and looking for a job?: I choose not to answer this question Are you interested in more education?: No Please select the resources that you would like help with: None Currently or been in a relationship where the following occur: No concerns reported THRIVE Score: 0 AUDIT C Alcohol Use Questionnaire (AUDIT-C) 1. How often do you have a drink containing alcohol?: Never Total Score: 0 BETTYE-7 AMB Questionnaire BETTYE-7 Date BETTYE - 7 assessed: 11/09/24 Feeling nervous, anxious, or on edge: 0 = Not at all Not being able to stop or control worryin = Not at all Worrying too much about different things: 0 = Not at all Trouble relaxin = Not at all Being so restless that it is hard to sit still: 0 = Not at all Becoming easily annoyed or irritable: 0 = Not at all Feeling afraid as if something awful might happen: 0 = Not at all Total BETTYE-7 score (0-4 normal; 5-9 mild; 10-14 moderate; 15-21 severe): 0 Source: Developed by Drs. Shemar St, Tiffany Chase, Duke Allen and colleagues, with an educational elaine from [facility]. Physical exam (Primary Care) Vital Signs: Last Vital Signs Pulse 81 11/09/24 15:36 BP 152/62 H 11/09/24 15:36 Pulse Ox 98 11/09/24 15:36 Oxygen Delivery Method Room Air 11/09/24 15:36 BMI result Body Mass Index 26.0 Tobacco/Smoking Status: Tobacco use Status Tobacco use date assessed 11/09/24 11/09/24 15:38 Patient Tobacco Use Status Never used Tobacco 11/09/24 15:38 Tobacco use type Cigarette 11/09/24 15:38 e-Cigarette/Vaping Use Never Used 11/09/24 15:38 PHQ-9: PHQ-9 Score PHQ-9: Total score 0 11/09/24 16:02 Depression Screening Interpretation: Negative Thrive Assessment: Date of Thrive Assessment Date Thrive assessed 11/09/24 11/09/24 15:38 Currently or been in a relationship where the following occur: No concerns reported Const General: alert; No acute distress Eyes Conjunctivae: conjunctivae normal Resp Auscultation: clear to auscultation bilaterally Cardio Rate: regular rate Rhythm: regular rhythm GI Inspection: Yes normal to inspection Extrem General: Yes normal to inspection and No edema Coding Level of Care Code Est Pt Level 4 (29354) Diagnoses Hypercholesterolemia E78.00 Acquired hypothyroidism E03.9 Hypothyroidism type: acquired Impaired glucose tolerance R73.02 Coronary artery disease involving [place] coronary artery of [place] heart without angina pectoris I25.10 Associated angina: without angina Coronary Disease-Associated Artery/Lesion type: [place] artery [place] vs. transplanted heart: [place] heart Assessment & Plan Assessment & Plan (1) Hypercholesterolemia: Comment: discussed about low-cholesterol diet Code(s): E78.00 - Pure hypercholesterolemia, unspecified Category: Medical Plan: Avoid fried foods, chicken skin, eggs, butter margarine, pastries and meat. Be it pork or beef they have a lot of cholesterol LDL goal of less than 70 and triglyceride of less than 150 (2) Hypothyroid: Code(s): E03.9 - Hypothyroidism, unspecified Category: Medical Qualifiers: Hypothyroidism type: acquired Qualified Code(s): E03.9 - Hypothyroidism, unspecified Plan: Continue with the thyroid medication (3) Impaired glucose tolerance: Code(s): R73.02 - Impaired glucose tolerance (oral) Category: Medical Plan: Decrease the amount of carbohydrate intake, pasta, bread, rice and potatoes are all sugar and that is aside from all the sweet stuff, remember that fruits are good but they are Sweet also. (4) Coronary artery disease: Comment: 2004 echo May 2019 equivocal likely normal ejection fraction 66%, cardiac catheterization July 2019 negative Code(s): I25.10 - Atherosclerotic heart disease of [place] coronary artery without angina pectoris Category: Medical Qualifiers: Associated angina: without angina Coronary Disease-Associated Artery/Lesion type: [place] artery [place] vs. transplanted heart: [place] heart Qualified Code(s): I25.10 - Atherosclerotic heart disease of [place] coronary a rtery without angina pectoris Plan: Control the cholesterol, weight, blood pressure, patient is advised to be on aspirin 81 mg once a day Plan History of Present Illness The patient is a 63-year-old female presenting with a follow-up for chronic health conditions including hypothyroidism, hypercholesterolemia, and coronary artery disease. She has a history of hypothyroidism and coronary artery disease and is currently managing these conditions with medication. She previously experienced adverse muscle pain with statins, which has led to medication adjustments. Although her LDL cholesterol remains elevated, triglycerides have decreased with lifestyle modifications. She underwent back surgery in 2016, has had a parathyroidectomy for hyperparathyroidism, and recent echocardiography showed no cardiac anomalies. The patient's fasting glucose is elevated, and her hemoglobin A1c is slightly above the normal range. Thyroid function tests were normal when last checked. Health maintenance screenings have been conducted periodically, including colonoscopy, bone density tests, and mammograms. Health Maintenance - Regular thyroid function tests; last checked in April, - Cholesterol management with target LDL <100 mg/dL and triglycerides <150 mg/dL - Aspirin 81 mg once daily for cardiovascular risk reduction - Encouragement of lifestyle modifications to manage cholesterol levels - Annual mammograms; last done June 2021 - Colonoscopy performed in 2019 - Bone density evaluation performed in June 2022 - Monitoring of glucose levels; fasting glucose at 103, HbA1c at 5.8 - Counselled on physical activity and healthy diet Social History - Engages in physical activity and maintains a healthy lifestyle - No reported issues with vision; regularly follows up with eye care and updates prescriptions as needed - No difficulties with bowel movements or notable constipation - Adequate hydration reported Review of Systems - Cardiovascular: Denies current chest pain, no swelling - Endocrine: Reports on thyroid medication and status post-parathyroidectomy - Gastrointestinal: Denies constipation - Musculoskeletal: Previous muscle pain with statins - Neurological: Reports clear vision with corrected lenses Physical Exam - Cardiovascular- Auscultation of the heart indicates no abnormalities - Gastrointestinal- Normal bowel sounds with no constipation - Hydration status- Adequate fluid intake noted Results - Labs: Normal blood count; electrolytes and renal function within normal limits - Tests: Hemoglobin A1c at 5.8, fasting glucose at 103, improved LDL at 152, triglycerides at 138 - Diagnostics: Echocardiogram reported no abnormalities Plan Continue levothyroxine and lisinopril as prescribed. Aspirin 81 mg daily is planned for coronary artery disease management. The emphasis is placed on maintaining an active lifestyle and dietary modifications to improve cholesterol levels given previous intolerance to statins. Monitoring of blood glucose will be ongoing due to slight elevations, though HbA1c remains under diabetic range. Scheduled follow-ups and standard screening tests, including bone density checks, will be discussed in subsequent appointments. Current management strategies aim to maintain cardiovascular health and prevent the progression of hypercholesterolemia and impaired glucose regulation. Patient was informed and verbally consented to the use of an ambient scribe for clinic note documentation during this visit. Discussion Notes During our discussion, we outlined the continuation of levothyroxine and lisinopril, and the initiation of low-dose aspirin therapy for cardiovascular risk prevention. We emphasized lifestyle modifications for cholesterol management, particularly given the patient's statin intolerance. The conversation focused on the significance of the elevated fasting glucose and HbA1c, identifying the current status as pre-diabetic, stressing the importance of lifestyle alterations to arrest any further increase. We agreed on regular updates to screening and diagnostic services based on the patient's health maintenance schedule. The patient consented to these plans and understands the risks and benefits involved. Patient Instructions - Continue taking levothyroxine and lisinopril as directed. - Take aspirin 81 mg once daily. - Engage in regular physical activity and maintain a healthy diet to support cholesterol management. - Monitor blood glucose as tests are scheduled. - Keep up with eye care appointments and update glasses prescriptions as needed. - Maintain hydration and a balanced diet to prevent constipation. - Return for regular follow-ups and screenings. Orders: Orders Magnesium 6 Months I25.10 - Atherosclerotic heart disease of [place] coronary artery without angina pectoris Complete Blood Count Auto Diff 6 Months I25.10 - Atherosclerotic heart disease of [place] coronary artery without angina pectoris Comprehensive Met. Panel 6 Months I25.10 - Atherosclerotic heart disease of [place] coronary artery without angina pectoris Free T4 (Free Thyroxine) 6 Months I25.10 - Atherosclerotic heart disease of [place] coronary artery without angina pectoris Thyroid Stimulating Hormone 6 Months I25.10 - Atherosclerotic heart disease of [place] coronary artery without angina pectoris Lipid Panel 6 Months E78.00 - Pure hypercholesterolemia, unspecified, I25.10 - Atherosclerotic heart disease of [place] coronary artery without angina pectoris Hemoglobin A1c 6 Months I25.10 - Atherosclerotic heart disease of [place] coronary artery without angina pectoris Vitamin B12 and Folate 6 Months I25.10 - Atherosclerotic heart disease of [place] coronary artery without angina pectoris Vitamin D 25-OH Total 6 Months I25.10 - Atherosclerotic heart disease of [place] coronary artery without angina pectoris
--- OUTSIDE RECORDS SUMMARY | 2024-11-09 17:05 | XMS_ITS | Encounter Summary ---
Author Organization [facility] Address [address] [place] [address] Phone Care Team Providers Care Licensed Esthetician Name Role Phone Jj Smith MD Primary Care Provider [phone] Encounter Details Date Type Department Care Team (Late st Contact Info) Description 09/16/2023 Documentation Only [facility] [place], [address] [place] [address] Joslyn Skelton [address] [place] [address] Social History Tobacco Use Types [...] on filedocumented in this encounter Care Teams Licensed Esthetician Relationship Specialty Start Date End Date Jj Smith MD [facility] INTER[facility] [address] [place], [place] PCP - General Internal Medicine 07/19/22 documented as of this encounter
--- OUTSIDE RECORDS SUMMARY | 2024-11-09 17:05 | XMS_ITS | Encounter Summary ---
Author Organization [facility] Address [address] [place] [address] Phone Care Team Providers Care Screw Machine Tender Name Role Phone Jj Smith MD Primary Care Provider [phone] Encounter Details Date Type Department Care Team (Late st Contact Info) Description 08/14/2022 Documentation Only [facility] [address] [place] [address] Efrain Gustafson MD [address] [place] [address] Social History Tobacco Use Types [...] on filedocumented in this encounter Care Teams Screw Machine Tender Relationship Specialty Start Date End Date Jj Smith MD [facility] [address] [place], [place] PCP - General Internal Medicine 07/19/22 documented as of this encounter
--- OUTSIDE RECORDS SUMMARY | 2024-11-09 17:05 | XMS_ITS | Encounter Summary ---
Author Organization [facility] Address [address] [place] [address] Phone Care Team Providers Care Solutions Operator Name Role Phone Jj Smith MD Primary Care Provider [phone] Encounter Details Date Type Department Care Team (Late st Contact Info) Description 08/14/2022 Documentation Only [facility] [address] [place] [address] Efrain Gustafson MD [address] [place] [address] Social History Tobacco Use Types [...] on filedocumented in this encounter Care Teams Solutions Operator Relationship Specialty Start Date End Date Jj Smith MD [facility] [address] [place], [place] PCP - General Internal Medicine 07/19/22 documented as of this encounter
--- OUTSIDE RECORDS SUMMARY | 2024-11-09 17:05 | XMS_ITS | Clinical Summary ---
Author Organization [facility] Address [address] [place] [phone] Phone Care Team Providers Care Health Records Technology Teacher Name Role Phone Jj Smith MD Primary Care Provider Allergies Active Allergy Reactions Criticality Noted Date [...] patient's age to complete this topic Insurance [facility] Care Teams Health Records Technology Teacher Relationship Specialty Start Date End Date Jj Smith MD [facility] [place] [address] [place], [place] PCP - General Internal Medicine 07/19/22
== END 2024-11-09 16:15 | disposition home or self-care (01) ==
LOC: HO.HMCH 15:31
PROVIDERS: PCP Internal Medicine; Visit Provider Internal Medicine
DX: E78.00 Pure hypercholesterolemia, unspecified (principal); E03.9 Hypothyroidism, unspecified; R73.02 Impaired glucose tolerance (oral); I25.10 Atherosclerotic heart disease of native coronary artery without angina pectoris

== ENCOUNTER → 2024-11-09 15:30 | Outpatient (BNVA) | payer BC, SELFPAY | PROVIDERS: PCP Internal Medicine; Visit Provider Internal Medicine | DX: Z13.89 Encounter for screening for other disorder (principal) ==

== ENCOUNTER 2025-05-06 07:28 | Outpatient (REF) | payer BC, SELFPAY ==
--- OUTSIDE RECORDS SUMMARY | 2020-12-06 09:33 | XMS_ITS | Encounter Summary ---
Author Organization [facility] Address [address] [place] [address] [place] [address] Phone Care Team Providers Care Educational Assistant Teacher Name Role Phone Jj Smith MD Primary Care Provider [phone] Encounter Details Date Type Department Care Team (Late st Contact Info) Description 12/06/2020 9:33 AM EDT Hospital Encounter [facility] [address] [place] [phone] Alesia Flood FNP [address] [place] [id number] [email or web address] Social History Tobacco Use Types Packs/Day [...] dislocation of the right knee. Alesia Flood INDUSTRIAL TRAINER IMG XR LOWER EXTREMITY Patt l Result documented in this encounter Visit Diagnoses Not on filedocumented in this encounter Care Teams Educational Assistant Teacher Relationship Specialty Start Date End Date Jj Smith MD [address] [place] [phone] PCP - General Internal Medicine 11/22/20 documented as of this encounter Additional Source Comments The information contained in this document represents components of the legal health record. It is not the complete legal health record.[facility]
--- OUTSIDE RECORDS SUMMARY | 2025-05-06 07:31 | XMS_ITS | Encounter Summary ---
Author Organization [facility] Address [address] [place] [address] Phone Care Team Providers Care Bacteriology Teacher Name Role Phone Jj Smith MD Primary Care Provider [phone] Encounter Details Date Type Department Care Team (Late st Contact Info) Description 08/14/2022 Documentation Only [facility] [address] [place] [address] Efrain Gustafson MD [address] [place] [place] [address] Social History Tobacco Use Types [...] on filedocumented in this encounter Care Teams Bacteriology Teacher Relationship Specialty Start Date End Date Jj Smith MD [facility] INTERNAL [address] [place], [place] PCP - General Internal Medicine 07/19/22 documented as of this encounter
--- OUTSIDE RECORDS SUMMARY | 2025-05-06 07:31 | XMS_ITS | Patient Health Record ---
Author [facility] Address [address] [place] [address] Care Team Providers Care Kiss Setter Hand Name Role Phone Emir Hurst Primary Care Provider Lobo Lanier Unavailable [phone] Allergies Allergen (clinical drug ingredient) Drug/Non Drug Allergy documented on EMR Reaction Allergy Type Onset Date Status Adalat CC Unknown Drug Allergy Active sulfamethoxazole / trimethoprim Bactrim Unknown Drug Allergy Active sulfamethoxazole / trimethoprim Bactrim DS Unknown Drug Allergy Active gentamicin Gentamicin Sulfate Unknown Drug Allergy Active Imdur Unknown Drug Allergy Active Keflex Unknown Drug Allergy Active lisinopril Lisinopril Unknown Drug Allergy Activ e Nifediac CC Unknown Drug Allergy Activ e valsartan Valsartan Unknown Drug Allergy Active Reason For Referral No Information Medications Medication SIG (Take, Route, Frequency, Duration) Notes Start Date End Date Status Augmentin 500-125 MG 1 tablet Orally salina ry 8 hrs; Duration: 7 days 11/26/2019 Not-Taking Vitamin C 1000 Activ e Atorvastatin Calcium 20 MG TK 1 T PO QD Oral; Duration: 30 Active Atenolol 25 MG TK 1 T PO QD Oral; Duration: 30 Active amLODIPine Besylate 5 MG TK 1 T PO QD Or al; Duration: 30 Active Aspirin 81 81 MG 1 tablet Orally Once a day; Duration: 30 day(s) Active Vitamin B 12 1000 Ac tive Levothyroxine Sodium 25 MCG TK 1 T PO QD Oral; Duration: 30 Active Social History Tobacco Use: Social History Observation Description Date Details (start date - stop date) Never Smoker NA - NA Tobacco Use/Smoking Question Answer Notes Are you a: nonsmoker Additional Findings: Tobacco Non-User Current no n-smoker Alcohol Screen Question Answer Notes Did you have a drink containing alcohol in the p ast year? No Points 0 Interpretation Negative Tobacco use other than smoking: Question Answer Notes Are you an other tobacco user? No Problems Problem Type SNOMED Code ICD Code Onset Dates Problem Status W/U Status Risk Notes Problem Localized, primary osteoarthritis of the ankle and/or foot (045493795) Primary osteoarthrit is, right ankle and foot (M19.071) Active confirmed Problem Localized, primary osteoarthritis of the ankle and/or foot (643317938) Primary osteoarthrit is, left ankle and foot (M19.072) Active confirmed Plan Of Treatment Pending Test Test Name Order Date X ray : Ankle, left 3V 11/26/2019, [id number] INJECT or DRAIN, JOINT/BUR SA 03/21/2020 X ray : Ankle, right 3V 11/26/2019 Insurance Providers Payer Name Payer Address Payer Phone Subscriber Number Group Number Insured Name Patient Relationship to Insured Coverage Start Date Coverage End Date [facility] [address] [place] [address] [phone] [id number] Jaimie Rousseau Spouse - patient is the spouse of the insured Medical (General) History Medical History History ICD Code Back,Hip,and Knee pain High blood pressure Sciatica Obesity chronic sinusitis Hypercholesterolemia Hypothyroidism Surgical History Surgery Date(Month/Year) hysterectomy 10/2007 cyst removal rt knee 05/2004 cholecystectomy 04/1996 back surgery L4 L5 sciatica left& right 08/20/16 Hospitalization History Reason Date(Month/Year) [facility] Tested for Covid 04/08/20 [facility] Back Pain 04/08/20 High blood pressure 07/2019 [facility] MRI Bilatel Ankle 04/04/20
--- OUTSIDE RECORDS SUMMARY | 2025-05-06 07:31 | XMS_ITS | Clinical Summary ---
Author Organization [facility] Address [address] [place] [phone] Phone Care Team Providers Care Copy Machine Operator Name Role Phone Jj Smith MD Primary Care Provider [phone] Allergies Active Allergy Reactions Criticality Noted Date [...] Colorectal Cancer Screening: Sigmoidoscopy 12/02/2007 Influenza Vaccine (#1) 2025 Hepatitis B Vaccine Aged Out No longe r eligible based on patient's age to complete this topic Insurance [facility] Care Teams Copy Machine Operator Relationship Specialty Start Date End Date Jj Smith MD [facility] [place] [place] [address] [place], [place] PCP - General Internal Medicine 07/19/22
--- OUTSIDE RECORDS SUMMARY | 2025-05-06 07:31 | XMS_ITS | Encounter Summary ---
Author Organization [facility] Address [address] [place] [address] Phone Care Team Providers Care Parks And Recreation Manager Name Role Phone Jj Smith MD Primary Care Provider [phone] Encounter Details Date Type Department Care Team (Late st Contact Info) Description 09/16/2023 Documentation Only [facility], [address] [place] [address] Joslyn Skelton [address] [place] [address] Social History Tobacco Use Types [...] on filedocumented in this encounter Care Teams Parks And Recreation Manager Relationship Specialty Start Date End Date Jj Smith MD [facility] INTER[facility] [address] [place], [place] PCP - General Internal Medicine 07/19/22 documented as of this encounter
--- OUTSIDE RECORDS SUMMARY | 2025-05-06 07:31 | XMS_ITS | Encounter Summary ---
Author Organization [facility] Address [address] [place] [address] Phone Care Team Providers Care Director Of Sales Marketing Name Role Phone Jj Smith MD Primary Care Provider [phone] Encounter Details Date Type Department Care Team (Late st Contact Info) Description 08/14/2022 Documentation Only [facility] [address] [place] [address] Efrain Gustafson MD [address] [place] [address] Social History Tobacco Use Types [...] on filedocumented in this encounter Care Teams Director Of Sales Marketing Relationship Specialty Start Date End Date Jj Smith MD [facility] INTERNAL [address] [place], [place] PCP - General Internal Medicine 07/19/22 documented as of this encounter
--- OUTSIDE RECORDS SUMMARY | 2025-05-06 07:32 | XMS_ITS | Clinical Summary ---
Author Organization [facility] Address [address] [id number] Phone Care Team Providers Care Aws Developer Name Role Phone Jj Smith MD Primary Care Provider [phone] Allergies Active Allergy Reactions Criticality Noted Date Comments Isosorbide Headaches 11/22/2020 Lisinopril Cough 11/22/2020 Nifedipine Other (See Comments) 11/22/2020 Visual disturbance Other Reaction(s): pulse increased Other Reaction(s): heart attack, visual disturbances Visual disturbance Valsartan Dizziness 11/22/2020 Medications levothyroxine (SYNTHROID, LEVOTHROID) 50 MCG tablet Take 50 mcg by mouth daily. 1 Active aspirin 81 MG EC tablet Take 81 mg by mouth. Active atorvastatin (LIPITOR) 20 MG tablet Take 20 mg by mouth. Active fluticasone propionate (FLONASE) 50 mcg/actuation nasal spray 1 spray by Nasal route. Active levothyroxine (TIROSINT) 25 mcg Cap Take 25 mcg by mouth. Active naproxen (NAPROSYN) 500 MG tablet Take 1 tablet (500 mg total) by mouth 2 (two) times a day for 3 days. Then twice daily as needed for pain, inflammation 20 tablet 1 Active methylPREDNISol one (MEDROL DOSEPACK) 4 mg tablet follow package directions 21 tablet 4 Active lisinopril (PRINIVIL,ZESTR IL) 20 MG tablet 4 Active rosuvastatin (CRESTOR) 5 MG tablet Take 1 tablet by mouth every morning. 4 Active Active Problems Problem Noted Date Diagnosed Date Chronic GERD 12/18/2023 HLD (hyperlipidemia) 12/18/2023 Hypertension 08/06/2022 Labile blood pressure 12/08/2019 Immunizations No known immunizations Social History Tobacco Use Types Packs/Day Years Used Date Smoking Tobacco: Never Smokeless Tobacco: Never Tobacco Cessation:Counseling Given: Not Answered Education Answer Date Recorded Are you interested [...] on file Sexual Orientation Not on file Last Filed Vital Signs Vital Sign Reading Time Taken Comments Blood Pressure 160/75 05/14/2024 9:29 AM EST Pulse 67 05/14/2024 9:29 AM EST Temperature 37.1 C (98.8 F) 05/14/2024 9:29 AM EST Respiratory Rate 18 05/14/2024 9:29 AM EST Oxygen Saturation 100% 05/14/2024 9:29 AM EST Inhaled Oxygen Concentration - - Weight 75.8 kg (167 lb) 12/18/2023 8:21 AM EDT Height 165.1 cm (5' 5 ) 12/18/2023 8:21 AM EDT Body Mass Index 27.79 12/18/2023 8:21 AM EDT Plan of Treatment Health Maintenance Due Date Last Done Comments Adult Td,Tdap Booster 1958 CREATININE LEVEL 1958 LIPID PANEL 1958 POTASSIUM LEVEL 1958 TSH LEVEL 1958 DEPRESSION SCREENING 1970 HEPATITIS C SCREENING 1976 SCREENING FOR DIABETES 1993 MAMMOGRAM 1998 COLOGUARD 12/02/2003 COLONOSCOPY 12/02/2003 COLORECTAL CANCER SCREENING 12/02/2003 FIT TEST 12/02/2003 FOBT 12/02/2003 SIGMOIDOSCOPY 12/02/2003 VIRTUAL COLONOSCOPY 12/02/2003 PNEUMOCOCCAL VACCINES (50+ y ears) (1 of 1 - PCV) 2008 ZOSTER VACCINES (1 of 2) 2008 OSTEOPOROSIS SCREENING INITI AL (ONE-TIME) 12/02/2023 BLOOD PRESSURE 11/11/2024 05/14/2024 INFLUENZA VACCINE (#1) 2025 COVID-19 VACCINE (1 - 2024-2 6 season) 2025 RSV VACCINE (1 - 1-dose 75+ series) 2033 SMOKING STATUS SCREENING (On ce After 26 Yrs) Completed 05/14/2024 HEPATITIS A VACCINES Aged Out No long er eligible based on patient's age to complete this topic HIB VACCINES Aged Out No longer eligi ble based on patient's age to complete this topic MENINGOCOCCAL VACCINES (ACWY) Aged Out No longer eligible based on patient's age to complete this topic MENINGOCOCCAL VACCINES (B) Aged Out N o longer eligible based on patient's age to complete this topic Medical Devices Not on file Insurance MEDICARE PART A & B [facility] MEDICARE PART A & B [employer] [facility] MEDICARE PART A & B [id number] [place] [address] [employer] [facility] MEDICARE PART A & B [facility] MEDICARE PART A & B [facility] MEDICARE PART A & B Member Subscriber Plan / Payer ( fective 2023-Present) Name:Betsey Cloud Member ID:[id number] Relation to Subscriber:Self Name:Betsey Cloud Subscriber ID:[id number] Payer ID:[id number] Group ID:Not on file Type:Medicare Address: [facility] [employer] [facility] [employer] [facility] [address] [place] [phone] [facility] Care Teams Aws Developer Relationship Specialty Start Date End Date Jj Smith MD [address] [place] [phone] PCP - General Internal Medicine 11/22/20 Additional Source Comments The information contained in this document represents components of the legal health record. It is not the complete legal health record.[facility]
[2025-05-06 07:40] LABS: MANUAL DIFF FLAG NO
[2025-05-06 08:46] LABS: Hematocrit 44.5 % (37.0-47.0); Hemoglobin 14.2 g/dl (12.0-16.0); Imm Gran Abs Auto 0.02 X10*3/uL (0.00-0.03); Imm Gran Pct Auto 0.3 % (0.0-0.4); Lymphocytes Absolute Auto 3.7 X10*3/uL (1.2-4.9); Mean Corpuscular HGB Conc 31.9 g/dl (31.0-35.0); Mean Corpuscular Hemoglobin 28.7 pg (27.0-33.0); Mean Corpuscular Volume 89.9 fL (80.0-98.0); NRBC Abs Auto 0.000 X10*3/uL (0.0-0.012); NRBC Pct Auto 0.0 /100WBC (0.0-0.2); Platelet Count 326 X10*3/uL (160-400); Red Blood Count 4.95 X10*6/uL (4.20-5.50); White Blood Count 6.4 X10*3/uL (4.8-10.8)
[2025-05-06 08:56] LABS: Alanine Aminotransferase 15 U/L (0-31); Albumin Level 4.5 g/dL (3.5-5.0); Alkaline Phosphatase 52 U/L (39-117); Anion Gap 12 (12-20); Aspartate Amino Transferase 20 U/L (5-31); Blood Urea Nitrogen 14 mg/dL (9-16); Calcium 9.1 mg/dL (8.4-10.2); Carbon Dioxide 27 mmol/L (22-29); Chloride 104 mmol/L (96-108); Cholesterol 261 mg/dL (<200); Estimated Glomerular Filt Rate > 60; HDL Cholesterol 44 mg/dL (>40); Magnesium 2.1 mg/dL (1.6-2.6); Potassium 3.9 mmol/L (3.3-5.1); Sodium 139 mmol/L (135-145); Total Protein 7.4 g/dL (6.5-8.0); Triglycerides 186 mg/dL (<150)
[2025-05-06 09:13] LABS: Free T4 (Free Thyroxine) 1.16 ng/dL (0.71-1.85); Thyroid Stimulating Hormone 4.88 uIU/mL (0.32-4.0)
[2025-05-06 09:24] LABS: Folate 11.2 ng/mL (> or = 4.0); Vitamin B12 545 pg/mL (200-900)
== END 2025-05-06 07:29 | disposition home or self-care (01) ==
LOC: HO.LAB 07:28
PROVIDERS: PCP Internal Medicine; Visit Provider Internal Medicine
DX: I25.10 Atherosclerotic heart disease of native coronary artery without angina pectoris (principal); E21.3 Hyperparathyroidism, unspecified; E78.00 Pure hypercholesterolemia, unspecified; Z13.1 Encounter for screening for diabetes mellitus
CPT/HCPCS: 36415; 80053; 80061; 82306; 82607; 82746; 83036; 83735; 84439; 84443; 85025

== ENCOUNTER 2025-05-10 08:57 | Outpatient (AMB) | payer BC, SELFPAY ==
--- OUTSIDE RECORDS SUMMARY | 2020-12-06 08:33 | XMS_ITS | Encounter Summary ---
Author Organization [facility] Address [address] [place] [address] [place] [phone] Phone Care Team Providers Care Electrical Power Station Technician Name Role Phone Jj Smith MD Primary Care Provider [phone] Encounter Details Date Type Department Care Team (Late st Contact Info) Description 12/06/2020 9:33 AM EDT Hospital Encounter [facility] [address] [place] [id number] Alesia Flood FNP [address] [place] [id number] [email or web address] Social History Tobacco Use Types Packs/Day Years Used Date Smoking Tobacco: Never Smokeless Tobacco: Never Education Answer Date Recorded Are you interested in more education? Not on gutierrez e 11/03/2022 Are you concerned about learning? Not on file 11/03/2022 No 11/03/2022 No 11/03/2022 Digital Access Answer Date Recorded No 12/04/2022 No 12/04/2022 Reliable internet access at home? Not on file 12/04/2022 Device with a working camera? Not on file Comments Unknown Sex and Gender Information Value Date Recorded Sex Assigned at Not on file Legal Sex Female 12:58 PM EDT Gender Identity Not on file Sexual Orientation Not on file documented as of this encounter Plan of Treatment Not on file documented as of this encounter Procedures Procedure Name Priority Date/Time Associated Diagnosis Comments XR KNEE 4 OR MORE VIEWS (RIGHT) Urgent/patient waiting 12/06/2020 9:45 AM EDT Internal derangement of right knee documented in this encounter Results * XR KNEE 4 OR MORE VIEWS (RIGHT) (12/06/2020 9:45 AM EDT) Anatomical Region Laterality Modality Knee Right Computed Radiogr aphy 12/06/2020 10:2 0 AM EDT Impressions 12/06/2020 10:24 AM EDT No acute fracture or dislocation of the right knee. Narrative 12/06/2020 10:24 AM EDT TECHNIQUE: XR KNEE 4 OR MORE VIEWS (RIGHT) COMPARISON: None FINDINGS: No acute fracture or dislocation is visualized. Cartilage spaces are grossly preserved on nonweightbearing views. Bilateral tibiofemoral compartment chondrocalcinosis. Trace joint effusion. Mild soft tissue swelling overlying the patella and patellar tendon. Procedure Note Jones Jones DO - 12/06/2020 TECHNIQUE: XR KNEE 4 OR MORE VIEWS (RIGHT) COMPARISON: None FINDINGS: No acute fracture or dislocation is visualized. Cartilage spaces aregrossly preserved on nonweightbearing views. Bilateral tibiofemoralcompartment chondrocalcinosis. Trace joint effusion. Mild soft tissueswelling overlying the patella and patellar tendon. IMPRESSION: No acute fracture or dislocation of the right knee. Alesia Flood CASTING MACHINE SET UP OPERATOR IMG XR LOWER EXTREMITY Patt l Result documented in this encounter Visit Diagnoses Not on filedocumented in this encounter Care Teams Electrical Power Station Technician Relationship Specialty Start Date End Date Jj Smith MD [address] [place] [phone] PCP - General Internal Medicine 11/22/20 documented as of this encounter Additional Source Comments The information contained in this document represents components of the legal health record. It is not the complete legal health record.[facility]
[2025-05-10 09:04] VITALS: BP 136/68; PULSE 72; TEMP 36.1; O2SAT 98; BMI 29.9
--- NOTE | 2025-05-10 09:04 | A.OFFPC_ITS ---
Vital Signs 05/10/25 09:04 Height 5 ft 4 in Weight 174 lb 4 oz BMI 29.9 BP 136/68 Blood Pressure Location Lt brachial Position Sitting Pulse 72 Pulse Source Pulse Oximeter Temp 97.0 F Temp Source Temporal Artery Scan Pulse Oximetry (%) 98 Oxygen Delivery Method Room Air Intake Visit Reasons: Annual Exam Allergies nifedipine (From ADALAT) Allergy (Severe, Verified 05/10/25 09:07) Chest Pain isosorbide (From Imdur) Allergy (Intermediate, Verified 05/10/25 09:07) Headache valsartan Allergy (Intermediate, Verified 05/10/25 09:07) DIZZINESS losartan Allergy (Verified 05/10/25 09:07) Unknown atorvastatin Adverse Reaction (Intermediate, Verified 05/10/25 09:07) memory loss rosuvastatin Adverse Reaction (Intermediate, Unverified 05/10/25 09:07) Joint Pain nebivolol (From Bystolic) Adverse Reaction (Mild, Verified 05/10/25 09:07) dizzy isosorbide mononitrate Adverse Reaction (Intermediate, Uncoded 05/10/25 09:07) Agitated hydralazine Adverse Reaction (Uncoded 05/10/25 09:07) Flushing Medication List - Last Reconciled 05/10/25 by Jj Smith MD blood pressure test kit-medium As directed clotrimazole-betamethasone 1-0.05 % appl topical TID levothyroxine 75 mcg PO DAILY 90 days lisinopril 20 mg PO DAILY nitroglycerin 0.4 mg sublingual Q5M PRN Tobacco use date assessed: 05/10/25 Fall risk assessment: No Falls in past year Last assessed Fall Risk: 05/10/25 Dental Screening Dental Screen Date: 05/10/25 Did you have a dental visit in the last 12 months?: Yes Did you have a dental problem in the last 6 months where you did not have access to dental care?: No Was dental information given to patient?: Patient has dentist [facility] Medical History Annual physical exam Breast cancer screening Anorexia Dizziness of unknown etiology Primary hyperparathyroidism Weight loss Hypercalcemia Generalized anxiety disorder Fatty liver Impaired glucose tolerance Hypothyroid Hypercholesterolemia Hypertension Surgical History History of parathyroid surgery History of esophagogastroduodenoscopy (EGD) S/P knee surgery H/O colonoscopy History of mammogram Hx of arthroscopic knee surgery History of back surgery History of removal of cyst History of cholecystectomy History of total abdominal hysterectomy Family History Father HTN (hypertension) Diabetes mellitus Mother No problems noted. 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 1. Little interest or pleasure in doing things: not at all 2. Feeling down, depressed, or hopeless: not at all 3. Trouble falling or staying asleep, or sleeping too much: not at all 4. Feeling tired or having little energy: not at all 5. Poor appetite or overeating: not at all 6. Feeling bad about yourself - or that you are a failure or have let yourself or your family down: not at all 7. Trouble concentrating on things, such as reading the newspaper or watching television: not at all 8. Moving or speaking so slowly that other people could have noticed. Or the opposite - being so fidgety or restless that you have been moving around a lot more than usual: not at all 9. Thoughts that you would be better off or of hurting yourself in some way: not at all Total score: 0 Depression Screening Interpretation: Negative Depression Screening Done: Yes Source: Developed by Drs. Shemar St, Tiffany Chase, Duke Allen and colleagues, with an educational elaine from [employer]. Thrive Questionnaire Date Thrive assessed: 11/09/24 I am a: Patient What is your living situation today?: I have a steady place to live Within the past 12 months, did the food you bought not last and you didn't have the money to get more?: I choose not to answer this question Within the past 12 months, did you worry whether your food would run out before you got money to buy more?: I choose not to answer this question Do you have trouble paying for medicines?: No Do you have trouble getting transportation to medical appointments?: No Do you have trouble paying your heating and electricity bill?: No Do you have trouble taking care of your child, family member or friend?: I choose not to answer this question Do you have trouble with day-to-day activities such as bathing, preparing meals, shopping, managing finances, etc.?: No Are you currently unemployed and looking for a job?: I choose not to answer this question Are you interested in more education?: No Please select the resources that you would like help with: None Currently or been in a relationship where the following occur: No concerns reported THRIVE Score: 0 AUDIT C Alcohol Use Questionnaire (AUDIT-C) 1. How often do you have a drink containing alcohol?: Never 3. How often do you have six or more drinks on one occasion?: Never Total Score: 0 BETTYE-7 AMB Questionnaire BETTYE-7 Date BETTYE - 7 assessed: 11/09/24 Feeling nervous, anxious, or on edge: 0 = Not at all Not being able to stop or control worryin = Not at all Worrying too much about different things: 0 = Not at all Trouble relaxin = Not at all Being so restless that it is hard to sit still: 0 = Not at all Becoming easily annoyed or irritable: 0 = Not at all Feeling afraid as if something awful might happen: 0 = Not at all Total BETTYE-7 score (0-4 normal; 5-9 mild; 10-14 moderate; 15-21 severe): 0 Source: Developed by Drs. Shemar St, Tiffany Chase, Duke Allen and colleagues, with an educational elaine from [employer]. Review of Systems Const Denies poor appetite and Denies weakness Eyes Denies no additional complaints ENT Reports Normal hearing present, Denies dizziness, Denies nasal congestion, Denies tinnitus and Denies sore throat Card Denies chest pain, Denies syncope, Denies rapid heart rate and Denies dyspnea Resp Denies cough and Denies dyspnea GI Denies change in stool character, Reports constipation, Denies diarrhea, Denies nausea and Denies vomiting Denies urinary frequency, Denies difficulty voiding and Denies dysuria Neuro Reports Normal hearing present, Denies confusion, Denies dizziness, Denies syncope and Denies weakness Psych Denies confusion Physical exam (Primary Care) Vital Signs: Last Vital Signs Temp 97.0 F 05/10/25 09:04 Pulse 72 05/10/25 09:04 BP 136/68 05/10/25 09:04 Pulse Ox 98 05/10/25 09:04 Oxygen Delivery Method Room Air 05/10/25 09:04 BMI result Body Mass Index 29.9 Tobacco/Smoking Status: Tobacco use Status Tobacco use date assessed 05/10/25 05/10/25 09:08 Patient Tobacco Use Status Never used Tobacco 05/10/25 09:08 Tobacco use type Cigarette 05/10/25 09:08 e-Cigarette/Vaping Use Never Used 05/10/25 09:08 PHQ-9: PHQ-9 Score PHQ-9: Total score 0 05/10/25 09:16 Depression Screening Interpretation: Negative Thrive Assessment: Date of Thrive Assessment Date Thrive assessed 11/09/24 05/10/25 09:08 Currently or been in a relationship where the following occur: No concerns reported Const General: No confusion Orientation/consciousness: No confusion HENMN Head: Yes normocephalic Ears: external ears normal and TM's normal bilaterally Face and sinus: Yes normal facial exam Mouth: moist mucous membranes Throat: Yes tonsils normal Eyes Conjunctivae: conjunctivae normal Pupils: Equal, round and reactive pupils present and Pupil accommodation reflex normal Direct Ophthalmoscopy: normal light reflex Neck Neck: No lymphadenopathy Thyroid: Thyroid normal Chest Chest palpation & inspection: normal inspection of the chest Resp Effort & Inspection: normal respiratory effort and no audible wheezes Auscultation: clear to auscultation bilaterally, no crackles, no wheezes and lung sounds not diminished Cardio Rate: regular rate Rhythm: regular rhythm Peripheral pulses: radial pulses present and dorsalis pedis present GI Palpation (GI): no masses Auscultation: normal bowel sounds and normoactive bowel sounds Rectal Exam - Female: deferred Skin General skin exam: no rashes or lesions noted Rashes: no rashes Neuro General: No confusion Cranial nerves: Yes Equal, round and reactive pupils present and Yes Normal hearing present Cognition (Neuro): normal cognition Gait exam (Neuro): Normal gait present Motor exam (neuro): 5/5 motor strength present throughout Deep tendon reflexes (DTR's): Right brachioradialis reflex intensity grade: 2+, Left brachioradialis reflex intensity grade: 2+, Right patellar reflex intensity grade: 2+ and Left patellar reflex intensity grade: 2+ Extrem General: No edema Coding Level of Care Code Est Pt Prev Care >65y(08559) Diagnoses Annual physical exam Z00.00 Coronary artery disease involving [place] coronary artery of [place] heart without angina pectoris I25.10 Associated angina: without angina Coronary Disease-Associated Artery/Lesion type: [place] artery [place] vs. transplanted heart: [place] heart Hypercholesterolemia E78.00 Labile hypertension R09.89 Impaired glucose tolerance R73.02 Acquired hypothyroidism E03.9 Hypothyroidism type: acquired Hyperparathyroidism E21.3 Assessment & Plan Assessment & Plan (1) Annual physical exam: Code(s): Z00.00 - Encounter for general adult medical examination without abnormal findings Category: Medical Plan: Patient is advised to eat healthy, keep well hydrated, keep active and have adequate sleep. (2) Coronary artery disease: Comment: 2004 echo May 2019 equivocal likely normal ejection fraction 66%, cardiac catheterization July 2019 negative Code(s): I25.10 - Atherosclerotic heart disease of [place] coronary artery without angina pectoris Category: Medical Qualifiers: Associated angina: without angina Coronary Disease-Associated Artery/Lesion type: [place] artery [place] vs. transplanted heart: [place] heart Qualified Code(s): I25.10 - Atherosclerotic heart disease of [place] coronary artery without angina pectoris Plan: Control the cholesterol, weight, blood pressure (3) Hypercholesterolemia: Comment: discussed about low-cholesterol diet Code(s): E78.00 - Pure hypercholesterolemia, unspecified Category: Medical Plan: Avoid fried foods, chicken skin, eggs, butter margarine, pastries and meat. Be it pork or beef they have a lot of cholesterol LDL goal of less than 70. (4) Labile hypertension: Code(s): R09.89 - Other specified symptoms and signs involving the circulatory and respiratory systems Category: Medical Plan: Continue with blood pressure medication. Decrease salt intake and exercise presently on lisinopril 20 mg once a day (5) Impaired glucose tolerance: Code(s): R73.02 - Impaired glucose tolerance (oral) Category: Medical Plan: Decrease the amount of carbohydrate intake, pasta, bread, rice and potatoes are all sugar and that is aside from all the sweet stuff, remember that fruits are good but they are Sweet also. (6) Hypothyroid: Code(s): E03.9 - Hypothyroidism, unspecified Category: Medical Qualifiers: Hypothyroidism type: acquired Qualified Code(s): E03.9 - Hypothyroidism, unspecified Plan: Continue with present thyroid medication but advised to retest in 3 months (7) Hyperparathyroidism: Comment: Status post parathyroid surgery x3 April 2023 Code(s): E21.3 - Hyperparathyroidism, unspecified Category: Medical Plan: Discussed about bone density Plan History of Present Illness The patient is a 64-year-old overweight female with a history of coronary artery disease, impaired glucose tolerance, hypothyroidism, and hypercholesterolemia presenting for an annual physical exam. Her past surgical history includes a back surgery in 2016 and a parathyroidectomy in April 2023 for hyperparathyroidism. The patient also has a history of cholecystectomy. The patient has a history of multiple medication intolerances, including nifedipine, isosorbide, valsartan, losartan, atorvastatin, rosuvastatin, nebivolol, and isosorbide-hydralazine. Her current medications include lisinopril 20 mg and levothyroxine. Regarding recent lab work, her blood sugar was 114 and hemoglobin A1c was 5.9, which has been trending upward from 5.4, 5.7, and 5.8 since 2022. Her cholesterol remains elevated at 180, with an LDL of 180 and triglycerides of 186; her LDL has increased from 152 previously. Her vitamin D level is low at 26, and her thyroid level is mildly elevated. The patient reports inconsistent adherence to her levothyroxine, skipping doses on Sundays. For health maintenance, her last colonoscopy was in 2019 and her last bone density scan was in 2021. She has declined a mammogram. Health Maintenance - Last colonoscopy was in 2019. - Mammogram was declined. - Last bone density scan was in 2021. - Eye exam was conducted one year ago with a follow-up scheduled for June 09. - Patient declines vaccines. - Counseled on a diet low in carbohydrates and sugar, including avoiding pasta, bread, rice, potatoes, and sweets to manage her elevated glucose levels. - Advised to avoid fried foods, chicken skin, eggs, butter, margarine, pork, and beef to manage hypercholesterolemia. - Encouraged to stay active and drink enough water. Social History - Exercise: Patient is an active sdet. - Diet: Advised to limit intake of sugar, carbohydrates (pasta, bread, rice, potatoes), and high-cholesterol foods (fried foods, chicken skin, eggs, butter, meats). - Substance Use: No discussion of alcohol, tobacco, or illicit drug use. Review of Systems - General: Denies syncope, fever. Reports occasional dizziness related to low blood sugar post-medication. - HEENT: Reports recent sinus congestion that is improving. Reports good hearing. Denies dysphagia. Reports occasional dry and itchy ears. - Cardiovascular: Denies chest pain or paroxysmal nocturnal dyspnea. - Gastrointestinal: Reports occasional heartburn after eating fatty foods. Denies nausea, vomiting, constipation, or diarrhea. - Genitourinary: Denies any problems with urination. Physical Exam General: Cooperative, healthy appearing, comfortable, no acute distress and well developed Orientation: Patient oriented x3 Limitations: No limitations Head: Normal to inspection Ears: Hearing grossly normal bilaterally, slight redness and occasional itchiness noted Nose: Normal external nose present Face and sinus: Normal facial exam, recent sinus congestion noted but resolved Eyes: Appearance normal, both eyes and all related structures Neck: Normal visual inspection and Yes full ROM Respiratory: Normal respiratory effort and able to speak in complete sentences. Clear to auscultation bilaterally Cardiovascular: Regular rate and rhythm. Normal S1 and S2 GI: Normal to inspection. Soft to palpation and nontender Skin: No rashes or lesions noted Neuro: Patient oriented x3 Extremities: Normal to inspection Results - Complete Blood Count: Normal, no anemia. - Comprehensive Metabolic Panel: Electrolytes and renal function are normal. Fasting blood glucose is 114 mg/dL. - Hemoglobin A1c: 5.9%. - Liver Function Tests: Normal. - Lipid Panel: Cholesterol is 180 mg/dL, LDL is 180 mg/dL, triglycerides are 186 mg/dL. - Vitamin D: 26 ng/mL. - Thyroid-Stimulating Hormone: Mildly elevated. Plan Patient was informed and verbally consented to the use of an ambient scribe for clinic note documentation during this visit. 1. Hypercholesterolemia The patient's cholesterol remains elevated, with an LDL of 180 and triglycerides of 186, an increase from a previous LDL of 152. Due to a history of side effects, the patient cannot be prescribed statin medications. She was counseled on dietary modifications, including avoiding fried foods, chicken skin, eggs, butter, pork, and beef. The patient will resume a supplement from [employer] that previously helped lower her cholesterol. A repeat lipid panel will be checked in three months. 2. Prediabetes The patient's fasting blood sugar is 114, and her hemoglobin A1c is 5.9%, up from 5.8 on previous testing, indicating worsening glucose intolerance. She was counseled on the importance of diet, specifically avoiding carbohydrates such as pasta, bread, rice, and potatoes, as well as sweets like honey. No medication is indicated at this time, but her blood sugar and A1c will be rechecked in three months. 3. Subclinical Hypothyroidism The patient's thyroid level was found to be mildly elevated. She has been skipping her Saturday dose of levothyroxine 0.075 mg and was advised to start taking it daily. Her thyroid function will be retested in three months. 4. Vitamin D Deficiency The patient's vitamin D level is low at 26. She has been advised to take 2000 units of vitamin D daily. 5. Essential (Primary) Hypertension The patient's blood pressure is well-controlled at 136/68 mmHg on lisinopril. A one-year refill for lisinopril will be sent to her pharmacy. 6. Screening For Osteoporosis The patient's last bone density scan was in 2021. Given her history of hyperparathyroidism status post-parathyroidectomy, a follow-up scan is warranted. An order for a new bone density scan will be placed. Discussion Notes I reviewed the patient's recent lab results with her, highlighting the concerning upward trend in her blood sugar and hemoglobin A1c, placing her in the prediabetic range. We discussed dietary modifications, emphasizing the need to limit carbohydrates and sugars. I also noted her cholesterol has worsened, and because she cannot tolerate statins, we focused on diet changes and her plan to restart a supplement that was previously effective. We discussed her mildly elevated thyroid level, and she acknowledged not taking her levothyroxine daily; I instructed her to take it every day. Her low vitamin D was also addressed, and I recommended a daily supplement. I explained the plan to repeat her labs in three months to monitor these conditions. I recommended a new bone density scan, as it has been two years since her last one and is important follow-up care after her parathyroidectomy. Finally, I confirmed her blood pressure medication, lisinopril, is effective and submitted a one-year refill. Patient Instructions - Take your levothyroxine thyroid medication every day, including Sundays. - Take a vitamin D supplement of 2,000 units once a day. - Be careful with your diet to help your blood sugar and cholesterol levels. Try to avoid foods with a lot of sugar and carbohydrates (like pasta, bread, rice, potatoes) and high-cholesterol foods (like fried foods, meat fats, and butter). - Stay active. Your gardening is great for your health. - We will recheck your blood work (sugar, cholesterol, thyroid) in three months. - I have ordered a bone density scan for you. - I have sent a one-year refill for your lisinopril blood pressure medication to your pharmacy. - If your sinus symptoms get worse, please let us know. Orders: Orders Thyroid Stimulating Hormone 3 Months R79.89 - Other specified abnormal findings of blood chemistry Free T4 (Free Thyroxine) 3 Months R79.89 - Other specified abnormal findings of blood chemistry Comprehensive Met. Panel 3 Months R79.89 - Other specified abnormal findings of blood chemistry Complete Blood Count Auto Diff 3 Months R79.89 - Other specified abnormal findings of blood chemistry Hemoglobin A1c 3 Months R79.89 - Other specified abnormal findings of blood chemistry XR DEXA axial skeleton Today E21.3 - Hyperparathyroidism, unspecified, M81.0 - Age-related osteoporosis without current pathological fracture Lipid Panel 3 Months E78.00 - Pure hypercholesterolemia, unspecified, R79.89 - Other specified abnormal findings of blood chemistry Medications: Refilled lisinopril 20 mg PO DAILY 90 tabs 3RF E78.00 - Pure hypercholesterolemia, unspecified
--- OUTSIDE RECORDS SUMMARY | 2025-05-10 09:41 | XMS_ITS | Encounter Summary ---
Author Organization [facility] Address [address] [place] [address] Phone Care Team Providers Care Bench Worker Helper Name Role Phone Jj Smith MD Primary Care Provider [phone] Encounter Details Date Type Department Care Team (Late st Contact Info) Description 08/14/2022 Documentation Only [facility] [address] [place] [address] Efrain Gustafson MD [address] [place] [address] Social History Tobacco Use Types [...] on filedocumented in this encounter Care Teams Bench Worker Helper Relationship Specialty Start Date End Date Jj Smith MD [facility] [address] [place], [place] PCP - General Internal Medicine 07/19/22 documented as of this encounter
--- OUTSIDE RECORDS SUMMARY | 2025-05-10 09:41 | XMS_ITS | Encounter Summary ---
Author Organization [facility] Address [address] [place] [address] Phone Care Team Providers Care Drill Sharpener Operator Name Role Phone Jj Smith MD Primary Care Provider [phone] Encounter Details Date Type Department Care Team (Late st Contact Info) Description 09/16/2023 Documentation Only [facility] [place], [address] [place] [address] Joslyn Skelton [address] [place] [address] Social History Tobacco Use Types [...] on filedocumented in this encounter Care Teams Drill Sharpener Operator Relationship Specialty Start Date End Date Jj Smith MD [facility] [address] [place], [place] PCP - General Internal Medicine 07/19/22 documented as of this encounter
--- OUTSIDE RECORDS SUMMARY | 2025-05-10 09:41 | XMS_ITS | Patient Health Record ---
[facility] Address [address] [place] [address] Care Team Providers Care Cloth Laminating Supervisor Name Role Phone Emir Hurst Primary Care Provider Lobo Lanier Unavailable [phone] Allergies Allergen (clinical drug ingredient) Drug/Non Drug [...] primary osteoarthritis of the ankle and/or foot ([id number]) Primary osteoarthrit is, right ankle and foot (M19.071) Active confirmed Problem Localized, primary osteoarthritis of the ankle and/or foot ([id number]) Primary osteoarthrit is, left ankle and foot [...] Insured Coverage Start Date Coverage End Date [facility] [address] [place] [address] [phone] [id number] Jaimie Rousseau Spouse - patient is [...] Back Pain 04/08/20 High blood pressure 07/2019 [facility] MRI Bilatel Ankle 04/04/20
--- OUTSIDE RECORDS SUMMARY | 2025-05-10 09:41 | XMS_ITS | Clinical Summary ---
Author Organization [facility] Address [address] [place] [id number] Phone Care Team Providers Care Cardiopulmonary Technician And Eeg Tech Name Role Phone Jj Smith MD Primary Care Provider [phone] Allergies Active Allergy Reactions Criticality Noted Date [...] patient's age to complete this topic Insurance [facility] Care Teams Cardiopulmonary Technician And Eeg Tech Relationship Specialty Start Date End Date Jj Smith MD [facility] [address] [place], [place] PCP - General Internal Medicine 07/19/22
--- OUTSIDE RECORDS SUMMARY | 2025-05-10 09:41 | XMS_ITS | Clinical Summary ---
Author Organization [facility] Address [address] [address] Phone Care Team Providers Care Classification Counselor Name Role Phone Jj Smith MD Primary Care Provider [phone] Allergies Active Allergy Reactions Criticality Noted Date [...] file Insurance MEDICARE PART A & B [facility] MEDICARE PART A & B [facility] [facility] MEDICARE PART A & B [id number] [place] [address] [employer] [facility] MEDICARE PART A & B [facility] MEDICARE PART A & B [facility] MEDICARE PART A & B Member Subscriber Plan / Payer ( fective 2023-Present) Name:Betsey Cloud Member ID:[id number] Relation to Subscriber:Self Name:Betsey Cloud Subscriber ID:[id number] Payer ID:[id number] Group ID:Not on file Type:Medicare Address: [facility] [employer] [email or web address] [address] [place] [id number] [facility] Care Teams Classification Counselor Relationship Specialty Start Date End Date Jj Smith MD [address] [place] [id number] PCP - General Internal Medicine 11/22/20 Additional Source Comments The information contained in this document represents components of the legal health record. It is not the complete legal health record.[facility]
--- OUTSIDE RECORDS SUMMARY | 2025-05-10 09:41 | XMS_ITS | Encounter Summary ---
Author Organization [facility] Address [address] [place] [address] Phone Care Team Providers Care Principal Consulting Engineer Name Role Phone Jj Smith MD Primary Care Provider [phone] Encounter Details Date Type Department Care Team (Late st Contact Info) Description 08/14/2022 Documentation Only [facility] [address] [place] [address] Efrain Gustafson MD [address] [place] [address] Social History Tobacco Use Types [...] on filedocumented in this encounter Care Teams Principal Consulting Engineer Relationship Specialty Start Date End Date Jj Smith MD [facility] [address] [place], [place] PCP - General Internal Medicine 07/19/22 documented as of this encounter
== END 2025-05-10 09:33 | disposition home or self-care (01) ==
LOC: HO.HMCH 08:58
PROVIDERS: PCP Internal Medicine; Visit Provider Internal Medicine
DX: Z00.00 Encounter for general adult medical examination without abnormal findings (principal); I25.10 Atherosclerotic heart disease of native coronary artery without angina pectoris; E78.00 Pure hypercholesterolemia, unspecified; R09.89 Other specified symptoms and signs involving the circulatory and respiratory systems; R73.02 Impaired glucose tolerance (oral); E03.9 Hypothyroidism, unspecified; E21.3 Hyperparathyroidism, unspecified